=== PATIENT | male | born 1930 | race Caucasian/White ===

== ENCOUNTER → 2016-06-25 | Day surgery (SDC) | payer OTHER ==
[~2016-06-25] VITALS: Ht 177.8 cm; Wt 77.1 kg
[~2016-06-25] MED LIST: ALBUTEROL0.09 MG/A1 INH; AUGMENTIN 500-1 EACH PO; AUGMENTIN 875 M1 TAB PO; BACTRIM DS TAB1 EACH PO; CALCIUM 600-D 61 TAB PO; CALCIUM600 M2 PO; CIPROFLOXACIN500 M2 PO; COLACE100 M1 PO; COLACE100 MG PO; DOFETILIDE PO; DOK100 M1 PO; FUROSEMIDE40 MG PO; IRON325 M1 PO; IRON325 M3 PO; LASIX40 M1 PO; LEVOTHYROXIN0.088 M1 PO; LEVOTHYROXINE88 MCG PO; LOPRESSOR 25MG25 MG PO; NATURAL IRON65 MG PO; PERCOCET 5-3251 EACH PO; PRAVASTATIN SOD40 MG PO; PROAIR HFA8.5 GM INH; SYMBICORT 160/41 PUF INH; SYMBICORT 16010.2 GM INH; TIKOSYN125 MCG PO; TOPROL XL25 M1 PO; TOPROL XL25 MG PO; VANCO 750750 MG/250 IV
[2016-06-25 07:28] LABS: ABSOLUTE BASOPHIL COUNT 0 /CUMM (0.0-0.2); ABSOLUTE EOSINOPHIL COUNT 0.3 /CUMM (0.0-0.7); ABSOLUTE GRANULOCYTE CT 5.8 /CUMM (1.4-6.5); ABSOLUTE LYMPH COUNT 0.7 /CUMM (1.2-3.4); ABSOLUTE MONOCYTE COUNT 0.7 /CUMM (0.10-0.60); BASOPHIL % 0.3 % (0.0-2.0); EOSINOPHIL % 3.5 % (0-5); GRANULOCYTE % 77.3 % (42.2-75.2); HEMATOCRIT 32.9 % (42-52); MEAN CORPUSCULAR HGB 29.4 PG (27.0-31.0); MEAN CORPUSCULAR HGB CONC 32.8 G/DL (33.0-37.0); MEAN CORPUSCULAR VOLUME 89.7 FL (80.0-94.0); MEAN PLATELET VOLUME 8.7 FL (7.4-10.4); PLATELET COUNT 213 /CUMM (130-400); RBC DISTRIBUTION WIDTH 14.3 % (11.5-14.5); RED BLOOD CELL CT 3.67 /CUMM (4.70-6.10); WHITE BLOOD CELL COUNT 7.5 /CUMM (4.8-10.8)
--- NOTE | 2016-06-25 14:05 | RADIOLOGY REPORT ---
EXAMINATION: Intraoperative fluoroscopy CLINICAL INDICATION: Left ureteroscopy with stent exchange COMPARISON: CT abdomen pelvis 01/30/2016 TECHNIQUE: Intraoperative fluoroscopy was provided for Dr. Fields during a left ureteroscopy and sent exchange. 10 images were saved to PACS. Total fluoroscopic time: 2.5 minutes. FINDINGS/IMPRESSION: Intraoperative fluoroscopy was provided for Dr. Fields during a left ureteroscopy with stent exchange. Please see operative note for detailed findings.
--- NOTE | 2016-06-25 17:19 | Operative Report ---
Operative/Inv Procedure Report Surgery Date: 06/25/16 Name of Procedure: Cystoscopy. Left flexible ureteroscopy with retrograde pyelogram, selective cytology on the left, left stent exchange. Suprapubic tube exchange. Laser fulguration of left mid calyx transitional cell tumor. 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 Post-Operative Diagnosis: Same Estimated Blood Loss: scant Surgeon/Child Care Group Leader: AVERY ROME MD Anesthesia: local monitored anesthesi Drains: New 20 Moroccan Ritchie used as a suprapubic tube, and new 18 Moroccan urethral Ritchie. Specimens: Left renal pelvis selective cytology Operative/Procedure Note Note: The patient was taken to the operating room and placed on the OR table in supine position. Timeout was performed, with the patient awake, in order to confirm correct patient, procedure, laterality, and other pertinent nica-operative information. After adequate anesthesia and antibiotics, the patient was then placed in lithotomy stirrups, draped and prepped in the usual surgical fashion. The Holmium Yag Laser was confirmed in the room on standby. A 22 Moroccan cystoscope sheath with 30 angle lens was inserted into the bladder without difficulty. Upon entering the bladder, the bladder was noted to be free of tumor free of stone. The left orifice was noted to have an old stent in place. The stent was grasped with alligator forcep, and the cystoscope along with entire left stent was removed. The cystoscope was then reinserted, and the left ureter orifice was intubated with an 8fr cone-tip catheter. A Retrograde pyelogram with fluoroscopy was performed revealing no significant filling defects. The cone-tipped catheter was removed, followed by insertion of a 0.035 Glidewire, which was advanced into the left renal pelvis without difficulty. Placement was confirmed with fluoroscopy. Leaving the Glidewire in place. flexible ureteroscope was inserted over the gluidewire, and railroaded over the wire into the bladder, up the ureter, and into the left renal pelvis, with fluoroscopy visualization. Pyeloscopy/calyxoscopy of the upper, middle, and lower poles reveal no evidence of stones, however, multiple areas of small papillary lesions were noted in the left renal calyx, and left lower pole calyx. A ureteroscopic biopsy forceps was inserted into the ureteroscope to attempt biopsy. Unfortunately of lesions were noted to be extremely fragile and the specimen were washed out prior to obtaining specimen. However selective cytology was performed and sent to pathology. The 200 m YAG laser fiber was then inserted through the flexible ureteroscope, where laser fulguration of the transitional cell lesions were performed in order to achieve good hemostasis, and fulgurate the transitional cell carcinoma appearing lesions. At this point the laser was disengaged. The entire length of the ureter was also visualized carefully on the way out, and no stones, or tumor was seen. The 22 Moroccan cystoscope was then reinserted into the bladder .the left orifice was intubated with a 0.035 Glidewire, which was advanced into the left renal pelvis without difficulty. Over this Glidewire, a 7 x 24 Bard onlay stent was railroaded over the Glidewire. The stent was advanced without significant difficulty into the left renal pelvis were placement was confirmed on fluoroscopy. The Glidewire was removed, and the stent remained in good position. This is to be used for reflux mitomycin treatment in the near future. The bladder was then drained, after the cystoscope was removed. The old Ritchie catheter used as a suprapubic tube was removed, followed by insertion of a new 20 Moroccan Ritchie catheter with 10 mL of sterile water was placed into the balloon. In order to minimize incontinence, a new 18 Moroccan Ritchie catheter was inserted into the urethra, and upon entering the bladder, 10 mL of sterile water was placed into the balloon. All sponge needle and instrument count were correct at the end of the case. The patient tolerated the procedure well was then taken to the recovery room in satisfactory condition. The patient is to follow-up next week for POC, and first mitomycin treatment. Findings: Papillary lesions in the left mid calyx, and left lower pole calyx. Discharge Disposition: Same Day Admissions CC: WILD WALLACE,AVERY
== END ==
LOC: STS 01:11
PROVIDERS: Urology
DX: D41.12 Neoplasm of uncertain behavior of left renal pelvis (principal); N28.9 Disorder of kidney and ureter, unspecified; R31.0 Gross hematuria; Z85.46 Personal history of malignant neoplasm of prostate; I50.9 Heart failure, unspecified; Z22.322 Carrier or suspected carrier of Methicillin resistant Staphylococcus aureus; I25.2 Old myocardial infarction; I48.91 Unspecified atrial fibrillation
CPT/HCPCS: 36415; 74000; 88305; 93005; 93010; C2617; J0131; J0690; J1940

== ENCOUNTER 2016-10-01 10:44 | Inpatient (IN) | payer OTHER ==
[~2016-10-01] VITALS: Ht 177.8 cm; Wt 77.1 kg
[~2016-10-01 10:44] MED LIST changes: -CIPROFLOXACIN500 M2 PO; -VANCO 750750 MG/250 IV
--- NOTE | 2016-10-01 11:16 | NUR ---
Pt BIBA from home for lower abdominal pain x 4 days. Pt states he has a hx of renal cancer and has a suprapubic tube in place. Pt states he had a normal bm yesterday. +nausea. Per EMS meditronic nurse called to check on patient because patient has a pacer/defib in place and was noted to have a run of polymorphic VT with VF and was defib. Pt states he had no idea his pacer went off and her has no chest pain. Dr. Fields at bedside to check suprapubic tube. Pt to noted to have low grade temp of 100 and MD aware. Pt has a hx of ischemic cardiomyopathy. [employer] wants patient to have device interigated.
--- NOTE | 2016-10-01 11:33 | NUR ---
LEG BAG CHANGED. SUPRAPUBIC ASSESSED AND OLD SATURATED DRESSINGS DISCARDED. SIGNIFICANT LEAKING NOTED FROM PENIS. PT ENDORSES SIGNIFICANT LOWER ABD PAIN, NAUSEA WITH MOVEMENT, LETHARGY, WEAKNESS AND RECENT USE OF WALKER TO MOBILITY AT HOME. APPEARS PALE. PT TO CT
--- NOTE | 2016-10-01 11:54 | NUR ---
LABS DRAWN AND SENT BY THIS [facility], BLUE,SST,LAV,HOLCOMB, 1ST SET OF CULTURES.
--- NOTE | 2016-10-01 11:57 | NUR ---
BLOODWORK DRAWN AND SENT (BLUE, SST, LAV, MEJÍA, PINK, BLOOD CULTURES X2 SETS) AND IV ESTABLISHED. PT MEDICATED WITH ZOFRAN PER ORDER AND PLACED ON SUPPLIMENTAL O2 FOR SAT 90-91% ON ROOM AIR. IMPROVED TO 95% ON 2L
[2016-10-01 12:12] LABS: ABSOLUTE BASOPHIL COUNT 0 /CUMM (0.0-0.2); ABSOLUTE EOSINOPHIL COUNT 0 /CUMM (0.0-0.7); ABSOLUTE LYMPH COUNT 0.2 /CUMM (1.2-3.4); ABSOLUTE MONOCYTE COUNT 0.9 /CUMM (0.10-0.60); BASOPHIL % 0 % (0.0-2.0); EOSINOPHIL % 0.1 % (0-5); GRANULOCYTE % 93.5 % (42.2-75.2); HEMATOCRIT 28.4 % (42-52); MEAN CORPUSCULAR HGB 29.1 PG (27.0-31.0); MEAN CORPUSCULAR HGB CONC 33.2 G/DL (33.0-37.0); MEAN CORPUSCULAR VOLUME 87.9 FL (80.0-94.0); MEAN PLATELET VOLUME 8.7 FL (7.4-10.4); PLATELET COUNT 214 /CUMM (130-400); RBC DISTRIBUTION WIDTH 14.6 % (11.5-14.5); RED BLOOD CELL CT 3.23 /CUMM (4.70-6.10)
--- NOTE | 2016-10-01 12:19 | NUR ---
PER CARDIOLOGY OFFICE, PT TO STOP TIKOSYN ANTIARRYTHMIC MEDICINE IMMEDIATELY. KIA BENSON, PT AND FAMILY AWARE
--- NOTE | 2016-10-01 12:24 | CT SCAN REPORT ---
EXAM: NONCONTRAST CT OF THE CHEST; NONCONTRAST CT OF THE ABDOMEN AND PELVIS INDICATION: Increased weakness, confusion, shortness of breath, abdominal pain, history of renal cancer COMPARISON: 04/03/2016, 01/30/2016 TECHNIQUE: No IV contrast was utilized. Multidetector helical imaging was performed through the chest, abdomen, and pelvis. Coronal and sagittal reformatted images were created at the technologist workstation. DLP: 453.40 mGy-cm FINDINGS: Chest: There is a redemonstrated rounded region of opacification in the right lower lobe with associated volume loss, favoring rounded atelectasis. Additional subsegmental atelectasis/scarring is present in the mid to lower right lung. Additional curvilinear atelectasis/scarring in the left upper lobe appears stable. There are a few tiny nodules in the left lower lobe (series 604, images 91 and 102/339) which are without significant change from prior. A few calcified granulomas are redemonstrated in the right lung. There is a redemonstrated small right pleural effusion with associated pleural thickening, not significantly changed. Bilateral calcified pleural plaques are again noted, favoring sequelae of prior specimens exposure. The visualized thyroid gland is unremarkable. Patient is status post CABG. There is redemonstration of a calcified subcarinal lymph node, consistent with sequelae of prior granulomatous disease. No mediastinal lymphadenopathy is seen. There is cardiomegaly without pericardial effusion. No axillary lymphadenopathy is present. Patient is status post median sternotomy. Abdomen/Pelvis: The liver is homogeneous in attenuation without intrahepatic biliary ductal dilatation. The gallbladder is unremarkable. The unenhanced spleen, pancreas, and adrenal glands are within normal limits. There are multiple fluid density lesions in the bilateral kidneys, favoring cysts. Assessment of the renal parenchyma is limited in the absence of intravenous contrast. No hydronephrosis bilaterally. There is a left ureteral stent with the proximal end in the region of the upper pole calyces and the distal end likely in the urinary bladder, suboptimally seen due to artifact from hip prostheses. Nonspecific stranding is noted in the left renal hilum. No renal or ureteral calculi are present. The urinary bladder is decompressed, with a suprapubic catheter in place. Prostatic brachytherapy seeds are noted; the prostate is not well seen due to artifact in this region. There is a moderate amount of stool in the colon. No abnormal bowel wall thickening is seen. Colonic diverticulosis is noted. No evidence of bowel obstruction. The appendix is not discretely visualized. No free fluid or free air is present. There are small bilateral fat-containing inguinal hernias. There has been removal of prior penile implant since 01/30/2016. There is atherosclerotic calcification along the aorta and iliac arteries. Bilateral iliac stents are noted. No lymphadenopathy is seen, though assessment is somewhat limited in the absence of intravenous contrast. Degenerative changes are noted in the spine. Partial compression deformity of T12 appears unchanged from 04/03/2016. IMPRESSION: 1. No new acute findings identified in the chest, abdomen, or pelvis. 2. Redemonstrated region of probable rounded atelectasis in the right lower lobe. Stable small right pleural effusion with associated pleural thickening. 3. Stable few tiny left lower lobe lung nodules, nonspecific. No new nodules identified. 4. Left ureteral stent in place. No appreciable hydronephrosis. Nonspecific stranding in the left renal hilum. Multiple low-density bilateral renal lesions, favoring cysts.
--- NOTE | 2016-10-01 12:39 | NUR ---
PT NOTED TO BE HYPOTENSIVE 80'S/50'S AND PACED RATE 70'S. REMAINS AWAKE AND ALERT, ABLE TO CONVERSATE AND MENTATING APPROPRIATELY. MEDICATED PER eMAR
--- NOTE | 2016-10-01 12:45 | NUR ---
DR METZGER TO BEDSIDE FOR EVALUATION. PLAN FOR EVAL AND CONSULT WITH CHECK AND TRANSFER BEADER DR GOMEZ.
--- NOTE | 2016-10-01 13:08 | NUR ---
ELEVATOR SERVICE MECHANIC AT BEDSIDE FOR EVAL
--- NOTE | 2016-10-01 13:28 | NUR ---
plan for eval and interrigation by [employer] for lcw port. BP improved 103/56 and paced rate 70's. Appears more alert, coloring improved. suprapubic dressing changed
[2016-10-01] MEDS ORDERED: CIPROFLOXACIN500 M2 PO (14:26)
--- NOTE | 2016-10-01 14:59 | NUR ---
HOUSE STAFF AT BEDSIDE FOR EVAL. PT'S MENTATION AND BP REMAIN STABLE
--- NOTE | 2016-10-01 15:04 | History & Physical ---
VIJAYA WALLACE,[facility] 10/01/16 1503: General Information and HPI MD Statement: I have seen and personally examined BAKARI DE LA ROSA and documented this H&P. The patient is a 85 year old M who presented with a patient stated chief complaint of generalized weakness Source of Information: patient, family Exam Limitations: no limitations History of Present Illness: This is a 85-year-old very pleasant gentleman with a past medical history of CAD status post CABG in 1989, [place] in and angioplasty 2009, paroxysmal A. fib on Tikosyn but not on anticoagulation due to history of bleeding, CHF with reduced ejection fraction and on biventricular defibrillator, transitional cell carcinoma, bladder cancer,recurrent hematuria and status post chronic Ritchie placement, presents to [place] [facility] for evaluation of progressively worsening generalized weakness. Patient is accompanied by his who gives a detail history. Patient is reported for the past couple weeks to have had increased generalized weakness with some suprapubic pain and was reported to have a foul urine/stooL. He also reports shortness of breath with exertion but states that this is chronic, and chills (did not check temp). He denies any nausea, vomiting, sick contacts, recent travel dizziness,or any focal neurological deficit. Pt spouse reports that patient's urologist started him on ciprofloxacin 500 mg twice a day for the past 4 weeks with resolution of the foul smell. Today, patient was reported to have had 10 out of 10 suprapubic pain and was unable to get off the couch and therefore spouse decided to activate EMS. Of note, patient also received a phone call from the [employer] instructor adjunct surgical technician notifying him that his defibrillator had fired due to a reading of possible polymorphic ventricular tachycardia. However patient denies any chest pain, right palpitations or any feeling of a defibrillator going off. He he reports that he has been defibrillated before and states that today's experience was not similar. Allergies/Medications Allergies: Coded Allergies: sitagliptin (From [employer]) (Mild, RASH 08/12/15) mirabegron (UNKNOWN 08/12/15) Home Med list Albuterol Sulfate (Proair Hfa) 8.5 GM HFA.AER.AD 2 PUF INH PRN ASTHMA ( Reported) Ciprofloxacin HCl 500 MG TABLET 1 TAB PO BID UTI (Reported) Docusate Sodium (Colace) 100 MG CAPSULE 1 CAP PO DAILY STOOL SOFTENER ( Reported) Dofetilide (Tikosyn) 125 MCG CAPSULE 1 CAP PO BID HEART (Reported) Furosemide (Lasix) 40 MG TABLET 1 TAB PO DAILY WATER PILL (Reported) Levothyroxine Sodium 88 MCG TABLET 1 TAB PO DAILY THYROID (Reported) Metoprolol Succ XL (Toprol XL) 25 MG TAB 0.5 TAB PO BID HEART (Reported) Oxycodone HCl/Acetaminophen (Percocet 5-325 MG Tablet) 1 EACH TABLET 1 TAB PO Q4P PRN PAIN SCALE 1-3 (MILD) Oxycodone HCl/Acetaminophen (Percocet 5-325 MG Tablet) 1 EACH TABLET 2 TAB PO Q4P PRN PAIN SCALE 4-6 (MODERATE) Pravastatin Sodium 40 MG TABLET 40 MG PO DAILY CHOLOSTEROL (Reported) Past History Travel History Traveled to [place] past 21 day No Medical History Neurological: FORGETFUL AT TIMES EENT: hearing loss Cardiovascular: AFIB, hypertension, hyperlipidemia, ACUTE MYOCARDIAL INFARCTION PACEMAKER/DEFIB Respiratory: COPD Gastrointestinal: NONE Hepatic: NONE Renal: chronic kidney disease, KIDNEY CANCER Musculoskeletal: falls Psychiatric: NONE Endocrine: hypothyroidism Blood Disorders: NONE Cancer(s): KIDNEY CANCER transitional cell with recurrent hematuria 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 Psychosocial History Services at Home: None Living Will? no Functional Ability ADLs Independent: dressing, eating, toileting, bathing. Ambulation: independent, cane, walker, non-ambulatory IADLs Independent: shopping, housework, finances, food prep, telephone, transportation , medication admin. Review of Systems Review of Systems Constitutional: Reports: malaise, weakness. EENTM: Denies: blurred vision, double vision, ear discharge. Cardiovascular: Denies: chest pain, edema, orthopena, palpitations, peripheral edema, syncope. Respiratory: Reports: short of breath. GI: Reports: abdominal pain. Denies: bowel incontinence, melena, bloody stool. Genitourinary: Reports: frequency. Musculoskeletal: Reports: no symptoms. Skin: Reports: no symptoms. Neurological/Psychological: Reports: no symptoms. Hematologic/Endocrine: Reports: no symptoms. Immunologic/Allergic: Reports: no symptoms. Exam & Diagnostic Data Last 24 Hrs of Vital Signs/I&O Vital Signs Date Time Temp Pulse Resp B/P B/P Pulse O2 O2 Flow FiO2 Mean Ox Delivery Rate 10/01 1714 18 98 Nasal 1.0L Cannula 10/01 1713 98.1 75 18 112/58 98 Nasal 2.0L Cannula 10/01 1654 98 Nasal 1.0L Cannula 10/01 1459 97.9 77 16 105/57 99 Nasal 2.0L Cannula 10/01 1438 76 16 105/57 99 Nasal 2.0L Cannula 10/01 1418 74 18 108/58 98 Nasal 2.0L Cannula 10/01 1331 98.0 75 16 103/58 98 Nasal 2.0L Cannula 10/01 1302 98.9 75 16 99/54 99 Nasal 2.0L Cannula 10/01 1249 98.9 74 16 90/50 99 Nasal 2.0L Cannula 10/01 1234 79 86/44 10/01 1136 84 16 102/59 96 Room Air 10/01 1113 96 Room Air 10/01 1051 100.3 77 18 121/59 93 Room Air Intake & Output 10/01 1600 10/01 0800 10/01 0000 Intake Total 1100 Output Total 350 Balance 750 Intake, IV 1100 Output, Urine 350 Physical Exam General Appearance Alert, Oriented X3, Cooperative Skin No Significant Lesion Skin Temp/Moisture Exam: Warm/Dry Sepsis Skin Exam (color): Normal for Ethnicity HEENT Atraumatic, PERRLA, Mucous Membr. moist/pink Neck Supple, No JVD Cardiovascular Regular Rate, Normal S1, Normal S2 Lungs Clear to Auscultation, Normal Air Movement Abdomen Normal Bowel Sounds, Soft, mild suprapubic tenderness. Ritchie intact with some erythema around the area, with no discharge or swelling. Neurological Normal Speech, Normal Tone, Sensation Intact Extremities No Edema, Normal Pulses, No Tenderness/Swelling Vascular Pulses Symmetrical Sepsis Peripheral Pulse Location: Radial Sepsis Peripheral Pulse Exam: Normal Sepsis Cap Refill Exam: <2 Sec Last 24 Hrs of Labs/Apolinar: Laboratory Tests 10/01/16 1757: Troponin I 0.02 10/01/16 1700: Lactic Acid 1.8 10/01/16 1426: Lactic Acid Cancelled 10/01/16 1149: Anion Gap 11, Estimated GFR 38 L, BUN/Creatinine Ratio 18.8, Glucose 179 H, Lactic Acid 1.1, Calcium 8.2 L, Magnesium 2.1, Total Bilirubin 1.0, AST 25, ALT 36, Alkaline Phosphatase 126, Troponin I 0.01, Total Protein 6.9, Albumin 3.2 L , Globulin 3.7, Albumin/Globulin Ratio 0.9 L, CBC w Diff MAN DIFF ORDERED, RBC 3.23 L, MCV 87.9, MCH 29.1, RDW 14.6 H, MPV 8.7, Gran % 93.5 H, Lymphocytes % 1.0 L, Monocytes % 5.4, Eosinophils % 0.1, Basophils % 0 L, Absolute Granulocytes 15.0 H, Segmented Neutrophils 84 H, Band Neutrophils 11 H, Absolute Lymphocytes 0.2 L, Lymphocytes 2 L, Monocytes 3, Absolute Monocytes 0.9 H, Absolute Eosinophils 0, Absolute Basophils 0, Platelet Estimate ADEQUATE , Normocytic RBCs VERIFIED, Normochromic RBCs VERIFIED, PUBS MCHC 33.2 10/01/16 1131: Urinalysis LIGHT H, Urine Color YEL, Urine Clarity HAZY H, Urine pH 6.0, Ur Specific [place] 1.015, Urine Protein 30 H, Urine Ketones NEG, Urine Nitrite POS H, Urine Bilirubin NEG, Urine Urobilinogen 0.2, Ur Leukocyte Esterase LARGE H, Ur Microscopic SEDIMENT EXAMINED, Urine RBC 50-75 H, Urine WBC > 75 H, Urine Bacteria MOD H, Urine Mucus FEW, Urine Hemoglobin MOD H, Urine Glucose NEG Microbiology 10/01 1153 BLOOD: Blood Culture - RECD 10/01 1149 BLOOD: Blood Culture - RECD 10/01 1131 URINE ROUT: Urine Culture - RECD Diagnostic Data EKG Results paced atrial/ventricle. No acute ischemic changes Assessment/Plan Assessment: This is a 85-year-old gentleman with an extensive cardiac history of CAD status post CABG, stent placement, paroxysmal A. fib, CHF with EF of 30-35%, and on pacemaker defibrillator, multiple urological malignancy and on chronic suprapubic catheter presents for evaluation of generalized malaise. Patient presents with symptomatic urinary complaints and is found to have a UA suggestive of a UTI and leukocytosis. He was currently on ciprofloxacin 500 mg twice a day 4 week course which she reports resolution of the foul smell but still persistent suprapubic pain and some incontinence. Coincidently, patient also had an episode of silent defibrillator ration with a suggestion of a possible V. tach. Patient was alert and symptomatic and was not aware of his possible cardiac episode. Impression * Urinary tract infection. Presenting with symptoms of suprapubic pain with increased incontinence with a UA suggestive of UTI and leukocytosis. Status post 4 weeks of ciprofloxacin 500 mg twice a day treatment. * Silent defibrillatory shock from possible V. tach. Reported by [employer] instructor adjunct surgical technician. However patient was a symptomatic and did not feel any defibrillation current. It is possible the patient's Tikosyn and in combination of ciprofloxacin could have had a QT prolonging effect and exposed patient to possible V-tach. Myocardial ischemia is also a possibility however patient is not presenting with any symptoms. Plan Admit to telemetry for close cardiac monitoring Will trend serial troponins and EKG to rule out ACS Will continue ceftriaxone IV for UTI and follow-up on urine cultures Will await defibrillator interrogation by [employer] instructor adjunct surgical technician Will discontinue Tikosyn and ciprofloxacin Will await further neurology recommendations We'll await further cardiology recommendation Heparin subcutaneous for DVT As Ranked By This Provider Problem List: 1. UTI (urinary tract infection) Core Measures/Miscellaneous Acute Coronary Syndrome ACS Diagnosis: No Cerebrovascular Accident CVA/TIA Diagnosis: No Congestive Heart Failure CHF Diagnosis: No Venous Thromboembolism VTE Risk Factors: Age > 40, Cancer/chemo/oth therapy No Mech VTE prophylaxis d/t: No contraindications No VTE Pharm Prophylaxis d/t: No contraindications VTE Diagnosis: No VTE Type: NONE VTE Confirmed by (Test): NONE Severe Sepsis Severe Sepsis Present: No Septic Shock Septic Shock Present: No Miscellaneous Documentation Attending Case Discussed With: CONNER WALLACEERIBERTO Primary Care Physician: [facility] Patient sees these Specialists CARDIOLOGY UROLOGIST Level of Patient Care: Telemetry BRENDA LIRA 10/01/16 1605: Resident Review Statement Resident Statement: discussed with commercial intern Other Findings: He is 85-year-old man with past medical history of coronary artery disease status post CABG in 1989, paroxysmal A. 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 He also has history of chronic complex right-sided loculated pleural effusion status post lytic therapy, history of COPD, chronic anemia, chronic kidney disease, hypothyroidism and osteoarthritis. Pt BIBA from home for lower abdominal pain x 4 days that got worse this morning. Patient was also feeling generalized weakness and lethargy for last 3 weeks. He was started on ciprofloxacin 500 mg twice a day by Dr. Fields 4 weeks ago for UTI. Per EMS meditronic nurse called to check on patient because patient has a pacer/defib in place and was noted to have a run of polymorphic VT with VF and was Fired. Patient denies feeling AICD firing. Currently he denies any chest pain, discomfort, breathing difficulty, dizziness or lightheadedness. told us that he was complaining of dizziness last night. His appetite was not good recently. Normally he walks with walker and his mobility is limited. He sees Dr. Fields, Dr. Mcdowell and Dr. Harmon as an outpatient. His suprapubic catheter was changed by Dr. Fields on 09/23/2016. He is also complaining of leakage of urine around the suprapubic catheter. Denies any nausea, vomiting, diarrhea or constipation. No history of hematuria, bloody or black stools. Vitals on admission: Temperature 100.3, heart rate 77, respiratory 18, blood pressure 121/59 and oxygen saturation 93% on room air. Later on his blood pressure dropped down to 86/48 and he was given IV fluids. He was also saturating 90-91% on room air and was put on 2 L of oxygen via nasal cannula. Pertinent physical exam findings: Systolic murmur on heart auscultation, abdomen is soft, nondistended and nontender. Skin surrounding suprapubic catheter is erythematous. No leakage of urine or discharge around suprapubic catheter at the moment of physical exam. Pertinent labs: WBC count 16.0 with 11 bands, H&H 9.4/28.4 (baseline), sodium 136, BUN 32, creatinine 1.7 (baseline), troponin 0.01, UA is positive for leukocyte esterase and nitrite. Urine WBC count is > 75. CT chest and abdomen pelvis without contrast did not show any acute finding. EKG: No acute ST-T wave changes. QTC 510 Assessment and plan He is 85-year-old man with extensive complicated past medical history is going to be admitted on telemetry floor for: 1. Episode of polymorphic V. tach/VF status post AICD firing. Patient is on dofetilide and at the same time he was also taking ciprofloxacin for last 4 weeks. Combination of both medication increases risk for QTc prolongation and then torsades. Other causes could be urosepsis. Electrolyte imbalance can be a possibility but on admission his electrolytes were not deranged. According to patient his defibrillator was interrog[address] Dillard office and everything was okay. Acute coronary syndrome could be a possibility but patient is asymptomatic. Echocardiogram 08/06/2015 showed hypokinetic inferolateral wall with ejection fraction 30-35%. 2. Urosepsis. Patient was febrile and high WBC count with left shift. Patient is status post treatment with ciprofloxacin for 4 weeks PLAN * Monitor vitals closely * Continue telemetry monitoring and watch for arrhythmias * Keep oxygen saturation more than 92% * Check electrolytes daily and replete accordingly * Serial EKGs and troponins to rule out ACS * Follow-up cardio recommendations * Follow-up urology recommendations * Continue IV ceftriaxone for UTI * Follow-up blood and urine cultures * We'll hold dofetilide, ciprofloxacin, Lasix * AICD interrogation by [employer] * Pain management pathway * Regular diet * Subcutaneous heparin for DVT prophylaxis * Patient is DNR/DNI CONNER WALLACE,[facility] 10/05/16 1127: Attending MD Review Statement Attending Statement Attending MD Statement: examined this patient, discuss w/resident/PA/PAPERBOARD BOX MAKER, agreed w/resident/PA/PAPERBOARD BOX MAKER, discussed with family, reviewed EMR data (avail), discussed with nursing, reviewed images, amended to note Attending Assessment/Plan: Also see my separate addendum.
--- NOTE | 2016-10-01 15:05 | PN- Att Addend ---
Attending Addendum Attending Brief Note 85-year-old male with past medical history significant for coronary artery disease, status post CABG in 1989, history of PA, angioplasties, history of chronic systolic CHF, history of paroxysmal A. 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 Suprapubic tube exchange. Laser fulguration of left mid calyx transitional cell tumor in June 2016, then another suprapubic cath exchabge on and has been started on Cipro from last 3 weeks or so for UTI who is presenting with generalized weakness. Patient has been completing of lower abdominal pain from last 3 days. He claims that any kind of movement increases the pain and he graded the pain is 10 out of 10 in intensity. It was mostly sharp, no radiation. He denies any fevers at home. He was very weak and was not able to get up. He also felt nauseous but the denies any vomiting. There is no history of any diarrhea or constipation. His pacemaker/defibrillator also had captured the run of V. tach that was captured at his merchandising internship's office. In the emergency room patient was found to have a low-grade temp of 100.3 and he was found to be hypotensive but he has responded to IV fluids. Vital Signs Date Time Temp Pulse Resp B/P B/P Pulse O2 O2 Flow FiO2 Mean Ox Delivery Rate 10/01 1438 76 16 105/57 99 Nasal 2.0L Cannula 10/01 1418 74 18 108/58 98 Nasal 2.0L Cannula 10/01 1331 98.0 75 16 103/58 98 Nasal 2.0L Cannula 10/01 1302 98.9 75 16 99/54 99 Nasal 2.0L Cannula 10/01 1249 98.9 74 16 90/50 99 Nasal 2.0L Cannula 10/01 1234 79 86/44 10/01 1136 84 16 102/59 96 Room Air 10/01 1113 96 Room Air 10/01 1051 100.3 77 18 121/59 93 Room Air on exam; aox3, nad. cv; s1,s2, rrr, + systolic murmur. resp; clear b/l abd; soft, mildly tender in lower abd. bs+. No discharge noted around suprapubic cath site. Some erythema. ext; no edema. peripheral pulses plapable. Laboratory Tests 10/01 10/01 1426 1149 Chemistry Sodium (137 - 145 mmol/L) 136 L Potassium (3.5 - 5.1 mmol/L) 3.7 Chloride (98 - 107 mmol/L) 100 Carbon Dioxide (22 - 30 mmol/L) 25 Anion Gap (5 - 16) 11 BUN (9 - 20 mg/dL) 32 H Creatinine (0.7 - 1.2 mg/dL) 1.7 H Estimated GFR (>60 ml/min) 38 L BUN/Creatinine Ratio (7 - 25 %) 18.8 Glucose (65 - 99 mg/dL) 179 H Lactic Acid (0.7 - 2.1 mmol/L) Cancelled 1.1 Calcium (8.4 - 10.2 mg/dL) 8.2 L Magnesium (1.6 - 2.3 mg/dL) 2.1 Total Bilirubin (0.2 - 1.3 mg/dL) 1.0 AST (17 - 59 U/L) 25 ALT (21 - 72 U/L) 36 Alkaline Phosphatase (< 127 U/L) 126 Troponin I (<0.11 ng/ml) 0.01 Total Protein (6.3 - 8.2 g/dL) 6.9 Albumin (3.5 - 5.0 g/dL) 3.2 L Globulin (1.9 - 4.2 gm/dL) 3.7 Albumin/Globulin Ratio (1.1 - 2.2 %) 0.9 L Hematology CBC w Diff MAN DIFF ORDERED WBC (4.8 - 10.8 /CUMM) 16.0 H RBC (4.70 - 6.10 /CUMM) 3.23 L Hgb (14.0 - 18.0 G/DL) 9.4 L Hct (42 - 52 %) 28.4 L MCV (80.0 - 94.0 FL) 87.9 MCH (27.0 - 31.0 PG) 29.1 RDW (11.5 - 14.5 %) 14.6 H Plt Count (130 - 400 /CUMM) 214 MPV (7.4 - 10.4 FL) 8.7 Gran % (42.2 - 75.2 %) 93.5 H Lymphocytes % (20.5 - 51.1 %) 1.0 L Monocytes % (1.7 - 9.3 %) 5.4 Eosinophils % (0 - 5 %) 0.1 Basophils % (0.0 - 2.0 %) 0 L Absolute Granulocytes (1.4 - 6.5 /CUMM) 15.0 H Segmented Neutrophils (42.2 - 75.2 %) 84 H Band Neutrophils (0.0 - 5.0 %) 11 H Absolute Lymphocytes (1.2 - 3.4 /CUMM) 0.2 L Lymphocytes (20.5 - 51.1 %) 2 L Monocytes (1.7 - 9.3 %) 3 Absolute Monocytes (0.10 - 0.60 /CUMM) 0.9 H Absolute Eosinophils (0.0 - 0.7 /CUMM) 0 Absolute Basophils (0.0 - 0.2 /CUMM) 0 Platelet Estimate (ADEQUATE) ADEQUATE Normocytic RBCs VERIFIED Normochromic RBCs VERIFIED PUBS MCHC (33.0 - 37.0 G/DL) 33.2 10/01 1131 Urines Urinalysis LIGHT H Urine Color (YEL,AMB,STR) YEL Urine Clarity (CLEAR) HAZY H Urine pH (5.0 - 8.0) 6.0 Ur Specific [place] (1.001 - 1.035) 1.015 Urine Protein (NEG,<30 MG/DL) 30 H Urine Ketones (NEG) NEG Urine Nitrite (NEG) POS H Urine Bilirubin (NEG) NEG Urine Urobilinogen (0.1 - 1.0 EU/dl) 0.2 Ur Leukocyte Esterase (NEG) LARGE H Ur Microscopic SEDIMENT EXAMINED Urine RBC (0 - 5 /HPF) 50-75 H Urine WBC (0 - 2 /HPF) > 75 H Urine Bacteria (NEG/NONE) MOD H Urine Mucus (FEW,NONE) FEW Urine Hemoglobin (NEG) MOD H Urine Glucose (N MG/DL) NEG EKG>> paced rhythm. QTC prolonged. All imaging reviewed. A/P; 85-year-old male with past medical history significant for coronary artery disease, status post CABG in 1989, history of PA, angioplasties, history of chronic systolic CHF, history of paroxysmal A. 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 Suprapubic tube exchange. 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 Also found to have episodes of V. tach captured on his defibrillator/pacemaker. This could be the results of Quinolone and Tikosyn prolonging QTC as well as infection. Patient will be admitted to telemetry. Troponins will be checked. Cardiology consult be obtained. Please check with cardiology if echo is indicated. Please make sure that all his electrolytes including Mag are within normal range. Patient's blood pressure responded to IV fluids, we have to be careful with his history of CHF. Can likely stop giving further fluids now at the blood pressures improved. We'll continue ceftriaxone that he received in the emergency room and follow-up on urine cultures. Blood cultures should also be obtained. Lactate shouls be checked and repeated. His Tikosyn should be held for now. Pacmaker to be interrogated. Urology eval. Please stop his Cipro as he will be on ceftriaxone. DVT prophylaxis: Heparin subcutaneous . DNR/I. Discussed with patient's at bedside.
--- NOTE | 2016-10-01 15:16 | ED AMS/SEIZURE/WEAK/DIZZY ---
History of Present Illness General Chief Complaint: Abdominal Pain/Flank Pain Stated Complaint: TACHYCARDIA,UTI/PYELONEPHRITIS Source: patient, family, old records Exam Limitations: no limitations Vital Signs & Intake/Output Vital Signs & Intake/Output Vital Signs Date Time Temp Pulse Resp B/P B/P Pulse O2 O2 Flow FiO2 Mean Ox Delivery Rate 10/07 0009 99.9 79 20 110/48 96 Room Air 10/06 1654 99.7 10/06 1641 100.9 74 20 100/56 96 Room Air 10/06 1219 77 100/50 10/06 0814 98.9 78 18 94/54 95 Room Air 10/06 0241 99.5 ED Intake and Output 10/07 0000 10/06 1200 Intake Total 360 390 Output Total 100 300 Balance 260 90 Intake, IV 150 Intake, Oral 360 240 Number 0 Bowel Movements Output, Urine 100 300 Patient 170 lb Weight Allergies Coded Allergies: sitagliptin (From [facility]) (Mild, RASH 08/12/15) mirabegron (UNKNOWN 08/12/15) Reconcile Medications Albuterol Sulfate (Proair Hfa) 8.5 GM HFA.AER.AD 2 PUF INH PRN ASTHMA ( Reported) Ciprofloxacin HCl 500 MG TABLET 1 TAB PO BID UTI (Reported) Docusate Sodium (Colace) 100 MG CAPSULE 1 CAP PO DAILY STOOL SOFTENER ( Reported) Dofetilide (Tikosyn) 125 MCG CAPSULE 1 CAP PO BID HEART (Reported) Furosemide (Lasix) 40 MG TABLET 1 TAB PO DAILY WATER PILL (Reported) Levothyroxine Sodium 88 MCG TABLET 1 TAB PO DAILY THYROID (Reported) Metoprolol Succ XL (Toprol XL) 25 MG TAB 0.5 TAB PO BID HEART (Reported) Oxycodone HCl/Acetaminophen (Percocet 5-325 MG Tablet) 1 EACH TABLET 1 TAB PO Q4P PRN PAIN SCALE 1-3 (MILD) Oxycodone HCl/Acetaminophen (Percocet 5-325 MG Tablet) 1 EACH TABLET 2 TAB PO Q4P PRN PAIN SCALE 4-6 (MODERATE) Pravastatin Sodium 40 MG TABLET 40 MG PO DAILY CHOLOSTEROL (Reported) Triage Note: Pt BIBA from home for lower abdominal pain x 4 days. Pt states he has a hx of renal cancer and has a suprapubic tube in place. Pt states he had a normal bm yesterday. +nausea. Per EMS meditronic nurse called to check on patient because patient has a pacer/defib in place and was noted to have a run of polymorphic VT with VF and was defib. Pt states he had no idea his pacer went off and her has no chest pain. Dr. Fields at bedside to check suprapubic tube. Pt to noted to have low grade temp of 100 and MD aware. Pt has a hx of ischemic cardiomyopathy. [employer] wants patient to have device interigated. Triage Nurses Notes Reviewed? yes Onset: Abrupt Duration: week(s): (few), constant, continues in ED Timing: recent history Injury Environment: home No Modifying Factors: none HPI: 85-year-old male comes into emergency room with increased weakness over the past 3 weeks. Patient has not been eating. Patient has been complaining of some abdominal pain. Patient was brought in by ambulance because reportedly the patient's pacemaker/defibrillator fired this morning [employer] had a run of V. tach. Patient sees Dr. Harmon from cardiology as well as Dr. Joey fuentes from [place]. Patient denies any chest pain but reports that he's had increasing short of breath recently. He has a suprapubic catheter in place due to renal carcinoma. He sees Dr. Fields. Nothing seems to make the symptoms better. Patient is coming from home. Family is unable to take care of the patient at home any longer. (YEISON ZEE) Past History Travel History Traveled to [place] past 21 day No Medical History Any Pertinent Medical History? 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 Hx Contributory? No (YEISON ZEE) Review of Systems Review of Systems Constitutional: Reports: see HPI. EENTM: Reports: no symptoms. Respiratory: Reports: see HPI. Cardiovascular: Reports: see HPI. GI: Reports: see HPI. Genitourinary: Reports: no symptoms. Musculoskeletal: Reports: no symptoms. Skin: Reports: no symptoms. Neurological/Psychological: Reports: no symptoms. Hematologic/Endocrine: Reports: no symptoms. Immunologic/Allergic: Reports: no symptoms. All Other Systems: Reviewed and Negative (YEISON ZEE) Physical Exam Physical Exam General Appearance: alert, awake Head: atraumatic, normal appearance Eyes: Bilateral: normal appearance. Ears, Nose, Throat: normal ENT inspection, hearing grossly normal Neck: normal inspection Respiratory: normal breath sounds, no respiratory distress Cardiovascular: regular rate/rhythm Gastrointestinal: soft, tenderness Back: normal inspection Extremities: normal range of motion Neurologic/Psych: awake, alert Skin: intact, normal color Core Measures ACS in differential dx? Yes CVA/TIA Diagnosis: No Severe Sepsis Present: Yes BC x2: Yes Lactic Acid x2: Yes IV ABX Broad Spectrum: Yes NS/LR Started: Yes Septic Shock Present: No (YEISON ZEE) Progress Differential Diagnosis: arrythmia, alcohol intoxication, anemia, benign positional vertigo, dehydration, drug intoxication, encephalitis, electrolyte imbalance, GI bleed, hypoglycemia, hypoxia, intracranial Hem., intracranial mass /tumor, labrynthitis, Meniere's disease, presyncope, post-traumatic vertigo, sepsis, seizure disorder, subarachnoid Hem., UTI/pyelo, vertebrobasilar insuff Plan of Care: Orders Procedure Date/time Status CBC WITHOUT DIFFERENTIAL 10/07 0600 Active BASIC ELECTROLYTES PLUS BUN&CR 10/07 0600 Active BASIC ELECTROLYTES PLUS BUN&CR 10/06 0932 Complete CBC WITHOUT DIFFERENTIAL 10/06 0728 Complete Anticipated Discharge 10/06 UNK Active Current Medications Sig/Karin Start time Last Medication Dose Stop Time Status Admin Vancomycin HCl 750 MG Q24 10/07 1000 CAN Vancomycin HCl 750 MG DAILY 10/07 1000 AC Sodium Chloride 250 ML (Normal Saline 0.9%) Dofetilide 125 MCG BID 10/05 1136 AC 10/06 (Tikosyn 125 MCG) 2157 Senna/Docusate Sodium 1 TAB BID 10/04 1000 AC 10/06 (Senokot S) 2156 Docusate Sodium 100 MG DAILY PRN 10/04 0700 AC 10/04 (Colace) 0645 Pravastatin Sodium 40 MG DAILY 10/02 1000 AC 10/06 (Pravachol) 1219 Levothyroxine Sodium 0.088 MG DAILY AC 10/02 0811 AC 10/06 (Synthroid) 0642 Heparin Sodium 5,000 UNIT Q8 10/01 220 AC 10/06 (Porcine) 2156 Metoprolol Tartrate 12.5 MG BID 10/01 220 AC 10/06 (Lopressor) 2156 Acetaminophen 650 MG Q6P PRN 10/01 1515 AC 10/06 (Tylenol) 1501 Laboratory Tests 10/06/16 1130: Anion Gap 8, Estimated GFR 44 L, BUN/Creatinine Ratio 10.7, CBC w Diff NO MAN DIFF REQ, RBC 2.87 L, MCV 87.2, MCH 28.9, RDW 15.1 H, MPV 8.7, Gran % 91.5 H, Lymphocytes % 2.4 L, Monocytes % 4.8, Eosinophils % 1.3, Basophils % 0 L, Absolute Granulocytes 13.3 H, Absolute Lymphocytes 0.3 L, Absolute Monocytes 0.7 H, Absolute Eosinophils 0.2, Absolute Basophils 0, PUBS MCHC 33.1 10/06/16 0725: Magnesium Cancelled 10/06/16 0618: Vancomycin Trough 20.3 H Diagnostic Imaging: Viewed by Me: CT Scan. Discussed w/RAD: CT Scan. Radiology Impression: EXAM TYPE: CAT - CT ABD & PELVIS W/O IV CONTRAS; CT CHEST WO IV CONTRAST EXAM: NONCONTRAST CT OF THE CHEST; NONCONTRAST CT OF THE ABDOMEN AND PELVIS INDICATION: Increased weakness, confusion, shortness of breath, abdominal pain, history of renal cancer COMPARISON: 04/03/2016, 01/30/2016 TECHNIQUE: No IV contrast was utilized. Multidetector helical imaging was performed through the chest, abdomen, and pelvis. Coronal and sagittal reformatted images were created at the technologist workstation. DLP: 453.40 mGy -cm FINDINGS: Chest: There is a redemonstrated rounded region of opacification in the right lower lobe with associated volume loss, favoring rounded atelectasis. Additional subsegmental atelectasis/scarring is present in the mid to lower right lung. Additional curvilinear atelectasis/scarring in the left upper lobe appears stable. There are a few tiny nodules in the left lower lobe ( series 604, images 91 and 102/339) which are without significant change from prior. A few calcified granulomas are redemonstrated in the right lung. There is a redemonstrated small right pleural effusion with associated pleural thickening , not significantly changed. Bilateral calcified pleural plaques are again noted , favoring sequelae of prior specimens exposure. The visualized thyroid gland is unremarkable. Patient is status post CABG. There is redemonstration of a calcified subcarinal lymph node, consistent with sequelae of prior granulomatous disease. No mediastinal lymphadenopathy is seen. There is cardiomegaly without pericardial effusion. No axillary lymphadenopathy is present. Patient is status post median sternotomy. Abdomen/Pelvis: The liver is homogeneous in attenuation without intrahepatic biliary ductal dilatation. The gallbladder is unremarkable. The unenhanced spleen, pancreas, and adrenal glands are within normal limits. There are multiple fluid density lesions in the bilateral kidneys, favoring cysts. Assessment of the renal parenchyma is limited in the absence of intravenous contrast. No hydronephrosis bilaterally. There is a left ureteral stent with the proximal end in the region of the upper pole calyces and the distal end likely in the urinary bladder, suboptimally seen due to artifact from hip prostheses. Nonspecific stranding is noted in the left renal hilum. No renal or ureteral calculi are present. The urinary bladder is decompressed, with a suprapubic catheter in place. Prostatic brachytherapy seeds are noted; the prostate is not well seen due to artifact in this region. There is a moderate amount of stool in the colon. No abnormal bowel wall thickening is seen. Colonic diverticulosis is noted. No evidence of bowel obstruction. The appendix is not discretely visualized. No free fluid or free air is present. There are small bilateral fat-containing inguinal hernias. There has been removal of prior penile implant since 01/30/2016. There is atherosclerotic calcification along the aorta and iliac arteries. Bilateral iliac stents are noted. No lymphadenopathy is seen, though assessment is somewhat limited in the absence of intravenous contrast. Degenerative changes are noted in the spine. Partial compression deformity of T12 appears unchanged from 04/03/2016. IMPRESSION: 1. No new acute findings identified in the chest, abdomen, or pelvis. 2. Redemonstrated region of probable rounded atelectasis in the right lower lobe. Stable small right pleural effusion with associated pleural thickening. 3. Stable few tiny left lower lobe lung nodules, nonspecific. No new nodules identified. 4. Left ureteral stent in place. No appreciable hydronephrosis. Nonspecific stranding in the left renal hilum. Multiple low-density bilateral renal lesions, favoring cysts. DICTATED BY: GUTIERREZ TREVINO MD DATE/TIME DICTATED:10/01/161201 DEMOGRAPHER:CHACE Initial ED EKG: rate (75), pacemaker rhythm, nonspecific ST T wave chg (YEISON ZEE) Departure Departure Disposition: STILL A PATIENT Condition: Stable Clinical Impression Primary Impression: Pyelonephritis Secondary Impressions: Ventricular tachycardia Referrals: MADHU PRESLEY MD (PCP/Family) Departure Forms: Customer Survey General Discharge Information Admission Note Spoke With: ERIBERTO PRIETO MD Documentation of Exam: Documentation of any treatments & extenuating circumstances including Concerns Regarding Discharge (functional status, medication knowledge or non-compliance, living conditions, etc.) that warrant an admission rather than observation: Patient will require IV antibiotics. IV fluids. Cardiac consultation. Cardiac telemetry. Repeat labs. High risk. Interrogation of pacemaker. Urology consultation. (YEISON ZEE) PA/RN FAMILY Co-Sign Statement Statement: ED Attending supervision documentation- [X] I saw and evaluated the patient. I have also reviewed all the pertinent lab results and diagnostic results. I agree with the findings and the plan of care as documented in the PA's/RN FAMILY's documentation. Pt case d/w hospitalist by me. [] I have reviewed the ED Record and agree with the PA's/RN FAMILY's documentation. [] Additions or exceptions (if any) to the PAs/RN FAMILY's note and plan are summarized below: [] (YASSINE WALLACE,SHARON Busch) There are multiple fluid density lesions in the bilateral kidneys, favoring cysts. Assessment of the renal parenchyma is limited in the absence of intravenous contrast. No hydronephrosis bilaterally. There is a left ureteral stent with the proximal end in the region of the upper pole calyces and the distal end likely in the urinary bladder, suboptimally seen due to artifact from hip prostheses. Nonspecific stranding is noted in the left renal hilum. No renal or ureteral calculi are present. The urinary bladder is decompressed, with a suprapubic catheter in place. Prostatic brachytherapy seeds are noted; the prostate is not well seen due to artifact in this region. There is a moderate amount of stool in the colon. No abnormal bowel wall thickening is seen. Colonic diverticulosis is noted. No evidence of bowel obstruction. The appendix is not discretely visualized. No free fluid or free air is present. There are small bilateral fat-containing inguinal hernias. There has been removal of prior penile implant since 01/30/2016. There is atherosclerotic calcification along the aorta and iliac arteries. Bilateral iliac stents are noted. No lymphadenopathy is seen, though assessment is somewhat limited in the absence of intravenous contrast. Degenerative changes are noted in the spine. Partial compression deformity of T12 appears unchanged from 04/03/2016. IMPRESSION: 1. No new acute findings identified in the chest, abdomen, or pelvis. 2. Redemonstrated region of probable rounded atelectasis in the right lower lobe. Stable small right pleural effusion with associated pleural thickening. 3. Stable few tiny left lower lobe lung nodules, nonspecific. No new nodules identified. 4. Left ureteral stent in place. No appreciable hydronephrosis. Nonspecific stranding in the left renal hilum. Multiple low-density bilateral renal lesions, favoring cysts. DICTATED BY: GUTIERREZ TREVINO MD DATE/TIME DICTATED:10/01/161201 DEMOGRAPHER:CHACE Initial ED EKG: rate (75), pacemaker rhythm, nonspecific ST T wave chg Departure Departure Disposition: STILL A PATIENT Condition: Stable Clinical Impression Primary Impression: Pyelonephritis Secondary Impressions: Ventricular tachycardia Referrals: MADHU PRESLEY MD (PCP/Family) Departure Forms: Customer Survey General Discharge Information Admission Note Spoke With: ERIBERTO PRIETO MD Documentation of Exam: Documentation of any treatments & extenuating circumstances including Concerns Regarding Discharge (functional status, medication knowledge or non-compliance, living conditions, etc.) that warrant an admission rather than observation: Patient will require IV antibiotics. IV fluids. Cardiac consultation. Cardiac telemetry. Repeat labs. High risk. Interrogation of pacemaker. Urology consultation.
--- NOTE | 2016-10-01 15:26 | NUR ---
[employer] REP AT BEDSIDE FOR EVAL OF DEFIBRILLATOR
--- NOTE | 2016-10-01 15:40 | Cons- Cardiology ---
General Information and HPI Consulting Request Date of Consult: 10/01/16 Requested By: CONNER WALLACE,ERIBERTO Reason for Consult: Cardiology evaluation in a patient with known heart disease and a recent defibrillator discharge. Source of Information: patient, old records Exam Limitations: confusion History of Present Illness: Félix Garsia is an 85-year-old male who I have been following for many years. He has coronary artery disease with previous myocardial infarction in 1986, bypass surgery in 1989, and angioplasty most recently in 2009. He also has paroxysmal atrial fibrillation, and a biventricular defibrillator which was replaced in 2013. He is followed closely by Dr. Toni Mcdowell for this. The patient also had defibrillator shocks due to VTach requiring hospitalization in 06/2013. His medications were adjusted and he has not had any further problems with inappropriate defibrillator discharges or defibrillator discharges for arrhythmias until now. He has also had multiple procedures with Dr. Fields. 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 He has had several fulgurations and treatment with chemotherapy. At one point he was going to have a nephrectomy, but for various reasons this never occurred. He most recently in 10/2014 had a cystoscopy and laser fulguration of his renal pelvis tumor by Dr. Fields, which apparently was successful. He is off anticoagulants and has not had any recent problems with hematuria. Mr. Garsia was in [facility] in August 2015 with congestive heart failure, likely due to failure to take Lasix. He was diuresed and he had a right pleural effusion which was drained. He was placed back on his Lasix and he was doing better. When I saw him in the office a couple of weeks after his hospitalization I thought he had a recurrent pleural effusion and sent him to Dr. Lamas, but the effusion was very mild and did not require additional drainage. His echocardiogram done as an outpatient in July 2015 showed an ejection fraction of 30% to 35% with significant tricuspid regurgitation and mild pulmonary artery pressure elevation. I last saw Gerardo in the office in May 2016 at which time he was doing pretty well. His cardiac medications at that time included pravastatin, Tikosyn, Toprol 25 mg, nitroglycerin patch, Lasix 40 mg. He follows up with Dr. Mcdowell regarding his defibrillator, and with Dr. Fielsd regarding his urinary problems. He now has a suprapubic catheter in. The patient presents today with generalized weakness, fever, elevated white count. He is also complaining of lower abdominal pain, which he has had for a few days. He was also notified by Dr. Mcdowell that he has had a defibrillator discharge which was transmitted to their office. Dr. Mcdowell recommended that he come to the emergency department to get a full evaluation. Gerardo does not have any recollection of a defibrillator discharge. Allergies/Medications Allergies: Coded Allergies: sitagliptin (From [employer]) (Mild, RASH 08/12/15) mirabegron (UNKNOWN 08/12/15) Home Med List: Albuterol Sulfate (Proair Hfa) 8.5 GM HFA.AER.AD 2 PUF INH PRN ASTHMA ( Reported) Ciprofloxacin HCl 500 MG TABLET 1 TAB PO BID UTI (Reported) Docusate Sodium (Colace) 100 MG CAPSULE 1 CAP PO DAILY STOOL SOFTENER ( Reported) Dofetilide (Tikosyn) 125 MCG CAPSULE 1 CAP PO BID HEART (Reported) Furosemide (Lasix) 40 MG TABLET 1 TAB PO DAILY WATER PILL (Reported) Levothyroxine Sodium 88 MCG TABLET 1 TAB PO DAILY THYROID (Reported) Metoprolol Succ XL (Toprol XL) 25 MG TAB 0.5 TAB PO BID HEART (Reported) Oxycodone HCl/Acetaminophen (Percocet 5-325 MG Tablet) 1 EACH TABLET 1 TAB PO Q4P PRN PAIN SCALE 1-3 (MILD) Oxycodone HCl/Acetaminophen (Percocet 5-325 MG Tablet) 1 EACH TABLET 2 TAB PO Q4P PRN PAIN SCALE 4-6 (MODERATE) Pravastatin Sodium 40 MG TABLET 40 MG PO DAILY CHOLOSTEROL (Reported) Current Medications: Current Medications Sig/Karin Start time Last Medication Dose Route Stop Time Status Admin Acetaminophen 650 MG Q6P PRN 10/01 1515 AC PO Ceftriaxone Sodium 1,000 MG DAILY 10/02 1000 AC IV Ceftriaxone Sodium 1,000 MG ONCE ONE 10/01 1245 DC 10/01 IV 10/01 1246 1240 Ceftriaxone Sodium 0 .STK-MED ONE 10/01 1241 DC .ROUTE Heparin Sodium 5,000 UNIT Q8 10/01 220 AC (Porcine) SC Levothyroxine Sodium 0.088 MG DAILY 10/02 1000 AC PO Metoprolol Succinate 12.5 MG BID 10/01 2200 UNVr PO Ondansetron HCl 0 .STK-MED ONE 10/01 1147 DC .ROUTE Ondansetron HCl 4 MG ONCE ONE 10/01 1145 DC 10/01 IV 10/01 1146 1150 Pravastatin Sodium 40 MG DAILY 10/02 1000 AC PO Sodium Chloride 1,000 ML BOLUS ONE 10/01 1300 DC 10/01 IV 10/01 1359 1340 Sodium Chloride 1,000 ML BOLUS ONE 10/01 1245 DC 10/01 IV 10/01 1344 1240 Review of Systems Review of Systems: He has multiple complaints in the review of systems involving mostly abdominal pain, urinary symptoms. Past History Travel History Traveled to [place] past 21 day No Medical History Neurological: FORGETFUL AT TIMES EENT: hearing loss Cardiovascular: AFIB, hypertension, hyperlipidemia, ACUTE MYOCARDIAL INFARCTION PACEMAKER/DEFIB Respiratory: COPD Gastrointestinal: NONE Hepatic: NONE Renal: chronic kidney disease, KIDNEY CANCER Musculoskeletal: falls Psychiatric: NONE Endocrine: hypothyroidism Blood Disorders: NONE Cancer(s): KIDNEY CANCER transitional cell with recurrent hematuria CLIMBING GUIDE/Reproductive: NONE Surgical History Surgical History: cabg x2 pacemaker Family History Relations & Conditions If Any: No Known Family History. Psychosocial History Services at Home: None Living Will? no Functional Ability ADLs Independent: dressing, eating, toileting, bathing. Ambulation: independent, cane, walker, non-ambulatory IADLs Independent: shopping, housework, finances, food prep, telephone, transportation , medication admin. Exam & Diagnostic Data Vital Signs and I&O Vital Signs Date Time Temp Pulse Resp B/P B/P Pulse O2 O2 Flow FiO2 Mean Ox Delivery Rate 10/01 1459 97.9 77 16 105/57 99 Nasal 2.0L Cannula 10/01 1438 76 16 105/57 99 Nasal 2.0L Cannula 10/01 1418 74 18 108/58 98 Nasal 2.0L Cannula 10/01 1331 98.0 75 16 103/58 98 Nasal 2.0L Cannula 10/01 1302 98.9 75 16 99/54 99 Nasal 2.0L Cannula 10/01 1249 98.9 74 16 90/50 99 Nasal 2.0L Cannula 10/01 1234 79 86/44 10/01 1136 84 16 102/59 96 Room Air 10/01 1113 96 Room Air 10/01 1051 100.3 77 18 121/59 93 Room Air Intake & Output 10/01 1600 10/01 0810/01 0000 09/30 1600 09/30 0800 09/30 0000 Intake Total 1100 Output Total 350 Balance 750 Intake, IV 1100 Output, Urine 350 Physical Exam: He is in no distress. He is pale. HEENT exam is normal Chest is clear Heart reveals a regular rhythm with a grade 2 to 3/6 systolic ejection murmur at the base Abdomen is nontender. Suprapubic catheter is present in the lower abdomen. Extremities reveal no edema Labs/Apolinar Results: Laboratory Tests 10/01 10/01 1426 1149 Chemistry Sodium (137 - 145 mmol/L) 136 L Potassium (3.5 - 5.1 mmol/L) 3.7 Chloride (98 - 107 mmol/L) 100 Carbon Dioxide (22 - 30 mmol/L) 25 Anion Gap (5 - 16) 11 BUN (9 - 20 mg/dL) 32 H Creatinine (0.7 - 1.2 mg/dL) 1.7 H Estimated GFR (>60 ml/min) 38 L BUN/Creatinine Ratio (7 - 25 %) 18.8 Glucose (65 - 99 mg/dL) 179 H Lactic Acid (0.7 - 2.1 mmol/L) Cancelled 1.1 Calcium (8.4 - 10.2 mg/dL) 8.2 L Magnesium (1.6 - 2.3 mg/dL) 2.1 Total Bilirubin (0.2 - 1.3 mg/dL) 1.0 AST (17 - 59 U/L) 25 ALT (21 - 72 U/L) 36 Alkaline Phosphatase (< 127 U/L) 126 Troponin I (<0.11 ng/ml) 0.01 Total Protein (6.3 - 8.2 g/dL) 6.9 Albumin (3.5 - 5.0 g/dL) 3.2 L Globulin (1.9 - 4.2 gm/dL) 3.7 Albumin/Globulin Ratio (1.1 - 2.2 %) 0.9 L Hematology CBC w Diff MAN DIFF ORDERED WBC (4.8 - 10.8 /CUMM) 16.0 H RBC (4.70 - 6.10 /CUMM) 3.23 L Hgb (14.0 - 18.0 G/DL) 9.4 L Hct (42 - 52 %) 28.4 L MCV (80.0 - 94.0 FL) 87.9 MCH (27.0 - 31.0 PG) 29.1 RDW (11.5 - 14.5 %) 14.6 H Plt Count (130 - 400 /CUMM) 214 MPV (7.4 - 10.4 FL) 8.7 Gran % (42.2 - 75.2 %) 93.5 H Lymphocytes % (20.5 - 51.1 %) 1.0 L Monocytes % (1.7 - 9.3 %) 5.4 Eosinophils % (0 - 5 %) 0.1 Basophils % (0.0 - 2.0 %) 0 L Absolute Granulocytes (1.4 - 6.5 /CUMM) 15.0 H Segmented Neutrophils (42.2 - 75.2 %) 84 H Band Neutrophils (0.0 - 5.0 %) 11 H Absolute Lymphocytes (1.2 - 3.4 /CUMM) 0.2 L Lymphocytes (20.5 - 51.1 %) 2 L Monocytes (1.7 - 9.3 %) 3 Absolute Monocytes (0.10 - 0.60 /CUMM) 0.9 H Absolute Eosinophils (0.0 - 0.7 /CUMM) 0 Absolute Basophils (0.0 - 0.2 /CUMM) 0 Platelet Estimate (ADEQUATE) ADEQUATE Normocytic RBCs VERIFIED Normochromic RBCs VERIFIED PUBS MCHC (33.0 - 37.0 G/DL) 33.2 10/01 1131 Urines Urinalysis LIGHT H Urine Color (YEL,AMB,STR) YEL Urine Clarity (CLEAR) HAZY H Urine pH (5.0 - 8.0) 6.0 Ur Specific [place] (1.001 - 1.035) 1.015 Urine Protein (NEG,<30 MG/DL) 30 H Urine Ketones (NEG) NEG Urine Nitrite (NEG) POS H Urine Bilirubin (NEG) NEG Urine Urobilinogen (0.1 - 1.0 EU/dl) 0.2 Ur Leukocyte Esterase (NEG) LARGE H Ur Microscopic SEDIMENT EXAMINED Urine RBC (0 - 5 /HPF) 50-75 H Urine WBC (0 - 2 /HPF) > 75 H Urine Bacteria (NEG/NONE) MOD H Urine Mucus (FEW,NONE) FEW Urine Hemoglobin (NEG) MOD H Urine Glucose (N MG/DL) NEG Diagnostic Data EKG Results The EKG shows atrial and biventricular pacing at a rate of 75 CXR Results A plain chest x-ray was not done but a CT of the chest was and did not show any major abnormalities Assessment/Plan Assessment/Plan Gerardo presents with a febrile illness, probably urinary tract in etiology. He also had a "silent" defibrillator shock for ventricular tachycardia/fibrillation at about 8:30 this morning. It is possible that the patient was already unconscious from the ventricular tachycardia/fibrillation and that is why he did not realize that he had a shock. Dr. Mcdowell has already been consulted by phone and has recommended stopping his Tikosyn, which may have a proarrhythmic effect exacerbated by the fact that he has been on antibiotics and also has a febrile illness, probably urosepsis. He does not appear to be in congestive heart failure. He is pacing both the atrium and the ventricle at this time, although he has had atrial fibrillation in the past. He is not currently anticoagulated because of problems with bleeding in the past. I recommend telemetry monitoring. We will arrange for defibrillator interrogation. I recommend an echocardiogram which he hasn't had for a year or so. Serial troponins should be obtained although there is no strong evidence for myocardial ischemia at this point. I would recommend continuing him on his usual medications except for Tikosyn which will be held per the environmental engineering technician. Copies To: SAKINA WALLACE,MADHU; NYA WALLACE,TONI Casey; AVERY FIELDS MD Consult Acknowledgment - Thank you for your consult request.
--- NOTE | 2016-10-01 15:41 | NUR ---
PT TO ROOM 175 BED 1
--- NOTE | 2016-10-01 15:56 | NUR ---
REPORT GIVEN TO RECEIVING RN
[2016-10-01 17:13] VITALS: BP 112/58
[2016-10-02 00:59] VITALS: BP 108/54
--- NOTE | 2016-10-02 01:38 | Event Note ---
Event Note Event Note: Brief : both bottles positive for gram pos cocci for blood cutlrues situation : Initally we were called from the lab, saying that one bottle of blood cultrues were positive ofr GRam positive Cocci, latter even the second bottle was found to be positive. Plan : * We will give start the patient on IV Vancomycin to cover MRSA, will give first dose now. * Please continue to follow cultures and sensitivites and adjust Ax as needed. * Consider Id consult in AM.
[2016-10-02 08:11] LABS: ABSOLUTE BASOPHIL COUNT 0 /CUMM (0.0-0.2); ABSOLUTE EOSINOPHIL COUNT 0.1 /CUMM (0.0-0.7); ABSOLUTE GRANULOCYTE CT 7.5 /CUMM (1.4-6.5); ABSOLUTE LYMPH COUNT 0.5 /CUMM (1.2-3.4); ABSOLUTE MONOCYTE COUNT 0.7 /CUMM (0.10-0.60); BASOPHIL % 0.2 % (0.0-2.0); EOSINOPHIL % 0.9 % (0-5); HEMATOCRIT 24.7 % (42-52); MEAN CORPUSCULAR HGB 29.2 PG (27.0-31.0); MEAN CORPUSCULAR HGB CONC 33.4 G/DL (33.0-37.0); MEAN CORPUSCULAR VOLUME 87.5 FL (80.0-94.0); MEAN PLATELET VOLUME 9.1 FL (7.4-10.4); RBC DISTRIBUTION WIDTH 14.8 % (11.5-14.5); RED BLOOD CELL CT 2.82 /CUMM (4.70-6.10); WHITE BLOOD CELL COUNT 8.8 /CUMM (4.8-10.8)
[2016-10-02 08:12] VITALS: BP 110/64
[2016-10-02 08:54] LABS: PLATELET COUNT 170 /CUMM (130-400)
[2016-10-02 08:55] LABS: GRANULOCYTE % 84.9 % (42.2-75.2)
--- NOTE | 2016-10-02 09:58 | PN- Housestaff ---
Subjective Follow-up For: UTI AICD firing Bacteremia Tele-Events Since Last Visit: some PVCS. Paced rythm. Subjective: Seen and examined at bedside. Still endorses some suprapubic pain. Denies any chills/fever, nausea/vomiting,sob,cp/palpitation, or any focal neurological deficit. Acute o/n event of positive blood culture noted. Review of Systems Constitutional: Reports: see HPI. Objective Last 24 Hrs of Vital Signs/I&O Vital Signs Date Time Temp Pulse Resp B/P B/P Pulse O2 O2 Flow FiO2 Mean Ox Delivery Rate 10/03 2115 99.4 90 18 120/62 10/02 1636 100.1 77 18 110/66 95 Room Air 10/02 0812 98.3 78 18 110/64 96 Room Air 10/02 0059 98.8 74 18 108/54 97 Nasal Cannula 10/01 2151 77 100/70 Intake & Output 10/02 1600 10/02 0800 10/02 0000 Intake Total 400 250 310 Output Total 400 250 150 Balance 0 0 160 Intake, IV 250 10 Intake, Oral 400 300 Number 1 Bowel Movements Output, Urine 400 250 150 Patient 77.111 kg Weight Weight Estimated Measurement Method Physical Exam General Appearance: Alert, Oriented X3, Cooperative Other Physical Findings: Skin No Significant Lesion Sepsis Skin Exam (color): Normal for Ethnicity HEENT Atraumatic, PERRLA, Mucous Membr. moist/pink Neck Supple, No JVD Cardiovascular Regular Rate, Normal S1, Normal S2 Lungs Clear to Auscultation, Normal Air Movement Abdomen Normal Bowel Sounds, Soft, mild suprapubic tenderness. Ritchie intact with some erythema around the area, with no discharge or swelling. Neurological Normal Speech, Normal Tone, Sensation Intact Extremities No Edema, Normal Pulses, No Tenderness/Swelling Vascular Pulses Symmetrical Current Medications: Current Medications Sig/Karin Start time Last Medication Dose Route Stop Time Status Admin Acetaminophen 650 MG Q6P PRN 10/01 1515 AC PO Ceftriaxone Sodium 1,000 MG DAILY 10/02 1000 DC 10/02 IV 0948 Heparin Sodium 5,000 UNIT Q8 10/01 2199 AC 10/02 (Porcine) SC 2115 Levothyroxine Sodium 0.088 MG DAILY AC 10/02 0811 AC 10/02 PO 0948 Metoprolol Tartrate 12.5 MG BID 10/01 2199 AC 10/02 PO 2115 Pravastatin Sodium 40 MG DAILY 10/02 1000 AC 10/02 PO 0948 Vancomycin HCl 1,000 MG Q24H 10/03 0230 AC Sodium Chloride 250 ML IV Vancomycin HCl 1,000 MG ONCE ONE 10/02 0130 DC 10/02 Sodium Chloride 250 ML IV 10/02 0229 0226 Assessment/Plan Assessment: This is a 85-year-old gentleman with an extensive cardiac history of CAD status post CABG, stent placement, paroxysmal A. fib, CHF with EF of 30-35%, and on pacemaker defibrillator, multiple urological malignancy and on chronic suprapubic catheter presents for evaluation of generalized malaise. Patient presents with symptomatic urinary complaints and is found to have a UA suggestive of a UTI and leukocytosis. He was currently on ciprofloxacin 500 mg twice a day 4 week course which she reports resolution of the foul smell but still persistent suprapubic pain and some incontinence. Coincidently, patient also had an episode of silent defibrillator ration with a suggestion of a possible V. tach. Patient was alert and symptomatic and was not aware of his possible cardiac episode. Impression * Bacteremia: gram positive staph isolated on both vials. Most likely source is the suprapubic catheter as his urine is also positive for staph aureus. High suspicious for MRSA. Will continue Vancomycin 1 gram and obtain new set of blood cultures. There is concern of seeding at cardiac valves since favian has a implantable AICD and hip prosthesis. Will obtain ID consult for further reccomendation. * Urinary tract infection. Presenting with symptoms of suprapubic pain with increased incontinence with a UA suggestive of UTI and leukocytosis. Status post 4 weeks of ciprofloxacin 500 mg twice a day treatment. Urine culture isolated staph aureus and with recent supra pubic catherer, MRSA is highly suspicious. Will continue Vancomycin for now (day2),ceftriaxone stopped. 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 Very likely this episode was induced by patient acute illness. His electrolytes are WNL, and eventhough Tikosyn is arythmogenic, he has been on it for awhile and will be highly unlikely to have suddenly cause the V-TACH. Problem List: 1. UTI (urinary tract infection) 2. Bacteremia Pain Ratin Pain Location: suprapubic Pain Goal: Remain pain free Pain Plan: per pain pathway Tomorrow's Labs & Rationales: BEP-ON VANCOMYCIN CBC-UTI
--- NOTE | 2016-10-02 11:15 | PN- Cardiology ---
Subjective Subjective: He is feeling better. He has no complaints this morning. He is afebrile. His blood cultures are positive for gram-positive cocci and his urine is growing staph aureus. He is having just isolated PVCs on the monitor and is otherwise dual chamber biventricular paced. His echocardiogram has been done. Objective Vital Signs and I&Os Vital Signs Date Time Temp Pulse Resp B/P B/P Pulse O2 O2 Flow FiO2 Mean Ox Delivery Rate 10/02 0812 98.3 78 18 110/64 96 Room Air 10/02 0059 98.8 74 18 108/54 97 Nasal Cannula 10/01 2151 77 100/70 10/01 1714 18 98 Nasal 1.0L Cannula 10/01 1713 98.1 75 18 112/58 98 Nasal 2.0L Cannula 10/01 1654 98 Nasal 1.0L Cannula 10/01 1459 97.9 77 16 105/57 99 Nasal 2.0L Cannula 10/01 1438 76 16 105/57 99 Nasal 2.0L Cannula 10/01 1418 74 18 108/58 98 Nasal 2.0L Cannula 10/01 1331 98.0 75 16 103/58 98 Nasal 2.0L Cannula 10/01 1302 98.9 75 16 99/54 99 Nasal 2.0L Cannula 10/01 1249 98.9 74 16 90/50 99 Nasal 2.0L Cannula 10/01 1234 79 86/44 10/01 1136 84 16 102/59 96 Room Air Intake & Output 10/02 1600 10/02 0800 /12 0000 10/01 1600 10/01 0800 10/01 0000 Intake Total 392 241 8227 Output Total 250 150 350 Balance 0 160 750 Intake, IV 170 26 2940 Intake, Oral 300 Number 1 Bowel Movements Output, Urine 250 150 350 Patient 170 lb Weight Weight Estimated Measurement Method Physical Exam: HEENT exam is normal Chest is clear Heart reveals regular rhythm with a grade 2/6 systolic ejection murmur at the base Abdomen is nontender Extremities reveal no edema Results Recent Imaging Studies: CONCLUSIONS Moderate left ventricular dilatation. Mild concentric left ventricular hypertrophy. The interventricular septum contracts fairly well. The inferior, lateral and posterior sharpe are hypokinetic to akinetic. Overall left ventricular systolic function is moderately decreased. Estimated ejection fraction is 35-40%. Catheter/pacemaker wire in the right ventricular cavity. Mild right atrial dilatation. Moderate left atrial dilatation. Mild thickening/calcification of the mitral valve leaflets. Diffuse thickening of the aortic valve cusps with reduced excursion. Mild aortic stenosis. Right ventricular systolic pressure estimated to be elevated at 40- 45 mmHg. The aortic root is upper limits of normal in size. The IVC is mildly dilated. Sridhar Harmon M.D. (Electronically Signed) Final Date: 02 Oct 2016 13:25 Assessment/Plan Assessment/Plan The patient is doing better. He is afebrile. He probably has sepsis of urologic origin. He has not had any further malignant arrhythmias. The echocardiogram shows moderate left ventricular dysfunction consistent with his known ischemic cardiomyopathy. He also has mild aortic stenosis and mild pulmonary hypertension. I recommend continuing on his current regimen. We will continue to hold Tikosyn. We may be able to restart this after his acute illness has resolved. Infectious disease consultation is pending. It is possible he may need a transesophageal echocardiogram at some point to rule out endocarditis because of the positive blood cultures. This can be deferred until next week. Continue telemetry? Yes
--- NOTE | 2016-10-02 11:20 | PN- Att Addend ---
Attending Addendum Attending Brief Note Patient seen and examined, says he feels the same. Still c/o lower abd pain. He is also having some incontinence of urine from his penis. Vital Signs Date Time Temp Pulse Resp B/P B/P Pulse O2 O2 Flow FiO2 Mean Ox Delivery Rate 10/02 0812 98.3 78 18 110/64 96 Room Air 10/02 0059 98.8 74 18 108/54 97 Nasal Cannula 10/01 2151 77 100/70 10/01 1714 18 98 Nasal 1.0L Cannula 10/01 1713 98.1 75 18 112/58 98 Nasal 2.0L Cannula 10/01 1654 98 Nasal 1.0L Cannula 10/01 1459 97.9 77 16 105/57 99 Nasal 2.0L Cannula 10/01 1438 76 16 105/57 99 Nasal 2.0L Cannula 10/01 1418 74 18 108/58 98 Nasal 2.0L Cannula 10/01 1331 98.0 75 16 103/58 98 Nasal 2.0L Cannula 10/01 1302 98.9 75 16 99/54 99 Nasal 2.0L Cannula 10/01 1249 98.9 74 16 90/50 99 Nasal 2.0L Cannula 10/01 1234 79 86/44 10/01 1136 84 16 102/59 96 Room Air 10/01 1113 96 Room Air on exam; aox3, nad. cv; s1,s2, rrr, + systolic murmur, + pacemaker/defibrillator. resp; clear. abd; soft, mildly tender lower abd, bs+ ext; no edema. Laboratory Tests 10/02 10/02 10/01 10/01 0625 0000 2138 1757 Chemistry Sodium (137 - 145 mmol/L) 138 Potassium (3.5 - 5.1 mmol/L) 4.3 Chloride (98 - 107 mmol/L) 105 Carbon Dioxide (22 - 30 mmol/L) 23 Anion Gap (5 - 16) 10 BUN (9 - 20 mg/dL) 28 H Creatinine (0.7 - 1.2 mg/dL) 1.6 H Estimated GFR (>60 ml/min) 41 L BUN/Creatinine Ratio (7 - 25 %) 17.5 Lactic Acid (0.7 - 2.1 mmol/L) 1.1 Magnesium (1.6 - 2.3 mg/dL) 2.1 Troponin I (<0.11 ng/ml) 0.04 0.03 0.02 Hematology CBC w Diff NO MAN DIFF REQ WBC (4.8 - 10.8 /CUMM) 8.8 RBC (4.70 - 6.10 /CUMM) 2.82 L Hgb (14.0 - 18.0 G/DL) 8.2 L Hct (42 - 52 %) 24.7 L MCV (80.0 - 94.0 FL) 87.5 MCH (27.0 - 31.0 PG) 29.2 RDW (11.5 - 14.5 %) 14.8 H Plt Count (130 - 400 /CUMM) 170 MPV (7.4 - 10.4 FL) 9.1 Gran % (42.2 - 75.2 %) 84.9 H Lymphocytes % (20.5 - 51.1 %) 6.2 L Monocytes % (1.7 - 9.3 %) 7.8 Eosinophils % (0 - 5 %) 0.9 Basophils % (0.0 - 2.0 %) 0.2 Absolute Granulocytes (1.4 - 6.5 /CUMM) 7.5 H Absolute Lymphocytes (1.2 - 3.4 /CUMM) 0.5 L Absolute Monocytes (0.10 - 0.60 /CUMM) 0.7 H Absolute Eosinophils (0.0 - 0.7 /CUMM) 0.1 Absolute Basophils (0.0 - 0.2 /CUMM) 0 PUBS MCHC (33.0 - 37.0 G/DL) 33.4 10/01 10/01 10/01 1700 1426 1149 Chemistry Sodium (137 - 145 mmol/L) 136 L Potassium (3.5 - 5.1 mmol/L) 3.7 Chloride (98 - 107 mmol/L) 100 Carbon Dioxide (22 - 30 mmol/L) 25 Anion Gap (5 - 16) 11 BUN (9 - 20 mg/dL) 32 H Creatinine (0.7 - 1.2 mg/dL) 1.7 H Estimated GFR (>60 ml/min) 38 L BUN/Creatinine Ratio (7 - 25 %) 18.8 Glucose (65 - 99 mg/dL) 179 H Lactic Acid (0.7 - 2.1 mmol/L) 1.8 Cancelled 1.1 Calcium (8.4 - 10.2 mg/dL) 8.2 L Magnesium (1.6 - 2.3 mg/dL) 2.1 Total Bilirubin (0.2 - 1.3 mg/dL) 1.0 AST (17 - 59 U/L) 25 ALT (21 - 72 U/L) 36 Alkaline Phosphatase (< 127 U/L) 126 Troponin I (<0.11 ng/ml) 0.01 Total Protein (6.3 - 8.2 g/dL) 6.9 Albumin (3.5 - 5.0 g/dL) 3.2 L Globulin (1.9 - 4.2 gm/dL) 3.7 Albumin/Globulin Ratio (1.1 - 2.2 %) 0.9 L Hematology CBC w Diff MAN DIFF ORDERED WBC (4.8 - 10.8 /CUMM) 16.0 H RBC (4.70 - 6.10 /CUMM) 3.23 L Hgb (14.0 - 18.0 G/DL) 9.4 L Hct (42 - 52 %) 28.4 L MCV (80.0 - 94.0 FL) 87.9 MCH (27.0 - 31.0 PG) 29.1 RDW (11.5 - 14.5 %) 14.6 H Plt Count (130 - 400 /CUMM) 214 MPV (7.4 - 10.4 FL) 8.7 Gran % (42.2 - 75.2 %) 93.5 H Lymphocytes % (20.5 - 51.1 %) 1.0 L Monocytes % (1.7 - 9.3 %) 5.4 Eosinophils % (0 - 5 %) 0.1 Basophils % (0.0 - 2.0 %) 0 L Absolute Granulocytes (1.4 - 6.5 /CUMM) 15.0 H Segmented Neutrophils (42.2 - 75.2 %) 84 H Band Neutrophils (0.0 - 5.0 %) 11 H Absolute Lymphocytes (1.2 - 3.4 /CUMM) 0.2 L Lymphocytes (20.5 - 51.1 %) 2 L Monocytes (1.7 - 9.3 %) 3 Absolute Monocytes (0.10 - 0.60 /CUMM) 0.9 H Absolute Eosinophils (0.0 - 0.7 /CUMM) 0 Absolute Basophils (0.0 - 0.2 /CUMM) 0 Platelet Estimate (ADEQUATE) ADEQUATE Normocytic RBCs VERIFIED Normochromic RBCs VERIFIED PUBS MCHC (33.0 - 37.0 G/DL) 33.2 10/01 1131 Urines Urinalysis LIGHT H Urine Color (YEL,AMB,STR) YEL Urine Clarity (CLEAR) HAZY H Urine pH (5.0 - 8.0) 6.0 Ur Specific [place] (1.001 - 1.035) 1.015 Urine Protein (NEG,<30 MG/DL) 30 H Urine Ketones (NEG) NEG Urine Nitrite (NEG) POS H Urine Bilirubin (NEG) NEG Urine Urobilinogen (0.1 - 1.0 EU/dl) 0.2 Ur Leukocyte Esterase (NEG) LARGE H Ur Microscopic SEDIMENT EXAMINED Urine RBC (0 - 5 /HPF) 50-75 H Urine WBC (0 - 2 /HPF) > 75 H Urine Bacteria (NEG/NONE) MOD H Urine Mucus (FEW,NONE) FEW Urine Hemoglobin (NEG) MOD H Urine Glucose (N MG/DL) NEG A/P; 85-year-old male with past medical history significant for coronary artery disease, status post CABG in 1989, history of MS, angioplasties, history of chronic systolic CHF, history of paroxysmal A. 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 Suprapubic tube exchange. 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 Also found to have episodes of V. tach captured on his defibrillator/pacemaker. This could be the results of Quinolone and Tikosyn prolonging QTC as well as infection. Patient now bacteremic with gram-positive cocci in clusters. Will follow-up on the final identification and sensitivity. Urine cx is growing staph aureus. Patient received vancomycin overnight. He has been kept on ceftriaxone. Would recommend getting infectious disease. Please follow-up on the echo results. Per cardiology, continue to hold Tikosyn for now and then will reevaluate later. Patient will require urology evaluation for this incontinence through his penis. Electrolytes are all wnl. DVT px; Hep sq. Please get PT eval. D/W patient's .
--- NOTE | 2016-10-02 13:26 | ECHOCARDIOGRAM REPORT ---
BAKARI DE LA ROSA Age: 85 : 1930 Gender: M Exam Date: 10/02/2016 10:00 Exam Location: [address] Ht (in): 70 Wt (lb): 170 BSA: 1.96 BP: 108 / 54 Ordering Physician: JUSTO HARMON MD Referring Physician: JUSTO HARMON MD Technologist: Shawn Soria [facility] Room Number: [id number] Indications: Arrhythmia Rhythm: Paced Technical Quality: Good FINDINGS Left Ventricle Moderate left ventricular dilatation. Mild concentric left ventricular hypertrophy. The interventricular septum contracts fairly well. The inferior, lateral and posterior sharpe are hypokinetic to akinetic. Overall left ventricular systolic function is moderately decreased. Estimated ejection fraction is 35-40%. Right Ventricle Normal right ventricular size and function. Catheter/pacemaker wire in the right ventricular cavity. Right Atrium Mild right atrial dilatation. Left Atrium Moderate left atrial dilatation. Mitral Valve Mild thickening/calcification of the mitral valve leaflets. Trace mitral regurgitation. Aortic Valve Diffuse thickening of the aortic valve cusps with reduced excursion. Mild aortic stenosis. No aortic regurgitation. Tricuspid Valve Tricuspid valve is normal in structure and function. Mild tricuspid regurgitation. Right ventricular systolic pressure estimated to be elevated at 40-45 mmHg. Pulmonic Valve Pulmonic valve not well visualized, grossly normal. No pulmonic regurgitation. Pericardium No pericardial or pleural effusion. Great Vessels The aortic root is upper limits of normal in size. The IVC is mildly dilated. CONCLUSIONS Moderate left ventricular dilatation. Mild concentric left ventricular hypertrophy. The interventricular septum contracts fairly well. The inferior, lateral and posterior sharpe are hypokinetic to akinetic. Overall left ventricular systolic function is moderately decreased. Estimated ejection fraction is 35-40%. Catheter/pacemaker wire in the right ventricular cavity. Mild right atrial dilatation. Moderate left atrial dilatation. Mild thickening/calcification of the mitral valve leaflets. Diffuse thickening of the aortic valve cusps with reduced excursion. Mild aortic stenosis. Right ventricular systolic pressure estimated to be elevated at 40- 45 mmHg. The aortic root is upper limits of normal in size. The IVC is mildly dilated. Justo Harmon M.D. (Electronically Signed) Final Date: 02 Oct 2016 13:25 MEASUREMENTS (Male / Female) Normal Values 2D ECHO LV Diastolic Diameter PLAX 6.8 cm 4.2 - 5.9 / 3.9 - 5.3 cm LV Systolic Diameter PLAX 5.3 cm 2.1 - 4.0 cm LV Fractional Shortening PLAX 22.1 % 25 - 46 % LV Ejection Fraction 2D Teich 43.4 % IVS Diastolic Thickness 1.2 cm LVPW Diastolic Thickness 1.3 cm LV Relative Wall Thickness 0.4 RV Internal Dim ED PLAX 4.1 cm 1.9 - 3.8 cm LVOT Diameter 2.0 cm Aortic Root Diameter 3.6 cm LA Systolic Diameter LX 4.0 cm 3.0 - 4.0 / 2.7 - 3.8 cm LA Volume 97.0 cm 18 - 58 / 22 - 52 cm Ascending Aorta Diameter 3.3 cm DOPPLER AV Peak Velocity 228.0 cm/s AV Peak Gradient 20.8 mmHg AV Mean Velocity 154.0 cm/s AV Mean Gradient 11.0 mmHg AV Velocity Time Integral 48.3 cm LVOT Peak Velocity 79.0 cm/s LVOT Peak Gradient 2.5 mmHg LVOT Mean Velocity 50.7 cm/s LVOT Mean Gradient 1.0 mmHg LVOT Velocity Time Integral 15.6 cm LVOT Stroke Volume 49.0 cm AV Area Cont Eq vti 1.0 cm AV Area Cont Eq pk 1.1 cm MV Peak Velocity 99.2 cm/s MV Peak Gradient 3.9 mmHg MV Mean Velocity 56.2 cm/s MV Mean Gradient 2.0 mmHg Mitral E Point Velocity 75.5 cm/s Mitral A Point Velocity 33.1 cm/s Mitral E to A Ratio 2.3 MV PHT Velocity 103.0 cm/s MV Deceleration [place] 367.0 cm/s MV Pressure Half Time 84.2 ms MV Area PHT 2.6 cm MV Deceleration Time 215.0 ms MR Peak Velocity 416.7 cm/s MR Peak Gradient 69.4 mmHg TR Peak Velocity 301.0 cm/s TR Peak Gradient 36.2 mmHg Right Atrial Pressure 10.0 mmHg Pulmonary Artery Systolic Pressu 46.2 mmHg Right Ventricular Systolic Press 46.2 mmHg PV Peak Velocity 110.0 cm/s PV Peak Gradient 4.8 mmHg PV Mean Velocity 66.3 cm/s PV Mean Gradient 2.0 mmHg PV Velocity Time Integral 20.4 cm
--- NOTE | 2016-10-02 15:34 | Cons- Infect Disease ---
General Information and HPI Consulting Request Date of Consult: 10/02/16 Requested By: ERIBERTO PRIETO MD Reason for Consult: Positive blood cultures for gram-positive cocci in clusters Source of Information: patient, family, old records Exam Limitations: dementia History of Present Illness: This is an 85-year-old man with a history of coronary artery disease, status post CABG, CHF, paroxysmal atrial fibrillation, not on anticoagulation, status post AICD 8 years prior to admission, mild dementia, chronic kidney disease, GI bleed, osteoarthritis, status post bilateral hip replacements 17 years prior to admission, previous history of MRSA sepsis over 3 years prior to admission, prostate cancer, status post radiation and TURP, 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, 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, treated with chemotherapy, status post multiple cystoscopies, fulguration of the tumor, and ureteral stent exchanges, most recently 3 months prior to admission, at which time he underwent laser fulguration, with positive cytology, and ureteral stent exchange, status post placement of an artificial urinary sphincter 8 years prior to admission, removed because of infection 7 months prior to admission, with a suprapubic catheter in place, most recently exchanged 2 weeks prior to admission , with chronic suprapubic discomfort, apparently treated with Ciprofloxacin for the past month by his urologist for "prophylaxis", admitted on October 01 after he presented to the emergency room following a defibrillator discharge with increased weakness and nausea for one day. On admission he was febrile to 100.3. Laboratory data revealed a white blood cell count of 16,000, with 84 segs and 11 bands, BUN/creatinine 32 and 1.7, with normal liver enzymes. Urinalysis 50-75 RBC/greater than [address] of the chest, abdomen and pelvis revealed probable rounded atelectasis in the right lower lobe, seen on previous studies, with the left ureteral stent in place with no hydronephrosis. He was begun on Ceftriaxone. He was transiently hypotensive in the emergency room, but this resolved, and he has been stable and afebrile overnight. This morning blood cultures 2 were reported positive for gram-positive cocci in clusters, and his urine culture is positive for greater than 100,000 colonies of Staph aureus. He was begun on Vancomycin and the Ceftriaxone was discontinued. At present he complains of suprapubic discomfort, which has been a chronic complaint. He has also had urinary incontinence, which has also been a chronic complaint since the removal of the artificial urinary sphincter. Allergies/Medications Allergies: Coded Allergies: sitagliptin (From ADITHYA) (Mild, RASH 08/12/15) mirabegron (UNKNOWN 08/12/15) Home Med List: Albuterol Sulfate (Proair Hfa) 8.5 GM HFA.AER.AD 2 PUF INH PRN ASTHMA ( Reported) Ciprofloxacin HCl 500 MG TABLET 1 TAB PO BID UTI (Reported) Docusate Sodium (Colace) 100 MG CAPSULE 1 CAP PO DAILY STOOL SOFTENER ( Reported) Dofetilide (Tikosyn) 125 MCG CAPSULE 1 CAP PO BID HEART (Reported) Furosemide (Lasix) 40 MG TABLET 1 TAB PO DAILY WATER PILL (Reported) Levothyroxine Sodium 88 MCG TABLET 1 TAB PO DAILY THYROID (Reported) Metoprolol Succ XL (Toprol XL) 25 MG TAB 0.5 TAB PO BID HEART (Reported) Oxycodone HCl/Acetaminophen (Percocet 5-325 MG Tablet) 1 EACH TABLET 1 TAB PO Q4P PRN PAIN SCALE 1-3 (MILD) Oxycodone HCl/Acetaminophen (Percocet 5-325 MG Tablet) 1 EACH TABLET 2 TAB PO Q4P PRN PAIN SCALE 4-6 (MODERATE) Pravastatin Sodium 40 MG TABLET 40 MG PO DAILY CHOLOSTEROL (Reported) Past History Travel History Traveled to [place] past 21 day No Medical History Blood Transfusion Hx: Yes Neurological: dementia EENT: hearing loss Cardiovascular: AFIB, CAD, hypertension, hyperlipidemia, ACUTE MYOCARDIAL INFARCTION PACEMAKER/DEFIB Respiratory: COPD Gastrointestinal: lower GI bleed Hepatic: NONE Renal: chronic kidney disease, KIDNEY CANCER Musculoskeletal: falls, osteoarthritis Psychiatric: NONE Endocrine: hypothyroidism Blood Disorders: anemia Cancer(s): bladder cancer, prostate cancer, KIDNEY CANCER transitional cell with recurrent hematuria 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 Psychosocial History Services at Home: None Smoking Status: Never Smoked Living Will? no Functional Ability ADLs Independent: dressing, eating, toileting, bathing. Ambulation: independent, cane, walker, non-ambulatory IADLs Independent: shopping, housework, finances, food prep, telephone, transportation , medication admin. Review of Systems Review of Systems All Other Systems: Reviewed and Negative Exam & Diagnostic Data Last 24 Hrs of Vital Signs/I&O Vital Signs Date Time Temp Pulse Resp B/P B/P Pulse O2 O2 Flow FiO2 Mean Ox Delivery Rate 10/02 08 98.3 78 18 110/64 96 Room Air 10/02 0059 98.8 74 18 108/54 97 Nasal Cannula 10/01 2151 77 100/70 10/01 1714 18 98 Nasal 1.0L Cannula 10/01 1713 98.1 75 18 112/58 98 Nasal 2.0L Cannula 10/01 1654 98 Nasal 1.0L Cannula Intake & Output 10/02 1600 10/02 0800 10/02 0000 Intake Total 400 250 310 Output Total 400 250 150 Balance 0 0 160 Intake, IV 250 10 Intake, Oral 400 300 Number 1 Bowel Movements Output, Urine 400 250 150 Patient 170 lb Weight Weight Estimated Measurement Method Physical Exam Other Physical Findings: He is awake and alert in no acute distress. MAXIMUM TEMPERATURE 100.3. Skin reveals no rash. HEENT exam is negative. Neck is supple with no adenopathy. Chest pacemaker left upper chest with no inflammation at the site. Lungs are clear. Heart regular rhythm with a 2/6 systolic ejection murmur. Abdomen is soft, mild tenderness of the suprapubic area, with a suprapubic catheter in place, with minimal surrounding erythema, and with positive bowel sounds. Back no CVA tenderness. Extremities no cyanosis, clubbing or edema. Neuro is without focality. Last 24 Hours of Lab Results: Laboratory Tests 10/02 10/02 10/01 10/01 0625 0000 2138 1757 Chemistry Sodium (137 - 145 mmol/L) 138 Potassium (3.5 - 5.1 mmol/L) 4.3 Chloride (98 - 107 mmol/L) 105 Carbon Dioxide (22 - 30 mmol/L) 23 Anion Gap (5 - 16) 10 BUN (9 - 20 mg/dL) 28 H Creatinine (0.7 - 1.2 mg/dL) 1.6 H Estimated GFR (>60 ml/min) 41 L BUN/Creatinine Ratio (7 - 25 %) 17.5 Lactic Acid (0.7 - 2.1 mmol/L) 1.1 Magnesium (1.6 - 2.3 mg/dL) 2.1 Troponin I (<0.11 ng/ml) 0.04 0.03 0.02 Hematology CBC w Diff NO MAN DIFF REQ WBC (4.8 - 10.8 /CUMM) 8.8 RBC (4.70 - 6.10 /CUMM) 2.82 L Hgb (14.0 - 18.0 G/DL) 8.2 L Hct (42 - 52 %) 24.7 L MCV (80.0 - 94.0 FL) 87.5 MCH (27.0 - 31.0 PG) 29.2 RDW (11.5 - 14.5 %) 14.8 H Plt Count (130 - 400 /CUMM) 170 MPV (7.4 - 10.4 FL) 9.1 Gran % (42.2 - 75.2 %) 84.9 H Lymphocytes % (20.5 - 51.1 %) 6.2 L Monocytes % (1.7 - 9.3 %) 7.8 Eosinophils % (0 - 5 %) 0.9 Basophils % (0.0 - 2.0 %) 0.2 Absolute Granulocytes (1.4 - 6.5 /CUMM) 7.5 H Absolute Lymphocytes (1.2 - 3.4 /CUMM) 0.5 L Absolute Monocytes (0.10 - 0.60 /CUMM) 0.7 H Absolute Eosinophils (0.0 - 0.7 /CUMM) 0.1 Absolute Basophils (0.0 - 0.2 /CUMM) 0 PUBS MCHC (33.0 - 37.0 G/DL) 33.4 10/01 1700 Chemistry Lactic Acid (0.7 - 2.1 mmol/L) 1.8 Last 24 Hours of Apolinar Results: Blood cultures October 01 positive for gram-positive cocci in clusters Urine culture October 01 greater than 100,000 colonies of Staph aureus Blood cultures October 02 pending Diagnostic Data Recent Imaging Findings: CT of the chest, abdomen and pelvis October 01 reveals probable rounded atelectasis in the right lower lobe, seen on previous studies, stable small right pleural effusion with associated pleural thickening with the left ureteral stent in place, with no hydronephrosis Assessment/Plan Assessment/Plan Impression: This is an 85-year-old man with multiple medical problems including coronary artery disease, CHF, paroxysmal atrial fibrillation, status post AICD, mild dementia, chronic kidney disease, GI bleed, status post bilateral hip replacements, prostate cancer and 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 His clinical picture is consistent with sepsis of urologic origin, and I suspect that his blood and urine cultures will prove to be MRSA, particularly as he has been on Cipro for the past month. This could be related to his recent suprapubic catheter change, though this was 2 weeks ago, with no other obvious source noted at this time. He does have an AICD and bilateral hip prostheses, which could be seeded from the bacteremia, though there is no evidence for this at this time. A DIANA would be helpful in identifying any vegetations and perhaps evaluating the AICD, but it may not affect the duration of treatment, as he will likely require at least a four-week course of treatment given the presence of the AICD and bilateral hip prostheses. Suggestion: 1. Follow-up final blood and urine cultures 2. Would pursue placement of a PICC when his repeat blood cultures are negative 3. Continue Vancomycin 1 g IV every 24 hours Consult Acknowledgment - Thank you for your consult request.
--- NOTE | 2016-10-02 16:24 | NUR ---
PT HAS TEMP OF 100.0 RADHAMES AWARE. BLOOD CULTURES WERE ALREADY DRAWN THIS AM AND PT IS ON ABX
[2016-10-02 16:36] VITALS: BP 110/66
[2016-10-02 22:00] VITALS: BP 110/60
[2016-10-03 08:01] VITALS: BP 106/60
--- NOTE | 2016-10-03 08:38 | PN- Housestaff ---
REG WALLACE,LILI 10/03/16 0837: Subjective Follow-up For: UTI AICD firing Bacteremia Tele-Events Since Last Visit: D-pacing 73-81, PVCs Subjective: Seen and examined at bedside. Resting comfortably in chair with no complaints. He feels well close to his baseline. Bcx growing MRSA. Denies any chills/fever, nausea/vomiting,sob, cp/palpitation, or any focal neurological deficit. Review of Systems Constitutional: Reports: see HPI. Objective Last 24 Hrs of Vital Signs/I&O Vital Signs Date Time Temp Pulse Resp B/P B/P Pulse O2 O2 Flow FiO2 Mean Ox Delivery Rate 10/03 0801 99.4 74 18 106/60 95 Room Air 10/02 2200 99.4 68 18 110/60 96 Room Air 10/02 2116 99.4 90 18 120/62 10/02 1636 100.1 77 18 110/66 95 Room Air Intake & Output 10/03 1600 10/03 0800 10/03 0000 Intake Total 200 Output Total 400 650 Balance -400 -450 Intake, Oral 200 Output, Urine 400 650 Physical Exam General Appearance: Alert, Cooperative, No Acute Distress Other Physical Findings: Skin No Significant Lesion Sepsis Skin Exam (color): Normal for Ethnicity HEENT Atraumatic, PERRLA, Mucous Membr. moist/pink Neck Supple, No JVD Cardiovascular Regular Rate, Normal S1, Normal S2 Lungs Clear to Auscultation, Normal Air Movement Abdomen Normal Bowel Sounds, Soft, mild suprapubic tenderness. Ritchie intact with some erythema around the area, with no discharge or swelling. Neurological Normal Speech, Normal Tone, Sensation Intact Extremities No Edema, Normal Pulses, No Tenderness/Swelling Vascular Pulses Symmetrical Current Medications: Current Medications Sig/Karin Start time Last Medication Dose Route Stop Time Status Admin Acetaminophen 650 MG Q6P PRN 10/01 1515 AC PO Ceftriaxone Sodium 1,000 MG DAILY 10/02 1000 DC 10/02 IV 0948 Heparin Sodium 5,000 UNIT Q8 10/01 2199 AC 10/03 (Porcine) SC 0555 Levothyroxine Sodium 0.088 MG DAILY AC 10/02 0811 AC 10/03 PO 0603 Metoprolol Tartrate 12.5 MG BID 10/01 2199 AC 10/02 PO 2116 Pravastatin Sodium 40 MG DAILY 10/02 1000 AC 10/02 PO 0948 Vancomycin HCl 1,000 MG Q24H 10/03 0230 AC 10/03 Sodium Chloride 250 ML IV 0230 Last 24 Hrs of Lab/Apolinar Results Last 24 Hrs of Labs/Mics: Laboratory Tests 10/03/16 0640: Anion Gap 8, Estimated GFR 48 L, BUN/Creatinine Ratio 17.9, Magnesium 2.1, CBC w Diff Pending, WBC Pending, RBC Pending, Hgb Pending, Hct Pending, MCV Pending, MCH Pending, RDW Pending, Plt Count Pending, MPV Pending, Gran % Pending, Lymphocytes % Pending, Monocytes % Pending, Eosinophils % Pending, Basophils % Pending, Absolute Granulocytes Pending, Absolute Lymphocytes Pending, Absolute Monocytes Pending, Absolute Eosinophils Pending, Absolute Basophils Pending, PUBS MCHC Pending Microbiology 10/02 1115 BLOOD: Blood Culture - RECD 10/02 1105 BLOOD: Blood Culture - RECD Assessment/Plan Assessment: This is a 85-year-old gentleman with an extensive cardiac history of CAD status post CABG, stent placement, paroxysmal A. fib, CHF with EF of 30-35%, and on pacemaker defibrillator, multiple urological malignancy and on chronic suprapubic catheter presents for evaluation of generalized malaise. Patient presents with symptomatic urinary complaints and is found to have a UA suggestive of a UTI and leukocytosis. He was currently on ciprofloxacin 500 mg twice a day 4 week course which she reports resolution of the foul smell but still persistent suprapubic pain and some incontinence. Coincidently, patient also had an episode of silent defibrillator ration with a suggestion of a possible V. tach. Patient was alert and symptomatic and was not aware of his possible cardiac episode. Impression * MRSA Bacteremia: Bcx from 10/01 growing MRSA. Most likely source is the suprapubic catheter as his urine which was also positive for staph aureus. Will continue Vancomycin 1 gram and obtain new set of blood cultures. There is concern of seeding at cardiac valves since favian has a implantable AICD and hip prosthesis. Will obtain ID consult for further reccomendation. * Urinary tract infection. Presenting with symptoms of suprapubic pain with increased incontinence with a UA suggestive of UTI and leukocytosis. Status post 4 weeks of ciprofloxacin 500 mg twice a day treatment. Urine culture isolated staph aureus and with recent supra pubic catherer, Bcx grwoing MRSA. Continue Vancomycin (day 2). Repeat blood cultures from if Bcx from 10/02 turns positive. PICC pacement if repeat blood cultures are negative. 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 Per Dr. Fields's recommendation, we'll start oxybutinin 5mg TID for now. If this fails, patient will require botox bladder injections within a week. 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 Very likely this episode was induced by patient acute illness. His electrolytes are WNL, and eventhough Tikosyn is arythmogenic, he has been on it for awhile and will be highly unlikely to have suddenly cause the V-TACH. Problem List: 1. Bacteremia 2. UTI (urinary tract infection) 3. Pyelonephritis Pain Ratin Pain Location: 0 Pain Goal: Remain pain free Pain Plan: Mild pathway Tomorrow's Labs & Rationales: BEP-ON VANCOMYCIN CBC-UTI CONNER WALLACE,[facility] 10/03/16 1241: Attending MD Review Statement Attending Statement Attending MD Statement: examined this patient, discuss w/resident/PA/REPAIR COIL WINDER, agreed w/resident/PA/REPAIR COIL WINDER, reviewed EMR data (avail), discussed with nursing, reviewed images, amended to note Attending Assessment/Plan: Patient seen and examined, claims that he's feeling almost the same. Still has some lower abdominal pain. Patient's blood culture also returned positive for MRSA. Currently he is on vancomycin. His vital signs are stable and he has very minimal tenderness on abdominal exam. His bowel sounds are positive. His labs were reviewed. His creatinine is at baseline. A/P; 85-year-old male with past medical history significant for coronary artery disease, status post CABG in 1989, history of [place], angioplasties, history of chronic systolic CHF, history of paroxysmal A. 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 Suprapubic tube exchange. 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 Also found to have episodes of V. tach captured on his defibrillator/pacemaker. This could be the results of Quinolone and Tikosyn prolonging QTC as well as infection. Currently patient has MRSA UTI as well as MRSA bacteremia. Continue vancomycin as per infectious disease. Urology evaluation pending for patient's complain off incontinence through his penis. Follow-up infectious disease and cardiology recommendations. Continue other current medications. Patient will require a PICC line once blood cultures remain negative. DVT px: Heparin subcutaneous.
[2016-10-03 08:57] LABS: ABSOLUTE BASOPHIL COUNT 0 /CUMM (0.0-0.2); ABSOLUTE EOSINOPHIL COUNT 0.1 /CUMM (0.0-0.7); ABSOLUTE GRANULOCYTE CT 7.3 /CUMM (1.4-6.5); ABSOLUTE LYMPH COUNT 0.6 /CUMM (1.2-3.4); ABSOLUTE MONOCYTE COUNT 0.8 /CUMM (0.10-0.60); BASOPHIL % 0.2 % (0.0-2.0); EOSINOPHIL % 1.1 % (0-5); HEMATOCRIT 24.7 % (42-52); MEAN CORPUSCULAR HGB 29.1 PG (27.0-31.0); MEAN CORPUSCULAR HGB CONC 33.5 G/DL (33.0-37.0); MEAN CORPUSCULAR VOLUME 86.8 FL (80.0-94.0); MEAN PLATELET VOLUME 9.3 FL (7.4-10.4); PLATELET COUNT 170 /CUMM (130-400); RBC DISTRIBUTION WIDTH 14.9 % (11.5-14.5); RED BLOOD CELL CT 2.85 /CUMM (4.70-6.10); WHITE BLOOD CELL COUNT 8.8 /CUMM (4.8-10.8)
--- NOTE | 2016-10-03 09:47 | PN- Infect Dx ---
Subjective Subjective: MAXIMUM TEMPERATURE 100.1. He complains of pain all over. Objective Last 24 Hrs of Vital Signs/I&O Vital Signs Date Time Temp Pulse Resp B/P B/P Pulse O2 O2 Flow FiO2 Mean Ox Delivery Rate 10/03 0801 99.4 74 18 106/60 95 Room Air 10/02 2200 99.4 68 18 110/60 96 Room Air 10/02 2116 99.4 90 18 120/62 10/02 1636 100.1 77 18 110/66 95 Room Air Intake & Output 10/03 1600 10/03 0800 10/03 0000 Intake Total 200 Output Total 400 650 Balance -400 -450 Intake, Oral 200 Output, Urine 400 650 Physical Exam Other Physical Findings: He appears comfortable in no acute distress Lungs are clear Heart regular rhythm with a 2/6 systolic ejection murmur Abdomen is soft, tender on palpation diffusely, with no guarding or rebound, positive bowel sounds; suprapubic tube in place with no surrounding inflammation Extremities no cyanosis, clubbing or edema Results Last 24 Hours of Lab Results: Laboratory Tests 10/03 0640 Chemistry Sodium (137 - 145 mmol/L) 135 L Potassium (3.5 - 5.1 mmol/L) 4.0 Chloride (98 - 107 mmol/L) 103 Carbon Dioxide (22 - 30 mmol/L) 24 Anion Gap (5 - 16) 8 BUN (9 - 20 mg/dL) 25 H Creatinine (0.7 - 1.2 mg/dL) 1.4 H Estimated GFR (>60 ml/min) 48 L BUN/Creatinine Ratio (7 - 25 %) 17.9 Magnesium (1.6 - 2.3 mg/dL) 2.1 Hematology CBC w Diff Pending WBC Pending RBC Pending Hgb Pending Hct Pending MCV Pending MCH Pending RDW Pending Plt Count Pending MPV Pending Gran % Pending Lymphocytes % Pending Monocytes % Pending Eosinophils % Pending Basophils % Pending Absolute Granulocytes Pending Absolute Lymphocytes Pending Absolute Monocytes Pending Absolute Eosinophils Pending Absolute Basophils Pending PUBS MCHC Pending Last 24 Hours of Apolinar Results: Blood cultures October 01 positive for MRSA Urine culture October 01 greater than 100,000 colonies of Staph aureus Blood cultures October 02 negative so far Assessment/Plan Impression: MRSA bacteremia/sepsis of urologic origin, possibly related to the recent exchange of the suprapubic catheter, with decreased temperatures and white blood cell count on Vancomycin now Day 2. Suggestion: 1. Follow-up blood culture sent October 02 and repeat blood cultures 2 if these turn positive 2. Would pursue placement of a PICC if/when repeat blood cultures are negative 3. Continue Vancomycin
[2016-10-03 10:10] LABS: GRANULOCYTE % 83.4 % (42.2-75.2)
--- NOTE | 2016-10-03 12:30 | PN- Cardiology ---
Subjective Subjective: The patient is stable. He is afebrile. He has no complaints His white count is down to 8800. His second set of blood cultures are negative so far. His first set grew MRSA. His echocardiogram was similar to his previous ones and showed an ejection fraction of 35-40%. His rhythm remains dual-chamber paced with occasional PVCs and no other arrhythmias. Troponins have remained negative. Objective Vital Signs and I&Os Vital Signs Date Time Temp Pulse Resp B/P B/P Pulse O2 O2 Flow FiO2 Mean Ox Delivery Rate 10/03 1025 110/62 10/03 0801 99.4 74 18 106/60 95 Room Air 10/02 2200 99.4 68 18 110/60 96 Room Air 10/02 2116 99.4 90 18 120/62 05 1636 100.1 77 18 110/66 95 Room Air Intake & Output 10/03 1600 10/03 0800 10/03 0000 10/02 1600 10/02 0800 10/02 0000 Intake Total 200 400 250 310 Output Total 400 650 400 250 150 Balance -400 -450 0 0 160 Intake, IV 250 10 Intake, Oral 200 400 300 Number 1 Bowel Movements Output, Urine 400 650 400 250 150 Patient 170 lb Weight Weight Estimated Measurement Method Physical Exam: He is in no distress HEENT exam is normal Chest is clear Heart reveals regular rhythm with systolic ejection murmur at the base as before Extremities reveal no edema Current Medications: Current Medications Sig/Karin Start time Last Medication Dose Route Stop Time Status Admin Acetaminophen 650 MG Q6P PRN 10/01 1515 AC PO Ceftriaxone Sodium 1,000 MG DAILY 10/02 1000 DC 10/02 IV 0948 Heparin Sodium 5,000 UNIT Q8 10/01 2200 AC 10/03 (Porcine) SC 0555 Levothyroxine Sodium 0.088 MG DAILY AC 10/02 0811 AC 10/03 PO 0603 Metoprolol Tartrate 12.5 MG BID 10/01 2200 AC 10/03 PO 1025 Pravastatin Sodium 40 MG DAILY 10/02 1000 AC 10/03 PO 1025 Vancomycin HCl 1,000 MG Q24H 10/03 0230 AC 10/03 Sodium Chloride 250 ML IV 0230 Results Last 48 Hrs of Labs/Mics: Laboratory Tests 10/03/16 0640: Anion Gap 8, Estimated GFR 48 L, BUN/Creatinine Ratio 17.9, Magnesium 2.1, CBC w Diff NO MAN DIFF REQ, RBC 2.85 L, MCV 86.8, MCH 29.1, RDW 14.9 H, MPV 9.3, Gran % 83.4 H, Lymphocytes % 6.6 L, Monocytes % 8.7, Eosinophils % 1.1, Basophils % 0.2, Absolute Granulocytes 7.3 H, Absolute Lymphocytes 0.6 L, Absolute Monocytes 0.8 H, Absolute Eosinophils 0.1, Absolute Basophils 0, PUBS MCHC 33.5 10/02/16 0625: Anion Gap 10, Estimated GFR 41 L, BUN/Creatinine Ratio 17.5, Magnesium 2.1, Troponin I 0.04, CBC w Diff NO MAN DIFF REQ, RBC 2.82 L, MCV 87.5, MCH 29.2, RDW 14.8 H, MPV 9.1, Gran % 84.9 H, Lymphocytes % 6.2 L, Monocytes % 7.8, Eosinophils % 0.9, Basophils % 0.2, Absolute Granulocytes 7.5 H, Absolute Lymphocytes 0.5 L, Absolute Monocytes 0.7 H, Absolute Eosinophils 0.1, Absolute Basophils 0, PUBS MCHC 33.4 10/02/16 0000: Troponin I 0.03 10/01/16 2138: Lactic Acid 1.1 10/01/16 1757: Troponin I 0.02 10/01/16 1700: Lactic Acid 1.8 10/01/16 1426: Lactic Acid Cancelled Assessment/Plan Assessment/Plan Mr. Garsia has remained stable from a cardiac standpoint. However because of his documented V. tach/V. fib arrest with defibrillator resuscitation he should be maintained on the monitor. His echocardiogram did not show any evidence of valvular vegetations, which I think he is at low risk for unless he has persistent bacteremia. We will continue to monitor that. We will continue to hold Tikosyn for now. I will discuss with Dr. Mcdowell when he is ready for discharge whether it would be safe to resume that medication or choose an alternative medication. Continue telemetry? Yes
[2016-10-03 15:46] VITALS: BP 118/70
[2016-10-03 23:00] VITALS: BP 112/64
[2016-10-04 08:00] LABS: ABSOLUTE BASOPHIL COUNT 0 /CUMM (0.0-0.2); ABSOLUTE EOSINOPHIL COUNT 0.1 /CUMM (0.0-0.7); ABSOLUTE GRANULOCYTE CT 9.2 /CUMM (1.4-6.5); ABSOLUTE LYMPH COUNT 0.5 /CUMM (1.2-3.4); ABSOLUTE MONOCYTE COUNT 0.5 /CUMM (0.10-0.60); BASOPHIL % 0.3 % (0.0-2.0); EOSINOPHIL % 1.1 % (0-5); MEAN CORPUSCULAR HGB CONC 33.2 G/DL (33.0-37.0); MEAN CORPUSCULAR VOLUME 87.6 FL (80.0-94.0); MEAN PLATELET VOLUME 9.1 FL (7.4-10.4); PLATELET COUNT 171 /CUMM (130-400); RBC DISTRIBUTION WIDTH 14.9 % (11.5-14.5); RED BLOOD CELL CT 2.97 /CUMM (4.70-6.10); WHITE BLOOD CELL COUNT 10.4 /CUMM (4.8-10.8)
[2016-10-04 08:04] VITALS: BP 110/62
[2016-10-04 08:57] LABS: GRANULOCYTE % 88.6 % (42.2-75.2)
--- NOTE | 2016-10-04 09:14 | PN- Housestaff ---
VIJAYA WALLACE,[facility] 10/04/16 0914: Subjective Follow-up For: UTI BACTEREMIA PACEMAKER DISCHARGE Subjective: Seen and examined at bedside. Nurse reports a development of rash around chest area. Pt does not complain of pruritus and only becomes aware after being notified by nursing staff. He does not offer any other complaints including fever/chils. Review of Systems Constitutional: Reports: see HPI. Objective Last 24 Hrs of Vital Signs/I&O Vital Signs Date Time Temp Pulse Resp B/P B/P Pulse O2 O2 Flow FiO2 Mean Ox Delivery Rate 10/05 0050 99.4 10/04 2354 99.4 74 18 102/48 96 Room Air 10/04 2126 74 90/42 10/04 1754 98.6 75 18 104/62 95 Room Air 10/04 1130 98.2 80 20 114/60 10/04 0804 99.1 75 18 110/62 96 Room Air 10/04 0800 Room Air Intake & Output 10/05 0800 10/05 0000 10/04 1600 Intake Total 880 480 Output Total 1325 350 Balance -445 130 Intake, Oral 880 480 Output, Urine 1325 350 Physical Exam General Appearance: Alert, Oriented X3, Cooperative Skin: mild erythematous non pruritic diffuse rash at anterior chest area. Cardiovascular: Normal S1, Normal S2, irregular rate Lungs: Clear to Auscultation, Normal Air Movement Abdomen: Normal Bowel Sounds, Soft, suprapubic catheter intact, no swelling. Neurological: Normal Speech, Sensation Intact Extremities: No Edema, Normal Pulses, No Tenderness/Swelling Assessment/Plan Assessment: This is a 85-year-old gentleman with an extensive cardiac history of CAD status post CABG, stent placement, paroxysmal A. fib, CHF with EF of 30-35%, and on pacemaker defibrillator, multiple urological malignancy and on chronic suprapubic catheter presents for evaluation of generalized malaise. Patient presents with symptomatic urinary complaints and is found to have a UA suggestive of a UTI and leukocytosis. He was currently on ciprofloxacin 500 mg twice a day 4 week course which she reports resolution of the foul smell but still persistent suprapubic pain and some incontinence. Coincidently, patient also had an episode of silent defibrillator ration with a suggestion of a possible V. tach. Patient was alert and symptomatic and was not aware of his possible cardiac episode. Impression * Rash The non pruritic rash could be suggestive of Red Man Syndrome from Vancomycin infusion rate, however since nurse reports rash before today's infusion, less likley to have been cause by vanco. Could possibly from drug reaction from other meds such as oxybutnin that was recently started. Discussed with ID who felt Vanco should be continued at the same rate and will reassess rash tomorrow. It should be noted that patient does not complain of pruritus and is asymptomatic and comfortable and therefore no change or intervention warranted as of now. * MRSA Bacteremia: Bcx from 10/01 growing MRSA. Most likely source is the suprapubic catheter as his urine which was also positive for staph aureus. Will continue Vancomycin 1 gram and obtain new set of blood cultures. There is concern of seeding at cardiac valves since favian has a implantable AICD and hip prosthesis. 10/02 blood cultures negative. Pt most likely requires 4 weeks of ABX starting from date of last negative culture. * Urinary tract infection. Presenting with symptoms of suprapubic pain with increased incontinence with a UA suggestive of UTI and leukocytosis. Status post 4 weeks of ciprofloxacin 500 mg twice a day treatment. Urine culture isolated staph aureus and with recent supra pubic catherer, Bcx grwoing MRSA. Continue Vancomycin (day 3), will obtain vanc trough levels before the 5th dose. 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 Per Dr. Fields's recommendation, we'll start oxybutinin 5mg TID for now. If this fails, patient will require botox bladder injections within a week. 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 Very likely this episode was induced by patient acute illness. His electrolytes are WNL, and eventhough Tikosyn is arythmogenic, he has been on it for awhile and will be highly unlikely to have suddenly cause the V-TACH. Problem List: 1. Bacteremia 2. UTI (urinary tract infection) Pain Ratin Pain Location: none Pain Goal: Remain pain free Pain Plan: per pain pathway Tomorrow's Labs & Rationales: BEP-on wojciech PRIETO MD,ERIBERTO 10/04/16 1216: Attending MD Review Statement Attending Statement Attending MD Statement: examined this patient, discuss w/resident/PA/BLOCK LAYER, agreed w/resident/PA/BLOCK LAYER, discussed with family, reviewed EMR data (avail), discussed with nursing, reviewed images, amended to note Attending Assessment/Plan: Patient seen and examined, still c/o lower abd pain and now constipated. Slight erythema round suprapubic cath site. Patient has developed a rash on his skin. vss. on exam; aox3,nad. cv; s1, s2, rrr resp; clear abd; soft, mild lower abd tenderness bs+ ext; no edema. skin: macular rash on upper chest and upper back. Laboratory Tests 10/04 0640 Chemistry Sodium (137 - 145 mmol/L) 136 L Potassium (3.5 - 5.1 mmol/L) 4.0 Chloride (98 - 107 mmol/L) 105 Carbon Dioxide (22 - 30 mmol/L) 22 Anion Gap (5 - 16) 10 BUN (9 - 20 mg/dL) 21 H Creatinine (0.7 - 1.2 mg/dL) 1.4 H Estimated GFR (>60 ml/min) 48 L BUN/Creatinine Ratio (7 - 25 %) 15.0 Magnesium (1.6 - 2.3 mg/dL) 2.1 Hematology CBC w Diff NO MAN DIFF REQ WBC (4.8 - 10.8 /CUMM) 10.4 RBC (4.70 - 6.10 /CUMM) 2.97 L Hgb (14.0 - 18.0 G/DL) 8.6 L Hct (42 - 52 %) 26.0 L MCV (80.0 - 94.0 FL) 87.6 MCH (27.0 - 31.0 PG) 29.0 RDW (11.5 - 14.5 %) 14.9 H Plt Count (130 - 400 /CUMM) 171 MPV (7.4 - 10.4 FL) 9.1 Gran % (42.2 - 75.2 %) 88.6 H Lymphocytes % (20.5 - 51.1 %) 5.2 L Monocytes % (1.7 - 9.3 %) 4.8 Eosinophils % (0 - 5 %) 1.1 Basophils % (0.0 - 2.0 %) 0.3 Absolute Granulocytes (1.4 - 6.5 /CUMM) 9.2 H Absolute Lymphocytes (1.2 - 3.4 /CUMM) 0.5 L Absolute Monocytes (0.10 - 0.60 /CUMM) 0.5 Absolute Eosinophils (0.0 - 0.7 /CUMM) 0.1 Absolute Basophils (0.0 - 0.2 /CUMM) 0 PUBS MCHC (33.0 - 37.0 G/DL) 33.2 A/P; 85-year-old male with past medical history significant for coronary artery disease, status post CABG in 1989, history of [place], angioplasties, history of chronic systolic CHF, history of paroxysmal A. 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 Suprapubic tube exchange. 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 Also found to have episodes of V. tach captured on his defibrillator/pacemaker. This could be the results of Quinolone and Tikosyn prolonging QTC as well as infection. Currently patient has MRSA UTI as well as MRSA bacteremia. Patient on vancomycin. Please discuss with infectious disease about this rash. We can try to infuse Vanco slowly or can use low-dose Benadryl as well but discuss with ID first please. Repeat blood cultures remained negative. No plans for DIANA as of yet. Oxybutynin was added per urology recommendations for urinary incontinence. DVT px: Hep sq. D/w at bedside.
--- NOTE | 2016-10-04 11:19 | PN- Cardiology ---
Subjective Subjective: The patient is a little more lethargic. He specifically has no complaints. He remains in paced rhythm with some PVCs but no malignant arrhythmias on the monitor. The second set of cultures are still negative. Urine and first set of blood cultures grew the same organism, MRSA. Objective Vital Signs and I&Os Vital Signs Date Time Temp Pulse Resp B/P B/P Pulse O2 O2 Flow FiO2 Mean Ox Delivery Rate 10/04 0804 99.1 75 18 110/62 96 Room Air 10/04 0000 Room Air 10/03 2300 98.9 80 16 112/64 96 Room Air 10/03 2143 84 112/64 10/03 1546 98.9 76 18 118/70 97 Intake & Output 10/04 1600 10/04 0800 10/04 0000 10/03 1600 10/03 0810/03 0000 Intake Total 450 200 600 200 Output Total 200 150 200 400 650 Balance 250 50 400 -400 -450 Intake, IV 250 0 Intake, Oral 200 200 600 200 Number 0 0 Bowel Movements Output, Urine 200 150 200 400 650 Physical Exam: He is pale and looks chronically ill HEENT exam is unremarkable Chest is clear Heart reveals soft heart sounds and no murmurs Extremities no edema Current Medications: Current Medications Sig/Karin Start time Last Medication Dose Route Stop Time Status Admin Acetaminophen 650 MG Q6P PRN 10/01 1515 AC PO Docusate Sodium 100 MG DAILY PRN 10/04 0700 AC 10/04 PO 0645 Heparin Sodium 5,000 UNIT Q8 10/01 2200 AC 10/04 (Porcine) SC 0628 Levothyroxine Sodium 0.088 MG DAILY AC 10/02 0811 AC 10/04 PO 0628 Metoprolol Tartrate 12.5 MG BID 10/01 2200 AC 10/03 PO 2143 Oxybutynin Chloride 5 MG TID 10/03 1600 AC 10/03 PO 2137 Pravastatin Sodium 40 MG DAILY 10/02 1000 AC 10/03 PO 1025 Senna/Docusate Sodium 1 TAB BID 10/04 1000 AC PO Vancomycin HCl 1,000 MG Q24H 10/03 0230 AC 10/04 Sodium Chloride 250 ML IV 0031 Results Last 48 Hrs of Labs/Mics: Laboratory Tests 10/04/16 0640: Anion Gap 10, Estimated GFR 48 L, BUN/Creatinine Ratio 15.0, Magnesium 2.1, CBC w Diff NO MAN DIFF REQ, RBC 2.97 L, MCV 87.6, MCH 29.0, RDW 14.9 H, MPV 9.1, Gran % 88.6 H, Lymphocytes % 5.2 L, Monocytes % 4.8, Eosinophils % 1.1, Basophils % 0.3, Absolute Granulocytes 9.2 H, Absolute Lymphocytes 0.5 L, Absolute Monocytes 0.5, Absolute Eosinophils 0.1, Absolute Basophils 0, PUBS MCHC 33.2 10/03/16 0640: Anion Gap 8, Estimated GFR 48 L, BUN/Creatinine Ratio 17.9, Magnesium 2.1, CBC w Diff NO MAN DIFF REQ, RBC 2.85 L, MCV 86.8, MCH 29.1, RDW 14.9 H, MPV 9.3, Gran % 83.4 H, Lymphocytes % 6.6 L, Monocytes % 8.7, Eosinophils % 1.1, Basophils % 0.2, Absolute Granulocytes 7.3 H, Absolute Lymphocytes 0.6 L, Absolute Monocytes 0.8 H, Absolute Eosinophils 0.1, Absolute Basophils 0, PUBS MCHC 33.5 Assessment/Plan Assessment/Plan Mr. Garsia has remained stable from a cardiac standpoint. However because of his documented V. tach/V. fib arrest with defibrillator resuscitation he should be maintained on the monitor. His echocardiogram did not show any evidence of valvular vegetations, which I think he is at low risk for unless he has persistent bacteremia. We will continue to monitor that. We will continue to hold Tikosyn for now. I will discuss with Dr. Mcdowell when he is ready for discharge whether it would be safe to resume that medication or choose an alternative medication. In the meantime he will be continued to be treated with antibiotics for sepsis of urologic origin. There is no big concern for endocarditis or device infection at this time. His is concerned about post hospital care and I suggested that he probably will need rehabilitation although the patient apparently would prefer to go home. Continue telemetry? Yes
[2016-10-04 11:30] VITALS: BP 114/60
[2016-10-04 17:54] VITALS: BP 104/62
[2016-10-04 23:54] VITALS: BP 102/48
[2016-10-05 07:47] VITALS: BP 120/64
--- NOTE | 2016-10-05 08:11 | PN- Housestaff ---
VIJAYA WALLACE,RADHAMES 10/05/16 0810: Subjective Follow-up For: bacteremia UTI Subjective: Seen and examined at bedside. Progressive rash noted by nursing staff to be now on the front and back of chest. Pt does not complan of pruritus. No chest pain/ palpation, sob/fever/chills,nausea/vomiting. Review of Systems Constitutional: Reports: no symptoms. Objective Last 24 Hrs of Vital Signs/I&O Vital Signs Date Time Temp Pulse Resp B/P B/P Pulse O2 O2 Flow FiO2 Mean Ox Delivery Rate 10/05 1655 98.3 79 20 90/40 94 Room Air 10/05 1605 Room Air 1.0L 10/05 0953 126/64 10/05 0747 98.2 75 18 120/64 97 Room Air 10/05 0240 97.8 10/05 0050 99.4 10/04 2354 99.4 74 18 102/48 96 Room Air 10/04 2126 74 90/42 Intake & Output 10/05 1600 10/05 0800 10/05 0000 Intake Total 400 350 880 Output Total 491 440 9780 Balance 200 -150 -445 Intake, IV 250 Intake, Oral 400 100 880 Output, Urine 343 558 5950 Physical Exam General Appearance: Alert, Oriented X3, Cooperative Skin: diffuse eythema on front and back chest. non pruritic/non vesicular. Cardiovascular: Regular Rate, Normal S1, Normal S2 Lungs: Clear to Auscultation, Normal Air Movement Abdomen: Normal Bowel Sounds, Soft, very mild suprapubic tenderness Neurological: Normal Gait, Normal Speech, Strength at 5/5 X4 Ext Assessment/Plan Assessment: This is a 85-year-old gentleman with an extensive cardiac history of CAD status post CABG, stent placement, paroxysmal A. fib, CHF with EF of 30-35%, and on pacemaker defibrillator, multiple urological malignancy and on chronic suprapubic catheter presents for evaluation of generalized malaise. Patient presents with symptomatic urinary complaints and is found to have a UA suggestive of a UTI and leukocytosis. He was currently on ciprofloxacin 500 mg twice a day 4 week course which she reports resolution of the foul smell but still persistent suprapubic pain and some incontinence. Coincidently, patient also had an episode of silent defibrillator ration with a suggestion of a possible V. tach. Patient was alert and symptomatic and was not aware of his possible cardiac episode. Impression * Rash The non pruritic rash could be suggestive of Red Man Syndrome from Vancomycin infusion rate, however since nurse reports rash before today's infusion, less likley to have been cause by vanco. Could possibly from drug reaction from other meds such as oxybutnin that was recently started. Discussed with ID who felt Vanco should be continued at the same rate and will reassess rash tomorrow. It should be noted that patient does not complain of pruritus and is asymptomatic and comfortable and therefore no change or intervention warranted as of now. * MRSA Bacteremia: Bcx from 10/01 growing MRSA. Most likely source is the suprapubic catheter as his urine which was also positive for staph aureus. Will continue Vancomycin 1 gram and obtain new set of blood cultures. There is concern of seeding at cardiac valves since favian has a implantable AICD and hip prosthesis. 10/02 blood cultures negative. Pt most likely requires 4 weeks of ABX starting from date of last negative culture. * Urinary tract infection. Presenting with symptoms of suprapubic pain with increased incontinence with a UA suggestive of UTI and leukocytosis. Status post 4 weeks of ciprofloxacin 500 mg twice a day treatment. Urine culture isolated staph aureus and with recent supra pubic catherer, Bcx grwoing MRSA. Continue Vancomycin (day 4), will obtain vanc trough levels before the 5th dose. 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 Per Dr. Fields's recommendation, pt will be scheduled for bladder botox injections. 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 Very likely this episode was induced by patient acute illness. His electrolytes are WNL, and eventhough Tikosyn is arythmogenic, he has been on it for awhile and will be highly unlikely to have suddenly cause the V-TACH. Per cardiology, Tikosyn restarted. Problem List: 1. Bacteremia Pain Ratin Pain Location: suprapubic Pain Goal: Remain pain free Pain Plan: per pain pathway Tomorrow's Labs & Rationales: none-discharge CONNER WALLACE,ERIBERTO 10/05/16 1151: Attending MD Review Statement Attending Statement Attending MD Statement: examined this patient, discuss w/resident/PA/TENNIS PLAYER, agreed w/resident/PA/TENNIS PLAYER, discussed with family, reviewed EMR data (avail), discussed with nursing, discussed with case mgmt, reviewed images, amended to note Attending Assessment/Plan: Patient seen and examined, just feeling tired. He currently denies any lower abdominal pain. He did have a bowel movement. No telemetry events overnight and his rhythm was paced. His repeat blood cultures from October 02 remain negative. Vital Signs Date Time Temp Pulse Resp B/P B/P Pulse O2 O2 Flow FiO2 Mean Ox Delivery Rate 10/05 0953 126/64 10/05 0747 98.2 75 18 120/64 97 Room Air 10/05 0240 97.8 10/05 0050 99.4 10/04 2354 99.4 74 18 102/48 96 Room Air 10/04 2126 74 90/42 10/04 1754 98.6 75 18 104/62 95 Room Air on exam; aox3, nad. cv; s1,s2, rrr, + defibrillater/pacemaker. resp; clear b/l abd; soft, tender in lower abd, bs+ ext; no edema. Laboratory Tests 10/05 626 Chemistry Sodium (137 - 145 mmol/L) 137 Potassium (3.5 - 5.1 mmol/L) 3.9 Chloride (98 - 107 mmol/L) 103 Carbon Dioxide (22 - 30 mmol/L) 24 Anion Gap (5 - 16) 10 BUN (9 - 20 mg/dL) 19 Creatinine (0.7 - 1.2 mg/dL) 1.4 H Estimated GFR (>60 ml/min) 48 L BUN/Creatinine Ratio (7 - 25 %) 13.6 Magnesium (1.6 - 2.3 mg/dL) 2.2 Hematology CBC w Diff NO MAN DIFF REQ WBC (4.8 - 10.8 /CUMM) 12.5 H RBC (4.70 - 6.10 /CUMM) 3.14 L Hgb (14.0 - 18.0 G/DL) 9.2 L Hct (42 - 52 %) 27.3 L MCV (80.0 - 94.0 FL) 87.0 MCH (27.0 - 31.0 PG) 29.2 RDW (11.5 - 14.5 %) 14.7 H Plt Count (130 - 400 /CUMM) 200 MPV (7.4 - 10.4 FL) 9.4 Gran % (42.2 - 75.2 %) 86.9 H Lymphocytes % (20.5 - 51.1 %) 4.0 L Monocytes % (1.7 - 9.3 %) 6.1 Eosinophils % (0 - 5 %) 2.8 Basophils % (0.0 - 2.0 %) 0.2 Absolute Granulocytes (1.4 - 6.5 /CUMM) 10.9 H Absolute Lymphocytes (1.2 - 3.4 /CUMM) 0.5 L Absolute Monocytes (0.10 - 0.60 /CUMM) 0.8 H Absolute Eosinophils (0.0 - 0.7 /CUMM) 0.4 Absolute Basophils (0.0 - 0.2 /CUMM) 0 PUBS MCHC (33.0 - 37.0 G/DL) 33.5 A/P; 85-year-old male with past medical history significant for coronary artery disease, status post CABG in 1989, history of [place], angioplasties, history of chronic systolic CHF, history of paroxysmal A. 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 Suprapubic tube exchange. 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 Also found to have episodes of V. tach captured on his defibrillator/pacemaker. This could be the results of Quinolone and Tikosyn prolonging QTC as well as infection. Currently patient has MRSA UTI as well as MRSA bacteremia. At this point no plan for DIANA as patient is not exhibiting any signs of endocarditis. His bacteremia is cleared. He's afebrile. ID recommends keeping the patient on vancomycin for 4-6 weeks. He has a rash but it's not itchy. Unclear whether it's related to antibiotic versus oxybutynin. Will discontinue it and we will await further urology evaluation. Tikosyn was restarted as per cardiology recommendations. PICC line today. DVT px; Hep sq. Dispo planning. Discussed with patient's . She wants him to go to rehabilitation but patient refuses. Discussed with case management who will discuss with the patient and family.
[2016-10-05 08:48] LABS: ABSOLUTE BASOPHIL COUNT 0 /CUMM (0.0-0.2); ABSOLUTE EOSINOPHIL COUNT 0.4 /CUMM (0.0-0.7); ABSOLUTE GRANULOCYTE CT 10.9 /CUMM (1.4-6.5); ABSOLUTE LYMPH COUNT 0.5 /CUMM (1.2-3.4); ABSOLUTE MONOCYTE COUNT 0.8 /CUMM (0.10-0.60); BASOPHIL % 0.2 % (0.0-2.0); EOSINOPHIL % 2.8 % (0-5); HEMATOCRIT 27.3 % (42-52); MEAN CORPUSCULAR HGB 29.2 PG (27.0-31.0); MEAN CORPUSCULAR HGB CONC 33.5 G/DL (33.0-37.0); MEAN PLATELET VOLUME 9.4 FL (7.4-10.4); PLATELET COUNT 200 /CUMM (130-400); RBC DISTRIBUTION WIDTH 14.7 % (11.5-14.5); RED BLOOD CELL CT 3.14 /CUMM (4.70-6.10); WHITE BLOOD CELL COUNT 12.5 /CUMM (4.8-10.8)
--- NOTE | 2016-10-05 10:24 | PN- Infect Dx ---
Subjective Subjective: Afebrile. He still notes suprapubic discomfort and urinary incontinence but is without any new complaints. Objective Last 24 Hrs of Vital Signs/I&O Vital Signs Date Time Temp Pulse Resp B/P B/P Pulse O2 O2 Flow FiO2 Mean Ox Delivery Rate 10/05 0953 126/64 10/05 0747 98.2 75 18 120/64 97 Room Air 10/05 0240 97.8 10/05 0050 99.4 10/04 2354 99.4 74 18 102/48 96 Room Air 10/04 2126 74 90/42 10/04 1754 98.6 75 18 104/62 95 Room Air 10/04 1130 98.2 80 20 114/60 Intake & Output 10/05 1600 10/05 0800 10/05 0000 Intake Total 350 880 Output Total 500 1325 Balance -150 -445 Intake, IV 250 Intake, Oral 100 880 Output, Urine 500 1325 Physical Exam Other Physical Findings: He appears comfortable in no acute distress Skin diffuse macular rash, which is nonpruritic Lungs decreased breath sounds at the right base Heart regular rhythm with a 1 to 2/6 systolic ejection murmur Abdomen mild suprapubic tenderness, with suprapubic tube in place with no surrounding inflammation Results Last 24 Hours of Lab Results: Laboratory Tests 10/05 626 Chemistry Sodium (137 - 145 mmol/L) 137 Potassium (3.5 - 5.1 mmol/L) 3.9 Chloride (98 - 107 mmol/L) 103 Carbon Dioxide (22 - 30 mmol/L) 24 Anion Gap (5 - 16) 10 BUN (9 - 20 mg/dL) 19 Creatinine (0.7 - 1.2 mg/dL) 1.4 H Estimated GFR (>60 ml/min) 48 L BUN/Creatinine Ratio (7 - 25 %) 13.6 Magnesium (1.6 - 2.3 mg/dL) 2.2 Hematology CBC w Diff Pending WBC Pending RBC Pending Hgb Pending Hct Pending MCV Pending MCH Pending RDW Pending Plt Count Pending MPV Pending Gran % Pending Lymphocytes % Pending Monocytes % Pending Eosinophils % Pending Basophils % Pending Absolute Granulocytes Pending Absolute Lymphocytes Pending Absolute Monocytes Pending Absolute Eosinophils Pending Absolute Basophils Pending PUBS MCHC Pending Last 24 Hours of Apolinar Results: Blood cultures October 02 remain negative Blood cultures 2 October 01 positive for MRSA with APOLINAR 1.5 Urine culture October 01 greater than 100,000 colonies of MRSA Assessment/Plan Impression: MRSA bacteremia/sepsis, presumably of urologic origin, possibly related to the recent exchange of the suprapubic catheter, with temperatures and white blood cell count remaining normal on Vancomycin now Day 4. The rash appears to be drug related and could be the Vancomycin or the Oxybutynin, which was started 2 days ago. As it is not pruritic feel that the Vancomycin can be continued, but, if the Oxybutynin is not essential, this should be discontinued. He will require a minimum of 4-6 weeks of antibiotics for a "complicated" bacteremia, given the presence of implants (pacemaker and bilateral hips). As discussed a DIANA could be considered but, as he has no manifestations of endocarditis, with rapid clearing of his bacteremia, it may not change his management. Suggestion: 1. Would pursue placement of a PICC 2. Would discontinue the Oxybutynin 3. Vancomycin trough level with his next dose 4. Continue Vancomycin
[2016-10-05 11:18] LABS: GRANULOCYTE % 86.9 % (42.2-75.2)
--- NOTE | 2016-10-05 11:18 | PN- Cardiology ---
See Addendum Subjective Subjective: The patient is more alert today. He walked a few steps with physical therapy using a walker. He has no complaints of chest pain, shortness of breath, palpitations, dizziness. His labs are stable. Blood cultures are still negative from the . Rhythm is still paced with a few PVCs, occasional couplets. Objective Vital Signs and I&Os Vital Signs Date Time Temp Pulse Resp B/P B/P Pulse O2 O2 Flow FiO2 Mean Ox Delivery Rate 10/05 0953 126/64 10/05 0747 98.2 75 18 120/64 97 Room Air 10/05 0240 97.8 10/05 0050 99.4 10/04 2354 99.4 74 18 102/48 96 Room Air 10/04 2126 74 90/42 10/04 1754 98.6 75 18 104/62 95 Room Air 10/04 1130 98.2 80 20 114/60 Intake & Output 10/05 1600 10/05 0800 10/05 0000 10/04 1600 10/04 0800 10/04 0000 Intake Total 350 880 480 450 200 Output Total 500 1325 350 200 150 Balance -150 -445 130 250 50 Intake, IV 250 250 0 Intake, Oral 100 880 480 200 200 Number 0 0 Bowel Movements Output, Urine 500 1325 350 200 150 Physical Exam: He is in no distress Chest is clear Heart is regular with no murmurs Extremities no edema Current Medications: Current Medications Sig/Karin Start time Last Medication Dose Route Stop Time Status Admin Acetaminophen 650 MG .STK-MED ONE 10/04 1746 DC PO 10/04 1747 Acetaminophen 650 MG .STK-MED ONE 10/04 1135 DC PO 10/04 1136 Acetaminophen 650 MG Q6P PRN 10/01 1515 AC 10/05 PO 0050 Bisacodyl 10 MG ONCE ONE 10/04 1145 DC 10/04 WA 10/04 1146 1156 Docusate Sodium 100 MG DAILY PRN 10/04 0700 AC 10/04 PO 0645 Heparin Sodium 5,000 UNIT Q8 10/01 2199 AC 10/05 (Porcine) SC 0555 Levothyroxine Sodium 0.088 MG DAILY AC 10/02 0811 AC 10/05 PO 0555 Metoprolol Tartrate 12.5 MG BID 10/01 2199 AC 10/05 PO 0953 Oxybutynin Chloride 5 MG TID 10/03 1600 AC 10/05 PO 0953 Pravastatin Sodium 40 MG DAILY 10/02 1000 AC 10/05 PO 0953 Senna/Docusate Sodium 1 TAB BID 10/04 1000 AC 10/05 PO 0953 Vancomycin HCl 1,000 MG Q24H 10/03 0230 AC 10/05 Sodium Chloride 250 ML IV 0236 Results Last 48 Hrs of Labs/Mics: Laboratory Tests 10/05/16 0627: Anion Gap 10, Estimated GFR 48 L, BUN/Creatinine Ratio 13.6, Magnesium 2.2, CBC w Diff Pending, WBC Pending, RBC Pending, Hgb Pending, Hct Pending, MCV Pending, MCH Pending, RDW Pending, Plt Count Pending, MPV Pending, Gran % Pending, Lymphocytes % Pending, Monocytes % Pending, Eosinophils % Pending, Basophils % Pending, Absolute Granulocytes Pending, Absolute Lymphocytes Pending, Absolute Monocytes Pending, Absolute Eosinophils Pending, Absolute Basophils Pending, PUBS MCHC Pending 10/04/16 0640: Anion Gap 10, Estimated GFR 48 L, BUN/Creatinine Ratio 15.0, Magnesium 2.1, CBC w Diff NO MAN DIFF REQ, RBC 2.97 L, MCV 87.6, MCH 29.0, RDW 14.9 H, MPV 9.1, Gran % 88.6 H, Lymphocytes % 5.2 L, Monocytes % 4.8, Eosinophils % 1.1, Basophils % 0.3, Absolute Granulocytes 9.2 H, Absolute Lymphocytes 0.5 L, Absolute Monocytes 0.5, Absolute Eosinophils 0.1, Absolute Basophils 0, PUBS MCHC 33.2 Assessment/Plan Assessment/Plan Mr. Garsia has remained stable from a cardiac standpoint. However because of his documented V. tach/V. fib arrest with defibrillator resuscitation he should be maintained on the monitor. His echocardiogram did not show any evidence of valvular vegetations, which I think he is at low risk for unless he has persistent bacteremia. We will continue to monitor that. We will continue to hold Tikosyn for now. I will discuss with Dr. Mcdowell when he is ready for discharge whether it would be safe to resume that medication or choose an alternative medication. In the meantime he will be continued to be treated with antibiotics for sepsis of urologic origin. There is no big concern for endocarditis or device infection at this time. The patient was able to walk with a walker today and is still is insisting on going home. This will depend on physical therapy recommendations. He will be getting a PICC line for long-term antibiotic administration either at home or in rehabilitation. Continue telemetry? Yes
--- NOTE | 2016-10-05 16:44 | NUR ---
RADHAMES IS AWARE BP IS 90/40. HE WILL CALL DR Darryl GOMEZ FOR ADVICE
[2016-10-05 16:55] VITALS: BP 90/40
[2016-10-05 23:30] VITALS: BP 98/52
--- NOTE | 2016-10-06 07:52 | PN- Housestaff ---
VJIAYA WALLACE,RADHAMES 10/06/16 0752: Subjective Follow-up For: uti bacteremia Tele-Events Since Last Visit: paced rythm with PVC Subjective: Seen and examined at bedside. Nursing staff still reports rash with some progression and possible pruritis, however patient denies it ocassionally. No acute complaints of chest pain,shortness of breath,fever/chill,nausea/ vomiting. Review of Systems Constitutional: Reports: no symptoms. Objective Last 24 Hrs of Vital Signs/I&O Vital Signs Date Time Temp Pulse Resp B/P B/P Pulse O2 O2 Flow FiO2 Mean Ox Delivery Rate 10/06 1654 99.7 10/06 1641 100.9 74 20 100/56 96 Room Air 10/06 1219 77 100/50 10/06 0814 98.9 78 18 94/54 95 Room Air 10/06 0241 99.5 10/06 0000 Room Air 10/05 2355 99.9 10/05 2330 99.9 80 24 98/52 95 10/05 2105 97 104/48 Intake & Output 10/06 1600 10/06 0800 10/06 0000 Intake Total 360 390 300 Output Total 100 300 Balance 260 90 300 Intake, IV 150 Intake, Oral 360 240 300 Number 0 Bowel Movements Output, Urine 100 300 Patient 77.111 kg Weight Physical Exam General Appearance: Alert, Oriented X3, Cooperative Assessment/Plan Assessment: This is a 85-year-old gentleman with an extensive cardiac history of CAD status post CABG, stent placement, paroxysmal A. fib, CHF with EF of 30-35%, and on pacemaker defibrillator, multiple urological malignancy and on chronic suprapubic catheter presents for evaluation of generalized malaise. Patient presents with symptomatic urinary complaints and is found to have a UA suggestive of a UTI and leukocytosis. He was currently on ciprofloxacin 500 mg twice a day 4 week course which she reports resolution of the foul smell but still persistent suprapubic pain and some incontinence. Coincidently, patient also had an episode of silent defibrillator ration with a suggestion of a possible V. tach. Patient was alert and symptomatic and was not aware of his possible cardiac episode. Impression * Rash Rash seems to progressively worsened compared to yesterday, with some element of pruritus today. There is some eosinophilia in patients CBC today, will need to carefully monitor patient for possibility of acute interstitial nephritis in the setting of vancomycin use (trough level is not significantly high, questionable on the timing of DRAW). We'll therefore continue to trend BEP and CBC. Patient will need 1 more day of monitoring of his rash and possible AIN. * MRSA Bacteremia: Bcx from 10/01 growing MRSA. Most likely source is the suprapubic catheter as his urine which was also positive for staph aureus. Will continue Vancomycin 1 gram and obtain new set of blood cultures. There is concern of seeding at cardiac valves since favian has a implantable AICD and hip prosthesis. 10/02 blood cultures negative. Pt most likely requires 4 weeks of ABX starting from date of last negative culture. * Urinary tract infection. Presenting with symptoms of suprapubic pain with increased incontinence with a UA suggestive of UTI and leukocytosis. Status post 4 weeks of ciprofloxacin 500 mg twice a day treatment. Urine culture isolated staph aureus and with recent supra pubic catherer, Bcx grwoing MRSA. Continue Vancomycin (day 5), will decrease dose today to 750 mg. 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 Per Dr. Fields's recommendation, pt will be scheduled for bladder botox injections. 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 Very likely this episode was induced by patient acute illness. His electrolytes are WNL, and eventhough Tikosyn is arythmogenic, he has been on it for awhile and will be highly unlikely to have suddenly cause the V-TACH. Per cardiology, Tikosyn restarted. Problem List: 1. Bacteremia 2. UTI (urinary tract infection) Pain Ratin Pain Location: suprapubic Pain Goal: Remain pain free Pain Plan: per pain pathway Tomorrow's Labs & Rationales: BEP CBC ERIBERTO PRIETO MD 10/06/16 1227: Attending MD Review Statement Attending Statement Attending MD Statement: examined this patient, discuss w/resident/PA/LARRIMAN HELPER, agreed w/resident/PA/LARRIMAN HELPER, discussed with family, reviewed EMR data (avail), discussed with nursing, discussed with case mgmt, amended to note Attending Assessment/Plan: Patient seen and examined, feels okay. This morning he was complaining of some itching in his rash. The rash involves upper chest, back as well as right upper extremity and is looking worse today. Vital Signs Date Time Temp Pulse Resp B/P B/P Pulse O2 O2 Flow FiO2 Mean Ox Delivery Rate 10/06 1219 77 100/50 10/06 0814 98.9 78 18 94/54 95 Room Air 10/06 0241 99.5 10/06 0000 Room Air 10/05 2355 99.9 10/05 2330 99.9 80 24 98/52 95 10/05 2105 97 104/48 10/05 1655 98.3 79 20 90/40 94 Room Air 10/05 1605 Room Air 1.0L on exam; aox3, nad. cv; s1, s2, rrr, + systolic murmur. resp; clear abd; soft, nt, bs+ ext; no edema skin; macular rash on chest wall, upper back and rue. Laboratory Tests 10/06 10/06 10/06 1130 0725 0618 Chemistry Sodium Pending Potassium Pending Chloride Pending Carbon Dioxide Pending Anion Gap Pending BUN Pending Creatinine Pending BUN/Creatinine Ratio Pending Magnesium Cancelled Hematology CBC w Diff Pending WBC Pending RBC Pending Hgb Pending Hct Pending MCV Pending MCH Pending RDW Pending Plt Count Pending MPV Pending PUBS MCHC Pending Toxicology Vancomycin Trough (10.0 - 20.0 ug/mL) 20.3 H A/P; 85-year-old male with past medical history significant for coronary artery disease, status post CABG in 1989, history of [place], angioplasties, history of chronic systolic CHF, history of paroxysmal A. 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 Suprapubic tube exchange. 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 Also found to have episodes of V. tach captured on his defibrillator/pacemaker. This could be the results of Quinolone and Tikosyn prolonging QTC as well as infection. Currently patient has MRSA UTI as well as MRSA bacteremia. Patient has been kept on vancomycin. He still has this rash which is somewhat itchy now. Can use topical Benadryl for the eights. Patient is not uncomfortable though. He was started back on his Tikosyn as of yesterday as recommended by Dr. Harmon after his conversation with Dr. Mcdowell. So far no significant telemetry events. Patient has been seen by Dr. Fields and he does plan to do a procedure with Botox injection into the bladder for his incontinence. We have to watch him as his rash was looking worse today. Continue other current medications, his oxybutynin was discontinued as of yesterday. DVt px: hep sq. Will need rehab.
[2016-10-06 08:14] VITALS: BP 94/54
--- NOTE | 2016-10-06 09:41 | PN- Cardiology ---
Subjective Subjective: The patient states he doesn't want to go home today. He is back on Tikosyn, still having some PVCs, otherwise dual paced. He is awaiting PICC line. Objective Vital Signs and I&Os Vital Signs Date Time Temp Pulse Resp B/P B/P Pulse O2 O2 Flow FiO2 Mean Ox Delivery Rate 10/06 813 98.9 78 18 94/54 95 Room Air 10/06 0241 99.5 10/06 0000 Room Air 10/05 2355 99.9 10/05 2330 99.9 80 24 98/52 95 10/05 2105 97 104/48 10/05 1655 98.3 79 20 90/40 94 Room Air 10/05 1605 Room Air 1.0L 10/05 0953 126/64 Intake & Output 10/06 1600 10/06 0800 10/06 0000 10/05 1600 10/05 0800 10/05 0000 Intake Total 390 300 400 350 880 Output Total 300 345 718 0775 Balance 90 300 200 -150 -445 Intake, IV 150 250 Intake, Oral 240 300 400 100 880 Output, Urine 300 613 204 3197 Physical Exam: He is in no distress Chest is clear Heart is regular with systolic murmur at base Extremities no edema Current Medications: Current Medications Sig/Karin Start time Last Medication Dose Route Stop Time Status Admin Acetaminophen 650 MG .STK-MED ONE 10/05 2344 DC PO 10/05 2345 Acetaminophen 650 MG Q6P PRN 10/01 1515 AC 10/05 PO 2355 Docusate Sodium 100 MG DAILY PRN 10/04 0700 AC 10/04 PO 0645 Dofetilide 125 MCG BID 10/05 1136 AC 10/05 PO 2106 Heparin Sodium 5,000 UNIT Q8 10/01 2200 AC 10/06 (Porcine) SC 0643 Levothyroxine Sodium 0.088 MG DAILY AC 10/02 0811 AC 10/06 PO 0642 Metoprolol Tartrate 12.5 MG BID 10/01 2200 AC 10/05 PO 0953 Oxybutynin Chloride 5 MG TID 10/03 1600 DC 10/05 PO 0953 Pravastatin Sodium 40 MG DAILY 10/02 1000 AC 10/05 PO 0953 Senna/Docusate Sodium 1 TAB BID 10/04 1000 AC 10/05 PO 0953 Vancomycin HCl 1,000 MG Q24H 10/03 0230 AC 10/06 Sodium Chloride 250 ML IV 0242 Results Last 48 Hrs of Labs/Mics: Laboratory Tests 10/06/16 0725: Magnesium Cancelled 10/06/16 0618: Vancomycin Trough 20.3 H 10/05/16 0627: Anion Gap 10, Estimated GFR 48 L, BUN/Creatinine Ratio 13.6, Magnesium 2.2, CBC w Diff NO MAN DIFF REQ, RBC 3.14 L, MCV 87.0, MCH 29.2, RDW 14.7 H, MPV 9.4, Gran % 86.9 H, Lymphocytes % 4.0 L, Monocytes % 6.1, Eosinophils % 2.8, Basophils % 0.2, Absolute Granulocytes 10.9 H, Absolute Lymphocytes 0.5 L, Absolute Monocytes 0.8 H, Absolute Eosinophils 0.4, Absolute Basophils 0, PUBS MCHC 33.5 Assessment/Plan Assessment/Plan Mr. Garsia has remained stable from a cardiac standpoint. However because of his documented V. tach/V. fib arrest with defibrillator resuscitation he should be maintained on the monitor. He is back on Tikosyn at Dr. Mcdowell's recommendation and tolerating it well. The patient was able to walk with a walker yesterday and is still is insisting on going home. This will depend on physical therapy recommendations. He will be getting a PICC line for long-term antibiotic administration either at home or in rehabilitation. Continue telemetry? Yes
--- NOTE | 2016-10-06 11:39 | RADIOLOGY REPORT ---
EXAMINATION: XR PORTABLE CHEST CLINICAL INFORMATION: PICC placement confirmation. COMPARISON: CT chest 10/01/2016 and chest radiographs 02/11/2016 TECHNIQUE: Portable frontal view of the chest was obtained. FINDINGS: Interval placement of a right-sided PICC with the tip appearing to terminate in the distal SVC. Left-sided AICD/pacemaker is unchanged. Stable cardiomegaly. Patient status post median sternotomy and CABG. There is a small right pleural effusion and right basilar airspace disease likely representing atelectasis. Bilateral calcified pleural plaques are again seen. No pneumothorax. IMPRESSION: Interval placement of a right-sided PICC with tip appearing to terminate in the distal SVC.
[2016-10-06 12:31] LABS: ABSOLUTE BASOPHIL COUNT 0 /CUMM (0.0-0.2); ABSOLUTE EOSINOPHIL COUNT 0.2 /CUMM (0.0-0.7); ABSOLUTE GRANULOCYTE CT 13.3 /CUMM (1.4-6.5); ABSOLUTE LYMPH COUNT 0.3 /CUMM (1.2-3.4); ABSOLUTE MONOCYTE COUNT 0.7 /CUMM (0.10-0.60); BASOPHIL % 0 % (0.0-2.0); EOSINOPHIL % 1.3 % (0-5); MEAN CORPUSCULAR HGB 28.9 PG (27.0-31.0); MEAN CORPUSCULAR HGB CONC 33.1 G/DL (33.0-37.0); MEAN CORPUSCULAR VOLUME 87.2 FL (80.0-94.0); MEAN PLATELET VOLUME 8.7 FL (7.4-10.4); PLATELET COUNT 218 /CUMM (130-400); RBC DISTRIBUTION WIDTH 15.1 % (11.5-14.5); RED BLOOD CELL CT 2.87 /CUMM (4.70-6.10); WHITE BLOOD CELL COUNT 14.6 /CUMM (4.8-10.8)
[2016-10-06 12:51] LABS: GRANULOCYTE % 91.5 % (42.2-75.2)
--- NOTE | 2016-10-06 14:13 | PN- Infect Dx ---
Subjective Subjective: Afebrile. He states he feels terrible. He does report a pruritic rash on his back. Objective Last 24 Hrs of Vital Signs/I&O Vital Signs Date Time Temp Pulse Resp B/P B/P Pulse O2 O2 Flow FiO2 Mean Ox Delivery Rate 10/06 1219 77 100/50 10/06 0814 98.9 78 18 94/54 95 Room Air 10/06 0241 99.5 10/06 0000 Room Air 10/05 2355 99.9 10/05 2330 99.9 80 24 98/52 95 10/05 2105 97 104/48 10/05 1655 98.3 79 20 90/40 94 Room Air 10/05 1605 Room Air 1.0L Intake & Output 10/06 1600 10/06 0800 10/06 0000 Intake Total 390 300 Output Total 300 Balance 90 300 Intake, IV 150 Intake, Oral 240 300 Output, Urine 300 Physical Exam Other Physical Findings: He appears comfortable in no acute distress Skin diffuse macular rash Lungs are clear Heart regular rhythm with a 2/6 systolic ejection murmur Abdomen is soft, tender over the superpubic area, with positive bowel sounds; suprapubic tube remains in place Extremities no cyanosis, clubbing or edema Results Last 24 Hours of Lab Results: Laboratory Tests 10/06 10/06 10/06 1130 0725 0618 Chemistry Sodium (137 - 145 mmol/L) 135 L Potassium (3.5 - 5.1 mmol/L) 4.1 Chloride (98 - 107 mmol/L) 103 Carbon Dioxide (22 - 30 mmol/L) 24 Anion Gap (5 - 16) 8 BUN (9 - 20 mg/dL) 16 Creatinine (0.7 - 1.2 mg/dL) 1.5 H Estimated GFR (>60 ml/min) 44 L BUN/Creatinine Ratio (7 - 25 %) 10.7 Magnesium Cancelled Hematology CBC w Diff NO MAN DIFF REQ WBC (4.8 - 10.8 /CUMM) 14.6 H RBC (4.70 - 6.10 /CUMM) 2.87 L Hgb (14.0 - 18.0 G/DL) 8.3 L Hct (42 - 52 %) 25.0 L MCV (80.0 - 94.0 FL) 87.2 MCH (27.0 - 31.0 PG) 28.9 RDW (11.5 - 14.5 %) 15.1 H Plt Count (130 - 400 /CUMM) 218 MPV (7.4 - 10.4 FL) 8.7 Gran % (42.2 - 75.2 %) 91.5 H Lymphocytes % (20.5 - 51.1 %) 2.4 L Monocytes % (1.7 - 9.3 %) 4.8 Eosinophils % (0 - 5 %) 1.3 Basophils % (0.0 - 2.0 %) 0 L Absolute Granulocytes (1.4 - 6.5 /CUMM) 13.3 H Absolute Lymphocytes (1.2 - 3.4 /CUMM) 0.3 L Absolute Monocytes (0.10 - 0.60 /CUMM) 0.7 H Absolute Eosinophils (0.0 - 0.7 /CUMM) 0.2 Absolute Basophils (0.0 - 0.2 /CUMM) 0 PUBS MCHC (33.0 - 37.0 G/DL) 33.1 Toxicology Vancomycin Trough (10.0 - 20.0 ug/mL) 20.3 H Last 24 Hours of Apolinar Results: Blood cultures 2 October 02 remain negative Recent Imaging Studies: Chest x-ray October 06 revealed a small right pleural effusion and right basilar airspace disease, likely representing atelectasis Assessment/Plan Impression: MRSA bacteremia/sepsis, presumably of urologic origin, possibly related to the exchange of the suprapubic catheter 2 weeks prior to admission, with his temperatures remaining normal on Vancomycin now Day 5. His white blood cell count has been increasing, raising concern for possible seeding of the bacteremia, for example of the left ureteral stent, the right pleural effusion, heart valves, pacemaker or hip prostheses and, if his white blood cell count continues to increase, further evaluation will be necessary. His rash appears to be drug related and persists, possibly secondary to the Vancomycin, with the Oxybutynin discontinued yesterday. Given his mild dementia it is difficult to determine if this rash is in fact pruritic but, as he appears comfortable, would not discontinue Vancomycin at this time. His Vancomycin level is slightly elevated and he will require adjustment of the dose. He will require a minimum of 4-6 weeks of antibiotics for a "complicated" bacteremia, given the presence of implants (pacemaker and bilateral hips). Suggestion: 1. Await placement of the PICC 2. Will need to consider further evaluation for possible foci of infection if his white blood cell count continues to increase 3. Decrease Vancomycin to 750 mg IV every 24 hours
--- NOTE | 2016-10-06 15:09 | NUR ---
PHYSICAL THERAPY: Attempted to see patient this P.M., patient refusing P.T. stating he is fatigued from recent PICC line placement. Patient offered comfort and education regarding benefits of OOB and exercise; patient refusing any therex in bed, transfer training, or EOB therex. Will f/u as appropraite tomorrow, RN made aware.
[2016-10-06 16:41] VITALS: BP 100/56
--- NOTE | 2016-10-06 19:42 | NUR ---
AT CHANGE OF SHIFT PT TEMP 100.9, TYLENOL GIVEN. TEMP RECHECK 99.7. [employer] TE[employer] SPECIALIST KIIN MADE AWARE.
[2016-10-07 00:09] VITALS: BP 110/48
[2016-10-07 08:00] VITALS: BP 126/58
[2016-10-07 08:11] LABS: ABSOLUTE BASOPHIL COUNT 0 /CUMM (0.0-0.2); ABSOLUTE EOSINOPHIL COUNT 0.2 /CUMM (0.0-0.7); ABSOLUTE GRANULOCYTE CT 11.8 /CUMM (1.4-6.5); ABSOLUTE LYMPH COUNT 0.3 /CUMM (1.2-3.4); ABSOLUTE MONOCYTE COUNT 0.7 /CUMM (0.10-0.60); BASOPHIL % 0 % (0.0-2.0); EOSINOPHIL % 1.2 % (0-5); HEMATOCRIT 24.5 % (42-52); MEAN CORPUSCULAR HGB 28.2 PG (27.0-31.0); MEAN CORPUSCULAR HGB CONC 32.7 G/DL (33.0-37.0); MEAN CORPUSCULAR VOLUME 86.3 FL (80.0-94.0); MEAN PLATELET VOLUME 8.7 FL (7.4-10.4); PLATELET COUNT 229 /CUMM (130-400); RBC DISTRIBUTION WIDTH 14.9 % (11.5-14.5); RED BLOOD CELL CT 2.84 /CUMM (4.70-6.10)
--- NOTE | 2016-10-07 08:28 | PN- Housestaff ---
VIJAYA WALLACE,[facility] 10/07/16 0827: Subjective Follow-up For: UTI Bacteremia Subjective: Seen and examined at bedside. Acute overnight event of fever requiring acetaminophen is noted. He denies any chills, nausea, vomiting, off, increased abdominal pain, chest pain, palpitation history. Review of Systems Constitutional: Reports: see HPI. Objective Last 24 Hrs of Vital Signs/I&O Vital Signs Date Time Temp Pulse Resp B/P B/P Pulse O2 O2 Flow FiO2 Mean Ox Delivery Rate 10/07 0948 101.1 10/07 0948 77 126/58 10/07 0800 101.1 77 20 126/58 95 Room Air 10/07 0009 99.9 79 20 110/48 96 Room Air 10/07 0000 Room Air 10/06 1654 99.7 10/06 1641 100.9 74 20 100/56 96 Room Air 10/06 1219 77 100/50 Intake & Output 10/07 1600 10/07 0800 10/07 0000 Intake Total 400 300 Output Total Balance 400 300 Intake, Oral 400 300 Number 2 Bowel Movements Physical Exam General Appearance: Alert, Oriented X3, Cooperative Skin: diffuse eythematous with some pruritis rash area more dominant on anterior and posterior upper trunk. HEENT: Atraumatic, Mucous Membr. moist/pink Neck: Supple, No JVD Lymphatic: Cervical nl Cardiovascular: Normal S1, Normal S2, paced rythm Lungs: Clear to Auscultation, Normal Air Movement Abdomen: Normal Bowel Sounds, Soft, mild pain to palaption of suprapubic area ( unchanged and not worsened ) Assessment/Plan Assessment: This is a 85-year-old gentleman with an extensive cardiac history of CAD status post CABG, stent placement, paroxysmal A. fib, CHF with EF of 30-35%, and on pacemaker defibrillator, multiple urological malignancy and on chronic suprapubic catheter presents for evaluation of generalized malaise. Patient presents with symptomatic urinary complaints and is found to have a UA suggestive of a UTI and leukocytosis. He was currently on ciprofloxacin 500 mg twice a day 4 week course which she reports resolution of the foul smell but still persistent suprapubic pain and some incontinence. Coincidently, patient also had an episode of silent defibrillator ration with a suggestion of a possible V. tach. Patient was alert and symptomatic and was not aware of his possible cardiac episode. Impression * Fever Patient had elevated temperatures last night and today morning with a MAXIMUM TEMPERATURE of 101.1. He is also warm to touch. However his white blood cell count is downtrending. There is always concern for seeding in a patient with pacemaker,uretral stent, and hip prosthesis. Will obtain UA urine culture, chest x-ray and repeat blood culture to determine the possible infectious foci for patient recent fevers. * Rash Unchanged from yesterday with no obvious worsening progression. Possible etiology includes drug rash versus acute interstitial nephritis (however the lack of uptrending or elevated eisinophils, and stable kidney function makes it less likely). If clinical suspicion of this rash being caused by vancomycin increases, will consider daptomycin. * MRSA Bacteremia: Bcx from 10/01 growing MRSA. Most likely source is the suprapubic catheter as his urine which was also positive for staph aureus. Will continue Vancomycin 1 gram and obtain new set of blood cultures. There is concern of seeding at cardiac valves since favian has a implantable AICD and hip prosthesis. 10/02 blood cultures negative. Pt most likely requires 4 weeks of ABX starting from date of last negative culture. * Urinary tract infection. Presenting with symptoms of suprapubic pain with increased incontinence with a UA suggestive of UTI and leukocytosis. Status post 4 weeks of ciprofloxacin 500 mg twice a day treatment. Urine culture isolated staph aureus and with recent supra pubic catherer, Bcx grwoing MRSA. Continue Vancomycin (day 6), will continue dose of 750 mg. 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 Per Dr. Fields's recommendation, pt will be scheduled for bladder botox injections. 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 Very likely this episode was induced by patient acute illness. His electrolytes are WNL, and eventhough Tikosyn is arythmogenic, he has been on it for awhile and will be highly unlikely to have suddenly cause the V-TACH. Per cardiology, Tikosyn restarted. Problem List: 1. Bacteremia 2. UTI (urinary tract infection) Pain Ratin Pain Location: supra pubic Pain Goal: Remain pain free Pain Plan: per pain pathway Tomorrow's Labs & Rationales: curtis PRIETO MD,ERIBERTO 10/07/16 1132: Attending MD Review Statement Attending Statement Attending MD Statement: examined this patient, discuss w/resident/PA/GEOPHYSICAL PROSPECTOR, agreed w/resident/PA/GEOPHYSICAL PROSPECTOR, discussed with family, reviewed EMR data (avail), discussed with nursing, discussed with case mgmt, reviewed images, amended to note Attending Assessment/Plan: Patient seen and examined, feels slightly better today. More cooperative and talking. The rash looks slightly better today. Patient spiked a fever of 101F this morning. Vital Signs Date Time Temp Pulse Resp B/P B/P Pulse O2 O2 Flow FiO2 Mean Ox Delivery Rate 10/07 0948 101.1 10/07 0948 77 126/58 10/07 0800 101.1 77 20 126/58 95 Room Air 10/07 0009 99.9 79 20 110/48 96 Room Air 10/07 0000 Room Air 10/06 1654 99.7 10/06 1641 100.9 74 20 100/56 96 Room Air 10/06 1219 77 100/50 on exam; aox3, nad. cv; s1, s2, rrr, + systiolic murmur. resp; decreased bs at right base. abd; soft, nt, bs+ ext; no edema skin; macular rash on the upper chest and back is better. Laboratory Tests 10/07 0610 Chemistry Sodium (137 - 145 mmol/L) 135 L Potassium (3.5 - 5.1 mmol/L) 4.0 Chloride (98 - 107 mmol/L) 102 Carbon Dioxide (22 - 30 mmol/L) 23 Anion Gap (5 - 16) 10 BUN (9 - 20 mg/dL) 18 Creatinine (0.7 - 1.2 mg/dL) 1.5 H Estimated GFR (>60 ml/min) 44 L BUN/Creatinine Ratio (7 - 25 %) 12.0 Hematology CBC w Diff NO MAN DIFF REQ WBC (4.8 - 10.8 /CUMM) 13.0 H RBC (4.70 - 6.10 /CUMM) 2.84 L Hgb (14.0 - 18.0 G/DL) 8.0 L Hct (42 - 52 %) 24.5 L MCV (80.0 - 94.0 FL) 86.3 MCH (27.0 - 31.0 PG) 28.2 RDW (11.5 - 14.5 %) 14.9 H Plt Count (130 - 400 /CUMM) 229 MPV (7.4 - 10.4 FL) 8.7 Gran % (42.2 - 75.2 %) 90.7 H Lymphocytes % (20.5 - 51.1 %) 2.4 L Monocytes % (1.7 - 9.3 %) 5.7 Eosinophils % (0 - 5 %) 1.2 Basophils % (0.0 - 2.0 %) 0 L Absolute Granulocytes (1.4 - 6.5 /CUMM) 11.8 H Absolute Lymphocytes (1.2 - 3.4 /CUMM) 0.3 L Absolute Monocytes (0.10 - 0.60 /CUMM) 0.7 H Absolute Eosinophils (0.0 - 0.7 /CUMM) 0.2 Absolute Basophils (0.0 - 0.2 /CUMM) 0 PUBS MCHC (33.0 - 37.0 G/DL) 32.7 L A/P; 85-year-old male with past medical history significant for coronary artery disease, status post CABG in 1989, history of [place], angioplasties, history of chronic systolic CHF, history of paroxysmal A. 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 Suprapubic tube exchange. 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 Also found to have episodes of V. tach captured on his defibrillator/pacemaker. This could be the results of Quinolone and Tikosyn prolonging QTC as well as infection. Currently patient has MRSA UTI as well as MRSA bacteremia. Patient spiking fever now. Creatinine stable, leukocytosis stable. Rash looks slightly better today. As discussed with Dr. Gooden, will watch the fever spike. We will repeat his urinalysis, urine culture, blood culture. Chest x-ray looks okay except for right base atelectasis. Continue vancomycin. Patient scheduled for urologic procedure tomorrow with Dr. Fields. DVT Px; Hep sq. Please check with cardiology if he can discontinue the telemetry.
[2016-10-07 08:56] LABS: GRANULOCYTE % 90.7 % (42.2-75.2)
--- NOTE | 2016-10-07 09:21 | Discharge Summary ---
See Addendum Visit Information Visit Dates Admission Date: 10/01/16 Discharge Date: 10/16/16 Hospital Course Course Attending Physician: ERIBERTO PRIETO MD Primary Care Physician: MADHU PRESLEY MD Consulting Request: Consulting Specialty: Infectious Disease Hospital Course: He is 85-year-old man with past medical history of coronary artery disease status post CABG in 1989, paroxysmal A. 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 He also has history of chronic complex right-sided loculated pleural effusion status post lytic therapy, history of COPD, chronic anemia, chronic kidney disease, hypothyroidism and osteoarthritis. Pt BIBA from home for lower abdominal pain, generalized weakness and lethargy for last 3 weeks. He was started on ciprofloxacin 500 mg twice a day by Dr. Fields 4 weeks prior to admission for UTI. Per EMS meditronic nurse called to check on patient because patient has a pacer/defib in place and was noted to have a run of polymorphic VT with VF and was Fired. His suprapubic catheter was changed by Dr. Fields on 09/23/2016. Vitals on admission: Temperature 100.3, heart rate 77, respiratory 18, blood pressure 121/59 and oxygen saturation 93% on room air. Later on his blood pressure dropped down to 86/48 and he was given IV fluids. He was also saturating 90-91% on room air and was put on 2 L of oxygen via nasal cannula. Pertinent labs: WBC count 16.0 with 11 bands, H&H 9.4/28.4 (baseline), sodium 136, BUN 32, creatinine 1.7 (baseline), troponin 0.01, UA is positive for leukocyte esterase and nitrite. Urine was hazy with positive urine nitrite and leukocyte Estrace with WBC count > 75. CT chest and abdomen pelvis without contrast did not show any acute finding. EKG: No acute ST-T wave changes. QTC 510. 1. Polymorphic ventricular tachycardia with AICD firing:He was admitted on telemetry floor and evaluated by high pressure cleaner. Since patient was on dofetilide plus he was taking ciprofloxacin for last 4 weeks so the combination prolonged QTc interval that led to polymorphic V. tach and AICD firing. His Tikosyn was held on admission. His AICD was also interrogated and there was evidence of documented V. tach/V. fib arrest with defibrillator resuscitation. Later on he was started back on Tikosyn Per spray dyer Dr. Fay's recommendation and tolerated it well. A rapid response was called on 10/10/2016, patient was found to be unresponsive. On the fire alarm technician he had runs of polymorphic ventricular tachycardia suggestive of Torsades. The patient received 2 mg IV push magnesium x 2, was then started on a magnesium drip and lastly given a one time dose of 150 mg IV push amiodarone. While in the ICU, patient again had an episode of "V. tach storm" with his AICD firing recurrently. Defoelitide was discontinued on 10/12. His defibrillator was turned off 10/10/2016after a prolonged discussion with family. He was DNR/DNI and family wanted to pursue a conservative approach. Patient was stabilized in the ICU and did not have any more arrhythmias. He was not in congestive heart failure. He was transferred to short-term rehabilitation from ICU. Recommended follow-up with cardiology as an outpatient. 2. MRSA bacteremia: Source likely ?suprapubic cath vs prosthesis infection( AICD and history of hip prosthesis). Initial blood/urine culture indicative of MRSA. Patient was treated with IV vancomycin. ID was on board. During hospitalization patient developed erythematous rash on his back and chest. It was nonpruritic and patient was not bothered much by rash. Initially it was thought it could be due to vancomycin or oxybutynin. Leny Gooden MD thought that it is less likely because of vancomycin so it was continued. His oxybutynin was discontinued. PICC was placed on 10/06/2016. Patient did spike fevers during hospital stay however improved with IV antibiotics. He did have positive blood cultures for MRSA on 10/11 which was questionably contaminant. He will require a total of 4-6 weeks of treatment given bacteremia and presence of implants ( pacemaker and bilateral hips). Patient will need IV Vancomycin till November 24( from the time of last negative blood cultures). Will need a weekly CBC, BUN/ creatinine and Vancomycin trough level. 3.UTI:Presented with symptoms of of suprapubic pain with increased incontinence with a UA suggestive of UTI and leukocytosis. Status post 4 weeks of ciprofloxacin 500 mg twice a day treatment at admission. Urine cultures were positive for MRSA and patient was treated with Vancomycin. He will require a total of 4-6 weeks of treatment given bacteremia and presence of implants ( pacemaker and bilateral hips). His Vancomycin trough level was therapeutic. 4.Urinary incontinence: During the course of hospitalization he was also seen by urologist because he was persistently leaking urine around the suprapubic catheter and through the penis. Because of his persistently urine leakage through the penis he was started on oxybutynin but it did not help much. He underwent a procedure with Botox injection into the bladder for his incontinence on ,stent removal as well as suprapubic catheter change. 5. BRBPR: Patient has had 3 more soft bowels with no melena or overt bleeding noted, guaiac was also negative. About 80-90% of lower bleed is transient. Since patient had only one episode,H/H was closely monitored. He received 1 unit of PRBC to maintain Hb> 8. Bleeding resolved by itself. 6. Acute on chronic anemia / BRBPR: H&H monitored closely. Given patient's extensive cardiovascular history, was transfuse 1 unit of blood to keep Hb> 8. Family requested conservative measures, no GI consult thus placed. 7. CAD s/p CABG, CHF: Continued on Metroprolol 12.5 mg PO BID and Pravastatin daily 8. Hypothyroidism: Continue synthroid supplementation. Slightly elevated TSH, normal free T4, likely sick euthyroid. Endocrinology evaluated pt and recommended repeat levels in 1 week. DNR/DNI DVTP: Heparin SC Regular diet Mild pain pathway Complications: A rapid response was called on 10/10/2016, patient was found to be unresponsive. On the fire alarm technician he had runs of polymorphic ventricular tachycardia suggestive of Torsades. The patient received 2 mg IV push magnesium x 2, was then started on a magnesium drip and lastly given a one time dose of 150 mg IV push amiodarone. While in the ICU, patient again had an episode of "V. tach storm" with his AICD firing recurrently. Defoelitide was discontinued on 10/12. His defibrillator was turned off after a prolonged discussion with family. He was DNR/DNI and family wanted to pursue a conservative approach. Patient was stabilized in the ICU and did not have any more arrhythmias. Allergies: Coded Allergies: sitagliptin (From LORRIUVKRYSTA) (Mild, RASH 08/12/15) mirabegron (UNKNOWN 08/12/15) Significant Procedures: Botox injection into the bladder for his incontinence on , Defribillator turned off 10/10/2016 Disposition Summary Disposition Principal Diagnosis: Polymorphic ventricular tachycardia with AICD firing Additional Diagnosis: MRSA bacteremia Discharge Disposition: STR Discharge Instructions General Discharge Information Code Status: Do Not Resucitate/Intubat Patient's Diet: Regular diet Patient's Activity: With assistance Follow-Up Instructions/Appts: 1. Please follow-up with her primary care provider after discharge 2. Please follow-up with your high pressure cleaner after discharge 3. Please follow-up with your urologist after discharge 4. Please check thyroid functions in 1 week of discharge 5. Patient will need IV Vancomycin till November 24( from the time of last negative blood cultures). Will need a weekly CBC, BUN/creatinine and Vancomycin trough level. Medications at Discharge Discharge Medications: Stop taking the following medications: Oxycodone HCl/Acetaminophen (Percocet 5-325 MG Tablet) 1 EACH TABLET ORAL EVERY 4 HOURS NEEDED as needed for PAIN SCALE 1-3 (MILD) Qty = 30 Oxycodone HCl/Acetaminophen (Percocet 5-325 MG Tablet) 1 EACH TABLET ORAL EVERY 4 HOURS NEEDED as needed for PAIN SCALE 4-6 (MODERATE) Qty = 30 Ciprofloxacin HCl (Ciprofloxacin HCl) 500 MG TABLET ORAL TWICE DAILY Qty = 30 Continue taking these medications: Pravastatin Sodium (Pravastatin Sodium) 40 MG TABLET 40 Milligram ORAL DAILY Qty = 90 Comments: Last Taken: 08/19/15 Time: 5:25 PM Albuterol Sulfate (Proair Hfa) 8.5 GM HFA.AER.AD 2 Puff Inhale through mouth as needed for ASTHMA Comments: not taken here Docusate Sodium (Colace) 100 MG CAPSULE 1 Capsule ORAL DAILY Comments: not given Dofetilide (Tikosyn) 125 MCG CAPSULE 1 Capsule ORAL TWICE DAILY Comments: Last Taken:10/12/16 Time:1000 Furosemide (Lasix) 40 MG TABLET 1 Tablet ORAL DAILY Comments: not given Levothyroxine Sodium (Levothyroxine Sodium) 88 MCG TABLET 1 Tablet ORAL DAILY Qty = 90 Comments: not taken here Metoprolol Succ XL (Toprol XL) 25 MG TAB 0.5 Tablet ORAL TWICE DAILY Qty = 90 Comments: not given Vancomycin/0.9 % Sod Chloride (Vanco 750 MG/250 Ml-0.9% NaCl) 750 MG/250 ML PLAST..BAG 750 Gram INTRAVEN DAILY Qty = 23 Instructions: PLEASE ADMINISTER DAILY TILL NOVEMBER 13 Comments: Last Taken:10/15/16 Please comtinue till November 24 This prescription has been renewed Start taking the following new medications: Acetaminophen (Tylenol) 325 MG TABLET 650 Milligram ORAL EVERY SIX HOURS NEEDED as needed for PAIN SCALE 1-3 ( MILD) Qty = 30 No Refills Comments: Last Taken:10/13/16 Time:1000 Vancomycin/0.9 % Sod Chloride (Vanco 750 MG/250 Ml-0.9% NaCl) 750 MG/250 ML PLAST..BAG 750 Gram INTRAVEN DAILY Days = 34 No Refills Instructions: PLEASE ADMINISTER DAILY TILL NOVEMBER 13 Comments: Last Taken:10/14/16 Time:1000 Copies To: SAKINA WALLACE,KODY FAY MD,TONI Casey; OLE WALLACE,LENY Rosa; ILDA FIELDS MD, MD,JUSTO Smith; MELANY WALLACE,LILIBETH Attending MD Review Statement Documenting Attending: LILIBETH MOSLEY MD
--- NOTE | 2016-10-07 10:28 | RADIOLOGY REPORT ---
EXAMINATION: XR PORTABLE CHEST CLINICAL INFORMATION: Cough and fever. COMPARISON: CXR from 02/19/2016 and 10/06/2016. Chest CT from 10/01/2016. TECHNIQUE: Portable AP view of the chest was obtained. FINDINGS: Patient is slightly rotated to the right. There is chronic pleural thickening and pleural-based calcification of the right hemithorax. Also, the calcified pleural plaques of the left hemithorax are unchanged. Linear, hazy opacities are suggestive of atelectasis in the right lower lung zone. The rounded atelectasis in the right lower lobe is partially obscured by the cardiac silhouette. Again noted are surgical changes from prior coronary artery bypass grafting with intact sternotomy wires in place. There is a cardiac pacemaker/AICD with right atrial and biventricular leads in place. No acute skeletal findings. IMPRESSION: 1. 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 2. Rounded atelectasis within the right lower lobe is suboptimally visualized. There is no overt evidence of acute pulmonary disease compared to the recent exams. 3. Cardiomegaly without pulmonary edema.
--- NOTE | 2016-10-07 11:43 | PN- Infect Dx ---
Subjective Subjective: MAXIMUM TEMPERATURE 101.1. He complains of pain all over, particularly the suprapubic area. He does not report any pruritus from his rash. He denies any shortness of breath or chest discomfort. Objective Last 24 Hrs of Vital Signs/I&O Vital Signs Date Time Temp Pulse Resp B/P B/P Pulse O2 O2 Flow FiO2 Mean Ox Delivery Rate 10/07 0948 101.1 10/07 0948 77 126/58 10/07 0800 101.1 77 20 126/58 95 Room Air 10/07 0009 99.9 79 20 110/48 96 Room Air 10/07 0000 Room Air 10/06 1654 99.7 10/06 1641 100.9 74 20 100/56 96 Room Air 10/06 1219 77 100/50 Intake & Output 10/07 1600 10/07 0800 10/07 0000 Intake Total 400 300 Output Total Balance 400 300 Intake, Oral 400 300 Number 2 Bowel Movements Physical Exam Other Physical Findings: He appears comfortable in no acute distress Skin diffuse macular rash, perhaps improved from yesterday Lungs slight decreased breath sounds at the right base Heart regular rhythm with a 1 to 2/6 systolic ejection murmur Abdomen is soft, tender over the suprapubic area, with positive bowel sounds; suprapubic tube site with no inflammation Extremities no cyanosis, clubbing or edema; PICC in place in the right upper extremity Results Last 24 Hours of Lab Results: Laboratory Tests 10/07 0610 Chemistry Sodium (137 - 145 mmol/L) 135 L Potassium (3.5 - 5.1 mmol/L) 4.0 Chloride (98 - 107 mmol/L) 102 Carbon Dioxide (22 - 30 mmol/L) 23 Anion Gap (5 - 16) 10 BUN (9 - 20 mg/dL) 18 Creatinine (0.7 - 1.2 mg/dL) 1.5 H Estimated GFR (>60 ml/min) 44 L BUN/Creatinine Ratio (7 - 25 %) 12.0 Hematology CBC w Diff NO MAN DIFF REQ WBC (4.8 - 10.8 /CUMM) 13.0 H RBC (4.70 - 6.10 /CUMM) 2.84 L Hgb (14.0 - 18.0 G/DL) 8.0 L Hct (42 - 52 %) 24.5 L MCV (80.0 - 94.0 FL) 86.3 MCH (27.0 - 31.0 PG) 28.2 RDW (11.5 - 14.5 %) 14.9 H Plt Count (130 - 400 /CUMM) 229 MPV (7.4 - 10.4 FL) 8.7 Gran % (42.2 - 75.2 %) 90.7 H Lymphocytes % (20.5 - 51.1 %) 2.4 L Monocytes % (1.7 - 9.3 %) 5.7 Eosinophils % (0 - 5 %) 1.2 Basophils % (0.0 - 2.0 %) 0 L Absolute Granulocytes (1.4 - 6.5 /CUMM) 11.8 H Absolute Lymphocytes (1.2 - 3.4 /CUMM) 0.3 L Absolute Monocytes (0.10 - 0.60 /CUMM) 0.7 H Absolute Eosinophils (0.0 - 0.7 /CUMM) 0.2 Absolute Basophils (0.0 - 0.2 /CUMM) 0 PUBS MCHC (33.0 - 37.0 G/DL) 32.7 L Last 24 Hours of Apolinar Results: Blood cultures 2 October 02 remain negative Recent Imaging Studies: Chest x-ray October 07 reveals increased right perihilar markings, with the report stating chronic pleural thickening and pleural-based ossification of the right hemithorax, with the suggestion of atelectasis in the right lower lobe Assessment/Plan Impression: Recent fevers are of concern with persistent leukocytosis, though this has improved from yesterday, possibly secondary to drug fever, with his diffuse macular rash, most likely secondary to the Vancomycin, now Day 6 of treatment for MRSA bacteremia, presumably of urologic origin, or to a complication of his MRSA bacteremia with possible seeding of his heart valves or pacemaker or left ureteral stent or right pleural effusion or bilateral hip prostheses. He will require a minimum of 4-6 weeks of antibiotics for a "complicated" bacteremia, given the presence of implants (pacemaker and bilateral hips). He is apparently scheduled for a cystoscopy in the a.m. for a Botox injection. Suggestion: 1. Repeat blood cultures 2 2. Repeat urine culture 3. Urology follow-up regarding possible exchange of the left ureteral stent when he goes to the OR in the a.m. 4. Will need to consider further evaluation for possible foci of infection if his fevers or leukocytosis persist 5. Continue Vancomycin pending above
--- NOTE | 2016-10-07 12:07 | PN- Cardiology ---
Subjective Subjective: The patient is sitting in a bedside chair. He denies any specific complaints. Recent onset of rash noted, possibly drug related. Infectious disease input noted. Low-grade fever last night. Stable from cardiac standpoint. Tolerating Tikosyn Objective Vital Signs and I&Os Vital Signs Date Time Temp Pulse Resp B/P B/P Pulse O2 O2 Flow FiO2 Mean Ox Delivery Rate 10/07 0948 101.1 10/07 0948 77 126/58 10/07 0800 101.1 77 20 126/58 95 Room Air 10/07 0009 99.9 79 20 110/48 96 Room Air 10/07 0000 Room Air 10/06 1654 99.7 10/06 1641 100.9 74 20 100/56 96 Room Air 10/06 1219 77 100/50 Intake & Output 10/07 1600 10/07 0800 10/07 0000 10/06 1600 10/06 0800 10/06 0000 Intake Total 400 300 360 390 300 Output Total 100 300 Balance 400 300 260 90 300 Intake, IV 150 Intake, Oral 400 300 360 240 300 Number 2 0 Bowel Movements Output, Urine 100 300 Patient 170 lb Weight Current Medications: Current Medications Sig/Karin Start time Last Medication Dose Route Stop Time Status Admin Acetaminophen 650 MG .STK-MED ONE 10/06 1456 DC PO 10/06 1457 Acetaminophen 650 MG Q6P PRN 10/01 1515 AC 10/07 PO 0948 Diphenhydramine HCl 1 NORMA TID PRN 10/07 0945 AC TOP Docusate Sodium 100 MG DAILY PRN 10/04 0700 AC 10/04 PO 0645 Dofetilide 125 MCG BID 10/05 1136 AC 10/07 PO 0948 Heparin Sodium 5,000 UNIT Q8 10/01 2200 AC 10/07 (Porcine) SC 0630 Levothyroxine Sodium 0.088 MG DAILY AC 10/02 0811 AC 10/07 PO 0631 Metoprolol Tartrate 12.5 MG BID 10/01 2200 AC 10/07 PO 0948 Patient Medication 1 ED .STK-MED ONE 10/06 1343 DC Teaching ED 10/06 1344 Pravastatin Sodium 40 MG DAILY 10/02 1000 AC 10/07 PO 0948 Senna/Docusate Sodium 1 TAB BID 10/04 1000 AC 10/06 PO 2156 Vancomycin HCl 750 MG Q24 10/07 1000 CAN IV Vancomycin HCl 750 MG DAILY 10/07 1000 AC 10/07 Sodium Chloride 250 ML IV 0956 Vancomycin HCl 1,000 MG Q24H 10/03 0230 DC 10/06 Sodium Chloride 250 ML IV 0242 Results Last 48 Hrs of Labs/Mics: Laboratory Tests 10/07/16 0610: Anion Gap 10, Estimated GFR 44 L, BUN/Creatinine Ratio 12.0, CBC w Diff NO MAN DIFF REQ, RBC 2.84 L, MCV 86.3, MCH 28.2, RDW 14.9 H, MPV 8.7, Gran % 90.7 H, Lymphocytes % 2.4 L, Monocytes % 5.7, Eosinophils % 1.2, Basophils % 0 L, Absolute Granulocytes 11.8 H, Absolute Lymphocytes 0.3 L, Absolute Monocytes 0.7 H, Absolute Eosinophils 0.2, Absolute Basophils 0, PUBS MCHC 32.7 L 10/06/16 1130: Anion Gap 8, Estimated GFR 44 L, BUN/Creatinine Ratio 10.7, CBC w Diff NO MAN DIFF REQ, RBC 2.87 L, MCV 87.2, MCH 28.9, RDW 15.1 H, MPV 8.7, Gran % 91.5 H, Lymphocytes % 2.4 L, Monocytes % 4.8, Eosinophils % 1.3, Basophils % 0 L, Absolute Granulocytes 13.3 H, Absolute Lymphocytes 0.3 L, Absolute Monocytes 0.7 H, Absolute Eosinophils 0.2, Absolute Basophils 0, PUBS MCHC 33.1 10/06/16 0725: Magnesium Cancelled 10/06/16 0618: Vancomycin Trough 20.3 H Assessment/Plan Assessment/Plan Assessment: 1. MRSA bacteremia 2. VT/VF with defibrillator discharges 3. Indwelling pacemaker/defibrillator 4. Urinary tract infection 5. Skin rash; possibly drug-related Her conditions: -For now, continue current cardiac medication regimen -Please keep the patient on the monitoring analyst for now -Continue as per the medical and infectious disease team. -Out of bed as tolerated
[2016-10-07 16:30] VITALS: BP 110/62
[2016-10-07 23:33] VITALS: BP 102/54
[2016-10-08 08:14] LABS: ABSOLUTE BASOPHIL COUNT 0 /CUMM (0.0-0.2); ABSOLUTE EOSINOPHIL COUNT 0.2 /CUMM (0.0-0.7); ABSOLUTE GRANULOCYTE CT 12.3 /CUMM (1.4-6.5); ABSOLUTE LYMPH COUNT 0.4 /CUMM (1.2-3.4); ABSOLUTE MONOCYTE COUNT 0.6 /CUMM (0.10-0.60); BASOPHIL % 0 % (0.0-2.0); EOSINOPHIL % 1.4 % (0-5); GRANULOCYTE % 91.8 % (42.2-75.2); HEMATOCRIT 22.3 % (42-52); MEAN CORPUSCULAR HGB 28.5 PG (27.0-31.0); MEAN CORPUSCULAR HGB CONC 33.2 G/DL (33.0-37.0); MEAN CORPUSCULAR VOLUME 85.8 FL (80.0-94.0); MEAN PLATELET VOLUME 8.5 FL (7.4-10.4); PLATELET COUNT 226 /CUMM (130-400); RBC DISTRIBUTION WIDTH 14.9 % (11.5-14.5); WHITE BLOOD CELL COUNT 13.4 /CUMM (4.8-10.8)
--- NOTE | 2016-10-08 08:31 | PN- Housestaff ---
VIJAYA WALLACE,RADHAMES 10/08/16 0830: Subjective Follow-up For: MRSA UTI BACTEREMIA Subjective: Seen and examined at bedside. Rash appears to have not worsened and patient denies pruritus. Still has low grade fevers. Nurse noted that pt had one episode of BRBPR. He is asymptomatic with no chest pain,palpitation,sob,nausea/vomiting. Scheduled for cytoscopy/botox bladder injection. Review of Systems Constitutional: Reports: see HPI. Objective Last 24 Hrs of Vital Signs/I&O Vital Signs Date Time Temp Pulse Resp B/P B/P Pulse O2 O2 Flow FiO2 Mean Ox Delivery Rate 10/08 2114 75 110/64 10/08 1834 99.4 75 18 121/59 98 Room Air 10/08 1428 98.4 74 20 130/60 97 Room Air Room Air 10/08 0937 99.1 10/08 0855 100.7 74 30 130/60 10/08 0837 100.7 10/08 0836 100.4 79 18 117/55 10/08 0833 100.4 79 18 117/55 97 Room Air 10/07 2333 98.9 74 18 102/54 98 Room Air 10/07 2308 98.9 10/07 2301 102/54 Intake & Output 10/08 1600 10/08 0800 10/08 0000 Intake Total 790 400 720 Output Total 200 250 Balance 790 200 470 Intake, IV 550 400 Intake, Oral 240 720 Number 2 Bowel Movements Output, Urine 200 250 Physical Exam General Appearance: Alert, Oriented X3, Cooperative Assessment/Plan Assessment: This is a 85-year-old gentleman with an extensive cardiac history of CAD status post CABG, stent placement, paroxysmal A. fib, CHF with EF of 30-35%, and on pacemaker defibrillator, multiple urological malignancy and on chronic suprapubic catheter presents for evaluation of generalized malaise. Patient presents with symptomatic urinary complaints and is found to have a UA suggestive of a UTI and leukocytosis. He was currently on ciprofloxacin 500 mg twice a day 4 week course which she reports resolution of the foul smell but still persistent suprapubic pain and some incontinence. Coincidently, patient also had an episode of silent defibrillator ration with a suggestion of a possible V. tach. Patient was alert and symptomatic and was not aware of his possible cardiac episode. Impression * Fever Patient had elevated temperatures last night with low grade temps. CXR show no infectious pathology, UA has same finding as previous one, urine culture is indicative of MRSA. WBC stabilzing. BRBPR Reported on episode of lower GI bleed. Hgb is low 7.4. Possible etiology include hemorrhoidal bleeding as patient has had constipation. Other etiologies include diverticular bleeding,AVM, and ischemic colitis (although pt does not have pain, and ischemic colitis normaly does not present with low H/H/). About 80-90% of lower bleed is transient. Since patient had only one episode, we will closely monitor and guaic all stools. Will also maintain Hgb above 8. If episodes recur, will consider GI, even though colonoscopy and aggresive intervention in an 85 yo with multiple comorbidities may not beneficial. Acute on chronic Anemia 2/2 to acute blood loss as evident by BRBPR. Will transfuse 1 unit and trend CBC. * Rash Unchanged from yesterday with no obvious worsening progression. Possible etiology includes drug rash versus acute interstitial nephritis (however the lack of uptrending or elevated eisinophils, and stable kidney function makes it less likely). If clinical suspicion of this rash being caused by vancomycin increases, will consider daptomycin. * MRSA Bacteremia: Bcx from 10/01 growing MRSA. Most likely source is the suprapubic catheter as his urine which was also positive for staph aureus. Will continue Vancomycin 1 gram and obtain new set of blood cultures. There is concern of seeding at cardiac valves since favian has a implantable AICD and hip prosthesis. 10/02 blood cultures negative. Pt most likely requires 4 weeks of ABX starting from date of last negative culture. * Urinary tract infection. Presenting with symptoms of suprapubic pain with increased incontinence with a UA suggestive of UTI and leukocytosis. Status post 4 weeks of ciprofloxacin 500 mg twice a day treatment. Urine culture isolated staph aureus and with recent supra pubic catherer, Bcx grwoing MRSA. Continue Vancomycin (day 7), will continue dose of 750 mg. 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 Per Dr. Fields's recommendation, pt will be scheduled today for bladder botox injections. 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 Very likely this episode was induced by patient acute illness. His electrolytes are WNL, and eventhough Tikosyn is arythmogenic, he has been on it for awhile and will be highly unlikely to have suddenly cause the V-TACH. Per cardiology, Tikosyn restarted. Problem List: 1. UTI (urinary tract infection) 2. Bacteremia Pain Ratin Pain Location: suprapubic Pain Goal: Remain pain free Pain Plan: pain pathway Tomorrow's Labs & Rationales: CBC-Acute anemia Consulting Request: Consulting Specialty: Infectious Disease ERIBERTO PRIETO MD 10/08/16 1704: Attending MD Review Statement Attending Statement Attending MD Statement: examined this patient, discuss w/resident/PA/QUALITY IMPROVEMENT COORDINATOR (RN), agreed w/resident/PA/QUALITY IMPROVEMENT COORDINATOR (RN), discussed with family, reviewed EMR data (avail), discussed with nursing, discussed with case mgmt, reviewed images, amended to note Attending Assessment/Plan: Patient seen and examined, came back from his urologic procedure. H&H dropped today and Patient had slight blood in his stool. Rash looks slightly better but patient kept spiking fever. Patient seen by ID and they recommended continuing the vancomycin. Repeat UA also looks dirty. We'll continue vancomycin. Will transfuse her 1 unit rbc. We'll keep an eye on his H&H. If this drops if he continues to have stool guaiac positive, will consider getting a GI evaluation. Continue the current medications. DVT px: Hep sq. If drops H&H further, will DC Hep sq. If becomes afebrile in next 24 hours and hemodynamically stable, will DC to STR in am.
--- NOTE | 2016-10-08 08:31 | NUR ---
Physical Therapy. Pt adamently refusing PT treatment despite encouragement 2/2 pain in LLQ and anxiety over upcoming urological procedure. PT will f/u as appropriate.
[2016-10-08 08:33] VITALS: BP 117/55
[2016-10-08 08:55] VITALS: BP 130/60
--- NOTE | 2016-10-08 13:31 | PN- Cardiology ---
Subjective Subjective: NO significant clinical change. ? some improvement in rash. Objective Vital Signs and I&Os Vital Signs Date Time Temp Pulse Resp B/P B/P Pulse O2 O2 Flow FiO2 Mean Ox Delivery Rate 10/08 0937 99.1 10/08 0855 100.7 74 30 130/60 10/08 0837 100.7 10/08 0836 100.4 79 18 117/55 10/08 0833 100.4 79 18 117/55 97 Room Air 10/07 2333 98.9 74 18 102/54 98 Room Air 10/07 2308 98.9 10/07 2301 102/54 10/07 2003 100.5 10/07 1839 100.4 10/07 1833 100.4 10/07 1630 99.0 77 18 110/62 99 Room Air 10/07 1616 Room Air 1.0L Intake & Output 10/08 1600 10/08 0800 10/08 0000 10/07 1600 10/07 0800 10/07 0000 Intake Total 400 720 800 400 300 Output Total 200 250 200 Balance 200 470 600 400 300 Intake, IV 400 300 Intake, Oral 720 500 400 300 Number 2 2 Bowel Movements Output, Urine 200 250 200 Current Medications: Current Medications Sig/Karin Start time Last Medication Dose Route Stop Time Status Admin Acetaminophen 650 MG .STK-MED ONE 10/07 1838 DC PO 10/07 1839 Acetaminophen 650 MG Q6P PRN 10/01 1515 AC 10/08 PO 0837 Botulinum Toxin Type 300 UNITS .STK-MED ONE 10/08 0729 DC A TOP-INJ 10/08 0730 Dextrose/Sodium 1,000 ML Q13H 10/08 0000 AC 10/08 Chloride IV 0036 Diphenhydramine HCl 1 NORMA TID PRN 10/07 0945 AC 10/07 TOP 1445 Docusate Sodium 100 MG DAILY PRN 10/04 0700 AC 10/04 PO 0645 Dofetilide 125 MCG BID 10/05 1136 AC 10/08 PO 0836 Heparin Sodium 5,000 UNIT Q8 10/01 2199 AC 10/07 (Porcine) SC 2302 Levothyroxine Sodium 0.088 MG DAILY AC 10/02 0811 AC 10/08 PO 0836 Metoprolol Tartrate 12.5 MG BID 10/01 2200 AC 10/08 PO 0836 Pravastatin Sodium 40 MG DAILY 10/02 1000 AC 10/08 PO 0835 Senna/Docusate Sodium 1 TAB BID 10/04 1000 AC 10/08 PO 0834 Vancomycin HCl 750 MG DAILY 10/07 1000 AC 10/08 Sodium Chloride 250 ML IV 0925 Results Last 48 Hrs of Labs/Mics: Laboratory Tests 10/08/16 0620: Anion Gap 8, Estimated GFR 44 L, BUN/Creatinine Ratio 10.7, CBC w Diff NO MAN DIFF REQ, RBC 2.60 L, MCV 85.8, MCH 28.5, RDW 14.9 H, MPV 8.5, Gran % 91.8 H, Lymphocytes % 2.6 L, Monocytes % 4.2, Eosinophils % 1.4, Basophils % 0 L, Absolute Granulocytes 12.3 H, Absolute Lymphocytes 0.4 L, Absolute Monocytes 0.6, Absolute Eosinophils 0.2, Absolute Basophils 0, PUBS MCHC 33.2 10/07/16 1420: Urinalysis MOD H, Urine Color YEL, Urine Clarity CLDY H, Urine pH 6.0, Ur Specific Fisher 1.010, Urine Protein 100 H, Urine Ketones NEG, Urine Nitrite NEG, Urine Bilirubin NEG, Urine Urobilinogen 0.2, Ur Leukocyte Esterase LARGE H , Ur Microscopic SEDIMENT EXAMINED, Urine RBC 3-5, Urine WBC > 75 H, Urine Bacteria MOD H, Urine Hemoglobin LARGE H, Urine Glucose NEG 10/07/16 0610: Anion Gap 10, Estimated GFR 44 L, BUN/Creatinine Ratio 12.0, CBC w Diff NO MAN DIFF REQ, RBC 2.84 L, MCV 86.3, MCH 28.2, RDW 14.9 H, MPV 8.7, Gran % 90.7 H, Lymphocytes % 2.4 L, Monocytes % 5.7, Eosinophils % 1.2, Basophils % 0 L, Absolute Granulocytes 11.8 H, Absolute Lymphocytes 0.3 L, Absolute Monocytes 0.7 H, Absolute Eosinophils 0.2, Absolute Basophils 0, PUBS MCHC 32.7 L Assessment/Plan Assessment/Plan Assessment: 1. MRSA bacteremia 2. VT/VF with defibrillator discharges 3. Indwelling pacemaker/defibrillator 4. Urinary tract infection 5. Skin rash; possibly drug-related Her conditions: -For now, continue current cardiac medication regimen -Continue as per medical and ID teams. -Please call us if any new issues should arise. Continue telemetry? Yes
[2016-10-08 14:28] VITALS: BP 130/60
--- NOTE | 2016-10-08 15:30 | NUR ---
PATIENT RETURNED TO UNIT FROM PACU. HE IS S/P CYSTOSCOPY WITH STENTS REPLACEMENT AND REINSERTION OF SUPERPUBIC CATHETER. PATIENT IS ALERT AND ORIENTATED ON ARRIVAL. COMPLAINS OF LOWER BLADDER PAIN /. PATIENT IN OBVIOUS DISCOMFORT. RESIDENT RADHAMES ORDERED TYLENOL 1GM IV. BP 130/60, HR 74. PATIENT AFRIBRILE. ONE UNIT PRBC STARTED PATIENT TOLERATED WITHOUT REACTIONS. VITAL SIGN AT 15 MINUTES AFTER BLOOD INITIATED 90/60. MOTION PICTURE ACTOR AWARE. PATIENT ASYMPTOMATIC. REMAINS ALERT AND ORIENTATED X3. TRANSFUSION CONTINUES. PER MOTION PICTURE ACTOR MONITOR PATIENT AND RECHECK BP.
--- NOTE | 2016-10-08 16:42 | PN- Infect Dx ---
Subjective Subjective: MAXIMUM TEMPERATURE 100.7. He complains of suprapubic discomfort. He denies any pruritus. One loose stool reported yesterday. Objective Last 24 Hrs of Vital Signs/I&O Vital Signs Date Time Temp Pulse Resp B/P B/P Pulse O2 O2 Flow FiO2 Mean Ox Delivery Rate 10/08 1428 98.4 74 20 130/60 97 Room Air Room Air 10/08 0937 99.1 10/08 0855 100.7 74 30 130/60 10/08 0837 100.7 10/08 0836 100.4 79 18 117/55 10/08 0833 100.4 79 18 117/55 97 Room Air 10/07 2333 98.9 74 18 102/54 98 Room Air 10/07 2308 98.9 10/07 2301 102/54 10/07 2003 100.5 10/07 1839 100.4 10/07 1833 100.4 10/07 1630 99.0 77 18 110/62 99 Room Air Intake & Output 10/08 1600 10/08 0800 10/08 0000 Intake Total 400 720 Output Total 200 250 Balance 200 470 Intake, IV 400 Intake, Oral 720 Output, Urine 200 250 Physical Exam Other Physical Findings: He appears comfortable in no acute distress Skin macular rash improving Lungs decreased breath sounds at the right base Heart regular rhythm with a 1 to 2/6 systolic ejection murmur Abdomen is soft, tender over the suprapubic area; dressing intact over the suprapubic catheter Extremities PICC in the right upper extremity with no inflammation at the site Results Last 24 Hours of Lab Results: Laboratory Tests 10/08 0620 Chemistry Sodium (137 - 145 mmol/L) 132 L Potassium (3.5 - 5.1 mmol/L) 3.8 Chloride (98 - 107 mmol/L) 102 Carbon Dioxide (22 - 30 mmol/L) 22 Anion Gap (5 - 16) 8 BUN (9 - 20 mg/dL) 16 Creatinine (0.7 - 1.2 mg/dL) 1.5 H Estimated GFR (>60 ml/min) 44 L BUN/Creatinine Ratio (7 - 25 %) 10.7 Hematology CBC w Diff NO MAN DIFF REQ WBC (4.8 - 10.8 /CUMM) 13.4 H RBC (4.70 - 6.10 /CUMM) 2.60 L Hgb (14.0 - 18.0 G/DL) 7.4 *L Hct (42 - 52 %) 22.3 L MCV (80.0 - 94.0 FL) 85.8 MCH (27.0 - 31.0 PG) 28.5 RDW (11.5 - 14.5 %) 14.9 H Plt Count (130 - 400 /CUMM) 226 MPV (7.4 - 10.4 FL) 8.5 Gran % (42.2 - 75.2 %) 91.8 H Lymphocytes % (20.5 - 51.1 %) 2.6 L Monocytes % (1.7 - 9.3 %) 4.2 Eosinophils % (0 - 5 %) 1.4 Basophils % (0.0 - 2.0 %) 0 L Absolute Granulocytes (1.4 - 6.5 /CUMM) 12.3 H Absolute Lymphocytes (1.2 - 3.4 /CUMM) 0.4 L Absolute Monocytes (0.10 - 0.60 /CUMM) 0.6 Absolute Eosinophils (0.0 - 0.7 /CUMM) 0.2 Absolute Basophils (0.0 - 0.2 /CUMM) 0 PUBS MCHC (33.0 - 37.0 G/DL) 33.2 Last 24 Hours of Apolinar Results: Blood cultures October 07 negative Urine culture October 07 approximately 10,000 colonies of gram-positive cocci Assessment/Plan Impression: Low-grade fevers and leukocytosis persist, possibly secondary to drug fever, with his diffuse macular rash, which appears to be improving, or to a complication of his MRSA bacteremia with possible seeding of his heart valves or pacemaker or left ureteral stent, status post exchange earlier today, or right pleural effusion or bilateral hip prostheses, or to a new nosocomial process, for example C. difficile, with one loose stool reported yesterday. He is quite anemic, raising concern for a GI bleed. He remains on Vancomycin now Day 7 of treatment for MRSA bacteremia, presumably of urologic origin, and he will require a minimum of 4-6 weeks of antibiotics for a "complicated" bacteremia, given the presence of implants (pacemaker and bilateral hips). Suggestion: 1. Stool for C. difficile if diarrhea recurs 2. Stool guaiacs, with further GI evaluation if positive 3. Will need to consider further evaluation as noted above if his fevers or leukocytosis persist 4. Continue Vancomycin pending above
--- NOTE | 2016-10-08 17:13 | RADIOLOGY REPORT ---
EXAMINATION: XR ABDOMEN CLINICAL INDICATION: Left retrograde and stent exchange in OR COMPARISON: 06/25/2016 TECHNIQUE: 7 fluoroscopic images of the abdomen. Total fluoroscopic time 1.3 minutes. FINDINGS: Initial image demonstrates a cystoscope in place with stent of the left ureter. Subsequent image demonstrates no stent in place. There is opacification of the left collecting system which does not appear dilated. This is followed by replacement of a left ureteral stent, which terminates at the lower pole of the left kidney and extends into the bladder. IMPRESSION: Fluoroscopic guidance of left pyelogram and stent exchange. Please refer to operative notes for further information.
[2016-10-08 18:34] VITALS: BP 121/59
[2016-10-08 22:58] LABS: ABSOLUTE BASOPHIL COUNT 0 /CUMM (0.0-0.2); ABSOLUTE EOSINOPHIL COUNT 0.3 /CUMM (0.0-0.7); ABSOLUTE LYMPH COUNT 0.4 /CUMM (1.2-3.4); ABSOLUTE MONOCYTE COUNT 0.3 /CUMM (0.10-0.60); BASOPHIL % 0 % (0.0-2.0); HEMATOCRIT 25.4 % (42-52); MEAN CORPUSCULAR HGB 28.5 PG (27.0-31.0); MEAN CORPUSCULAR HGB CONC 33.2 G/DL (33.0-37.0); MEAN CORPUSCULAR VOLUME 85.9 FL (80.0-94.0); MEAN PLATELET VOLUME 8.3 FL (7.4-10.4); PLATELET COUNT 226 /CUMM (130-400); RBC DISTRIBUTION WIDTH 14.6 % (11.5-14.5); RED BLOOD CELL CT 2.96 /CUMM (4.70-6.10); WHITE BLOOD CELL COUNT 12.9 /CUMM (4.8-10.8)
[2016-10-08 23:53] VITALS: BP 112/64
[2016-10-09 07:56] LABS: ABSOLUTE BASOPHIL COUNT 0 /CUMM (0.0-0.2); ABSOLUTE EOSINOPHIL COUNT 0.3 /CUMM (0.0-0.7); ABSOLUTE GRANULOCYTE CT 13.6 /CUMM (1.4-6.5); ABSOLUTE LYMPH COUNT 0.5 /CUMM (1.2-3.4); ABSOLUTE MONOCYTE COUNT 0.8 /CUMM (0.10-0.60); BASOPHIL % 0 % (0.0-2.0); GRANULOCYTE % 89.6 % (42.2-75.2); HEMATOCRIT 27.3 % (42-52); MEAN CORPUSCULAR HGB 28.7 PG (27.0-31.0); MEAN CORPUSCULAR HGB CONC 32.8 G/DL (33.0-37.0); MEAN CORPUSCULAR VOLUME 87.6 FL (80.0-94.0); MEAN PLATELET VOLUME 8.6 FL (7.4-10.4); PLATELET COUNT 248 /CUMM (130-400); RBC DISTRIBUTION WIDTH 14.9 % (11.5-14.5); RED BLOOD CELL CT 3.12 /CUMM (4.70-6.10)
--- NOTE | 2016-10-09 08:36 | PN- Housestaff ---
VIJAYA WALLACE,RADHAMES 10/09/16 0835: Subjective Follow-up For: mrsa uti bacteremia Subjective: Seen and examined at bedside he does complain of some suprapubic pain but has refused oral Tylenol. He continues to have low-grade fevers with a MAXIMUM TEMPERATURE of 100.3. He denies any new episodes of blood in stool, chest pain, palpitation, increased shortness of breath, nausea, vomiting, or dysuria. Review of Systems Constitutional: Reports: see HPI. Objective Last 24 Hrs of Vital Signs/I&O Vital Signs Date Time Temp Pulse Resp B/P B/P Pulse O2 O2 Flow FiO2 Mean Ox Delivery Rate 10/09 0915 100.3 73 19 118/57 10/09 0837 100.3 73 19 118/57 95 Room Air 10/08 2353 98.7 74 18 112/64 97 Room Air 10/08 2114 75 110/64 10/08 1834 99.4 75 18 121/59 98 Room Air 10/08 1428 98.4 74 20 130/60 97 Room Air Room Air Intake & Output 10/09 1600 10/09 0800 10/09 0000 Intake Total 220 770 Output Total 500 Balance -280 770 Intake, Blood 350 Product Intake, IV 200 Intake, Oral 220 220 Output, Urine 500 Physical Exam General Appearance: Alert, Oriented X3, Cooperative Skin: improvement of rash (upper trunk) noted, no pruritis HEENT: Atraumatic, PERRLA, Mucous Membr. moist/pink Neck: Supple, No JVD Lymphatic: Cervical nl Cardiovascular: Regular Rate, Normal S1, Normal S2 Lungs: Clear to Auscultation, Normal Air Movement Abdomen: Normal Bowel Sounds, Soft, mild suprapubic tenderness, suprapubic catheter intact with no obvious sign of acute bleeding or discharge Neurological: Normal Speech, Strength at 5/5 X4 Ext, Normal Tone, Sensation Intact Extremities: No Cyanosis, No Edema, Normal Pulses, No Tenderness/Swelling Current Medications: Current Medications Sig/Karin Start time Last Medication Dose Route Stop Time Status Admin Acetaminophen 1,000 MG ONCE ONE 10/09 0900 DC 10/09 N/A 1 UNIT IV 10/09 0914 0916 Acetaminophen 1,000 MG ONCE ONE 10/08 1445 DC 10/08 IV 10/08 1446 1451 Acetaminophen 650 MG Q6P PRN 10/01 1515 AC 10/08 PO 0837 Dextrose/Sodium 1,000 ML Q13H 10/08 0000 DC 10/08 Chloride IV 2113 Diphenhydramine HCl 1 NORMA TID PRN 10/07 0945 10/07 TOP 1445 Docusate Sodium 100 MG DAILY PRN 10/04 0700 AC 10/04 PO 0645 Dofetilide 125 MCG BID 10/05 1136 AC 10/09 PO 0915 Heparin Sodium 5,000 UNIT Q8 10/01 2200 AC 10/09 (Porcine) SC 0537 Levothyroxine Sodium 0.088 MG DAILY AC 10/02 0811 AC 10/09 PO 0537 Metoprolol Tartrate 12.5 MG BID 10/01 2200 AC 10/09 PO 0915 Patient Medication 1 ED .ST-MED ONE 10/08 1428 [place] Teaching ED 10/08 1429 Pravastatin Sodium 40 MG DAILY 10/02 1000 AC 10/09 PO 0915 Senna/Docusate Sodium 1 TAB BID 10/04 1000 AC 10/09 PO 0915 Vancomycin HCl 750 MG DAILY 10/07 1000 AC 10/09 Sodium Chloride 250 ML IV 1023 Last 24 Hrs of Lab/Apolinar Results Last 24 Hrs of Labs/Mics: Laboratory Tests 10/09/16 0545: Anion Gap 11, Estimated GFR 44 L, BUN/Creatinine Ratio 10.7, CBC w Diff NO MAN DIFF REQ, RBC 3.12 L, MCV 87.6, MCH 28.7, RDW 14.9 H, MPV 8.6, Gran % 89.6 H, Lymphocytes % 3.3 L, Monocytes % 5.1, Eosinophils % 2.0, Basophils % 0 L, Absolute Granulocytes 13.6 H, Absolute Lymphocytes 0.5 L, Absolute Monocytes 0.8 H, Absolute Eosinophils 0.3, Absolute Basophils 0, PUBS MCHC 32.8 L 10/08/162157: CBC w Diff NO MAN DIFF REQ, RBC 2.96 L, MCV 85.9, MCH 28.5, RDW 14.6 H, MPV 8.3, Gran % 93.0 H, Lymphocytes % 2.8 L, Monocytes % 2.2, Eosinophils % 2.0, Basophils % 0 L, Absolute Granulocytes 12.0 H, Absolute Lymphocytes 0.4 L, Absolute Monocytes 0.3, Absolute Eosinophils 0.3, Absolute Basophils 0, PUBS MCHC 33.2 Assessment/Plan Assessment: This is a 85-year-old gentleman with an extensive cardiac history of CAD status post CABG, stent placement, paroxysmal A. fib, CHF with EF of 30-35%, and on pacemaker defibrillator, multiple urological malignancy and on chronic suprapubic catheter presents for evaluation of generalized malaise. Patient presents with symptomatic urinary complaints and is found to have a UA suggestive of a UTI and leukocytosis. He was currently on ciprofloxacin 500 mg twice a day 4 week course which she reports resolution of the foul smell but still persistent suprapubic pain and some incontinence. Coincidently, patient also had an episode of silent defibrillator ration with a suggestion of a possible V. tach. Patient was alert and symptomatic and was not aware of his possible cardiac episode. Impression * Fever Patient had elevated temperatures last night with low grade temps. CXR show no infectious pathology, UA has same finding as previous one, urine culture is indicative of MRSA. WBC uptrending today. BC cultures from 10/02 were negative, 10/07 ones still no growth. Will await further ID reccomendation. BRBPR Resolved. Patient has had 3 more soft bowels with no melena or overt bleeding noted, guaiac was also negative. About 80-90% of lower bleed is transient. Since patient had only one episode, we will closely monitor and guaic all stools. Will also maintain Hgb above 8. If episodes recur, will consider GI, even though colonoscopy and aggresive intervention in an 85 yo with multiple comorbidities may not beneficial. Acute on chronic Anemia 2/2 to acute blood loss as evident by BRBPR. Status post one PRBC yesterday with today's CBC being stable and above 8. * Rash Improving with no obvious worsening progression or complaints of pruritus. Possible etiology includes drug rash versus acute interstitial nephritis ( however the lack of uptrending or elevated eisinophils, and stable kidney function makes it less likely). We'll continue to closely monitor. * MRSA Bacteremia: Bcx from 10/01 growing MRSA. Most likely source is the suprapubic catheter as his urine which was also positive for staph aureus. Will continue Vancomycin 1 gram and obtain new set of blood cultures. There is concern of seeding at cardiac valves since favian has a implantable AICD and hip prosthesis. 10/02 blood cultures negative. Pt will require 4-6 weeks of ABX starting from date of last negative culture.Continue Vancomycin (day 8), dose of 750 mg. * Urinary tract infection. Presenting with symptoms of suprapubic pain with increased incontinence with a UA suggestive of UTI and leukocytosis. Status post 4 weeks of ciprofloxacin 500 mg twice a day treatment. Urine culture isolated staph aureus and with recent supra pubic catherer, Bcx grwoing MRSA. Continue Vancomycin (day 8), will continue dose of 750 mg. 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 There is post Botox injection in bladder and change of suprapubic catheter () * s/p AICD 30 Joules defibrillation in the setting of polymorphic VT (>10 beats) . Very likely this episode was induced by patient acute illness. His electrolytes are WNL, and eventhough Tikosyn is arythmogenic, he has been on it for awhile and will be highly unlikely to have suddenly cause the V-TACH. Per cardiology, Tikosyn restarted. Problem List: 1. Bacteremia 2. UTI (urinary tract infection) Pain Ratin Pain Location: suprapubic Pain Goal: Remain pain free Pain Plan: IV APAP Tomorrow's Labs & Rationales: cbc bep Consulting Request: Consulting Specialty: Infectious Disease CONNER WALLACE,ERIBERTO 10/09/16 1228: Attending MD Review Statement Attending Statement Attending MD Statement: examined this patient, discuss w/resident/PA/TRACK LAYER HEAD, agreed w/resident/PA/[employer], discussed with family, reviewed EMR data (avail), discussed with nursing, discussed with case mgmt, reviewed images, amended to note Attending Assessment/Plan: Patient seen and examined, was feeling tired. The rash looks better and patient continues to spike low-grade fevers. Repeat urine culture growing gram-positive cocci. Patient underwent urology procedure that included Botox injection, stent removal, suprapubic catheter change. Official operative report is still pending. Vital Signs Date Time Temp Pulse Resp B/P B/P Pulse O2 O2 Flow FiO2 Mean Ox Delivery Rate 10/09 0915 100.3 73 19 118/57 10/09 0837 100.3 73 19 118/57 95 Room Air 10/08 2353 98.7 74 18 112/64 97 Room Air 10/08 2114 75 110/64 10/08 1834 99.4 75 18 121/59 98 Room Air 10/08 1428 98.4 74 20 130/60 97 Room Air Room Air on exam; aox3, nad. cv; s1,s2, rrr, + systolic murmur. resp; clear with decreased bs at b/l bases. abd; soft, nt, bs+ ext; no edema rash: the macular rash on chest and upper back looks better. Laboratory Tests 10/09 10/08 0545 2158 Chemistry Sodium (137 - 145 mmol/L) 135 L Potassium (3.5 - 5.1 mmol/L) 3.8 Chloride (98 - 107 mmol/L) 103 Carbon Dioxide (22 - 30 mmol/L) 21 L Anion Gap (5 - 16) 11 BUN (9 - 20 mg/dL) 16 Creatinine (0.7 - 1.2 mg/dL) 1.5 H Estimated GFR (>60 ml/min) 44 L BUN/Creatinine Ratio (7 - 25 %) 10.7 Hematology CBC w Diff NO MAN DIFF REQ NO MAN DIFF REQ WBC (4.8 - 10.8 /CUMM) 15.2 H 12.9 H RBC (4.70 - 6.10 /CUMM) 3.12 L 2.96 L Hgb (14.0 - 18.0 G/DL) 9.0 L 8.4 L Hct (42 - 52 %) 27.3 L 25.4 L MCV (80.0 - 94.0 FL) 87.6 85.9 MCH (27.0 - 31.0 PG) 28.7 28.5 RDW (11.5 - 14.5 %) 14.9 H 14.6 H Plt Count (130 - 400 /CUMM) 248 226 MPV (7.4 - 10.4 FL) 8.6 8.3 Gran % (42.2 - 75.2 %) 89.6 H 93.0 H Lymphocytes % (20.5 - 51.1 %) 3.3 L 2.8 L Monocytes % (1.7 - 9.3 %) 5.1 2.2 Eosinophils % (0 - 5 %) 2.0 2.0 Basophils % (0.0 - 2.0 %) 0 L 0 L Absolute Granulocytes (1.4 - 6.5 /CUMM) 13.6 H 12.0 H Absolute Lymphocytes (1.2 - 3.4 /CUMM) 0.5 L 0.4 L Absolute Monocytes (0.10 - 0.60 /CUMM) 0.8 H 0.3 Absolute Eosinophils (0.0 - 0.7 /CUMM) 0.3 0.3 Absolute Basophils (0.0 - 0.2 /CUMM) 0 0 PUBS MCHC (33.0 - 37.0 G/DL) 32.8 L 33.2 A/P; 85-year-old male with past medical history significant for coronary artery disease, status post CABG in 1989, history of NM, angioplasties, history of chronic systolic CHF, history of paroxysmal A. 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 Suprapubic tube exchange. 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 Also found to have episodes of V. tach captured on his defibrillator/pacemaker. This could be the results of Quinolone and Tikosyn prolonging QTC as well as infection. Currently patient has MRSA UTI as well as MRSA bacteremia. Underwent a urologic procedure yesterday which included Botox injection in the bladder, stent removal as well as suprapubic catheter change. Continues to spike low-grade fevers and repeat urine culture is still positive for gram-positive cocci. Discussed with ID, continue vancomycin. Leukocytosis is worse today. Rash improved. H&H stabilized after transfusion. No further diarrhea. Creatinine stable. Next line DVT plexus: Heparin subcutaneous. Patient needs to go to rehabilitation once he stable but not ready as of yet secondary to worsening leukocytosis, continuous fever spikes.
[2016-10-09 08:37] VITALS: BP 118/57
[2016-10-09 09:03] LABS: WHITE BLOOD CELL COUNT 15.2 /CUMM (4.8-10.8)
--- NOTE | 2016-10-09 12:00 | PN- Cardiology ---
Subjective Subjective: The patient reports that he is feeling well from a cardiac standpoint. No chest pain. No palpitations. No shortness of breath. No lightheadedness or dizziness. No nausea or vomiting. Objective Vital Signs and I&Os Vital Signs Date Time Temp Pulse Resp B/P B/P Pulse O2 O2 Flow FiO2 Mean Ox Delivery Rate 10/09 0815 100.3 73 19 118/57 10/09 0837 100.3 73 19 118/57 95 Room Air 10/08 2353 98.7 74 18 112/64 97 Room Air 10/08 2114 75 110/64 10/08 1834 99.4 75 18 121/59 98 Room Air 10/08 1428 98.4 74 20 130/60 97 Room Air Room Air Intake & Output 10/09 1600 10/09 0800 10/09 0000 10/08 1600 10/08 0800 10/08 0000 Intake Total 220 770 790 400 720 Output Total 500 200 250 Balance -280 770 790 200 470 Intake, Blood 350 Product Intake, IV 200 550 400 Intake, Oral 220 220 240 720 Number 2 Bowel Movements Output, Urine 500 200 250 Physical Exam: Gen: NAD HEENT: normal Lungs: clear to auscultation, normal resp. effort Heart: RRR, S1, S2, no murmurs Abdomen: Soft, nontender, no masses Extremities: No clubbing, cyanosis, or edema. Neuro: Alert and oriented x 3, cranial nerves intact Current Medications: Current Medications Sig/Karin Start time Last Medication Dose Route Stop Time Status Admin Acetaminophen 1,000 MG ONCE ONE 10/09 0900 DC 10/09 N/A 1 UNIT IV 10/09 0914 0916 Acetaminophen 1,000 MG ONCE ONE 10/08 1445 DC 10/08 IV 10/08 1446 1451 Acetaminophen 650 MG Q6P PRN 10/01 1515 AC 10/08 PO 0837 Dextrose/Sodium 1,000 ML Q13H 10/08 0000 DC 10/08 Chloride IV 2113 Diphenhydramine HCl 1 NORMA TID PRN 10/07 0945 AC 10/07 TOP 1445 Docusate Sodium 100 MG DAILY PRN 10/04 0700 AC 10/04 PO 0645 Dofetilide 125 MCG BID 10/05 1136 AC 10/09 PO 0915 Heparin Sodium 5,000 UNIT Q8 10/01 2200 AC 10/09 (Porcine) SC 0537 Levothyroxine Sodium 0.088 MG DAILY AC 10/02 0811 10/09 PO 0537 Metoprolol Tartrate 12.5 MG BID 10/01 2199 AC 10/09 PO 0915 Patient Medication 1 ED .STK-MED ONE 10/08 1428 PA Teaching ED 10/08 1429 Pravastatin Sodium 40 MG DAILY 10/02 1000 AC 10/09 PO 0915 Senna/Docusate Sodium 1 TAB BID 10/04 1000 AC 10/09 PO 09 Vancomycin HCl 750 MG DAILY 10/07 1000 AC 10/09 Sodium Chloride 250 ML IV 1023 Results Last 48 Hrs of Labs/Mics: Laboratory Tests 10/09/16 0545: Anion Gap 11, Estimated GFR 44 L, BUN/Creatinine Ratio 10.7, CBC w Diff NO MAN DIFF REQ, RBC 3.12 L, MCV 87.6, MCH 28.7, RDW 14.9 H, MPV 8.6, Gran % 89.6 H, Lymphocytes % 3.3 L, Monocytes % 5.1, Eosinophils % 2.0, Basophils % 0 L, Absolute Granulocytes 13.6 H, Absolute Lymphocytes 0.5 L, Absolute Monocytes 0.8 H, Absolute Eosinophils 0.3, Absolute Basophils 0, PUBS MCHC 32.8 L 10/08/162157: CBC w Diff NO MAN DIFF REQ, RBC 2.96 L, MCV 85.9, MCH 28.5, RDW 14.6 H, MPV 8.3, Gran % 93.0 H, Lymphocytes % 2.8 L, Monocytes % 2.2, Eosinophils % 2.0, Basophils % 0 L, Absolute Granulocytes 12.0 H, Absolute Lymphocytes 0.4 L, Absolute Monocytes 0.3, Absolute Eosinophils 0.3, Absolute Basophils 0, PUBS MCHC 33.2 10/08/16 0620: Anion Gap 8, Estimated GFR 44 L, BUN/Creatinine Ratio 10.7, CBC w Diff NO MAN DIFF REQ, RBC 2.60 L, MCV 85.8, MCH 28.5, RDW 14.9 H, MPV 8.5, Gran % 91.8 H, Lymphocytes % 2.6 L, Monocytes % 4.2, Eosinophils % 1.4, Basophils % 0 L, Absolute Granulocytes 12.3 H, Absolute Lymphocytes 0.4 L, Absolute Monocytes 0.6, Absolute Eosinophils 0.2, Absolute Basophils 0, PUBS MCHC 33.2 10/07/16 1420: Urinalysis MOD H, Urine Color YEL, Urine Clarity CLDY H, Urine pH 6.0, Ur Specific [place] 1.010, Urine Protein 100 H, Urine Ketones NEG, Urine Nitrite NEG, Urine Bilirubin NEG, Urine Urobilinogen 0.2, Ur Leukocyte Esterase LARGE H , Ur Microscopic SEDIMENT EXAMINED, Urine RBC 3-5, Urine WBC > 75 H, Urine Bacteria MOD H, Urine Hemoglobin LARGE H, Urine Glucose NEG Assessment/Plan Assessment/Plan Assessment: 1. MRSA bacteremia 2. VT/VF with defibrillator discharges 3. Indwelling pacemaker/defibrillator 4. Urinary tract infection 5. Skin rash; possibly drug-related Her conditions: - IV antibiotics as per infectious disease service. -For now, continue current cardiac medication regimen -Please call us if any new issues should arise. Continue telemetry? Yes
[2016-10-09] MEDS ORDERED: VANCO 750750 MG/250 IV (15:42)
[2016-10-09 16:44] VITALS: BP 131/57
[2016-10-09 23:00] VITALS: BP 137/65
--- NOTE | 2016-10-10 08:26 | PN- Housestaff ---
VIJAYA WALLACE,RADHAMES 10/10/16 0825: Subjective Follow-up For: MRSA UTI Subjective: Seen and examined today. He appears more tired compared to previous days. He is now complainig of abdominal pain which is new (normally has suprapubic pain). He is still having low grade fevers. He however denies chest pain,palpitaiton, shortness of breath, nausea/vomiting. Later in the [facility], a rapid response was called as patient was found to be lethargic and telmetry/monitor showed polymorphic V-tach requiring magnesium therapy. Review of Systems Constitutional: Reports: see HPI. Objective Last 24 Hrs of Vital Signs/I&O Vital Signs Date Time Temp Pulse Resp B/P B/P Pulse O2 O2 Flow FiO2 Mean Ox Delivery Rate 10/11 0400 94 Nasal 2.0L Cannula 10/11 0000 99 Nasal 2.0L Cannula 10/10 2300 97.1 89 22 102/64 99 Nasal 2.0L Cannula 10/10 2157 89 20 98/59 10/10 2000 98 Nasal 2.0L Cannula 10/10 1600 96 Nasal 2.0L Cannula 10/10 1600 98.9 91 24 104/60 96 Nasal 2.0L Cannula 10/10 1306 74 98/46 10/10 1200 95 Nasal 2.0L Cannula 10/10 1029 128/70 10/10 0829 99.6 75 20 132/60 96 Room Air Intake & Output 10/11 0800 10/11 0000 10/10 1600 Intake Total 379 900 Output Total 185 250 Balance 194 650 Intake, IV 379 900 Number 0 Bowel Movements Output, Urine 185 250 Physical Exam General Appearance: Alert, Oriented X3, Cooperative, appears tired Assessment/Plan Assessment: This is a 85-year-old gentleman with an extensive cardiac history of CAD status post CABG, stent placement, paroxysmal A. fib, CHF with EF of 30-35%, and on pacemaker defibrillator, multiple urological malignancy and on chronic suprapubic catheter presents for evaluation of generalized malaise. Patient presents with symptomatic urinary complaints and is found to have a UA suggestive of a UTI and leukocytosis. He was currently on ciprofloxacin 500 mg twice a day 4 week course which she reports resolution of the foul smell but still persistent suprapubic pain and some incontinence. Coincidently, patient also had an episode of silent defibrillator ration with a suggestion of a possible V. tach. Patient was alert and symptomatic and was not aware of his possible cardiac episode. Impression * Ventricular tachycardia Pt had transient episodes of decreased responsiveness prompting a rapid response. Monitors were remarkable for polymorphic V-tachs indicating Torsades. Rcvd Mag boluses, and was transferred to ICU with magnesium drip started. Cardiology was on board and contacted Dr Christiansen (pt's EP doc) who reccomended starting amio and increasing the mag drip. * Fever Patient had elevated temperatures last night with low grade temps. CXR show no infectious pathology, UA has same finding as previous one, urine culture is indicative of MRSA. WBC uptrending today. BC cultures from 10/02 were negative, 10/07 ones still no growth.Will send stool toxin for c.diff as pt is reported to have had a couple of lose stools. Will await further ID reccomendation. BRBPR Resolved. Patient has had 3 more soft bowels with no melena or overt bleeding noted, guaiac was also negative. About 80-90% of lower bleed is transient. Since patient had only one episode, we will closely monitor and guaic all stools. Will also maintain Hgb above 8. If episodes recur, will consider GI, even though colonoscopy and aggresive intervention in an 85 yo with multiple comorbidities may not beneficial. Acute on chronic Anemia 2/2 to acute blood loss as evident by BRBPR. Status post one PRBC yesterday with today's CBC being stable and above 8. * Rash Improving with no obvious worsening progression or complaints of pruritus. Possible etiology includes drug rash versus acute interstitial nephritis ( however the lack of uptrending or elevated eisinophils, and stable kidney function makes it less likely). We'll continue to closely monitor. * MRSA Bacteremia: Bcx from 10/01 growing MRSA. Most likely source is the suprapubic catheter as his urine which was also positive for staph aureus. Will continue Vancomycin 1 gram and obtain new set of blood cultures. There is concern of seeding at cardiac valves since favian has a implantable AICD and hip prosthesis. 10/02 blood cultures negative. Pt will require 4-6 weeks of ABX starting from date of last negative culture.Continue Vancomycin (day 8), dose of 750 mg. * Urinary tract infection. Presenting with symptoms of suprapubic pain with increased incontinence with a UA suggestive of UTI and leukocytosis. Status post 4 weeks of ciprofloxacin 500 mg twice a day treatment. Urine culture isolated staph aureus and with recent supra pubic catherer, Bcx grwoing MRSA. Continue Vancomycin (day 9), will continue dose of 750 mg. 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 There is post Botox injection in bladder and change of suprapubic catheter () * s/p AICD 30 Joules defibrillation in the setting of polymorphic VT (>10 beats) . Very likely this episode was induced by patient acute illness. His electrolytes are WNL, and eventhough Tikosyn is arythmogenic, he has been on it for awhile and will be highly unlikely to have suddenly cause the V-TACH. Per cardiology, Tikosyn restarted. Problem List: 1. UTI (urinary tract infection) 2. Ventricular tachycardia Pain Ratin Pain Location: abdomen Pain Goal: Remain pain free Pain Plan: per pain pathway Tomorrow's Labs & Rationales: ICU BUNDLE-TRANSFER TO ICU Consulting Request: Consulting Specialty: Infectious Disease CHRISTAL WALLACE,[facility] 10/10/16 1232: Attending MD Review Statement Attending Statement Attending MD Statement: examined this patient, discuss w/resident/PA/POWER [employer] LINEMAN, agreed w/resident/PA/POWER [employer] LINEMAN, discussed with family, reviewed EMR data (avail), discussed with nursing, discussed with case mgmt, reviewed images, amended to note Attending Assessment/Plan: 85-year-old male with past medical history significant for CAD, I achieved a status post CABG and PCIs, hyperlipidemia, asbestosis, paroxysmal A. fib, status post biventricular pacemaker/defibrillator replaced in 2013 with defibrillator shocks, patient currently not on any anticoagulation, transitional cell carcinoma status post cystoscopy, left flexible ureteroscopy with retrograde pyelogram, left stent exchange with suprapubic tube, has been admitted on the floor with sepsis secondary to suprapubic catheter associated with UTI. The patient also had episodes of V. tach given patient is on quinolone and Tikosyn as both these medications prolong the QTC. Patient currently being treated with vancomycin for MRSA UTI/MRSA bacteremia. Cardiology and ID specialist on board. Of note patient had a rapid response this morning at 11:30 AM for discharges from his defibrillator with EKG findings suggestive of runs of poorly more symptomatic ventricular tachycardia which was treated with IV magnesium stat followed by continuous IV magnesium drip. Patient has been transferred out of the ICU for close monitoring
[2016-10-10 08:29] VITALS: BP 132/60
[2016-10-10 08:59] LABS: ABSOLUTE BASOPHIL COUNT 0 /CUMM (0.0-0.2); ABSOLUTE EOSINOPHIL COUNT 0.1 /CUMM (0.0-0.7); ABSOLUTE GRANULOCYTE CT 15.6 /CUMM (1.4-6.5); ABSOLUTE LYMPH COUNT 0.5 /CUMM (1.2-3.4); ABSOLUTE MONOCYTE COUNT 0.7 /CUMM (0.10-0.60); BASOPHIL % 0.1 % (0.0-2.0); EOSINOPHIL % 0.5 % (0-5); GRANULOCYTE % 92.4 % (42.2-75.2); HEMATOCRIT 25.6 % (42-52); MEAN CORPUSCULAR HGB 28.5 PG (27.0-31.0); MEAN CORPUSCULAR HGB CONC 33.3 G/DL (33.0-37.0); MEAN CORPUSCULAR VOLUME 85.6 FL (80.0-94.0); MEAN PLATELET VOLUME 8.1 FL (7.4-10.4); PLATELET COUNT 270 /CUMM (130-400); RBC DISTRIBUTION WIDTH 15.1 % (11.5-14.5); RED BLOOD CELL CT 2.99 /CUMM (4.70-6.10); WHITE BLOOD CELL COUNT 16.9 /CUMM (4.8-10.8)
[2016-10-10 12:11] LABS: ABSOLUTE BASOPHIL COUNT 0 /CUMM (0.0-0.2); ABSOLUTE EOSINOPHIL COUNT 0.1 /CUMM (0.0-0.7); ABSOLUTE GRANULOCYTE CT 15.1 /CUMM (1.4-6.5); ABSOLUTE LYMPH COUNT 0.5 /CUMM (1.2-3.4); ABSOLUTE MONOCYTE COUNT 0 /CUMM (0.10-0.60); BASOPHIL % 0 % (0.0-2.0); EOSINOPHIL % 0.5 % (0-5); GRANULOCYTE % 95.9 % (42.2-75.2); MEAN CORPUSCULAR HGB 28.5 PG (27.0-31.0); MEAN CORPUSCULAR HGB CONC 32.7 G/DL (33.0-37.0); MEAN CORPUSCULAR VOLUME 87.2 FL (80.0-94.0); MEAN PLATELET VOLUME 7.9 FL (7.4-10.4); PLATELET COUNT 328 /CUMM (130-400); RBC DISTRIBUTION WIDTH 15.2 % (11.5-14.5); RED BLOOD CELL CT 3.32 /CUMM (4.70-6.10); WHITE BLOOD CELL COUNT 15.8 /CUMM (4.8-10.8)
--- NOTE | 2016-10-10 12:12 | PN- Cardiology ---
Subjective Subjective: Called stat to evaluate Mr. Ding who was having recurrent discharges from his defibrillator with the monitor revealing runs of polymorphic ventricular tachycardia. 2 g IV magnesium was administered promptly and he was transferred to the ICU while a magnesium drip was being started. Objective Vital Signs and I&Os Vital Signs Date Time Temp Pulse Resp B/P B/P Pulse O2 O2 Flow FiO2 Mean Ox Delivery Rate 10/10 1029 128/70 10/10 0829 99.6 75 20 132/60 96 Room Air 10/09 2300 100.9 86 20 137/65 96 Room Air 10/09 2056 75 110/56 10/09 1653 Room Air 1.0L 10/09 1644 98.4 74 16 131/57 97 Room Air 10/09 1600 Room Air 10/09 1436 97.8 Intake & Output 10/10 1600 10/10 0800 10/10 0000 10/09 1600 10/09 0800 10/09 0000 Intake Total 490 750 220 770 Output Total 250 150 250 500 Balance -250 340 500 -280 770 Intake, Blood 350 Product Intake, IV 10 270 200 Intake, Oral 480 480 220 220 Output, Urine 250 150 250 500 Physical Exam: Well-developed, pale-appearing only male who is lethargic with nasal oxygen in place. Vital signs: See above. Lungs: Decreased breath sounds bilaterally. Heart: S1, S2 with a soft systolic murmur. Abdomen: Soft, nontender, positive bowel sounds. Extremities: No edema. Current Medications: Current Medications Sig/Karin Start time Last Medication Dose Route Stop Time Status Admin Acetaminophen 650 MG Q6P PRN 10/01 1515 AC 10/08 PO 0837 Amiodarone HCl/ 150 MG ONCE ONE 10/10 1230 DC 10/10 Dextrose IV 10/10 1239 1306 N/A 1 UNIT Diphenhydramine HCl 1 NORMA TID PRN 10/07 0945 AC 10/07 TOP 1445 Docusate Sodium 100 MG DAILY PRN 10/04 0700 AC 10/04 PO 0645 Dofetilide 125 MCG BID 10/05 1136 AC 10/10 PO 1029 Heparin Sodium 5,000 UNIT Q8 10/01 2200 AC 10/10 (Porcine) SC 0650 Levothyroxine Sodium 0.088 MG DAILY AC 10/02 0811 AC 10/10 PO 0750 Lorazepam 1 MG ONCE ONE 10/10 1215 DC 10/10 IV 10/10 1216 1219 Magnesium Sulfate 1 GM SEE RATE 10/10 1300 AC Dextrose/Water 100 ML IV 10/13 1500 Magnesium Sulfate 2 GM PUSH ONE 10/10 1230 DC 10/10 IV 10/10 1231 1145 Magnesium Sulfate 2 GM PUSH ONE 10/10 1230 DC 10/10 IV 10/10 1231 1215 Magnesium Sulfate 1 GM CONTINOUS INFUSION 10/10 1230 DC IV Magnesium Sulfate 2 GM ONCE ONE 10/10 1215 CAN Dextrose/Water 100 ML IV 10/10 1414 Magnesium Sulfate 1 GM Q1H 10/10 1215 DC Dextrose/Water 100 ML IV Magnesium Sulfate 1 GM Q2H 10/10 1145 DC 10/10 Dextrose/Water 100 ML IV 10/10 1444 1210 Metoprolol Tartrate 12.5 MG BID 10/01 2200 AC 10/10 PO 1029 Morphine Sulfate 2 MG ONCE ONE 10/10 1215 DC 10/10 IV 10/10 1216 1232 Non-Formulary See Dose SEE ADMIN CRITERIA 10/10 1215 DC Medication Insts (1) ANY Pravastatin Sodium 40 MG DAILY 10/02 1000 AC 10/10 PO 1029 Senna/Docusate Sodium 1 TAB BID 10/04 1000 AC 10/10 PO 1029 Vancomycin HCl 750 MG DAILY 10/07 1000 AC 10/10 Sodium Chloride 250 ML IV 1029 Dose Instructions: (1)Non-Formulary Medication: magnesium drip s/p Torsades Results Last 48 Hrs of Labs/Mics: Laboratory Tests 10/10/16 1155: CBC w Diff Cancelled, WBC Cancelled, RBC Cancelled, Hgb Cancelled, Hct Cancelled , MCV Cancelled, MCH Cancelled, RDW Cancelled, Plt Count Cancelled, MPV Cancelled, PUBS MCHC Cancelled 10/10/16 1147: Sodium Cancelled, Potassium Cancelled, Chloride Cancelled, Carbon Dioxide Cancelled, Anion Gap Cancelled, BUN Cancelled, Creatinine Cancelled, BUN/ Creatinine Ratio Cancelled, Magnesium Cancelled 10/10/16 1145: Lactic Acid 5.2 H 10/10/16 1145: Anion Gap 12, Estimated GFR 41 L, BUN/Creatinine Ratio 10.6, Magnesium 3.8 H, Troponin I 0.01, CBC w Diff MAN DIFF ORDERED, RBC 3.32 L, MCV 87.2, MCH 28.5, RDW 15.2 H, MPV 7.9, Gran % 95.9 H, Lymphocytes % 3.4 L, Monocytes % 0.2 L, Eosinophils % 0.5, Basophils % 0 L, Absolute Granulocytes 15.1 H, Absolute Lymphocytes 0.5 L, Absolute Monocytes 0 L, Absolute Eosinophils 0.1, Absolute Basophils 0, Platelet Estimate VERIFIED BY SMEAR, Polychromasia 1+, Poikilocytosis 1+, Anisocytosis 1+, PUBS MCHC 32.7 L 10/10/16 0810: Anion Gap 8, Estimated GFR 41 L, BUN/Creatinine Ratio 10.6, Magnesium 2.2, CBC w Diff MAN DIFF ORDERED, RBC 2.99 L, MCV 85.6, MCH 28.5, RDW 15.1 H, MPV 8.1, Gran % 92.4 H, Lymphocytes % 3.0 L, Monocytes % 4.0, Eosinophils % 0.5, Basophils % 0.1, Absolute Granulocytes 15.6 H, Absolute Lymphocytes 0.5 L, Absolute Monocytes 0.7 H, Absolute Eosinophils 0.1, Absolute Basophils 0, Platelet Estimate VERIFIED BY SMEAR, Polychromasia 1+, Basophilic Stippling SLIGHT, Anisocytosis 1+, PUBS MCHC 33.3 10/09/16 0545: Anion Gap 11, Estimated GFR 44 L, BUN/Creatinine Ratio 10.7, CBC w Diff NO MAN DIFF REQ, RBC 3.12 L, MCV 87.6, MCH 28.7, RDW 14.9 H, MPV 8.6, Gran % 89.6 H, Lymphocytes % 3.3 L, Monocytes % 5.1, Eosinophils % 2.0, Basophils % 0 L, Absolute Granulocytes 13.6 H, Absolute Lymphocytes 0.5 L, Absolute Monocytes 0.8 H, Absolute Eosinophils 0.3, Absolute Basophils 0, PUBS MCHC 32.8 L 10/08/16 2158: CBC w Diff NO MAN DIFF REQ, RBC 2.96 L, MCV 85.9, MCH 28.5, RDW 14.6 H, MPV 8.3, Gran % 93.0 H, Lymphocytes % 2.8 L, Monocytes % 2.2, Eosinophils % 2.0, Basophils % 0 L, Absolute Granulocytes 12.0 H, Absolute Lymphocytes 0.4 L, Absolute Monocytes 0.3, Absolute Eosinophils 0.3, Absolute Basophils 0, PUBS MCHC 33.2 Recent Imaging Studies: Echocardiogram (10/02/2016): Moderate left ventricular dilatation. Mild concentric left ventricular hypertrophy. The interventricular septum contracts fairly well. The inferior, lateral and posterior sharpe are hypokinetic to akinetic. Overall left ventricular systolic function is moderately decreased. Estimated ejection fraction is 35-40%. Catheter/pacemaker wire in the right ventricular cavity. Mild right atrial dilatation. Moderate left atrial dilatation. Mild thickening/calcification of the mitral valve leaflets. Diffuse thickening of the aortic valve cusps with reduced excursion. Mild aortic stenosis. Right ventricular systolic pressure estimated to be elevated at 40- 45 mmHg. The aortic root is upper limits of normal in size. The IVC is mildly dilated. Assessment/Plan Assessment/Plan Mr. Félix Garsia is an 85-year-old male with a history of dyslipidemia, former tobacco use, COPD, asbestosis, paroxysmal atrial fibrillation, coronary artery disease with ischemic cardiomyopathy (status post multiple MIs; CABG x3 1988; multiple PCI's with most recent 2009; s/p BiV pacemaker/defibrillator replaced 2013 with defibrillator shocks due to VT requiring hospitalization in 06/2013 that resolved with medication adjustments) who was admitted on 10/01/2016 with abdominal pain and polymorphic VT s/p discharges from his defibrillator who this morning again began having runs of polymorphic VT prompting discharges from his device. Recommendations: * Transfer to ICU. * Awaiting callback from electrophysiology. * Add magnesium level to this a.m.'s blood work. * Continue magnesium drip and check level this afternoon. * Replete potassium and follow-up level this afternoon. * Will discuss situation with patient's . Addendum: Discussed situation with the EP (Boris Mcdowell M.D.) who agreed with our initial plan and suggested the magnesium drip be increased and that he be given amiodarone 150 mg IV. A [employer] office machines sales representative is en route to increase the rate of the BiV pacemaker /defibrillator and plans are being made for transfer to [facility] if the patient's is agreeable to this plan. Discussed the situation with Mrs. Garsia and she does not want to have the patient transferred and will be discussing the situation further with her children. She is leaning toward having Mr. Ding made comfort measures only. Continue telemetry? Not applicable
--- NOTE | 2016-10-10 12:26 | PN- Infect Dx ---
Subjective Subjective: MAXIMUM TEMPERATURE 100.9. He is more lethargic today and continues to complain of pain all over, but particularly in the suprapubic area. His reports that he had a significant amount of watery stool yesterday, though this was not recorded and no sample was sent for C. difficile. After evaluating him he apparently was noted to have discharges from his defibrillator, with runs of polymorphic ventricular tachycardia, and he has been evaluated by Cardiology. Objective Last 24 Hrs of Vital Signs/I&O Vital Signs Date Time Temp Pulse Resp B/P B/P Pulse O2 O2 Flow FiO2 Mean Ox Delivery Rate 10/10 1029 128/70 10/10 0829 99.6 75 20 132/60 96 Room Air 10/09 2300 100.9 86 20 137/65 96 Room Air 10/09 2056 75 110/56 10/09 1653 Room Air 1.0L 10/09 1644 98.4 74 16 131/57 97 Room Air 10/09 1600 Room Air 10/09 1436 97.8 Intake & Output 10/10 1600 10/10 0800 10/10 0000 Intake Total 490 Output Total 250 150 Balance -250 340 Intake, IV 10 Intake, Oral 480 Output, Urine 250 150 Physical Exam Other Physical Findings: He is more lethargic but responsive in no acute distress Skin rash has improved Lungs decreased breath sounds at the right base Heart regular rhythm with no murmur Abdomen is distended, tender on palpation of the upper abdomen, with no guarding or rebound; suprapubic tenderness, with suprapubic site with no inflammation Back no CVA tenderness Extremities no cyanosis, clubbing or edema Results Last 24 Hours of Lab Results: Laboratory Tests 10/10 10/10 10/10 1147 1145 1145 Chemistry Sodium Cancelled Pending Potassium Cancelled Pending Chloride Cancelled Pending Carbon Dioxide Cancelled Pending Anion Gap Cancelled Pending BUN Cancelled Pending Creatinine Cancelled Pending BUN/Creatinine Ratio Cancelled Pending Lactic Acid Pending Magnesium Cancelled Pending Troponin I Pending Hematology CBC w Diff MAN DIFF ORDERED WBC (4.8 - 10.8 /CUMM) 15.8 H RBC (4.70 - 6.10 /CUMM) 3.32 L Hgb (14.0 - 18.0 G/DL) 9.5 L Hct (42 - 52 %) 29.0 L MCV (80.0 - 94.0 FL) 87.2 MCH (27.0 - 31.0 PG) 28.5 RDW (11.5 - 14.5 %) 15.2 H Plt Count (130 - 400 /CUMM) 328 MPV (7.4 - 10.4 FL) 7.9 Gran % (42.2 - 75.2 %) 95.9 H Lymphocytes % (20.5 - 51.1 %) 3.4 L Monocytes % (1.7 - 9.3 %) 0.2 L Eosinophils % (0 - 5 %) 0.5 Basophils % (0.0 - 2.0 %) 0 L Absolute Granulocytes (1.4 - 6.5 /CUMM) 15.1 H Segmented Neutrophils (42.2 - 75.2 %) Pending Absolute Lymphocytes (1.2 - 3.4 /CUMM) 0.5 L Absolute Monocytes (0.10 - 0.60 /CUMM) 0 L Absolute Eosinophils (0.0 - 0.7 /CUMM) 0.1 Absolute Basophils (0.0 - 0.2 /CUMM) 0 PUBS MCHC (33.0 - 37.0 G/DL) 32.7 L 05/20 0810 Chemistry Sodium (137 - 145 mmol/L) 134 L Potassium (3.5 - 5.1 mmol/L) 3.8 Chloride (98 - 107 mmol/L) 103 Carbon Dioxide (22 - 30 mmol/L) 22 Anion Gap (5 - 16) 8 BUN (9 - 20 mg/dL) 17 Creatinine (0.7 - 1.2 mg/dL) 1.6 H Estimated GFR (>60 ml/min) 41 L BUN/Creatinine Ratio (7 - 25 %) 10.6 Magnesium (1.6 - 2.3 mg/dL) 2.2 Hematology CBC w Diff MAN DIFF ORDERED WBC (4.8 - 10.8 /CUMM) 16.9 H RBC (4.70 - 6.10 /CUMM) 2.99 L Hgb (14.0 - 18.0 G/DL) 8.5 L Hct (42 - 52 %) 25.6 L MCV (80.0 - 94.0 FL) 85.6 MCH (27.0 - 31.0 PG) 28.5 RDW (11.5 - 14.5 %) 15.1 H Plt Count (130 - 400 /CUMM) 270 MPV (7.4 - 10.4 FL) 8.1 Gran % (42.2 - 75.2 %) 92.4 H Lymphocytes % (20.5 - 51.1 %) 3.0 L Monocytes % (1.7 - 9.3 %) 4.0 Eosinophils % (0 - 5 %) 0.5 Basophils % (0.0 - 2.0 %) 0.1 Absolute Granulocytes (1.4 - 6.5 /CUMM) 15.6 H Absolute Lymphocytes (1.2 - 3.4 /CUMM) 0.5 L Absolute Monocytes (0.10 - 0.60 /CUMM) 0.7 H Absolute Eosinophils (0.0 - 0.7 /CUMM) 0.1 Absolute Basophils (0.0 - 0.2 /CUMM) 0 Platelet Estimate (ADEQUATE) VERIFIED BY SMEAR Polychromasia 1+ Basophilic Stippling SLIGHT Anisocytosis 1+ PUBS MCHC (33.0 - 37.0 G/DL) 33.3 Last 24 Hours of Apolinar Results: Blood cultures 2 October 07 remain negative Urine culture October 07 approximately 15,000 colonies of MRSA Assessment/Plan Impression: Recurrent low-grade fevers with increasing white blood cell count, possibly secondary to a complication of his MRSA bacteremia, for example seeding of his heart valves or pacemaker or right pleural effusion or bilateral hip prostheses, or to a new nosocomial process, for example C. difficile, with watery diarrhea reported yesterday, or pneumonia, with some evidence of congestion, though his lung exam is unchanged and his respiratory status is stable, or a urinary tract infection, with a suprapubic catheter in place now 2 days status post exchange of the left ureteral stent and a Botox injection in the bladder. His H&H is increased status post a blood transfusion after one episode of bright red blood per rectum. He remains on Vancomycin now Day 8 of treatment for MRSA bacteremia , presumably of urologic origin, and he will require a 4-6 week course of antibiotics for a "complicated" bacteremia, given the presence of implants ( pacemaker and bilateral hips). Suggestion: 1. Further management of his arrhythmias per Cardiology 2. Stool for C. difficile 3. Repeat blood cultures 2 4. Urine culture 5. Would pursue CT of the chest, abdomen and pelvis (without contrast) when felt to be stable 6. Will need to consider DIANA 7. Continue Vancomycin pending above
--- NOTE | 2016-10-10 12:27 | PN- Urology ---
Surgical Brief Attending Note Brief Attending Note: Pt fatigued this morning and taken to ICU for AIDC-Torsad: currently awake and alert in rm 108 c/o generalized pain-hemodynamically stable at present. pts wishes for DNR/DNI reinforced with pt and wide at beside. Will tx as per ICU protocol.
--- NOTE | 2016-10-10 12:29 | Cons- CRCU ---
ERIC WALLACE,BETTY 10/10/16 1228: General Information and HPI Consulting Request Date of Consult: 10/10/16 Requested By: Dr. Ngo Reason for Consult: Torsades [place] Polymorphic Vtach AICD firing ICU monitoring Source of Information: family, old records Exam Limitations: no limitations History of Present Illness: Mr. Ding is an 85-year-old gentleman whose medical issues include coronary artery disease status post CABG in 1989, myocardial infarction, angioplasty, paroxysmal atrial fibrillation on Tikosyn, congestive heart failure, biventricular defibrillator pacemaker, bladder cancer and chronic Ritchie placement through a suprapubic catheter who was initially admitted to the cardiac telemetry for ventricular tachycardia and after his AICD fired. This morning a rapid response was called, patient was found to be altered and while on the clinical research monitor he had runs of polymorphic ventricular tachycardia suggestive of Torsades. Boris Adkins MD was present at bedside recommended that the patient get a stat 2 mg IV push of magnesium and the patient was subsequently transferred to the intensive care unit. While in the ICU, patient again had an episode of "V. tach storm" with his AICD firing recurrently. He was again given IV magnesium 2 mg push and subsequently a magnesium drip was started. The cardiology service was in contact with his utilization review nurse Dr. Boris Mcdowell who recommended in addition to the magnesium and the Tikosyn which he already is on, he should receive one-time dose of 150 mg IV push of amiodarone which was given to him. The patient was subsequently transferred to the intensive care unit, a meaningful review of systems could not be obtained. Allergies/Medications Allergies: Coded Allergies: sitagliptin (From [employer]) (Mild, RASH 08/12/15) mirabegron (UNKNOWN 08/12/15) Home Med List: Albuterol Sulfate (Proair Hfa) 8.5 GM HFA.AER.AD 2 PUF INH PRN ASTHMA ( Reported) Ciprofloxacin HCl 500 MG TABLET 1 TAB PO BID UTI (Reported) Docusate Sodium (Colace) 100 MG CAPSULE 1 CAP PO DAILY STOOL SOFTENER ( Reported) Dofetilide (Tikosyn) 125 MCG CAPSULE 1 CAP PO BID HEART (Reported) Furosemide (Lasix) 40 MG TABLET 1 TAB PO DAILY WATER PILL (Reported) Levothyroxine Sodium 88 MCG TABLET 1 TAB PO DAILY THYROID (Reported) Metoprolol Succ XL (Toprol XL) 25 MG TAB 0.5 TAB PO BID HEART (Reported) Oxycodone HCl/Acetaminophen (Percocet 5-325 MG Tablet) 1 EACH TABLET 1 TAB PO Q4P PRN PAIN SCALE 1-3 (MILD) Oxycodone HCl/Acetaminophen (Percocet 5-325 MG Tablet) 1 EACH TABLET 2 TAB PO Q4P PRN PAIN SCALE 4-6 (MODERATE) Pravastatin Sodium 40 MG TABLET 40 MG PO DAILY CHOLOSTEROL (Reported) Vancomycin/0.9 % Sod Chloride (Vanco 750 MG/250 Ml-0.9% NaCl) 750 MG/250 ML PLAST..BAG 750 GM IV DAILY MRSA BACTEREMIA PLEASE ADMINISTER DAILY TILL NOVEMBER 13 Review of Systems Review of Systems Constitutional: Reports: see HPI. 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 Psychosocial History Services at Home: None Smoking Status: Never Smoked Living Will? no Functional Ability ADLs Independent: dressing, eating, toileting, bathing. Ambulation: independent, cane, walker, non-ambulatory IADLs Independent: shopping, housework, finances, food prep, telephone, transportation , medication admin. Exam & Diagnostic Data Last 24 Hrs of Vital Signs/I&O Vital Signs Date Time Temp Pulse Resp B/P B/P Pulse O2 O2 Flow FiO2 Mean Ox Delivery Rate 10/10 1029 128/70 10/10 0829 99.6 75 20 132/60 96 Room Air 10/09 2300 100.9 86 20 137/65 96 Room Air 05/19 2056 75 110/56 10/09 1653 Room Air 1.0L 10/09 1644 98.4 74 16 131/57 97 Room Air 10/09 1600 Room Air 10/09 1436 97.8 Intake & Output 10/10 1600 10/10 0800 10/10 0000 Intake Total 490 Output Total 250 150 Balance -250 340 Intake, IV 10 Intake, Oral 480 Output, Urine 250 150 Physical Exam General Appearance: alert, awake, moderate distress Head: atraumatic, normal appearance Ears, Nose, Throat: normal pharynx, normal ENT inspection Respiratory: normal breath sounds, chest non-tender Cardiovascular: regular rate/rhythm Gastrointestinal: normal bowel sounds, soft, non-tender Last 48 Hrs of Labs/Apolinar: Laboratory Tests 10/10/16 1147: Sodium Cancelled, Potassium Cancelled, Chloride Cancelled, Carbon Dioxide Cancelled, Anion Gap Cancelled, BUN Cancelled, Creatinine Cancelled, BUN/ Creatinine Ratio Cancelled, Magnesium Cancelled 10/10/16 1145: Lactic Acid 5.2 H 10/10/16 1145: Anion Gap 12, Estimated GFR 41 L, BUN/Creatinine Ratio 10.6, Magnesium 3.8 H, Troponin I Pending, CBC w Diff MAN DIFF ORDERED, RBC 3.32 L, MCV 87.2, MCH 28.5 , RDW 15.2 H, MPV 7.9, Gran % 95.9 H, Lymphocytes % 3.4 L, Monocytes % 0.2 L , Eosinophils % 0.5, Basophils % 0 L, Absolute Granulocytes 15.1 H, Segmented Neutrophils Pending, Absolute Lymphocytes 0.5 L, Absolute Monocytes 0 L, Absolute Eosinophils 0.1, Absolute Basophils 0, PUBS MCHC 32.7 L 10/10/16 0810: Anion Gap 8, Estimated GFR 41 L, BUN/Creatinine Ratio 10.6, Magnesium 2.2, CBC w Diff MAN DIFF ORDERED, RBC 2.99 L, MCV 85.6, MCH 28.5, RDW 15.1 H, MPV 8.1, Gran % 92.4 H, Lymphocytes % 3.0 L, Monocytes % 4.0, Eosinophils % 0.5, Basophils % 0.1, Absolute Granulocytes 15.6 H, Absolute Lymphocytes 0.5 L, Absolute Monocytes 0.7 H, Absolute Eosinophils 0.1, Absolute Basophils 0, Platelet Estimate VERIFIED BY SMEAR, Polychromasia 1+, Basophilic Stippling SLIGHT, Anisocytosis 1+, PUBS MCHC 33.3 10/09/16 0545: Anion Gap 11, Estimated GFR 44 L, BUN/Creatinine Ratio 10.7, CBC w Diff NO MAN DIFF REQ, RBC 3.12 L, MCV 87.6, MCH 28.7, RDW 14.9 H, MPV 8.6, Gran % 89.6 H, Lymphocytes % 3.3 L, Monocytes % 5.1, Eosinophils % 2.0, Basophils % 0 L, Absolute Granulocytes 13.6 H, Absolute Lymphocytes 0.5 L, Absolute Monocytes 0.8 H, Absolute Eosinophils 0.3, Absolute Basophils 0, PUBS MCHC 32.8 L 10/08/168: CBC w Diff NO MAN DIFF REQ, RBC 2.96 L, MCV 85.9, MCH 28.5, RDW 14.6 H, MPV 8.3, Gran % 93.0 H, Lymphocytes % 2.8 L, Monocytes % 2.2, Eosinophils % 2.0, Basophils % 0 L, Absolute Granulocytes 12.0 H, Absolute Lymphocytes 0.4 L, Absolute Monocytes 0.3, Absolute Eosinophils 0.3, Absolute Basophils 0, PUBS MCHC 33.2 Assessment/Plan Impression/Plan: Assessment- 1. Polymorphic ventricular tachycardia, with AICD firing 2. MRSA bacteremia 3. Urine culture positive for MRSA 4. Chronic suprapubic catheter on chronic suppressive therapy 5. History of coronary artery disease status post myocardial infarction, CABG, stents, biventricular AICD/pacemaker placement 6. History of bladder cancer 7. Systolic heart failure Plan- - Continue monitoring in the ICU - Continue magnesium drip at 1 mg per hour as recommended by cardiology - Repeat lactic acid, trend - Gentle IV fluid hydration - Continue IV antibiotics - Appreciate cardiology, urology, infectious disease input - DVT prophylaxis at all times Regarding the patient's AICD firing recurrently, a meeting was held with patient 's , Maren, son Surjit who can be reached at [phone] and son Javed. They decided that at present Mr. Dudley AICD/defibrillator should be inactivated for any further defibrillator inability. They only want the pacemaker working at present in order to avoid any further discomfort he may experience from his defibrillator firing. Max, [employer] rental representative, made the necessary changes as requested by the family. Consult Acknowledgment - Thank you for your consult request. ANGEL MOSLEY MD 10/10/16 8973: Assessment/Plan Other Findings/Comments: Angel Forman M.D. have examined this patient, reviewed available EMR data, personally reviewed images, discussed with resident/PA/MANAGER NET, discussed management plan with housestaff and nursing staff, discussed managment plan all of healthcare providers, discussed management plan with patient and/or family, agreed with resident/PA/MANAGER NET. The past history and parts of the chart have been autopopulated. Impression -polymorphic VT (torsade de pointes) - firing of AICD -MRSA bacteremia including urine cx for MRSA -chronic suprapubic catheter -CAD,cabg -hx of bladder ca Plan -ICU hemodynamic monitoring -magnesium supplementaion -iv hydration -cont abx -cardiology,id,urology f/u DVT prophylaxis at all times DNR/DNI meeting was held with and all specialists AICD to be shut down and only pacemaker function to remain Conservative management without plan of escalating therapy or transfer Bedside patient care, rapid response, family meeting, chart review time 45 min Consult Acknowledgment - Thank you for your consult request.
--- NOTE | 2016-10-10 12:30 | NUR ---
Patient was transferred to [facility] room 108 at approx 1155 from tele s/p rapid response for vfib/torsades- Patient has a LCW pacer and AICD which was delivering shocks which occured all together 5 times (4 on tele and once upon transfer to ICU). Upon arrival, patient was drowsey but arousable to verbal stimuli- unable to answer questions appropriately or follow commands but does move all extremities. IV ativan and IV morphine given per order. A mag gtt has been started per Dr. Adkins's order and is currently infusing at 1 gram per hour. He additionally received a total of 4grams IVP of magnesium prior to arrival to ICU. He is dual paced on the tele monitor, HR= 70's. SBP: 100's. [email or web address] was notified and will be in- Dr. Adkins speaking with the family at this time ? transfer to comfort care or deactivating AICD as well as pacer. He is on 2L nc, lungs diminished. O2 sats 94-96%. A non productive cough is noted. Abodmen is soft and non tender with + bowel sounds. NPO at this time due to mental status and transfer to ICU. A suprapubic tube is in place draining clear yellow urine. He is inc of urine from his penis as well. Dr. Fields in at this time to speak with housestaff and patients family. He was transferred on his catergory 2 mattress which will remain in place. Skin is currently intact however a stage 1 is noted to the coccyx measuring approx 2 X 2- This area is red and non blanchable. Bilateral buttocks presents with areas that are a dark red color and are non blanchable- ? beginning areas of DTI- measured approx 1 X 1 cm- Surrounding areas remain red but blanchable. No open areas are noted. A generalized rash is also noted. A SURJIT PICC is in place and labs have been drawn. Site is [facility]. Patients family at the bedside and plan of care being dicussed with house staff and Dr. adkins- ? transfer to [facility] vs. comfort care- He remains a DNR/DNI at this time. IV vanco and Mag gtt infusing. Vitals currently stable. Will continue to closely monitor patient.
--- NOTE | 2016-10-10 12:35 | Event Note ---
Event Note Event Note: A rapid response was called around 11:30 pm when the patient was found to be unresponsive transiently in his chair but woke up on his own. The patient's was at bed side. The patient experienced similar symptoms while the rapid response team was in [facility] room, and was noticed that his defibrillator was firing. He was immediately placed on a cardiac catheterization technologist, and was felt to be in torsades. IV magnesium 2 g bolus was given immediately. At that time his blood pressure was 103/56, heart rate was in 70s, oxygen saturation was 96% on RA however he did start having laboured breathing during rapid response and was tsarted on nasal cannula, and blood sugar 126. The patient was also complaining of mild chest pain at that time. not fully oriented to time, place and person. Due to his history of paroxysmal A fib, he is already on Tikosyn, hence at the time of AICD firing Amiodarone was held off. Then, he was transferred to the ICU with he plan to start him on Magnesium infusion. Call was placed to Dr. Mcdowell to discuss need or Amiodarone. Stat labs were ordered including CBC, BEP, magnesium, trops and Lactic Acid. Dr. Adkins, and Dr. Ngo were at bed side during this event. Sign out was provided to the ICU team.
[2016-10-10 16:00] VITALS: BP 104/60
--- NOTE | 2016-10-10 18:03 | NUR ---
Patient is drowsey but easily arousable to verbal stimuli. Moving all extremties spontaneously and will occasionally follow commands. [employer] has been in to interogate the pacer and the AICD has been deactivated (per familys decision after discussion with Dr. Adkins) The rate of the pacer was also increased to 90. He remains dual paced with pvc's with a heart rate in the 90's. No further episodes of vfib have been noted- SBP: 90-100's. On 2 L nc, lungs clear and diminished. O2 sats stable at 94-96% Abdomen is soft and non tender with + bowel sounds. remains npo due to mental status. Supra pubic tube remains in place. He has been turned and repositioned frequently- barrier cream applied to buttocks and coccyx. SURJIT PICC remains WNL. NS infusing at 50mls/hr. Mag gtt has been d/c by cariology. His deep tendon reflexes were checked every hour and remains +. He also received 150mg of IV amiodarone per cardiology's recommendations. Family remains at the bedside and frequently updated on POC. Patient has one daughter flying from [place] and will arrive tonight. Further discions regarding POC to be discussed tomorrow since patients would like [employer]. MG level at 1400 was 4.3- redraw scheduled for 2100/ No s/s of pain are currently noted and vitals have remained stable. Will continue to closely monitor patient.
--- NOTE | 2016-10-10 21:11 | NUR ---
PT DROWSY, AROUSABLE TO VERBAL STIMULI, FOLLOWS COMMANDS AT TIMES. DENIES ANY PAIN AT PRESENT. BREATH SOUNDS CLEAR WITH DIMINISHED BREATH SOUNDS AT BASES BILATERALLY. NONPRODUCTIVE COUGH NOTED. NO SOB OR RESP DISTRESS NOTED AT PRESENT. SEE FLOW SHEET FOR VS, O2 SATS, I/O'S. MONITOR SHOWS PACED RHYTHM. BP 90-100'S AT PRESENT. NO ECTOPY NOTED AT PRESENT. ABD SOFT, NONTENDER, NONDISTENDED, POSITIVE BOWEL SOUNDS. SUPRAPUBIC TUBE IN PLACE-DRAINING CLEAR REBECCA URINE, ALSO INC OF URINE. BUTTOCKS RED WITH SOME BLANCHABLE AREAS-ON SIZEWISE BED, TURNING AND REPOSITIONING Q2. PETCHIAL RED RASH ON BACK.
[2016-10-10 23:00] VITALS: BP 102/64
[2016-10-11 05:55] LABS: ABSOLUTE BASOPHIL COUNT 0 /CUMM (0.0-0.2); ABSOLUTE EOSINOPHIL COUNT 0.1 /CUMM (0.0-0.7); ABSOLUTE GRANULOCYTE CT 16.4 /CUMM (1.4-6.5); ABSOLUTE LYMPH COUNT 0.6 /CUMM (1.2-3.4); ABSOLUTE MONOCYTE COUNT 0.7 /CUMM (0.10-0.60); BASOPHIL % 0.2 % (0.0-2.0); EOSINOPHIL % 0.5 % (0-5); GRANULOCYTE % 91.9 % (42.2-75.2); MEAN CORPUSCULAR HGB 28.7 PG (27.0-31.0); MEAN CORPUSCULAR VOLUME 87.1 FL (80.0-94.0); MEAN PLATELET VOLUME 7.9 FL (7.4-10.4); PLATELET COUNT 275 /CUMM (130-400); RED BLOOD CELL CT 2.99 /CUMM (4.70-6.10); WHITE BLOOD CELL COUNT 17.9 /CUMM (4.8-10.8)
--- NOTE | 2016-10-11 07:06 | NUR ---
PT MORE ALERT AND AWAKE AT PRESENT-ABLE TO GIVE PO MEDS THIS AM. FOLLOWING COMMANDS. DENIES ANY PAIN AT PRESENT AT PRESENT. PT WITH CONGESTED SOUNDING COUGH-NO SPUTUM EXPECTORATED OF YET. PT PACED RHYTHM THOUGHOUT SHIFT, NO RUNS OF VFIB OR ECTOPY NOTED. BP STABLE THOUGHOUT SHIFT. LOW OUTPUT VIA SUPRAPUBIC TUBE, INC OF LG AMT OF URINE. BUTTOCKS REDDENED-TURNED FROM SIDE TO SIDE Q2. NO OTHER CHANGE IN PT ASSESSMENTS THOUGHOUT SHIFT
[2016-10-11 08:00] VITALS: BP 112/68
--- NOTE | 2016-10-11 09:08 | PN- CRCU ---
Subjective HPI/Critical Care Issues: pt seen and examined suprapubic purulent and possibly fecal material hemodynamically stable afebrile Objective Current Medications: Current Medications Sig/Karin Start time Last Medication Dose Route Stop Time Status Admin Acetaminophen 650 MG Q6P PRN 10/01 1515 AC 10/08 PO 0837 Amiodarone HCl 150 MG .STK-MED ONE 10/10 1233 DC IV 10/10 1234 Amiodarone HCl/ 150 MG ONCE ONE 10/10 1230 DC 10/10 Dextrose IV 10/10 1239 1306 N/A 1 UNIT Diphenhydramine HCl 1 NORMA TID PRN 10/07 0945 AC 10/07 TOP 1445 Docusate Sodium 100 MG DAILY PRN 10/04 0700 AC 10/04 PO 0645 Dofetilide 125 MCG BID 10/05 1136 AC 10/10 PO 1029 Heparin Sodium 5,000 UNIT Q8 10/01 2200 AC 10/11 (Porcine) SC 0643 Levothyroxine Sodium 0.088 MG DAILY AC 10/02 0811 AC 10/11 PO 0641 Lorazepam 1 MG ONCE ONE 10/10 1215 DC 10/10 IV 10/10 1216 1219 Magnesium Sulfate 1 GM SEE RATE 10/10 1300 DC 10/10 Dextrose/Water 100 ML IV 10/13 1500 1506 Magnesium Sulfate 2 GM PUSH ONE 10/10 1230 DC 10/10 IV 10/10 1231 1145 Magnesium Sulfate 2 GM PUSH ONE 10/10 1230 DC 10/10 IV 10/10 1231 1215 Magnesium Sulfate 1 GM CONTINOUS INFUSION 10/10 1230 DC IV Magnesium Sulfate 2 GM ONCE ONE 10/10 1215 CAN Dextrose/Water 100 ML IV 10/10 1414 Magnesium Sulfate 1 GM Q1H 10/10 1215 DC Dextrose/Water 100 ML IV Magnesium Sulfate 1 GM Q2H 10/10 1145 DC 10/10 Dextrose/Water 100 ML IV 10/10 1444 1210 Metoprolol Tartrate 12.5 MG BID 10/01 2200 AC 10/10 PO 1029 Morphine Sulfate 2 MG ONCE ONE 10/10 1215 DC 10/10 IV 10/10 1216 1232 Non-Formulary See Dose SEE ADMIN CRITERIA 10/10 1215 DC Medication Insts (1) ANY Pravastatin Sodium 40 MG DAILY 10/02 1000 AC 10/10 PO 1029 Senna/Docusate Sodium 1 TAB BID 10/04 1000 AC 10/10 PO 1029 Sodium Chloride 1,000 ML Q20H 10/10 1345 AC 10/10 IV 1400 Vancomycin HCl 750 MG DAILY 10/07 1000 AC 10/10 Sodium Chloride 250 ML IV 1029 Dose Instructions: (1)Non-Formulary Medication: magnesium drip s/p Torsades Vital Signs & I&O Last 24 Hrs of Vitals and I&O: Vital Signs Date Time Temp Pulse Resp B/P B/P Pulse O2 O2 Flow FiO2 Mean Ox Delivery Rate 10/11 0400 94 Nasal 2.0L Cannula 10/11 0000 99 Nasal 2.0L Cannula 10/10 2300 97.1 89 22 102/64 99 Nasal 2.0L Cannula 10/10 2157 89 20 98/59 10/10 2000 98 Nasal 2.0L Cannula 10/10 1600 96 Nasal 2.0L Cannula 10/10 1600 98.9 91 24 104/60 96 Nasal 2.0L Cannula 10/10 1306 74 98/46 10/10 1200 95 Nasal 2.0L Cannula 10/10 1029 128/70 Intake & Output 10/11 1600 10/11 0800 10/11 0000 Intake Total 485 379 Output Total 135 185 Balance 350 194 Intake, IV 425 379 Intake, Oral 60 Number 0 0 Bowel Movements Output, Urine 135 185 Exam Other Physical Findings: gen awake heent ncat cvs s1, s2 lungs rare rhonchi abd soft bs+ ext without edema Results Last 24 Hrs of Lab Results: Laboratory Tests 10/11/16 0441: Anion Gap 11, Estimated GFR 38 L, Glucose 95, Calcium 7.2 L, Phosphorus 4.8 H , Magnesium 3.8 H, Total Bilirubin 0.6, AST 34, ALT 36, Albumin 2.0 L, CBC w Diff MAN DIFF ORDERED, RBC 2.99 L, MCV 87.1, MCH 28.7, RDW 15.0 H, MPV 7.9, Gran % 91.9 H, Lymphocytes % 3.4 L, Monocytes % 4.0, Eosinophils % 0.5, Basophils % 0.2, Absolute Granulocytes 16.4 H, Segmented Neutrophils 84 H, Band Neutrophils 8 H, Absolute Lymphocytes 0.6 L, Lymphocytes 5 L, Monocytes 3, Absolute Monocytes 0.7 H, Absolute Eosinophils 0.1, Absolute Basophils 0, Platelet Estimate VERIFIED BY SMEAR, Anisocytosis 1+, PUBS MCHC 33.0 10/10/16 2100: Magnesium 4.1 H 10/10/16 1930: Lactic Acid Cancelled 10/10/16 1610: Lactic Acid 1.2 10/10/16 1526: Lactic Acid Cancelled 10/10/16 1405: Magnesium 4.3 H 10/10/16 1155: CBC w Diff Cancelled, WBC Cancelled, RBC Cancelled, Hgb Cancelled, Hct Cancelled , MCV Cancelled, MCH Cancelled, RDW Cancelled, Plt Count Cancelled, MPV Cancelled, PUBS MCHC Cancelled 10/10/16 1147: Sodium Cancelled, Potassium Cancelled, Chloride Cancelled, Carbon Dioxide Cancelled, Anion Gap Cancelled, BUN Cancelled, Creatinine Cancelled, BUN/ Creatinine Ratio Cancelled, Magnesium Cancelled 10/10/16 1145: Lactic Acid 5.2 H 10/10/16 1145: Anion Gap 12, Estimated GFR 41 L, BUN/Creatinine Ratio 10.6, Magnesium 3.8 H, Troponin I 0.01, CBC w Diff MAN DIFF ORDERED, RBC 3.32 L, MCV 87.2, MCH 28.5, RDW 15.2 H, MPV 7.9, Gran % 95.9 H, Lymphocytes % 3.4 L, Monocytes % 0.2 L, Eosinophils % 0.5, Basophils % 0 L, Absolute Granulocytes 15.1 H, Absolute Lymphocytes 0.5 L, Absolute Monocytes 0 L, Absolute Eosinophils 0.1, Absolute Basophils 0, Platelet Estimate VERIFIED BY SMEAR, Polychromasia 1+, Poikilocytosis 1+, Anisocytosis 1+, PUBS MCHC 32.7 L Impression/Plan Impression/Plan Impression/Plan: Impression -polymorphic VT (torsade de pointes) - firing of AICD -MRSA bacteremia including urine cx for MRSA -chronic suprapubic catheter -CAD,cabg -hx of bladder ca Plan -ICU hemodynamic monitoring -magnesium supplementaion -iv hydration -cont abx -cardiology,id,urology f/u -urology follow up DVT prophylaxis at all times DNR/DNI meeting was held with and all specialists AICD to be shut down and only pacemaker function to remain Conservative management without plan of escalating therapy or transfer 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 Code Status: Do Not Resucitate/Intubat
--- NOTE | 2016-10-11 09:36 | RADIOLOGY REPORT ---
EXAMINATION: ABDOMEN 1 VIEW CLINICAL INFORMATION: Abdominal pain. COMPARISON: 10/08/2016. TECHNIQUE: A supine view of the abdomen is provided. FINDINGS: There are no dilated loops of small bowel. There are no air-fluid levels. A left double-J ureteral stent is in place. The visualized lung bases are clear. Bilateral hip prostheses are intact.. IMPRESSION: Unremarkable bowel gas pattern.
--- NOTE | 2016-10-11 10:02 | PN- Resident CRCU ---
Subjective HPI/CRCU Issues: Mr. Garsia was transferred to the ICU yesterday after his defibrillator was firing several times and patient was noted to be in torsades. He was started on a magnesium transfusion which has sine been discontinued due to noted hypermagnesemia today. His AICD has been shut down and only pacemaker function currently remains. Family is at bedside and are active participants in patient's care. They continue to want a conservative approach to treatment and are amenable to blood draws at this point in time. No aggressive/heroic measures to be done. 24 Hour Events: Vital signs last 24 hours: T 96.4-99.3, HR 78-90, RR 12-28, BP 87-113/45-69 and O2 saturation 94-99% on 2 L NC. Total intake: 1754 cc in last 24 hours Total output: 570 cc in last 24 hours Objective Vital Signs & I&O Last 8 Hrs of Vitals and I&O: Intake & Output 10/11 1600 Intake Total 760 Output Total 125 Balance 635 Intake, IV 520 Intake, Oral 240 Output, Urine 125 Exam General Appearance: no apparent distress, awake Head: atraumatic, normal appearance Ears, Nose, Throat: normal pharynx Neck: normal inspection, supple Respiratory: chest non-tender, no respiratory distress, Rare rhonchi Cardiovascular: regular rate/rhythm Gastrointestinal: normal bowel sounds, soft, Tenderness to palpation of periumbilical region, noted pus-like, foul smelling leakage around suprapubic site Extremities: normal inspection Cranial Nerves: NO facial asymmetry/droop Skin: warm/dry Nutrition Nutrition: P.O. diet Current Medications: Current Medications Sig/Karin Start time Last Medication Dose Route Stop Time Status Admin Acetaminophen 650 MG Q6P PRN 10/01 1515 AC 10/08 PO 0837 Diphenhydramine HCl 1 NORMA TID PRN 10/07 0945 AC 10/07 TOP 1445 Docusate Sodium 100 MG DAILY PRN 10/04 0700 AC 10/04 PO 0645 Dofetilide 125 MCG BID 10/05 1136 AC 10/11 PO 1022 Heparin Sodium 5,000 UNIT Q8 10/01 2200 AC 10/11 (Porcine) SC 1415 Levothyroxine Sodium 0.088 MG DAILY AC 10/02 0811 AC 10/11 PO 0641 Magnesium Sulfate 1 GM SEE RATE 10/10 1300 DC 10/10 Dextrose/Water 100 ML IV 10/13 1500 1506 Metoprolol Tartrate 12.5 MG BID 10/01 2200 AC 10/11 PO 1019 Pravastatin Sodium 40 MG DAILY 10/02 1000 AC 10/11 PO 1414 Senna/Docusate Sodium 1 TAB BID 10/04 1000 AC 10/11 PO 1415 Sodium Chloride 1,000 ML Q20H 10/10 1345 AC 10/10 IV 1400 Vancomycin HCl 750 MG DAILY 10/12 1000 AC Sodium Chloride 250 ML IV Vancomycin HCl 750 MG DAILY 10/07 1000 DC 10/11 Sodium Chloride 250 ML IV 0946 Impression/Plan Impression/Problem List Impression: Mr. Garsia is an 85 year old male with PMH CAD s/p CABG in 1989, [place], angioplasty, paroxysmal atrial fibrillation on Tikosyn, CHF, biventricular pacemaker defibrillator, hypothyroidism, bladder cancer and chronic suprapubic galicia catheter who was initially admitted to the telemetry floor for ventricular tachycardia and AICD firing. Patient had a rapid response on 10/10/16 and was transferred to the ICU after runs of polymorphic ventricular tachycardia suggestive of torsades. The patient received 2 mg IV push magnesium x 2, was then started on a magnesium drip and lastly given a one time dose of 150 mg IV push amiodarone. The patient is currently in the ICU and the following is the management: 1. Polymorphic ventricular tachycardia with AICD firing * AICD inactivated yesterday per family wishes, pacemaker capabilities continued * Continuous telemetry monitoring * Cardio consult appreciated, continue to follow recommendations * Magnesium drip off as patient hypermagnesemic; f/u daily mag levels and replete as needed * Continue conservative management as per family wishes * Continue dofetilide 125 mcg PO BID 2. MRSA bacteremia * Source likely ?suprapubic cath vs cardiac origin given AICD and history of hip prosthesis * Patient afebrile overnight, WBC elevated to 17.9 with 8 bands * Initial blood/urine culture indicative of MRSA * F/U repeat BC/UC from today * CDiff pending, f/u results * Family declines CT chest, abdomen, pelvis at this time * Continue vancomycin at this time * Continue to follow ID and urology recommendations, consults appreciated * Continue NS at 50 cc/h 3. Acute on chronic anemia 2/2 BRBPR * No further episodes of bleeding at this point in time * Guiac all stools * Trend H&H, remains stable at this point in time * Family requests conservative measures, no GI consult thus placed * Patient s/p 1 U PRBC October 08 * Monitor BP closely 4. CAD s/p CABG, CHF * Metroprolol 12.5 mg PO BID * Pravastatin daily 5. Hypothyroidism * Continue synthroid supplementation DNR/DNI DVTP: Heparin SC Regular diet Mild pain pathway Problem List: 1. Bacteremia 2. UTI (urinary tract infection) 3. Pyelonephritis 4. Ventricular tachycardia 5. Hypothyroid Pain Ratin Tomorrow's Labs & Rationales: CBC (leukocytosis, anemia) ICU bundle (chronic renal dysfunction) Plan DVT/Prophylaxis: pharmacological Code Status: Do Not Resucitate/Intubat
--- NOTE | 2016-10-11 13:31 | NUR ---
Patient is alert and oriented x's 2, forgetful at times- periods of drowsiness but is easily arousable to verbal stimuli. Moves all extremities, follows commands, and answers questions appropriately. Dual paced on tele monitor, HR= 90's- AICD has been deactivated. SBP: 90-100's and pt denies chest pain. Pedal pulses + with doppler. On 2L nc, lungs clear and diminished with scant rhonchi to the upper lobes. O2 sats stable at 98%. A productive cough is noted -scant amounts of thick white sputum. Abdomen is soft with + bowel sounds. Tender to touch around the supra pubic site. A moderate amount of brown/milky colored drainage is noted to be draining from around the suprapubic- Dr. Wilder was notified and Dr. Fields in to see patient earlier this morning. A dressing was applied to the site. Clear annemarie colored urine noted- He is also inc at times. Trace generalized edema noted. Stage 1 to the buttocks and coccyx remain unchanged. Generalized rash appears improved. [facility] PICC in place and is WNL- NS infusing at 50mls/hr. IV vanco daily. Family meeting with Dr. Padron occured and plan is for conservative care at this time- Patient to remain a DNR/DNI. UC and BC drawn. CT scan was recommended however patients family would like time to consider and declined at this time. Patient currently denies pain. Vitals remain stable. Will continue to closely monitor patient.
[2016-10-11 16:00] VITALS: BP 104/60
--- NOTE | 2016-10-11 18:02 | PN- Cardiology ---
Subjective Subjective: More awake and alert. Dual-chamber pacing on monitoring. Objective Vital Signs and I&Os Vital Signs Date Time Temp Pulse Resp B/P B/P Pulse O2 O2 Flow FiO2 Mean Ox Delivery Rate 10/11 1600 97.1 89 20 104/60 98 Nasal 2.0L Cannula 10/11 1600 96 Nasal 2.0L Cannula 10/11 1200 98 Nasal 2.0L Cannula 10/11 1019 90 122/60 10/11 0800 96.7 89 20 112/68 97 Nasal 2.0L Cannula 10/11 0800 97 Nasal 2.0L Cannula 10/11 0400 94 Nasal 2.0L Cannula 10/11 0000 99 Nasal 2.0L Cannula 10/10 2300 97.1 89 22 102/64 99 Nasal 2.0L Cannula 10/10 2157 89 20 98/59 10/10 2000 98 Nasal 2.0L Cannula Intake & Output 10/11 1600 10/11 0800 10/11 0000 10/10 1600 10/10 0800 10/10 0000 Intake Total 760 485 379 900 490 Output Total 125 135 185 250 250 150 Balance 635 350 194 650 -250 340 Intake, IV 520 425 379 900 10 Intake, Oral 240 60 480 Number 0 0 Bowel Movements Output, Urine 125 135 185 250 250 150 Physical Exam: Well-developed, pale-appearing of a male in no acute distress with nasal oxygen in place. Next line vital signs: See above. Lungs: Decreased breath sounds bilaterally. Heart: S1, S2 with soft systolic murmur. Abdomen: Soft, nontender, positive bowel sounds. Extremities: No edema. Current Medications: Current Medications Sig/Karin Start time Last Medication Dose Route Stop Time Status Admin Acetaminophen 650 MG Q6P PRN 10/01 1515 AC 10/08 PO 0837 Diphenhydramine HCl 1 NORMA TID PRN 10/07 0945 AC 10/07 TOP 1445 Docusate Sodium 100 MG DAILY PRN 10/04 0700 AC 10/04 PO 0645 Dofetilide 125 MCG BID 10/05 1136 AC 10/11 PO 1022 Heparin Sodium 5,000 UNIT Q8 10/01 2199 AC 10/11 (Porcine) SC 1415 Levothyroxine Sodium 0.088 MG DAILY AC 10/02 0811 AC 10/11 PO 0641 Metoprolol Tartrate 12.5 MG BID 10/01 2199 AC 10/11 PO 1019 Pravastatin Sodium 40 MG DAILY 10/02 1000 AC 10/11 PO 1414 Senna/Docusate Sodium 1 TAB BID 10/04 1000 AC 10/11 PO 1415 Sodium Chloride 1,000 ML Q20H 10/10 1345 AC 10/11 IV 1738 Vancomycin HCl 750 MG DAILY 10/12 1000 AC Sodium Chloride 250 ML IV Vancomycin HCl 750 MG DAILY 10/07 1000 DC 10/11 Sodium Chloride 250 ML IV 0946 Results Last 48 Hrs of Labs/Mics: Laboratory Tests 10/11/16 0441: Anion Gap 11, Estimated GFR 38 L, Glucose 95, Calcium 7.2 L, Phosphorus 4.8 H , Magnesium 3.8 H, Total Bilirubin 0.6, AST 34, ALT 36, Albumin 2.0 L, CBC w Diff MAN DIFF ORDERED, RBC 2.99 L, MCV 87.1, MCH 28.7, RDW 15.0 H, MPV 7.9, Gran % 91.9 H, Lymphocytes % 3.4 L, Monocytes % 4.0, Eosinophils % 0.5, Basophils % 0.2, Absolute Granulocytes 16.4 H, Segmented Neutrophils 84 H, Band Neutrophils 8 H, Absolute Lymphocytes 0.6 L, Lymphocytes 5 L, Monocytes 3, Absolute Monocytes 0.7 H, Absolute Eosinophils 0.1, Absolute Basophils 0, Platelet Estimate VERIFIED BY SMEAR, Anisocytosis 1+, PUBS MCHC 33.0 10/10/16 2100: Magnesium 4.1 H 10/10/16 1930: Lactic Acid Cancelled 10/10/16 1610: Lactic Acid 1.2 10/10/16 1526: Lactic Acid Cancelled 10/10/16 1405: Magnesium 4.3 H 10/10/16 1155: CBC w Diff Cancelled, WBC Cancelled, RBC Cancelled, Hgb Cancelled, Hct Cancelled , MCV Cancelled, MCH Cancelled, RDW Cancelled, Plt Count Cancelled, MPV Cancelled, PUBS MCHC Cancelled 10/10/16 1147: Sodium Cancelled, Potassium Cancelled, Chloride Cancelled, Carbon Dioxide Cancelled, Anion Gap Cancelled, BUN Cancelled, Creatinine Cancelled, BUN/ Creatinine Ratio Cancelled, Magnesium Cancelled 10/10/16 1145: Lactic Acid 5.2 H 10/10/16 1145: Anion Gap 12, Estimated GFR 41 L, BUN/Creatinine Ratio 10.6, Magnesium 3.8 H, Troponin I 0.01, CBC w Diff MAN DIFF ORDERED, RBC 3.32 L, MCV 87.2, MCH 28.5, RDW 15.2 H, MPV 7.9, Gran % 95.9 H, Lymphocytes % 3.4 L, Monocytes % 0.2 L, Eosinophils % 0.5, Basophils % 0 L, Absolute Granulocytes 15.1 H, Absolute Lymphocytes 0.5 L, Absolute Monocytes 0 L, Absolute Eosinophils 0.1, Absolute Basophils 0, Platelet Estimate VERIFIED BY SMEAR, Polychromasia 1+, Poikilocytosis 1+, Anisocytosis 1+, PUBS MCHC 32.7 L 10/10/16 0810: Anion Gap 8, Estimated GFR 41 L, BUN/Creatinine Ratio 10.6, Magnesium 2.2, CBC w Diff MAN DIFF ORDERED, RBC 2.99 L, MCV 85.6, MCH 28.5, RDW 15.1 H, MPV 8.1, Gran % 92.4 H, Lymphocytes % 3.0 L, Monocytes % 4.0, Eosinophils % 0.5, Basophils % 0.1, Absolute Granulocytes 15.6 H, Absolute Lymphocytes 0.5 L, Absolute Monocytes 0.7 H, Absolute Eosinophils 0.1, Absolute Basophils 0, Platelet Estimate VERIFIED BY SMEAR, Polychromasia 1+, Basophilic Stippling SLIGHT, Anisocytosis 1+, PUBS MCHC 33.3 Recent Imaging Studies: Abdominal x-ray single view presence 10/11/2016): Unremarkable bowel gas pattern. Assessment/Plan Assessment/Plan Mr. Félix Garsia is an 85-year-old male with a history of dyslipidemia, former tobacco use, COPD, asbestosis, paroxysmal atrial fibrillation, coronary artery disease with ischemic cardiomyopathy (status post multiple MIs; CABG x3 1988; multiple PCI's with most recent 2009; s/p BiV pacemaker/defibrillator replaced 2013 with defibrillator shocks due to VT requiring hospitalization in 06/2013 that resolved with medication adjustments) who was admitted on 10/01/2016 with abdominal pain and polymorphic VT s/p discharges from his defibrillator who again began having runs of polymorphic VT prompting discharges from his device. He was given 2 g of magnesium followed by a drip, IV amiodarone 150 mg 1, had the rate of pacing increased, and had the ATP/defibrillator function of his pacemaker turned off, as per family wishes. He received a total of 5 shocks yesterday, but has had no further shocks overnight and today. Recommendations: * Continue present cardiac regimen. * As he has stabilized, discussed with the attending cardiologists and electrophysiology the pros and cons of restarting ATP pacing/defibrillator function. * Continue DVT prophylaxis. Continue telemetry? Not applicable
[2016-10-12] VITALS: BP 94/63
[2016-10-12 06:20] LABS: ABSOLUTE BASOPHIL COUNT 0 /CUMM (0.0-0.2); ABSOLUTE EOSINOPHIL COUNT 0.2 /CUMM (0.0-0.7); ABSOLUTE GRANULOCYTE CT 10.2 /CUMM (1.4-6.5); ABSOLUTE LYMPH COUNT 0.5 /CUMM (1.2-3.4); ABSOLUTE MONOCYTE COUNT 0.7 /CUMM (0.10-0.60); BASOPHIL % 0 % (0.0-2.0); EOSINOPHIL % 1.9 % (0-5); GRANULOCYTE % 87.9 % (42.2-75.2); HEMATOCRIT 24.7 % (42-52); MEAN CORPUSCULAR HGB 28.5 PG (27.0-31.0); MEAN CORPUSCULAR VOLUME 86.6 FL (80.0-94.0); MEAN PLATELET VOLUME 7.8 FL (7.4-10.4); PLATELET COUNT 268 /CUMM (130-400); RBC DISTRIBUTION WIDTH 15.4 % (11.5-14.5); RED BLOOD CELL CT 2.86 /CUMM (4.70-6.10); WHITE BLOOD CELL COUNT 11.7 /CUMM (4.8-10.8)
--- NOTE | 2016-10-12 07:25 | PN- Resident CRCU ---
See Addendum Subjective HPI/CRCU Issues: Patient was seen and examined this morning, he is sitting comfortably in bed having breakfast, patient denied any chest pain, palpitation, lightheadedness, shortness of breath, abdominal pain, nausea or vomiting. Overnight events reported by the nurse or the patient. 24 Hour Events: Temperature 97.2, MAXIMUM TEMPERATURE 97.8 Pulse was 71, highest 98 Blood pressure lowest 82/52, highest 114/63 Room Air saturation 97% Intake 195, output 425 Objective Vital Signs & I&O Last 8 Hrs of Vitals and I&O: Intake & Output 10/12 1600 Intake Total 740 Output Total 150 Balance 590 Intake, IV 500 Intake, Oral 240 Output, Urine 150 Exam General Appearance: no apparent distress, alert, awake Head: atraumatic, normal appearance Ears, Nose, Throat: normal pharynx, normal ENT inspection Neck: normal inspection, supple, full range of motion Respiratory: normal breath sounds, chest non-tender, no respiratory distress Cardiovascular: irregularly irregular Gastrointestinal: normal bowel sounds, soft, non-tender Extremities: normal inspection, normal capillary refill, normal range of motion, no edema Cranial Nerves: normal hearing, normal speech, PERRL Current Medications: Current Medications Sig/Karin Start time Last Medication Dose Route Stop Time Status Admin Acetaminophen 650 MG Q6P PRN 10/01 1515 AC 10/08 PO 0837 Diphenhydramine HCl 1 NORMA TID PRN 10/07 0945 AC 10/07 TOP 1445 Docusate Sodium 100 MG DAILY PRN 10/04 0700 AC 10/04 PO 0645 Dofetilide 125 MCG BID 10/05 1136 DC 10/12 PO 1038 Heparin Sodium 5,000 UNIT Q8 10/01 2199 AC 10/12 (Porcine) SC 1459 Levothyroxine Sodium 0.088 MG DAILY AC 10/02 0811 AC 10/12 PO 0613 Metoprolol Tartrate 12.5 MG BID 10/01 2200 AC 10/12 PO 1039 Pravastatin Sodium 40 MG DAILY 10/02 1000 AC 10/12 PO 1504 Senna/Docusate Sodium 1 TAB BID 10/04 1000 AC 10/11 PO 2238 Sodium Chloride 1,000 ML Q20H 10/10 1345 AC 10/12 IV 0613 Vancomycin HCl 750 MG DAILY 10/12 1000 AC 10/12 Sodium Chloride 250 ML IV 1045 Impression/Plan Impression/Problem List Impression: Mr. Garsia is an 85 year old male with PMH CAD s/[place] CABG [place] 1989, [place], [place], paroxysmal atrial fibrillation on Tikosyn, CHF, biventricular pacemaker defibrillator, hypothyroidism, bladder cancer and chronic suprapubic galicia catheter who was initially admitted to the telemetry floor for ventricular tachycardia and AICD firing. Patient had a rapid response on 10/10/16 and was transferred to the ICU after runs of polymorphic ventricular tachycardia suggestive of torsades. The patient received 2 mg IV push magnesium x 2, was then started on a magnesium drip and lastly given a one time dose of 150 mg IV push amiodarone. The patient is currently in the ICU and the following is the management: 1. Polymorphic ventricular tachycardia with AICD firing * AICD inactivated on 10/10 per family wishes given continuous firing, pacemaker capabilities continued * Continuous telemetry monitoring * Cardio consult appreciated, continue to follow recommendations * Magnesium drip off as patient hypermagnesemic; f/u daily mag levels and replete as needed * Continue conservative management as per family wishes * Dicontinue dofetilide 125 mcg PO BID per Dr. Mcdowell request. Dr. Mcdowell will evaluate the patient today for formal electrophysiology consultation. 2. MRSA bacteremia * Source likely ?suprapubic cath vs cardiac origin given AICD and history of hip prosthesis * Initial blood/urine culture indicative of MRSA * F/U repeat BC/UC from today * CDiff pending, f/u results * Family declines CT chest, abdomen, pelvis at this time * Continue vancomycin at this time * Continue to follow ID and urology recommendations, consults appreciated * Will decrease IVF to 25 cc/h given low urine output and poor oral intake, blood pressur is stable. EF 35-40% 3. Acute on chronic anemia 2/2 BRBPR * No further episodes of bleeding at this point in time * Guiac all stools * Trend H&H, remains stable at this point in time * Family requests conservative measures, no GI consult thus placed * Patient s/p 1 U PRBC October 08 * Monitor BP closely 4. CAD s/p CABG, CHF * Metroprolol 12.5 mg PO BID * Pravastatin daily 5. Hypothyroidism * Continue synthroid supplementation DNR/DNI DVTP: Heparin SC Regular diet Mild pain pathway Problem List: 1. Bacteremia 2. UTI (urinary tract infection) 3. Ventricular tachycardia Pain Ratin Tomorrow's Labs & Rationales: CBC, ICU bundle Plan DVT/Prophylaxis: pharmacological Code Status: Do Not Resucitate/Intubat
[2016-10-12 08:00] VITALS: BP 108/64
--- NOTE | 2016-10-12 09:29 | PN- Cardiology ---
Subjective Subjective: Events of the weekend are reviewed. The patient had recurrent defibrillator shocks. He was moved to the ICU and his defibrillator was turned off. He is DNR/DNI but not comfort measures yet. He remains on Tikosyn. Currently he is stable. His blood pressure is stable. His heart rate is now 90 which was increased through his device. He remains on vancomycin for his sepsis. At the current time the patient is awake and alert and has no specific complaints. He denies any chest pain, shortness of breath, palpitations, dizziness. He is eating breakfast. Objective Vital Signs and I&Os Vital Signs Date Time Temp Pulse Resp B/P B/P Pulse O2 O2 Flow FiO2 Mean Ox Delivery Rate 10/12 08 97.1 89 20 108/64 96 Room Air 10/12 0800 96 Room Air 10/12 0400 98 Nasal 2.0L Cannula 10/12 0000 97.8 88 17 94/63 97 Nasal 2.0L Cannula 10/12 0000 97 Nasal 2.0L Cannula 10/11 2244 70 108/70 10/11 2000 99 Nasal 2.0L Cannula 10/11 1600 97.1 89 20 104/60 98 Nasal 2.0L Cannula 10/11 1600 96 Nasal 2.0L Cannula 10/11 1200 98 Nasal 2.0L Cannula 10/11 1019 90 122/60 Intake & Output 10/12 1600 10/12 0800 10/12 0000 10/11 1600 10/11 0800 10/11 0000 Intake Total 452 740 760 485 379 Output Total 100 200 125 135 185 Balance 352 540 635 350 194 Intake, IV 352 440 520 425 379 Intake, Oral 100 300 240 60 Number 1 0 0 0 Bowel Movements Output, Urine 100 200 125 135 185 Physical Exam: He is in no distress. He is alert and cognizant. HEENT exam is normal Chest is clear Heart is regular with no murmurs Extremities no edema Current Medications: Current Medications Sig/Karin Start time Last Medication Dose Route Stop Time Status Admin Acetaminophen 650 MG Q6P PRN 10/01 1515 AC 10/08 PO 0837 Diphenhydramine HCl 1 NORMA TID PRN 10/07 0945 AC 10/07 TOP 1445 Docusate Sodium 100 MG DAILY PRN 10/04 0700 AC 10/04 PO 0645 Dofetilide 125 MCG BID 10/05 1136 AC 10/11 PO 2300 Heparin Sodium 5,000 UNIT Q8 10/01 2199 AC 10/12 (Porcine) SC 0613 Levothyroxine Sodium 0.088 MG DAILY AC 10/02 0811 AC 10/12 PO 0613 Metoprolol Tartrate 12.5 MG BID 10/01 220 AC 10/11 PO 2244 Pravastatin Sodium 40 MG DAILY 10/02 1000 AC 10/11 PO 1414 Senna/Docusate Sodium 1 TAB BID 10/04 1000 AC 10/11 PO 2238 Sodium Chloride 1,000 ML Q20H 10/10 1345 AC 10/12 IV 0613 Vancomycin HCl 750 MG DAILY 10/12 1000 AC Sodium Chloride 250 ML IV Vancomycin HCl 750 MG DAILY 10/07 1000 DC 10/11 Sodium Chloride 250 ML IV 0946 Results Last 48 Hrs of Labs/Mics: Laboratory Tests 10/12/16 0605: Anion Gap 7, Estimated GFR 41 L, Glucose 92, Calcium 6.8 L, Phosphorus 4.0, Magnesium 3.2 H, Total Bilirubin 0.6, AST 32, ALT 32, Albumin 2.0 L, CBC w Diff NO MAN DIFF REQ, RBC 2.86 L, MCV 86.6, MCH 28.5, RDW 15.4 H, MPV 7.8, Gran % 87.9 H, Lymphocytes % 4.5 L, Monocytes % 5.7, Eosinophils % 1.9, Basophils % 0 L, Absolute Granulocytes 10.2 H, Absolute Lymphocytes 0.5 L, Absolute Monocytes 0.7 H, Absolute Eosinophils 0.2, Absolute Basophils 0, PUBS MCHC 33.0 10/11/16 0441: Anion Gap 11, Estimated GFR 38 L, Glucose 95, Calcium 7.2 L, Phosphorus 4.8 H , Magnesium 3.8 H, Total Bilirubin 0.6, AST 34, ALT 36, Albumin 2.0 L, CBC w Diff MAN DIFF ORDERED, RBC 2.99 L, MCV 87.1, MCH 28.7, RDW 15.0 H, MPV 7.9, Gran % 91.9 H, Lymphocytes % 3.4 L, Monocytes % 4.0, Eosinophils % 0.5, Basophils % 0.2, Absolute Granulocytes 16.4 H, Segmented Neutrophils 84 H, Band Neutrophils 8 H, Absolute Lymphocytes 0.6 L, Lymphocytes 5 L, Monocytes 3, Absolute Monocytes 0.7 H, Absolute Eosinophils 0.1, Absolute Basophils 0, Platelet Estimate VERIFIED BY SMEAR, Anisocytosis 1+, PUBS MCHC 33.0 10/10/16 2100: Magnesium 4.1 H 10/10/16 1930: Lactic Acid Cancelled 10/10/16 1610: Lactic Acid 1.2 10/10/16 1526: Lactic Acid Cancelled 10/10/16 1405: Magnesium 4.3 H 10/10/16 1155: CBC w Diff Cancelled, WBC Cancelled, RBC Cancelled, Hgb Cancelled, Hct Cancelled , MCV Cancelled, MCH Cancelled, RDW Cancelled, Plt Count Cancelled, MPV Cancelled, PUBS MCHC Cancelled 10/10/16 1147: Sodium Cancelled, Potassium Cancelled, Chloride Cancelled, Carbon Dioxide Cancelled, Anion Gap Cancelled, BUN Cancelled, Creatinine Cancelled, BUN/ Creatinine Ratio Cancelled, Magnesium Cancelled 10/10/16 1145: Lactic Acid 5.2 H 10/10/16 1145: Anion Gap 12, Estimated GFR 41 L, BUN/Creatinine Ratio 10.6, Magnesium 3.8 H, Troponin I 0.01, CBC w Diff MAN DIFF ORDERED, RBC 3.32 L, MCV 87.2, MCH 28.5, RDW 15.2 H, MPV 7.9, Gran % 95.9 H, Lymphocytes % 3.4 L, Monocytes % 0.2 L, Eosinophils % 0.5, Basophils % 0 L, Absolute Granulocytes 15.1 H, Absolute Lymphocytes 0.5 L, Absolute Monocytes 0 L, Absolute Eosinophils 0.1, Absolute Basophils 0, Platelet Estimate VERIFIED BY SMEAR, Polychromasia 1+, Poikilocytosis 1+, Anisocytosis 1+, PUBS MCHC 32.7 L Assessment/Plan Assessment/Plan Mr. Ding had a setback with recurrent defibrillator shocks. The family is now being more conservative with his care. However he has stabilized somewhat. I will ask Dr. Mcdowell to see him formally today in electrophysiology consultation. Likely he will recommend discontinuing Tikosyn. We will have further discussions with the family regarding level of care. Continue telemetry? Yes
--- NOTE | 2016-10-12 12:00 | NUR ---
Patient is awake, alert and oriented x's 3, able to follow commands and answer questions approprietly. LCW pacer in place and he is dual paced with a heart rate in the 90's. SBP: 90-100's and patient denies chest pain. Titrated down to room air, lungs clear. O2 sats stable at 96-98%. Supra-pubic tube in place and is draining yellow urine with some sediment. A dressing is in place to the insertion site with scant amounts of brown output noted. He is tolerating po well but has poor po intake. Stage 1 noted to the coccyx and buttocks and patient has been completely offloading the area. Generalized rash improved. SURJIT PICC line in place and is WNL. NS infusing at 50mls/hr. IV Vanco daily. Patient currently denies pain and vitals have remained stable. Dr. Harmon in to see patient and has consulted Dr. Mcdowell. Family frequently updated on POC. Will continue to closely monitor patient.
--- NOTE | 2016-10-12 13:05 | PN- Infect Dx ---
Subjective Subjective: Afebrile. He offers no complaints at this time. Objective Last 24 Hrs of Vital Signs/I&O Vital Signs Date Time Temp Pulse Resp B/P B/P Pulse O2 O2 Flow FiO2 Mean Ox Delivery Rate 10/12 1039 89 102/64 10/12 0800 97.1 89 20 108/64 96 Room Air 10/12 0800 96 Room Air 10/12 0400 98 Nasal 2.0L Cannula 10/12 0000 97.8 88 17 94/63 97 Nasal 2.0L Cannula 10/12 0000 97 Nasal 2.0L Cannula 10/11 2244 70 108/70 10/11 2000 99 Nasal 2.0L Cannula 10/11 1600 97.1 89 20 104/60 98 Nasal 2.0L Cannula 10/11 1600 96 Nasal 2.0L Cannula Intake & Output 10/12 1600 10/12 0800 10/12 0000 Intake Total 452 740 Output Total 100 200 Balance 352 540 Intake, IV 352 440 Intake, Oral 100 300 Number 1 0 Bowel Movements Output, Urine 100 200 Physical Exam Other Physical Findings: He appears well in no acute distress Skin no rash Lungs decreased breath sounds at the right base Heart 1 to 2/6 systolic ejection murmur Abdomen soft, nontender with positive bowel sounds; suprapubic site with no inflammation Extremities no cyanosis, clubbing or edema Results Last 24 Hours of Lab Results: Laboratory Tests 10/12 0605 Chemistry Sodium (137 - 145 mmol/L) 134 L Potassium (3.5 - 5.1 mmol/L) 3.9 Chloride (98 - 107 mmol/L) 105 Carbon Dioxide (22 - 30 mmol/L) 22 Anion Gap (5 - 16) 7 BUN (9 - 20 mg/dL) 23 H Creatinine (0.7 - 1.2 mg/dL) 1.6 H Estimated GFR (>60 ml/min) 41 L Glucose (65 - 99 mg/dL) 92 Calcium (8.4 - 10.2 mg/dL) 6.8 L Phosphorus (2.5 - 4.5 mg/dL) 4.0 Magnesium (1.6 - 2.3 mg/dL) 3.2 H Total Bilirubin (0.2 - 1.3 mg/dL) 0.6 AST (17 - 59 U/L) 32 ALT (21 - 72 U/L) 32 Albumin (3.5 - 5.0 g/dL) 2.0 L Hematology CBC w Diff NO MAN DIFF REQ WBC (4.8 - 10.8 /CUMM) 11.7 H RBC (4.70 - 6.10 /CUMM) 2.86 L Hgb (14.0 - 18.0 G/DL) 8.1 L Hct (42 - 52 %) 24.7 L MCV (80.0 - 94.0 FL) 86.6 MCH (27.0 - 31.0 PG) 28.5 RDW (11.5 - 14.5 %) 15.4 H Plt Count (130 - 400 /CUMM) 268 MPV (7.4 - 10.4 FL) 7.8 Gran % (42.2 - 75.2 %) 87.9 H Lymphocytes % (20.5 - 51.1 %) 4.5 L Monocytes % (1.7 - 9.3 %) 5.7 Eosinophils % (0 - 5 %) 1.9 Basophils % (0.0 - 2.0 %) 0 L Absolute Granulocytes (1.4 - 6.5 /CUMM) 10.2 H Absolute Lymphocytes (1.2 - 3.4 /CUMM) 0.5 L Absolute Monocytes (0.10 - 0.60 /CUMM) 0.7 H Absolute Eosinophils (0.0 - 0.7 /CUMM) 0.2 Absolute Basophils (0.0 - 0.2 /CUMM) 0 PUBS MCHC (33.0 - 37.0 G/DL) 33.0 Last 24 Hours of Apolinar Results: Blood cultures 2 October 11 negative Urine culture October 11 negative Recent Imaging Studies: Abdominal x-ray October 11 unremarkable bowel gas pattern Assessment/Plan Impression: Overall he has improved over the past few days despite the recent discharges from his defibrillator, which has been turned off. He appears to have defervesced and white blood cell count has decreased without any change in his antibiotic regimen and with recent cultures negative. He remains on Vancomycin now Day 10 of treatment for MRSA bacteremia, presumably of urologic origin, and he will require a 4 to six-week course of antibiotics for a "complicated" bacteremia, given the presence of implants (pacemaker and bilateral hips). His family is not anxious to pursue further aggressive measures and, if he remains stable, this should not be necessary. Suggestion: 1. Vancomycin trough level with next dose 2. Continue Vancomycin pending above
[2016-10-12 16:00] VITALS: BP 96/62
--- NOTE | 2016-10-12 21:10 | Cons- Cardiology ---
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 Source of Information: patient, old records Exam Limitations: no limitations History of Present Illness: I was asked to see Mr. Garsia regarding recurrent episodes of polymorphic VT resulting in multiple defibrillator shocks. To review his history Mr. Ding is well known to me for many many years. He has a significant ischemic cardiomyopathy having large myocardial infarctions in 1978 and 1988 he underwent subsequent bypass surgery and this had a chronically reduced EF in the 30s. He had angioplasty in 1995. Ultimately in 2004 he underwent an AICD implant by Dr. Thakkar he subsequently had a AICD generator change and upgrade to resynchronization device on 01/07/2010. He subsequently had a generator change on 10/03/2013. Next He has had difficulties with recurrent atrial arrhythmias. He has been unable to be anticoagulated as even a very low dose of Eliquis 2.5 mg resulted in very large amounts of hematuria. We have thus tried to control his atrial arrhythmia with dofetilide and tried to avoid amiodarone. His P-wave amplitude is been low and thus we are not completely sure whether or not we have suppressed his arrhythmia. He has had recurrent urologic difficulties. More recently because of recurrent infection he was placed on ciprofloxacin. He had multiple episodes of recurrent polymorphic VT and in fact way back in June 2013 his dofetilide did need to be reduced to 125 g twice a day because of the same issue. It should be noted that the last time we attempted to anticoagulate him was in April 2015 again on the low dose of Eliquis which produced massive hematuria. I would note that he did see Dr. Inman in [place] regarding a watchman device but was never able to go through with that procedure. We saw him in our office on 09/29/2016 and at that point he was doing reasonably well on dofetilide 125 g twice a day but was having increasing abdominal discomfort. Again subsequently was on ciprofloxacin which led to torsades and this was discontinued. He is now readmitted with multiple defibrillator shocks. This was on October 09. Dr. Adkins was in touch with me on October 10 and at that point we recommended the following. We recommended stopping dofetilide, giving him aggressive doses of IV magnesium, and I emergently sent the pacemaker sales representative door to door down from [employer] to increase his base rate to [address] Adkins discussed things further with the family it was elected to turn off all tachycardia detection and therapies but again leave a pacemaker in place. Since that time he is actually improved. His been on antibiotics and is improving. He has not had any more clinical ventricular arrhythmias since the above-noted interventions. Unfortunately his dofetilide was actually continued for a bit but was stopped today. Dr. Harmon asked that I see him. The family had also requested me to evaluate him in regards to his prognosis, appropriate programming of his defibrillator, etc. We did reinterrogate his device today and again he is pacing at 90 beats minute his battery longevity is excellent. The device does not tell us about tachycardia detections as all detections and therapies are off but clinically again he has not had any recurrent ventricular tachycardia. Allergies/Medications Allergies: Coded Allergies: sitagliptin (From AMS VariCode) (Mild, RASH 08/12/15) mirabegron (UNKNOWN 08/12/15) Home Med List: Albuterol Sulfate (Proair Hfa) 8.5 GM HFA.AER.AD 2 PUF INH PRN ASTHMA ( Reported) Ciprofloxacin HCl 500 MG TABLET 1 TAB PO BID UTI (Reported) Docusate Sodium (Colace) 100 MG CAPSULE 1 CAP PO DAILY STOOL SOFTENER ( Reported) Dofetilide (Tikosyn) 125 MCG CAPSULE 1 CAP PO BID HEART (Reported) Furosemide (Lasix) 40 MG TABLET 1 TAB PO DAILY WATER PILL (Reported) Levothyroxine Sodium 88 MCG TABLET 1 TAB PO DAILY THYROID (Reported) Metoprolol Succ XL (Toprol XL) 25 MG TAB 0.5 TAB PO BID HEART (Reported) Oxycodone HCl/Acetaminophen (Percocet 5-325 MG Tablet) 1 EACH TABLET 1 TAB PO Q4P PRN PAIN SCALE 1-3 (MILD) Oxycodone HCl/Acetaminophen (Percocet 5-325 MG Tablet) 1 EACH TABLET 2 TAB PO Q4P PRN PAIN SCALE 4-6 (MODERATE) Pravastatin Sodium 40 MG TABLET 40 MG PO DAILY CHOLOSTEROL (Reported) Vancomycin/0.9 % Sod Chloride (Vanco 750 MG/250 Ml-0.9% NaCl) 750 MG/250 ML PLAST..BAG 750 GM IV DAILY MRSA BACTEREMIA PLEASE ADMINISTER DAILY TILL NOVEMBER 13 Current Medications: Current Medications Sig/Karin Start time Last Medication Dose Route Stop Time Status Admin Acetaminophen 650 MG Q6P PRN 10/01 1515 AC 10/08 PO 0837 Diphenhydramine HCl 1 NORMA TID PRN 10/07 0945 AC 10/07 TOP 1445 Docusate Sodium 100 MG DAILY PRN 10/04 0700 AC 10/04 PO 0645 Dofetilide 125 MCG BID 10/05 1136 DC 10/12 PO 1038 Heparin Sodium 5,000 UNIT Q8 10/01 2200 AC 10/12 (Porcine) SC 1459 Levothyroxine Sodium 0.088 MG DAILY AC 10/02 0811 AC 10/12 PO 0613 Metoprolol Tartrate 12.5 MG BID 10/01 2200 AC 10/12 PO 1039 Pravastatin Sodium 40 MG DAILY 10/02 1000 AC 10/12 PO 1504 Senna/Docusate Sodium 1 TAB BID 10/04 1000 AC 10/11 PO 2238 Sodium Chloride 1,000 ML Q20H 10/10 1345 AC 10/12 IV 0613 Vancomycin HCl 750 MG DAILY 10/12 1000 AC 10/12 Sodium Chloride 250 ML IV 1045 Review of Systems Review of Systems Constitutional: Reports: chills, diaphoresis, fever, malaise, weakness. EENTM: Denies: no symptoms, see HPI. Cardiovascular: Denies: see HPI. Respiratory: Denies: no symptoms. GI: Reports: abdominal pain, bloating. Genitourinary: Reports: pain. 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 Psychosocial History Services at Home: None Smoking Status: Never Smoked Living Will? no Functional Ability ADLs Independent: dressing, eating, toileting, bathing. Ambulation: independent, cane, walker, non-ambulatory IADLs Independent: shopping, housework, finances, food prep, telephone, transportation , medication admin. Exam & Diagnostic Data Vital Signs and I&O Vital Signs Date Time Temp Pulse Resp B/P B/P Pulse O2 O2 Flow FiO2 Mean Ox Delivery Rate 10/12 1600 99.9 89 20 96/62 96 Room Air 10/12 1600 96 Room Air 10/12 1039 89 102/64 10/12 0800 97.1 89 20 108/64 96 Room Air 10/12 0800 96 Room Air 10/12 0400 98 Nasal 2.0L Cannula 10/12 0000 97.8 88 17 94/63 97 Nasal 2.0L Cannula 10/12 0000 97 Nasal 2.0L Cannula 10/11 2244 70 108/70 Intake & Output 10/12 1600 10/12 0800 10/12 0000 10/11 1600 10/11 0800 10/11 0000 Intake Total 740 452 740 760 485 379 Output Total 150 100 200 125 135 185 Balance 590 352 540 635 350 194 Intake, IV 500 352 440 520 425 379 Intake, Oral 240 100 300 240 60 Number 1 0 0 0 Bowel Movements Output, Urine 150 100 200 125 135 185 Physical Exam: General: Amazingly alert and conversive For vital signs, see above. Head: Normocephalic/atraumatic Eyes: No xanthelasma or scleral icterus Mouth: Moist mucous membranes without pallor or cyanosis Neck: No jugular venous distention, carotid bruits, thyromegaly Thorax/lungs: No chest deformity, lungs clear Cardiac: Normal S1, S2 without S3, S4 or murmurs. Abdomen: No tenderness or masses Extremities: No cyanosis, clubbing, or edema Neruo: Grossly nonfocal Skin: No major rashes Psychiatric: Normal mood and affect Diagnostic Data Other Results PATIENT: BAKARI GARSIA PRESENT AGE: 85 PATIENT ACCOUNT NO: [id number] : [birth year] LOCATION: 1NO ORDERING PHYSICIAN: SRIDHAR HARMON MD SERVICE DATE: 10/02/16- EXAM TYPE: CARD - ECHOCARDIOGRAM BAKARI GARSIA Age: 85 : 1930 Gender: M Exam Date: 10/02/2016 10:00 Exam Location: [place] Ht (in): 70 Wt (lb): 170 BSA: 1.96 BP: 108 / 54 Ordering Physician: SRIDHAR HARMON MD Referring Physician: SRIDHAR HARMON MD Technologist: Shawn Soria [facility] Room Number: 175-1 Indications: Arrhythmia Rhythm: Paced Technical Quality: Good FINDINGS Left Ventricle Moderate left ventricular dilatation. Mild concentric left ventricular hypertrophy. The interventricular septum contracts fairly well. The inferior, lateral and posterior sharpe are hypokinetic to akinetic. Overall left ventricular systolic function is moderately decreased. Estimated ejection fraction is 35-40%. Right Ventricle Normal right ventricular size and function. Catheter/pacemaker wire in the right ventricular cavity. Right Atrium Mild right atrial dilatation. Left Atrium Moderate left atrial dilatation. Mitral Valve Mild thickening/calcification of the mitral valve leaflets. Trace mitral regurgitation. Aortic Valve Diffuse thickening of the aortic valve cusps with reduced excursion. Mild aortic stenosis. No aortic regurgitation. Tricuspid Valve Tricuspid valve is normal in structure and function. Mild tricuspid regurgitation. Right ventricular systolic pressure estimated to be elevated at 40-45 mmHg. Pulmonic Valve Pulmonic valve not well visualized, grossly normal. No pulmonic regurgitation. Pericardium No pericardial or pleural effusion. Great Vessels The aortic root is upper limits of normal in size. The IVC is mildly dilated. CONCLUSIONS Moderate left ventricular dilatation. Mild concentric left ventricular hypertrophy. The interventricular septum contracts fairly well. The inferior, lateral and posterior sharpe are hypokinetic to akinetic. Overall left ventricular systolic function is moderately decreased. Estimated ejection fraction is 35-40%. Catheter/pacemaker wire in the right ventricular cavity. Mild right atrial dilatation. Moderate left atrial dilatation. Mild thickening/calcification of the mitral valve leaflets. Diffuse thickening of the aortic valve cusps with reduced excursion. Mild aortic stenosis. Right ventricular systolic pressure estimated to be elevated at 40- 45 mmHg. The aortic root is upper limits of normal in size. The IVC is mildly dilated. Sridhar Harmon M.D. (Electronically Signed) Final Date: 02 Oct 2016 13:25 Assessment/Plan Assessment/Plan My assessment is that Mr. Hernandez is had proarrhythmia due to dofetilide in combination with his renal dysfunction and LV dysfunction. At this point his defibrillator is off. I do think this is a reasonable approach in this very elderly man. Pacing him at 90 beats per minute appears to have suppressed his arrhythmia. All QT prolonging agents should be avoided including quinolones. However I do not feel that any other antibiotic should be restricted. I discussed the plans regarding his pacing and having his defibrillator off with the family extensively including his and 3 children. They're all in agreement with the current plan. I'm concerned regarding his very low hematocrit and given his underlying extensive coronary disease he might need a transfusion. He also has had a tendency towards volume overload in the past and his Optivol reveals fluid overload. He thus may need diuresis. I would also check another TSH given the fact that he is on replacement and has not had a recent TSH in the computer. From the arrhythmia defibrillator standpoint at this point there is nothing more to recommend. Dr. Harmon will be following him along closely and I will certainly be available for any questions that would arise. He actually has seemed to rally from the cardiovascular standpoint and is stable. If he needs interventional procedures regarding his urinary tract would be somewhat risky but certainly indicated if the risk-benefit analysis is in favor of intervening. Copies To: MARY WALLACE,TONI Schmid; NYA WALLACE,TONI Casey; PATRICIA WALLACE,SRIDHAR Smith Consult Acknowledgment - Thank you for your consult request.
[2016-10-12 23:00] VITALS: BP 124/74
--- NOTE | 2016-10-13 00:47 | NUR ---
PT A TELE HOLD. PT ALERT, ORIENTED TO SELF AND PLACE AT PRESENT. FOLLOWS COMMANDS, COOPERATIVE WITH CARE. DENIES ANY PAIN AT PRESENT. BREATH SOUNDS CLEAR WITH DIMINISHED BREATH SOUNDS AT BASES BILATERALLY. NO COUGH, SOB OR RESP DISTRESS NOTED AT PRESENT. PACED RHYTHM ON MONITOR. BP STABLE AT PRESENT. SUPRAPUBIC TUBE IN PLACE-DRAINING REBECCA URINE. ABD SOFT, NONTENDER, NONDISTENDED, POSITIVE BOWEL SOUNDS. COCCYX AND LT BUTTOCK REDDENED, BLANCHABLE-POSITIONED ON SIDE.
[2016-10-13 05:40] LABS: ABSOLUTE BASOPHIL COUNT 0 /CUMM (0.0-0.2); ABSOLUTE EOSINOPHIL COUNT 0.2 /CUMM (0.0-0.7); ABSOLUTE GRANULOCYTE CT 7.4 /CUMM (1.4-6.5); ABSOLUTE LYMPH COUNT 0.5 /CUMM (1.2-3.4); ABSOLUTE MONOCYTE COUNT 0.5 /CUMM (0.10-0.60); BASOPHIL % 0.3 % (0.0-2.0); EOSINOPHIL % 1.8 % (0-5); GRANULOCYTE % 85.4 % (42.2-75.2); HEMATOCRIT 24.3 % (42-52); MEAN CORPUSCULAR HGB 28.4 PG (27.0-31.0); MEAN CORPUSCULAR HGB CONC 32.6 G/DL (33.0-37.0); MEAN CORPUSCULAR VOLUME 87.2 FL (80.0-94.0); MEAN PLATELET VOLUME 7.9 FL (7.4-10.4); PLATELET COUNT 303 /CUMM (130-400); RBC DISTRIBUTION WIDTH 15.4 % (11.5-14.5); RED BLOOD CELL CT 2.79 /CUMM (4.70-6.10); WHITE BLOOD CELL COUNT 8.6 /CUMM (4.8-10.8)
--- NOTE | 2016-10-13 06:56 | NUR ---
PT SLEPT MOST OF NIGHT. ONLY C/O SUPRAPUBIC PAIN WITH MOVING. PACED RHYTHM THOUGHOUT SHIFT. VS STABLE. BREATH SOUNDS CLEAR THOUGHOUT BILATEARALLY, PRODUCTIVE COUGH OF THICK CLEAR-WHITE SECREATIONS NOTED. ADEQUATE URINE OUTPUT OF CLOUDY REBECCA URINE-DRAINING AROUND SUPRAPUBIC TUBE. NO OTHER CHANGE IN PT ASSESSEMENTS THOUGHOUT SHIFT. COCCYX REMAINS RED, BLANCHABLE
[2016-10-13 08:00] VITALS: BP 128/70
--- NOTE | 2016-10-13 09:14 | PN- Resident CRCU ---
EVITA WALLACE,[facility] 10/13/16 0913: Subjective HPI/CRCU Issues: Patient was seen and examined this morning, lying comfortably in bed, off at no complaint. Patient was evaluated by Dr. Mcdowell yesterday, will continue to have defibrillator off. 24 Hour Events: Temperature 98.4, MAXIMUM TEMPERATURE 99.9 Patient saturating well on room air 95%, No overnight events reported by the nurse of the patient. Objective Vital Signs & I&O Last 8 Hrs of Vitals and I&O: 11 Exam General Appearance: no apparent distress, alert, awake Head: atraumatic, normal appearance Ears, Nose, Throat: normal pharynx, normal ENT inspection Neck: normal inspection, supple, full range of motion Respiratory: normal breath sounds, chest non-tender, no respiratory distress Cardiovascular: regular rate/rhythm Gastrointestinal: normal bowel sounds, soft, non-tender Extremities: normal inspection, normal capillary refill, normal range of motion, no edema Cranial Nerves: normal hearing, normal speech, PERRL Current Medications: Current Medications Sig/Karin Start time Last Medication Dose Route Stop Time Status Admin Acetaminophen 1,000 MG Q6P PRN 10/13 1015 AC 10/13 N/A 1 UNIT IV 1021 Acetaminophen 650 MG Q6P PRN 10/01 1515 AC 10/08 PO 0837 Diphenhydramine HCl 1 NORMA TID PRN 10/07 0945 AC 10/07 TOP 1445 Docusate Sodium 100 MG DAILY PRN 10/04 0700 AC 10/04 PO 0645 Dofetilide 125 MCG BID 10/05 1136 DC 10/12 PO 1038 Heparin Sodium 5,000 UNIT Q8 10/01 2200 AC 10/13 (Porcine) SC 0623 Levothyroxine Sodium 0.088 MG DAILY AC 10/02 0811 AC 10/13 PO 0623 Metoprolol Tartrate 12.5 MG BID 10/01 2200 AC 10/13 PO 1022 Pravastatin Sodium 40 MG DAILY 10/02 1000 AC 10/13 PO 1022 Senna/Docusate Sodium 1 TAB BID 10/04 1000 AC 10/12 PO 2300 Sodium Chloride 1,000 ML Q20H 10/10 1345 DC 10/13 IV 1020 Vancomycin HCl 750 MG DAILY 10/12 1000 AC 10/13 Sodium Chloride 250 ML IV 1042 Impression/Plan Impression/Problem List Impression: Mr. Garsia is an 85 year old male with PMH CAD s/p CABG in 1989, [place], angioplasty, paroxysmal atrial fibrillation on Tikosyn, CHF, biventricular pacemaker defibrillator, hypothyroidism, bladder cancer and chronic suprapubic galicia catheter who was initially admitted to the telemetry floor for ventricular tachycardia and AICD firing. Patient had a rapid response on 10/10/16 and was transferred to the ICU after runs of polymorphic ventricular tachycardia suggestive of torsades. The patient received 2 mg IV push magnesium x 2, was then started on a magnesium drip and lastly given a one time dose of 150 mg IV push amiodarone. The patient is currently in the ICU and the following is the management: 1. Polymorphic ventricular tachycardia with AICD firing * AICD inactivated on 10/10 per family wishes given continuous firing, pacemaker capabilities continued * Continuous telemetry monitoring * Cardio consult appreciated, continue to follow recommendations * Magnesium drip off as patient hypermagnesemic; f/u daily mag levels and replete as needed * Continue conservative management as per family wishes * Dofetilide 125 mcg PO BID was discontinued on 10/12 * Patient was evaluated by Dr. Mcdowell, recommendation for blood transfusion and TSH, free T4 rechecked, no antirhythmic medication is recommended at this time 2. MRSA bacteremia * Source likely ?suprapubic cath vs cardiac origin given AICD and history of hip prosthesis * Initial blood/urine culture indicative of MRSA * Blood culture and urine culture from 10/11 pending negative * Family declines CT chest, abdomen, pelvis at this time * Continue vancomycin, trough level is therapeutic * Continue to follow ID and urology recommendations, consults appreciated * DC IVF 3. Acute on chronic anemia 2/2 BRBPR * H&H 7.9/24.3 * Given patient's extensive cardiovascular history, will transfuse 1 unit of blood and give 1 dose of Lasix afterward to avoid volume overload * Family requests conservative measures, no GI consult thus placed * Patient s/p 1 U PRBC October 08 * Monitor BP closely 4. CAD s/p CABG, CHF * Metroprolol 12.5 mg PO BID * Pravastatin daily 5. Hypothyroidism * Continue synthroid supplementation * Slightly elevated TSH, normal free T4 * We'll obtain endocrine consultation DNR/DNI DVTP: Heparin SC Regular diet Mild pain pathway Problem List: 1. UTI (urinary tract infection) 2. Bacteremia 3. Hypothyroid 4. CAD S/P CABG 5. Benign essential hypertension 6. Cardiac pacemaker procedure 7. Hyperlipidemia 8. Paroxysmal atrial fibrillation Pain Ratin Tomorrow's Labs & Rationales: ICU bundle, CBC Plan DVT/Prophylaxis: pharmacological Code Status: Do Not Resucitate/Intubat MELANY WALLACE,LILIBETH 10/13/16 1129: Attending MD Review Statement Attending Sign Off Attending Cosign Statement: I have: examined this patient, reviewed aval EMR data, personally reviewd images, discussd w/resident/PA[employer] LINESMAN, discussed mgmt plan w/martin, discussed mgmt plan w/CM, discussed mgmt plan w/pt, agreed w/resident/PA[employer]AN, amended to note. Other Findings: Impression -polymorphic VT (torsade de pointes) - firing of AICD -MRSA bacteremia including urine cx for MRSA -chronic suprapubic catheter -CAD,cabg -hx of bladder ca Plan -tele hold -cont abx - on vancomycin -cardiology,id,urology f/u -urology follow up -pain control DVT prophylaxis at all times DNR/DNI
--- NOTE | 2016-10-13 09:53 | PN- Infect Dx ---
Subjective Subjective: Afebrile without complaints Objective Last 24 Hrs of Vital Signs/I&O Vital Signs Date Time Temp Pulse Resp B/P B/P Pulse O2 O2 Flow FiO2 Mean Ox Delivery Rate 10/13 0800 97.5 90 20 128/70 96 Room Air 10/13 0800 96 Room Air 10/13 0000 95 Room Air Room Air 10/12 2300 98.3 88 22 124/74 10/12 2300 98.3 89 20 124/74 95 Room Air Room Air 10/12 1600 99.9 89 20 96/62 96 Room Air 10/12 1600 96 Room Air 10/12 1039 89 102/64 Intake & Output 10/13 1600 10/13 0800 10/13 0000 Intake Total 320 275 Output Total 350 250 Balance -30 25 Intake, IV 200 200 Intake, Oral 120 75 Number 1 Bowel Movements Output, Urine 350 250 Physical Exam Other Physical Findings: He appears comfortable in no acute distress Lungs are clear Heart regular rhythm with a 2/6 systolic ejection murmur Abdomen is mildly distended, nontender with positive bowel sounds; suprapubic dressing intact Extremities trace edema both lower extremities; PICC in the right upper extremity with no inflammation at the site Results Last 24 Hours of Lab Results: Laboratory Tests 10/13 0500 Chemistry Sodium (137 - 145 mmol/L) 134 L Potassium (3.5 - 5.1 mmol/L) 4.0 Chloride (98 - 107 mmol/L) 106 Carbon Dioxide (22 - 30 mmol/L) 23 Anion Gap (5 - 16) 6 BUN (9 - 20 mg/dL) 20 Creatinine (0.7 - 1.2 mg/dL) 1.6 H Estimated GFR (>60 ml/min) 41 L Glucose (65 - 99 mg/dL) 98 Calcium (8.4 - 10.2 mg/dL) 6.9 L Phosphorus (2.5 - 4.5 mg/dL) 3.5 Magnesium (1.6 - 2.3 mg/dL) 2.9 H Total Bilirubin (0.2 - 1.3 mg/dL) 0.9 AST (17 - 59 U/L) 71 H ALT (21 - 72 U/L) 45 Albumin (3.5 - 5.0 g/dL) 2.0 L TSH (0.270 - 4.200 uIU/mL) 5.000 H Free T4 (0.85 - 1.93 ng/dL) 1.49 Hematology CBC w Diff MAN DIFF ORDERED WBC (4.8 - 10.8 /CUMM) 8.6 RBC (4.70 - 6.10 /CUMM) 2.79 L Hgb (14.0 - 18.0 G/DL) 7.9 L Hct (42 - 52 %) 24.3 L MCV (80.0 - 94.0 FL) 87.2 MCH (27.0 - 31.0 PG) 28.4 RDW (11.5 - 14.5 %) 15.4 H Plt Count (130 - 400 /CUMM) 303 MPV (7.4 - 10.4 FL) 7.9 Gran % (42.2 - 75.2 %) 85.4 H Lymphocytes % (20.5 - 51.1 %) 6.4 L Monocytes % (1.7 - 9.3 %) 6.1 Eosinophils % (0 - 5 %) 1.8 Basophils % (0.0 - 2.0 %) 0.3 Absolute Granulocytes (1.4 - 6.5 /CUMM) 7.4 H Absolute Lymphocytes (1.2 - 3.4 /CUMM) 0.5 L Absolute Monocytes (0.10 - 0.60 /CUMM) 0.5 Absolute Eosinophils (0.0 - 0.7 /CUMM) 0.2 Absolute Basophils (0.0 - 0.2 /CUMM) 0 Platelet Estimate (ADEQUATE) ADEQUATE Hypochromic-Microcytic 1+ Ovalocytes 1+ PUBS MCHC (33.0 - 37.0 G/DL) 32.6 L Toxicology Vancomycin Trough (10.0 - 20.0 ug/mL) 15.1 Last 24 Hours of Apolinar Results: Blood cultures 2 from October 02, October 07 and October 11 remain negative Assessment/Plan Impression: Doing well with temperatures and white blood cell count remaining normal on Vancomycin now Day 11 of treatment for MRSA bacteremia, presumably of urologic origin, and he will require a 4 to six-week course of antibiotics for a "complicated" bacteremia, given the presence of implants (pacemaker and bilateral hips). His Vancomycin trough level is therapeutic and can continue at this dose. Suggestion: 1. Continue Vancomycin
--- NOTE | 2016-10-13 10:36 | PN- Cardiology ---
Subjective Subjective: The patient is stable at this time. He was seen by Dr. Mcdowell yesterday who spoke to the family and recommended continuing the patient at a rate of 90 on the pacemaker and continue to keep the anti-tachycardia and defibrillator functions off on the defibrillator. He also suggested a transfusion because his hematocrit has been dropping. Overnight he's not had any further arrhythmias. He remains on pravastatin and metoprolol from a cardiac standpoint. Tikosyn has been discontinued permanently. He also recommended checking thyroid function tests. His TSH is minimally elevated but his free T4 is within normal limits. Objective Vital Signs and I&Os Vital Signs Date Time Temp Pulse Resp B/P B/P Pulse O2 O2 Flow FiO2 Mean Ox Delivery Rate 10/13 1022 89 118/64 10/13 0800 97.5 90 20 128/70 96 Room Air 10/13 0800 96 Room Air 10/13 0000 95 Room Air Room Air 10/12 2300 98.3 88 22 124/74 10/12 2300 98.3 89 20 124/74 95 Room Air Room Air 10/12 1600 99.9 89 20 96/62 96 Room Air 10/12 1600 96 Room Air 10/12 1039 89 102/64 Intake & Output 10/13 1600 10/13 0800 10/13 0000 10/12 1600 10/12 0800 10/12 0000 Intake Total 320 275 740 452 740 Output Total 350 250 150 100 200 Balance -30 25 590 352 540 Intake, IV 200 200 500 352 440 Intake, Oral 120 75 240 100 300 Number 1 1 0 Bowel Movements Output, Urine 350 250 150 100 200 Physical Exam: He is awake alert and cooperative Chest reveals a few rhonchi Heart reveals regular rhythm and no murmurs Extremities no edema Current Medications: Current Medications Sig/Karin Start time Last Medication Dose Route Stop Time Status Admin Acetaminophen 1,000 MG Q6P PRN 10/13 1015 AC 10/13 N/A 1 UNIT IV 1021 Acetaminophen 650 MG Q6P PRN 10/01 1515 AC 10/08 PO 0837 Diphenhydramine HCl 1 NORMA TID PRN 10/07 0945 AC 10/07 TOP 1445 Docusate Sodium 100 MG DAILY PRN 10/04 0700 AC 10/04 PO 0645 Dofetilide 125 MCG BID 10/05 1136 DC 10/12 PO 1038 Heparin Sodium 5,000 UNIT Q8 10/01 2199 AC 10/13 (Porcine) SC 0623 Levothyroxine Sodium 0.088 MG DAILY AC 10/02 0811 AC 10/13 PO 0623 Metoprolol Tartrate 12.5 MG BID 10/01 220 AC 10/13 PO 1022 Pravastatin Sodium 40 MG DAILY 10/02 1000 AC 10/13 PO 1022 Senna/Docusate Sodium 1 TAB BID 10/04 1000 AC 10/12 PO 2300 Sodium Chloride 1,000 ML Q20H 10/10 1345 AC 10/13 IV 1020 Vancomycin HCl 750 MG DAILY 10/12 1000 AC 10/12 Sodium Chloride 250 ML IV 1045 Results Last 48 Hrs of Labs/Mics: Laboratory Tests 10/13/16 0500: Anion Gap 6, Estimated GFR 41 L, Glucose 98, Calcium 6.9 L, Phosphorus 3.5, Magnesium 2.9 H, Total Bilirubin 0.9, AST 71 H, ALT 45, Albumin 2.0 L, TSH 5.000 H, Free T4 1.49, CBC w Diff MAN DIFF ORDERED, RBC 2.79 L, MCV 87.2, MCH 28.4, RDW 15.4 H, MPV 7.9, Gran % 85.4 H, Lymphocytes % 6.4 L, Monocytes % 6.1, Eosinophils % 1.8, Basophils % 0.3, Absolute Granulocytes 7.4 H, Absolute Lymphocytes 0.5 L, Absolute Monocytes 0.5, Absolute Eosinophils 0.2, Absolute Basophils 0, Platelet Estimate ADEQUATE, Hypochromic-Microcytic 1+, Ovalocytes 1 +, PUBS MCHC 32.6 L, Vancomycin Trough 15.1 10/12/16 0605: Anion Gap 7, Estimated GFR 41 L, Glucose 92, Calcium 6.8 L, Phosphorus 4.0, Magnesium 3.2 H, Total Bilirubin 0.6, AST 32, ALT 32, Albumin 2.0 L, CBC w Diff NO MAN DIFF REQ, RBC 2.86 L, MCV 86.6, MCH 28.5, RDW 15.4 H, MPV 7.8, Gran % 87.9 H, Lymphocytes % 4.5 L, Monocytes % 5.7, Eosinophils % 1.9, Basophils % 0 L, Absolute Granulocytes 10.2 H, Absolute Lymphocytes 0.5 L, Absolute Monocytes 0.7 H, Absolute Eosinophils 0.2, Absolute Basophils 0, PUBS MCHC 33.0 Microbiology 10/11 1040 URINE ROUT: Urine Culture - COMP Assessment/Plan Assessment/Plan Mr. Ding had a setback with recurrent defibrillator shocks. The family is now being more conservative with his care. However he has stabilized somewhat. We will continue with his current care. His defibrillator and anti-tachycardia functions of his device are to remain off and he is being paced at a rate of 90. He will be transfused one unit of blood today. He can be transferred to telemetry and mobilized and perhaps get ready for rehabilitation or home care soon. Continue telemetry? Yes
--- NOTE | 2016-10-13 12:50 | NUR ---
RECIEVED FROM RN REPORT AND VS WITH PT HX VRE AND MRSA,I WAS GOWNED AND GLOVED AND DID ASSESSMENT. PT LYING ON LT SIDE AND TRYING TO REST CONT IV VANCO MED INFUSING AND TO RECIEVE A UNIT OF BLD ONCE IT IS OVER. AT BED SIDE GIVING FLD TO PT PO. ROOM AIR, MONITOR PACING DC. VS STABLE FOR NOW AND TELE HOLD. FL DIET TAKEN FAIR. SP TUBE WAS LEAKING AROUND BUT DSG CHANGED EARLIER URINE CLEAR FOR NOW AND DARK YELLOW. VS BY DR DOBBS.
[2016-10-13 16:00] VITALS: BP 110/60
--- NOTE | 2016-10-13 16:41 | NUR ---
1400 CHANGED SPT DSG AND PTS BED. 1 UNIT PC HUNG ORDERED APPROX 225PM. FAMILY AT BEDSIDE ASSISTING IN CARE. REPORT TO ONCOMING RN.
[2016-10-13 20:01] LABS: ABSOLUTE BASOPHIL COUNT 0 /CUMM (0.0-0.2); ABSOLUTE EOSINOPHIL COUNT 0.1 /CUMM (0.0-0.7); ABSOLUTE LYMPH COUNT 0.5 /CUMM (1.2-3.4); ABSOLUTE MONOCYTE COUNT 0.5 /CUMM (0.10-0.60); BASOPHIL % 0.3 % (0.0-2.0); HEMATOCRIT 27.5 % (42-52); MEAN CORPUSCULAR HGB 28.3 PG (27.0-31.0); MEAN CORPUSCULAR HGB CONC 33.1 G/DL (33.0-37.0); MEAN CORPUSCULAR VOLUME 85.4 FL (80.0-94.0); MEAN PLATELET VOLUME 7.7 FL (7.4-10.4); PLATELET COUNT 328 /CUMM (130-400); RBC DISTRIBUTION WIDTH 14.9 % (11.5-14.5); RED BLOOD CELL CT 3.22 /CUMM (4.70-6.10); WHITE BLOOD CELL COUNT 7.2 /CUMM (4.8-10.8)
[2016-10-13 20:09] LABS: GRANULOCYTE % 83.4 % (42.2-75.2)
--- NOTE | 2016-10-13 22:14 | Cons- Endocrinology ---
General Information and HPI Consulting Request Date of Consult: 10/13/16 Requested By: ICU team Reason for Consult: evaluation and management of hypothyroidism Source of Information: patient, family, old records Exam Limitations: unable to give history, poor historian History of Present Illness: 85 y/o male with hx of significant ischemic cardiomyopathy s/p bypass surgery with reduced EF in the 30s, underwent an AICD implant , was admitted for multiple defibrillator shocks. He has had hx of hypothyroidism and has been on Levothyroxine 88 mcg daily. Repeat TFT showed TSH of 5.00 and free T4 1.49. I was asked to see him for evaluation and management of hypothyroidism. Allergies/Medications Allergies: Coded Allergies: sitagliptin (From Space Ape) (Mild, RASH 08/12/15) mirabegron (UNKNOWN 08/12/15) Home Med List: Albuterol Sulfate (Proair Hfa) 8.5 GM HFA.AER.AD 2 PUF INH PRN ASTHMA ( Reported) Ciprofloxacin HCl 500 MG TABLET 1 TAB PO BID UTI (Reported) Docusate Sodium (Colace) 100 MG CAPSULE 1 CAP PO DAILY STOOL SOFTENER ( Reported) Dofetilide (Tikosyn) 125 MCG CAPSULE 1 CAP PO BID HEART (Reported) Furosemide (Lasix) 40 MG TABLET 1 TAB PO DAILY WATER PILL (Reported) Levothyroxine Sodium 88 MCG TABLET 1 TAB PO DAILY THYROID (Reported) Metoprolol Succ XL (Toprol XL) 25 MG TAB 0.5 TAB PO BID HEART (Reported) Oxycodone HCl/Acetaminophen (Percocet 5-325 MG Tablet) 1 EACH TABLET 1 TAB PO Q4P PRN PAIN SCALE 1-3 (MILD) Oxycodone HCl/Acetaminophen (Percocet 5-325 MG Tablet) 1 EACH TABLET 2 TAB PO Q4P PRN PAIN SCALE 4-6 (MODERATE) Pravastatin Sodium 40 MG TABLET 40 MG PO DAILY CHOLOSTEROL (Reported) Vancomycin/0.9 % Sod Chloride (Vanco 750 MG/250 Ml-0.9% NaCl) 750 MG/250 ML PLAST..BAG 750 GM IV DAILY MRSA BACTEREMIA PLEASE ADMINISTER DAILY TILL NOVEMBER 13 Review of Systems Review of Systems Constitutional: Reports: see HPI. Cardiovascular: Reports: see HPI. Respiratory: Denies: short of breath. GI: Denies: abdominal pain. Hematologic/Endocrine: Denies: polyuria, polydipsia. 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 Psychosocial History Services at Home: None Smoking Status: Never Smoked Living Will? no Functional Ability ADLs Independent: dressing, eating, toileting, bathing. Ambulation: independent, cane, walker, non-ambulatory IADLs Independent: shopping, housework, finances, food prep, telephone, transportation , medication admin. Exam & Diagnostic Data Last 24 Hrs of Vital Signs/I&O Vital Signs Date Time Temp Pulse Resp B/P B/P Pulse O2 O2 Flow FiO2 Mean Ox Delivery Rate 10/13 2145 92 20 118/70 10/13 1600 95 Room Air 10/13 1600 96.8 90 20 110/60 95 Room Air 10/13 1022 89 118/64 10/13 0800 97.5 90 20 128/70 96 Room Air 10/13 0800 96 Room Air 10/13 0000 95 Room Air Room Air 10/12 2300 98.3 88 22 124/74 10/12 2300 98.3 89 20 124/74 95 Room Air Room Air Intake & Output 10/13 1600 10/13 0800 10/13 0000 Intake Total 825 320 275 Output Total 300 350 250 Balance 525 -30 25 Intake, IV 525 200 200 Intake, Oral 300 120 75 Number 1 1 Bowel Movements Output, Urine 300 350 250 Physical Exam General Appearance: no apparent distress Neck: normal inspection Respiratory: normal breath sounds Cardiovascular: tachycardia Gastrointestinal: non-tender Extremities: no edema Labs/Apolinar Results: Laboratory Tests 10/13 10/13 1930 1700 Coagulation PT Cancelled INR Cancelled Hematology CBC w Diff NO MAN DIFF REQ WBC (4.8 - 10.8 /CUMM) 7.2 RBC (4.70 - 6.10 /CUMM) 3.22 L Hgb (14.0 - 18.0 G/DL) 9.1 L Hct (42 - 52 %) 27.5 L MCV (80.0 - 94.0 FL) 85.4 MCH (27.0 - 31.0 PG) 28.3 RDW (11.5 - 14.5 %) 14.9 H Plt Count (130 - 400 /CUMM) 328 MPV (7.4 - 10.4 FL) 7.7 Gran % (42.2 - 75.2 %) 83.4 H Lymphocytes % (20.5 - 51.1 %) 7.3 L Monocytes % (1.7 - 9.3 %) 7.0 Eosinophils % (0 - 5 %) 2.0 Basophils % (0.0 - 2.0 %) 0.3 Absolute Granulocytes (1.4 - 6.5 /CUMM) 6.0 Absolute Lymphocytes (1.2 - 3.4 /CUMM) 0.5 L Absolute Monocytes (0.10 - 0.60 /CUMM) 0.5 Absolute Eosinophils (0.0 - 0.7 /CUMM) 0.1 Absolute Basophils (0.0 - 0.2 /CUMM) 0 PUBS MCHC (33.0 - 37.0 G/DL) 33.1 10/13 10/12 0500 0605 Chemistry Sodium (137 - 145 mmol/L) 134 L 134 L Potassium (3.5 - 5.1 mmol/L) 4.0 3.9 Chloride (98 - 107 mmol/L) 106 105 Carbon Dioxide (22 - 30 mmol/L) 23 22 Anion Gap (5 - 16) 6 7 BUN (9 - 20 mg/dL) 20 23 H Creatinine (0.7 - 1.2 mg/dL) 1.6 H 1.6 H Estimated GFR (>60 ml/min) 41 L 41 L Glucose (65 - 99 mg/dL) 98 92 Calcium (8.4 - 10.2 mg/dL) 6.9 L 6.8 L Phosphorus (2.5 - 4.5 mg/dL) 3.5 4.0 Magnesium (1.6 - 2.3 mg/dL) 2.9 H 3.2 H Total Bilirubin (0.2 - 1.3 mg/dL) 0.9 0.6 AST (17 - 59 U/L) 71 H 32 ALT (21 - 72 U/L) 45 32 Albumin (3.5 - 5.0 g/dL) 2.0 L 2.0 L TSH (0.270 - 4.200 uIU/mL) 5.000 H Free T4 (0.85 - 1.93 ng/dL) 1.49 Hematology CBC w Diff MAN DIFF ORDERED NO MAN DIFF REQ WBC (4.8 - 10.8 /CUMM) 8.6 11.7 H RBC (4.70 - 6.10 /CUMM) 2.79 L 2.86 L Hgb (14.0 - 18.0 G/DL) 7.9 L 8.1 L Hct (42 - 52 %) 24.3 L 24.7 L MCV (80.0 - 94.0 FL) 87.2 86.6 MCH (27.0 - 31.0 PG) 28.4 28.5 RDW (11.5 - 14.5 %) 15.4 H 15.4 H Plt Count (130 - 400 /CUMM) 303 268 MPV (7.4 - 10.4 FL) 7.9 7.8 Gran % (42.2 - 75.2 %) 85.4 H 87.9 H Lymphocytes % (20.5 - 51.1 %) 6.4 L 4.5 L Monocytes % (1.7 - 9.3 %) 6.1 5.7 Eosinophils % (0 - 5 %) 1.8 1.9 Basophils % (0.0 - 2.0 %) 0.3 0 L Absolute Granulocytes (1.4 - 6.5 /CUMM) 7.4 H 10.2 H Absolute Lymphocytes (1.2 - 3.4 /CUMM) 0.5 L 0.5 L Absolute Monocytes (0.10 - 0.60 /CUMM) 0.5 0.7 H Absolute Eosinophils (0.0 - 0.7 /CUMM) 0.2 0.2 Absolute Basophils (0.0 - 0.2 /CUMM) 0 0 Platelet Estimate (ADEQUATE) ADEQUATE Hypochromic-Microcytic 1+ Ovalocytes 1+ PUBS MCHC (33.0 - 37.0 G/DL) 32.6 L 33.0 Toxicology Vancomycin Trough (10.0 - 20.0 ug/mL) 15.1 10/11 0441 Chemistry Sodium (137 - 145 mmol/L) 136 L Potassium (3.5 - 5.1 mmol/L) 4.0 Chloride (98 - 107 mmol/L) 104 Carbon Dioxide (22 - 30 mmol/L) 21 L Anion Gap (5 - 16) 11 BUN (9 - 20 mg/dL) 21 H Creatinine (0.7 - 1.2 mg/dL) 1.7 H Estimated GFR (>60 ml/min) 38 L Glucose (65 - 99 mg/dL) 95 Calcium (8.4 - 10.2 mg/dL) 7.2 L Phosphorus (2.5 - 4.5 mg/dL) 4.8 H Magnesium (1.6 - 2.3 mg/dL) 3.8 H Total Bilirubin (0.2 - 1.3 mg/dL) 0.6 AST (17 - 59 U/L) 34 ALT (21 - 72 U/L) 36 Albumin (3.5 - 5.0 g/dL) 2.0 L Hematology CBC w Diff MAN DIFF ORDERED WBC (4.8 - 10.8 /CUMM) 17.9 H RBC (4.70 - 6.10 /CUMM) 2.99 L Hgb (14.0 - 18.0 G/DL) 8.6 L Hct (42 - 52 %) 26.0 L MCV (80.0 - 94.0 FL) 87.1 MCH (27.0 - 31.0 PG) 28.7 RDW (11.5 - 14.5 %) 15.0 H Plt Count (130 - 400 /CUMM) 275 MPV (7.4 - 10.4 FL) 7.9 Gran % (42.2 - 75.2 %) 91.9 H Lymphocytes % (20.5 - 51.1 %) 3.4 L Monocytes % (1.7 - 9.3 %) 4.0 Eosinophils % (0 - 5 %) 0.5 Basophils % (0.0 - 2.0 %) 0.2 Absolute Granulocytes (1.4 - 6.5 /CUMM) 16.4 H Segmented Neutrophils (42.2 - 75.2 %) 84 H Band Neutrophils (0.0 - 5.0 %) 8 H Absolute Lymphocytes (1.2 - 3.4 /CUMM) 0.6 L Lymphocytes (20.5 - 51.1 %) 5 L Monocytes (1.7 - 9.3 %) 3 Absolute Monocytes (0.10 - 0.60 /CUMM) 0.7 H Absolute Eosinophils (0.0 - 0.7 /CUMM) 0.1 Absolute Basophils (0.0 - 0.2 /CUMM) 0 Platelet Estimate (ADEQUATE) VERIFIED BY SMEAR Anisocytosis 1+ PUBS MCHC (33.0 - 37.0 G/DL) 33.0 Assessment/Plan Assessment/Plan 85 y/o male with hx of significant ischemic cardiomyopathy s/p bypass surgery with reduced EF in the 30s, underwent an AICD implant , was admitted for multiple defibrillator shocks. He has had hx of hypothyroidism and has been on Levothyroxine 88 mcg daily. Repeat TFT showed TSH of 5.00 and free T4 1.49. His TSH was borderline elevated and free T4 was in the normal range which could be due to sick euthyroid changes. At this point, I will continue the current Levothyroxine 88 mcg daily for now and I will recommend monitoring his TFT next week to look for a trend. will follow. Consult Acknowledgment - Thank you for your consult request.
[2016-10-13 23:00] VITALS: BP 130/72
--- NOTE | 2016-10-14 04:15 | Event Note ---
Event Note Event Note: Recieved call from lab that pt had (1) BCX positive for GPC in cluster from .
[2016-10-14 05:12] LABS: ABSOLUTE BASOPHIL COUNT 0 /CUMM (0.0-0.2); ABSOLUTE EOSINOPHIL COUNT 0.1 /CUMM (0.0-0.7); ABSOLUTE GRANULOCYTE CT 6.5 /CUMM (1.4-6.5); ABSOLUTE LYMPH COUNT 0.6 /CUMM (1.2-3.4); ABSOLUTE MONOCYTE COUNT 0.5 /CUMM (0.10-0.60); BASOPHIL % 0.4 % (0.0-2.0); EOSINOPHIL % 1.6 % (0-5); GRANULOCYTE % 84.2 % (42.2-75.2); HEMATOCRIT 27.9 % (42-52); MEAN CORPUSCULAR HGB 28.2 PG (27.0-31.0); MEAN CORPUSCULAR HGB CONC 32.9 G/DL (33.0-37.0); MEAN CORPUSCULAR VOLUME 85.7 FL (80.0-94.0); MEAN PLATELET VOLUME 7.7 FL (7.4-10.4); PLATELET COUNT 355 /CUMM (130-400); RBC DISTRIBUTION WIDTH 15.1 % (11.5-14.5); RED BLOOD CELL CT 3.26 /CUMM (4.70-6.10); WHITE BLOOD CELL COUNT 7.7 /CUMM (4.8-10.8)
[2016-10-14 07:00] VITALS: BP 125/70
[2016-10-14 08:00] VITALS: BP 118/78
--- NOTE | 2016-10-14 08:03 | Operative Report ---
See Addendum Operative/Inv Procedure Report Surgery Date: 10/01/16 Name of Procedure: cystoscopy: botox 200 unit bladder injection: left stent exchange with retrograde pyelogram: spt change. 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 Timeout was performed, with the patient awake, in order to confirm anesthesia, and other pertinent perioperative information. After adequate anesthesia and antibiotics the patient was then placed lithotomy stirrups, draped and prepped in the usual surgical fashion. A 22 Palestinian cystoscope sheath with 30 angle lens was inserted into the urethra, subsequently into the bladder without difficulty. Calcified prostate tissue. Upon thorough and systematic surveillance, the bladder was noted to be free of tumor free of stone. Both ureteral orifices were in their orthotopic position with clear eflux from the both sides. The left orifice was intubated with an old left stent which was grasped with an alligator forcep, and removed along with the cystoscope intact. The cystoscope was then reinserted. A tiger tail catheter was inserted into the left ureter orifice, whereupon a retrograde pyelogram was gently performed in order to confirm no hydronephrosis, no filling defects. The tiger tail catheter was then removed. The left orifice was intubated with a 0.035 Glidewire, which was advanced into the left ureter and renal pelvis with out difficulty. Over this Glidewire a 6 x 22 Bard onlay stent was rail-roaded into the left ureter without difficulty. With the proximal coil in the left renal pelvis, and the distal coil in the bladder, the Glidewire was removed, and the stent remained in proper place. Pt with anti-cholinergic refractory OAB, and constant urinary urethral leakage despite SPT, pt had requrested botox bladder injection to potentially minimize the urge incontinence. Subsequently, the Botox Injection cystoscope with 30 angle lens was inserted without difficulty. Under direct visualization, the 18- gauge cystoscopic needle was extended. Using a spiral injection patern, avoiding the trigone and area around the ureteral orifices, a total of 200 units of Botox , in small 10unit aliquots was injected into the tumor free bladder muscle/ detrusor (including the dome, posterior, right and left sharpe of the bladder) forming a submucosal blister with each injection of botox. Prior to removing the scope, the 20fr galicia used as SPT was exchanged under direct cystoscope visualization without difficutly. The bladder was then drained via the new SPT, and the Botox cystoscope was removed without difficulty. The patient tolerated the procedures well, and was then taken to recovery room in satisfactory condition. Findings: NO TUMOR/FILLING DEFECT IN LEFT URETER/PELVIS: LARGE CALCIFICATION OF PROSTATE SCAR. Discharge Disposition: PACU CC: AVERY ROME MD
--- NOTE | 2016-10-14 08:49 | PN- Resident CRCU ---
EVITA WALLACE,[facility] 10/14/16 0849: Subjective HPI/CRCU Issues: Patient was seen and examined this morning, complains of low back pain that's on and off, respond well to IV acetaminophen. Patient denied any chest pain, shortness of breath, palpitation. Tolerating diet well, had one bowel movement this morning. No overnight events reported by the nurse or the patient. 24 Hour Events: Afebrile Vital signs are stable Objective Vital Signs & I&O Last 8 Hrs of Vitals and I&O: 11 Exam General Appearance: no apparent distress, alert, awake Head: atraumatic, normal appearance Ears, Nose, Throat: normal pharynx, normal ENT inspection Neck: normal inspection, supple, full range of motion Respiratory: normal breath sounds, rhonchi Cardiovascular: regular rate/rhythm Gastrointestinal: normal bowel sounds, soft, non-tender Extremities: normal inspection, normal capillary refill, normal range of motion, no edema Cranial Nerves: normal hearing, normal speech, PERRL Current Medications: Current Medications Sig/Karin Start time Last Medication Dose Route Stop Time Status Admin Acetaminophen 1,000 MG Q6P PRN 10/13 1015 AC 10/13 N/A 1 UNIT IV 1021 Acetaminophen 650 MG Q6P PRN 10/01 1515 AC 10/08 PO 0837 Diphenhydramine HCl 1 NORMA TID PRN 10/07 0945 AC 10/07 TOP 1445 Docusate Sodium 100 MG DAILY PRN 10/04 0700 AC 10/04 PO 0645 Furosemide 20 MG ONCE ONE 10/13 1900 CAN PO 10/13 1901 Furosemide 20 MG ONCE ONE 10/13 1815 DC 10/13 IV 10/13 1816 1832 Heparin Sodium 5,000 UNIT Q8 10/01 2199 AC 10/14 (Porcine) SC 0513 Levothyroxine Sodium 0.088 MG DAILY AC 10/02 0811 AC 10/14 PO 0612 Metoprolol Tartrate 12.5 MG BID 10/01 220 AC 10/14 PO 0907 Pravastatin Sodium 40 MG DAILY 10/02 1000 AC 10/14 PO 0907 Senna/Docusate Sodium 1 TAB BID 10/04 1000 AC 10/13 PO 2145 Sodium Chloride 1,000 ML Q20H 10/10 1345 DC 10/13 IV 1020 Vancomycin HCl 750 MG DAILY 10/12 1000 AC 10/14 Sodium Chloride 250 ML IV 0955 Impression/Plan Impression/Problem List Impression: Mr. Garsia is an 85 year old male with PMH CAD s/p CABG in 1989, [place], angioplasty, paroxysmal atrial fibrillation on Tikosyn, CHF, biventricular pacemaker defibrillator, hypothyroidism, bladder cancer and chronic suprapubic galicia catheter who was initially admitted to the telemetry floor for ventricular tachycardia and AICD firing. Patient had a rapid response on 10/10/16 and was transferred to the ICU after runs of polymorphic ventricular tachycardia suggestive of torsades. The patient received 2 mg IV push magnesium x 2, was then started on a magnesium drip and lastly given a one time dose of 150 mg IV push amiodarone. The patient is currently in the ICU and the following is the management: 1. Polymorphic ventricular tachycardia with AICD firing * AICD inactivated on 10/10 per family wishes given continuous firing, pacemaker capabilities continued * Continuous telemetry monitoring * Cardio consult appreciated, continue to follow recommendations * Magnesium drip off as patient hypermagnesemic; f/u daily mag levels and replete as needed * Continue conservative management as per family wishes * Dofetilide 125 mcg PO BID was discontinued on 10/12 * Patient was evaluated by Dr. Mcdowell, recommendation for blood transfusion and TSH, free T4 rechecked, no antirhythmic medication is recommended at this time 2. MRSA bacteremia * Source likely ?suprapubic cath vs cardiac origin given AICD and history of hip prosthesis * Blood culture from 10/11 x1 positive for gram-positive cocci despite receiving vancomycin for 12 days, if turned to be MRSA, further will proceed with to investigate nudus of infection * Blood culture October 01, urine culture October 01 and October 07 are positive for MRSA * Vancomycin Day#12, trough level is therapeutic * Family declines CT chest, abdomen, pelvis at this time * Continue to follow ID and urology recommendations, consults appreciated * DC IVF 3. Acute on chronic anemia 2/2 BRBPR * H&H 9.2/27.9 status post 1 unit blood transfusion on 10/13 * 1 dose of Lasix was administrated after blood transfusion to avoid volume overload, negative fluid balance * Family requests conservative measures, no GI consult thus placed * Patient s/p 1 U PRBC October 08 * Monitor BP closely 4. CAD s/p CABG, CHF * Metroprolol 12.5 mg PO BID * Pravastatin daily 5. Hypothyroidism * Continue synthroid supplementation * Slightly elevated TSH, normal free T4 * Recommendation to continue with the current dose of Synthroid, recheck TFT next week DNR/DNI DVTP: Heparin SC Regular diet Mild pain pathway Problem List: 1. CAD S/P CABG 2. Cardiac pacemaker procedure 3. Hypothyroidism 4. Bacteremia Pain Ratin Tomorrow's Labs & Rationales: CBC, ICU bundle Plan DVT/Prophylaxis: pharmacological Code Status: Do Not Resucitate/Intubat LILIBETH MOSLEY MD 10/14/16 0925: Attending MD Review Statement Attending Sign Off Attending Cosign Statement: I have: examined this patient, reviewed avalbl EMR data, personally reviewd images, discussd w/resident/PA/MEMBERSHIP COUNSELOR, discussed mgmt plan w/martin, discussed mgmt plan w/CM, discussed mgmt plan w/pt, agreed w/resident/PA/MEMBERSHIP COUNSELOR, amended to note. Other Findings: Impression -polymorphic VT (torsade de pointes) - firing of AICD -MRSA bacteremia including urine cx for MRSA -chronic suprapubic catheter -CAD,cabg -hx of bladder ca Plan -tele hold -cont abx - on vancomycin -cardiology,id,urology f/u -urology follow up -pain control DVT prophylaxis at all times DNR/DNI
--- NOTE | 2016-10-14 10:11 | PN- Cardiology ---
Subjective Subjective: The patient is sleepy but arousable. He has no specific complaints. He remains in pacing rhythm at a rate of 90. He received a transfusion yesterday and his hematocrit is up to 28. Objective Vital Signs and I&Os Vital Signs Date Time Temp Pulse Resp B/P B/P Pulse O2 O2 Flow FiO2 Mean Ox Delivery Rate 10/14 0907 89 118/64 10/14 0800 98.7 89 20 118/78 98 Room Air 10/14 0800 96 Room Air 10/14 0700 97.4 87 24 125/70 97 Room Air 10/14 0000 96 Room Air 10/13 2300 97.2 89 18 130/72 96 Room Air 10/13 2145 92 20 118/70 10/13 1600 95 Room Air 10/13 1600 96.8 90 20 110/60 95 Room Air 10/13 1022 89 118/64 Intake & Output 10/14 1600 10/14 0800 10/14 0000 10/13 1600 10/13 0800 10/13 0000 Intake Total 200 795 825 320 275 Output Total 480 1350 300 350 250 Balance -280 -555 525 -30 25 Intake, Blood 375 Product Intake, IV 525 200 200 Intake, Oral 200 420 300 120 75 Number 2 1 1 Bowel Movements Output, Urine 480 1350 300 350 250 Physical Exam: He is in no distress but pale and weak HEENT exam normal Chest clear Heart regular rhythm no murmurs Extremities no edema Current Medications: Current Medications Sig/Karin Start time Last Medication Dose Route Stop Time Status Admin Acetaminophen 1,000 MG Q6P PRN 10/13 1015 AC 10/13 N/A 1 UNIT IV 1021 Acetaminophen 650 MG Q6P PRN 10/01 1515 AC 10/08 PO 0837 Diphenhydramine HCl 1 NORMA TID PRN 10/07 0945 AC 10/07 TOP 1445 Docusate Sodium 100 MG DAILY PRN 10/04 0700 AC 10/04 PO 0645 Furosemide 20 MG ONCE ONE 10/13 1900 CAN PO 10/13 190 Furosemide 20 MG ONCE ONE 10/13 1815 DC 10/13 IV 10/13 181 1832 Heparin Sodium 5,000 UNIT Q8 10/01 2200 AC 10/14 (Porcine) SC 0513 Levothyroxine Sodium 0.088 MG DAILY AC 10/02 0811 AC 10/14 PO 0612 Metoprolol Tartrate 12.5 MG BID 10/01 2200 AC 10/14 PO 09 Pravastatin Sodium 40 MG DAILY 10/02 1000 AC 10/14 PO 09 Senna/Docusate Sodium 1 TAB BID 10/04 1000 AC 10/13 PO 2145 Sodium Chloride 1,000 ML Q20H 10/10 1345 DC 10/13 IV 1020 Vancomycin HCl 750 MG DAILY 10/12 1000 AC 10/14 Sodium Chloride 250 ML IV 0955 Results Last 48 Hrs of Labs/Mics: Laboratory Tests 10/14/16 0400: Anion Gap 7, Estimated GFR 41 L, Glucose 95, Calcium 7.3 L, Phosphorus 4.4, Magnesium 2.5 H, Total Bilirubin 1.0, AST 50, ALT 55, Albumin 2.2 L, CBC w Diff NO MAN DIFF REQ, RBC 3.26 L, MCV 85.7, MCH 28.2, RDW 15.1 H, MPV 7.7, Gran % 84.2 H, Lymphocytes % 7.4 L, Monocytes % 6.4, Eosinophils % 1.6, Basophils % 0.4, Absolute Granulocytes 6.5, Absolute Lymphocytes 0.6 L, Absolute Monocytes 0.5, Absolute Eosinophils 0.1, Absolute Basophils 0, PUBS MCHC 32.9 L 10/13/16 1930: CBC w Diff NO MAN DIFF REQ, RBC 3.22 L, MCV 85.4, MCH 28.3, RDW 14.9 H, MPV 7.7, Gran % 83.4 H, Lymphocytes % 7.3 L, Monocytes % 7.0, Eosinophils % 2.0, Basophils % 0.3, Absolute Granulocytes 6.0, Absolute Lymphocytes 0.5 L, Absolute Monocytes 0.5, Absolute Eosinophils 0.1, Absolute Basophils 0, PUBS MCHC 33.1 10/13/16 1700: PT Cancelled, INR Cancelled 10/13/16 0500: Anion Gap 6, Estimated GFR 41 L, Glucose 98, Calcium 6.9 L, Phosphorus 3.5, Magnesium 2.9 H, Total Bilirubin 0.9, AST 71 H, ALT 45, Albumin 2.0 L, TSH 5.000 H, Free T4 1.49, CBC w Diff MAN DIFF ORDERED, RBC 2.79 L, MCV 87.2, MCH 28.4, RDW 15.4 H, MPV 7.9, Gran % 85.4 H, Lymphocytes % 6.4 L, Monocytes % 6.1, Eosinophils % 1.8, Basophils % 0.3, Absolute Granulocytes 7.4 H, Absolute Lymphocytes 0.5 L, Absolute Monocytes 0.5, Absolute Eosinophils 0.2, Absolute Basophils 0, Platelet Estimate ADEQUATE, Hypochromic-Microcytic 1+, Ovalocytes 1 +, PUBS MCHC 32.6 L, Vancomycin Trough 15.1 Assessment/Plan Assessment/Plan Mr. Ding had a setback with recurrent defibrillator shocks. The family is now being more conservative with his care. However he has stabilized somewhat. There have been no additional arrhythmias. He is not in congestive heart failure. He can be mobilized as much as possible and transferred to telemetry when a bed available. He is also ready for transfer to senior care facility from a cardiac standpoint. Continue telemetry? Yes
--- NOTE | 2016-10-14 10:59 | PN- Infect Dx ---
Subjective Subjective: Afebrile without specific complaints Objective Last 24 Hrs of Vital Signs/I&O Vital Signs Date Time Temp Pulse Resp B/P B/P Pulse O2 O2 Flow FiO2 Mean Ox Delivery Rate 10/14 0907 89 118/64 10/14 0800 98.7 89 20 118/78 98 Room Air 10/14 0800 96 Room Air 10/14 0700 97.4 87 24 125/70 97 Room Air 10/14 0000 96 Room Air 10/13 2300 97.2 89 18 130/72 96 Room Air 10/13 2145 92 20 118/70 10/13 1600 95 Room Air 10/13 1600 96.8 90 20 110/60 95 Room Air Intake & Output 10/14 1600 10/14 0800 10/14 0000 Intake Total 200 795 Output Total 480 1350 Balance -280 -555 Intake, Blood 375 Product Intake, Oral 200 420 Number 2 Bowel Movements Output, Urine 480 1350 Physical Exam Other Physical Findings: He appears comfortable in no acute distress Lungs decreased breath sounds at the right base Heart regular rhythm with a 1 to 2/6 systolic ejection murmur Abdomen is soft, tender with positive bowel sounds; suprapubic catheter site with no inflammation Extremities PICC in the right upper extremity with no inflammation at the site Results Last 24 Hours of Lab Results: Laboratory Tests 10/14 10/13 0400 1930 Chemistry Sodium (137 - 145 mmol/L) 137 Potassium (3.5 - 5.1 mmol/L) 4.1 Chloride (98 - 107 mmol/L) 107 Carbon Dioxide (22 - 30 mmol/L) 23 Anion Gap (5 - 16) 7 BUN (9 - 20 mg/dL) 18 Creatinine (0.7 - 1.2 mg/dL) 1.6 H Estimated GFR (>60 ml/min) 41 L Glucose (65 - 99 mg/dL) 95 Calcium (8.4 - 10.2 mg/dL) 7.3 L Phosphorus (2.5 - 4.5 mg/dL) 4.4 Magnesium (1.6 - 2.3 mg/dL) 2.5 H Total Bilirubin (0.2 - 1.3 mg/dL) 1.0 AST (17 - 59 U/L) 50 ALT (21 - 72 U/L) 55 Albumin (3.5 - 5.0 g/dL) 2.2 L Hematology CBC w Diff NO MAN DIFF REQ NO MAN DIFF REQ WBC (4.8 - 10.8 /CUMM) 7.7 7.2 RBC (4.70 - 6.10 /CUMM) 3.26 L 3.22 L Hgb (14.0 - 18.0 G/DL) 9.2 L 9.1 L Hct (42 - 52 %) 27.9 L 27.5 L MCV (80.0 - 94.0 FL) 85.7 85.4 MCH (27.0 - 31.0 PG) 28.2 28.3 RDW (11.5 - 14.5 %) 15.1 H 14.9 H Plt Count (130 - 400 /CUMM) 355 328 MPV (7.4 - 10.4 FL) 7.7 7.7 Gran % (42.2 - 75.2 %) 84.2 H 83.4 H Lymphocytes % (20.5 - 51.1 %) 7.4 L 7.3 L Monocytes % (1.7 - 9.3 %) 6.4 7.0 Eosinophils % (0 - 5 %) 1.6 2.0 Basophils % (0.0 - 2.0 %) 0.4 0.3 Absolute Granulocytes (1.4 - 6.5 /CUMM) 6.5 6.0 Absolute Lymphocytes (1.2 - 3.4 /CUMM) 0.6 L 0.5 L Absolute Monocytes (0.10 - 0.60 /CUMM) 0.5 0.5 Absolute Eosinophils (0.0 - 0.7 /CUMM) 0.1 0.1 Absolute Basophils (0.0 - 0.2 /CUMM) 0 0 PUBS MCHC (33.0 - 37.0 G/DL) 32.9 L 33.1 10/13 1700 Coagulation PT Cancelled INR Cancelled Last 24 Hours of Apolinar Results: Blood cultures October 11 one bottle positive for gram-positive cocci in clusters Assessment/Plan Impression: Clinically stable with temperatures and white blood cell count remaining normal on Vancomycin now Day 12 of treatment for MRSA bacteremia, presumably of urologic origin. One blood culture from October 11 was reported positive today for gram-positive cocci and, if it is identified as MRSA, it would suggest that he has a persistent focus of infection, perhaps on the heart valves or the pacemaker or within the right pleural effusion or affecting his hip prostheses, and further evaluation for this may be necessary, though his family was not anxious to pursue any aggressive workup. He will need a 4 to 6 week course of antibiotics for a "complicated" bacteremia, given the presence of implants ( pacemaker and bilateral hips). Suggestion: 1. Repeat blood cultures 2 today 2. Will need to consider further workup as noted above if his recent positive blood culture proves to be MRSA 3. Continue Vancomycin
--- NOTE | 2016-10-14 11:22 | Patient Discharge Instructions ---
Discharge Instructions General Discharge Information You were seen/treated for: 1. Polymorphic ventricular tachycardia with AICD firing 2. MRSA bacteremia Special Instructions: 1. Please follow-up with her primary care provider after discharge 2. Please follow-up with your cartographic designer after discharge 3. Please follow-up with your urologist after discharge 4. Please check thyroid functions in 1 week of discharge 5. Please comtinue IV Vancomycin for 4-6 weeks until November 24. 6.treatment from his negative blood cultures (until November 24) 6. Will need a weekly CBC, BUN/creatinine and Vancomycin trough level Diet Continue normal diet: Yes Activity Full Activity/No Limits: Yes (as tolerated) Acute Coronary Syndrome Inclusion Criteria At DC or during hospital stay patient has or had the following: ACS DIAGNOSIS No Discharge Core Measures Meds if any: Prescribed or Continued at Discharge Meds if any: NOT Prescribed or Continued at Discharge Congestive Heart Failure Inclusion Criteria At DC or during hospital stay patient has or had the following: CHF DIAGNOSIS No Discharge Core Measures Meds if any: Prescribed or Continued at Discharge Meds if any: NOT Prescribed or Continued at Discharge Cerebrovascular accident Inclusion Criteria At DC or during hospital stay patient has or had the following: CVA/TIA Diagnosis No Discharge Core Measures Meds if any: Prescribed or Continued at Discharge Meds if any: NOT Prescribed or Continued at Discharge Venous thromboembolism Inclusion Criteria VTE Diagnosis No VTE Type NONE VTE Confirmed by (Test) NONE Discharge Core Measures - Per Current guidelines, there needs to be overlap - treatment for the first 5 days of Warfarin therapy. - If discharged on Warfarin prior to 5 days of - overlap therapy, the patient will need to be - assessed for post discharge needs including - *Post discharge parental anticoagulation - *Warfarin and/or parental anticoagulation education - *Follow up date to check INR post discharge At least 5 days overlap therapy as Inpatient No Meds if any: Prescribed or Continued at Discharge Note: Overlap Therapy is Warfarin and Anticoagulant Meds if any: NOT Prescribed or Continued at Discharge
[2016-10-14 12:29] VITALS: BP 118/64
[2016-10-14 16:00] VITALS: BP 130/70
[2016-10-14 23:00] VITALS: BP 120/70
[2016-10-15 04:58] LABS: ABSOLUTE BASOPHIL COUNT 0 /CUMM (0.0-0.2); ABSOLUTE EOSINOPHIL COUNT 0.2 /CUMM (0.0-0.7); ABSOLUTE GRANULOCYTE CT 7.8 /CUMM (1.4-6.5); ABSOLUTE LYMPH COUNT 0.5 /CUMM (1.2-3.4); ABSOLUTE MONOCYTE COUNT 0.7 /CUMM (0.10-0.60); BASOPHIL % 0.3 % (0.0-2.0); EOSINOPHIL % 1.8 % (0-5); GRANULOCYTE % 84.2 % (42.2-75.2); HEMATOCRIT 27.8 % (42-52); MEAN CORPUSCULAR HGB 28.4 PG (27.0-31.0); MEAN CORPUSCULAR HGB CONC 32.7 G/DL (33.0-37.0); MEAN CORPUSCULAR VOLUME 86.8 FL (80.0-94.0); MEAN PLATELET VOLUME 7.8 FL (7.4-10.4); PLATELET COUNT 363 /CUMM (130-400); RBC DISTRIBUTION WIDTH 15.1 % (11.5-14.5); RED BLOOD CELL CT 3.21 /CUMM (4.70-6.10); WHITE BLOOD CELL COUNT 9.3 /CUMM (4.8-10.8)
--- NOTE | 2016-10-15 07:15 | PN- Resident CRCU ---
Subjective HPI/CRCU Issues: Patient was seen and examined this morning, alert oriented 3, offered no complaints. Vital signs are stable. No overnight events were reported by the nurse or the patient. Objective Vital Signs & I&O Last 8 Hrs of Vitals and I&O: Temperature 98.2, pulse 90, blood pressure 118/68, RR 20 saturating 96% on room air Exam General Appearance: no apparent distress Head: atraumatic, normal appearance Ears, Nose, Throat: normal pharynx, normal ENT inspection Neck: normal inspection, supple, full range of motion Respiratory: normal breath sounds, chest non-tender Cardiovascular: regular rate/rhythm Gastrointestinal: normal bowel sounds, soft, non-tender Extremities: normal inspection, normal capillary refill, normal range of motion, no edema Cranial Nerves: normal hearing, normal speech, PERRL Skin: intact, normal color, warm/dry Current Medications: Current Medications Sig/Karin Start time Last Medication Dose Route Stop Time Status Admin Acetaminophen 1,000 MG Q6P PRN 10/13 1015 AC 10/13 N/A 1 UNIT IV 1021 Acetaminophen 650 MG Q6P PRN 10/01 1515 AC 10/08 PO 0837 Diphenhydramine HCl 1 NORMA TID PRN 10/07 0945 AC 10/07 TOP 1445 Docusate Sodium 100 MG DAILY PRN 10/04 0700 AC 10/04 PO 0645 Heparin Sodium 5,000 UNIT Q8 10/01 2200 AC 10/15 (Porcine) SC 0656 Levothyroxine Sodium 0.088 MG DAILY AC 10/02 0811 AC 10/15 PO 0656 Metoprolol Tartrate 12.5 MG BID 10/01 2200 AC 10/15 PO 0937 Pravastatin Sodium 40 MG DAILY 10/02 1000 AC 10/15 PO 0937 Senna/Docusate Sodium 1 TAB BID 10/04 1000 AC 10/14 PO 2224 Vancomycin HCl 750 MG DAILY 10/12 1000 AC 10/15 Sodium Chloride 250 ML IV 0937 Impression/Plan Impression/Problem List Impression: Mr. Garsia is an 85 year old male with PMH CAD s/p CABG in 1989, SC, angioplasty, paroxysmal atrial fibrillation on Tikosyn, CHF, biventricular pacemaker defibrillator, hypothyroidism, bladder cancer and chronic suprapubic galicia catheter who was initially admitted to the telemetry floor for ventricular tachycardia and AICD firing. Patient had a rapid response on 10/10/16 and was transferred to the ICU after runs of polymorphic ventricular tachycardia suggestive of torsades. The patient received 2 mg IV push magnesium x 2, was then started on a magnesium drip and lastly given a one time dose of 150 mg IV push amiodarone. The patient is currently in the ICU and the following is the management: 1. Polymorphic ventricular tachycardia with AICD firing * AICD inactivated on 10/10 per family wishes given continuous firing, pacemaker capabilities continued * Continuous telemetry monitoring * Cardio consult appreciated, continue to follow recommendations * Magnesium drip off as patient hypermagnesemic; f/u daily mag levels and replete as needed * Continue conservative management as per family wishes * Dofetilide 125 mcg PO BID was discontinued on 10/12 * Patient was evaluated by Dr. Mcdowell, recommendation for blood transfusion and TSH, free T4 rechecked, no antirhythmic medication is recommended at this time 2. MRSA bacteremia * Source likely ?suprapubic cath vs cardiac origin given AICD and history of hip prosthesis * Blood culture from 10/11 x1 positive for MRSA despite receiving vancomycin for 12 days, if turned to be MRSA, further workup e.g. DIANA was declined by patient's family * Blood culture October 01, urine culture October 01 and October 07 are positive for MRSA * Vancomycin Day#13, trough level is therapeutic, antibiotic should be 4-6 weeks * Family declines CT chest, abdomen, pelvis at this time * Continue to follow ID and urology recommendations, consults appreciated * DC IVF 3. 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 CAD s/p CABG, CHF * Metroprolol 12.5 mg PO BID * Pravastatin daily 5. Hypothyroidism * Continue synthroid supplementation * Slightly elevated TSH, normal free T4 * Recommendation to continue with the current dose of Synthroid, recheck TFT next week DNR/DNI DVTP: Heparin SC Regular diet Mild pain pathway Patient is for discharge today to [facility] Problem List: 1. Hypothyroid 2. CAD S/P CABG 3. Cardiac pacemaker procedure 4. Bacteremia Pain Ratin Tomorrow's Labs & Rationales: CBC, ICU bundle Plan DVT/Prophylaxis: pharmacological Code Status: Do Not Resucitate/Intubat
[2016-10-15 08:00] VITALS: BP 118/68
--- NOTE | 2016-10-15 09:26 | PN- Pulmonary ---
Subjective HPI/Critical Care Issues: pt seen and examined gm hold mrsa in bcx Objective Current Medications: Current Medications Sig/Karin Start time Last Medication Dose Route Stop Time Status Admin Acetaminophen 1,000 MG Q6P PRN 10/13 1015 AC 10/13 N/A 1 UNIT IV 1021 Acetaminophen 650 MG Q6P PRN 10/01 1515 AC 10/08 PO 0837 Diphenhydramine HCl 1 NORMA TID PRN 10/07 0945 AC 10/07 TOP 1445 Docusate Sodium 100 MG DAILY PRN 10/04 0700 AC 10/04 PO 0645 Heparin Sodium 5,000 UNIT Q8 10/01 2200 AC 10/15 (Porcine) SC 0656 Levothyroxine Sodium 0.088 MG DAILY AC 10/02 0811 AC 10/15 PO 0656 Metoprolol Tartrate 12.5 MG BID 10/01 2200 AC 10/14 PO 2224 Pravastatin Sodium 40 MG DAILY 10/02 1000 AC 10/14 PO 0907 Senna/Docusate Sodium 1 TAB BID 10/04 1000 AC 10/14 PO 2224 Vancomycin HCl 750 MG DAILY 10/12 1000 AC 10/14 Sodium Chloride 250 ML IV 0955 Vital Signs & I&O Last 24 Hrs of Vitals and I&O: Vital Signs Date Time Temp Pulse Resp B/P B/P Pulse O2 O2 Flow FiO2 Mean Ox Delivery Rate 10/15 08 98.2 90 20 118/68 96 Room Air 10/15 0800 96 Room Air 10/14 2300 98.1 72 18 120/70 96 Room Air 10/14 2224 80 110/66 10/14 1600 97.8 86 20 130/70 97 Room Air 10/14 1510 Room Air 1.0L 10/14 1229 98.7 89 20 118/64 Intake & Output 10/15 1600 10/15 0800 10/15 0000 Intake Total 200 480 Output Total 151 200 Balance 49 280 Intake, Oral 200 480 Number 1 Bowel Movements Output, Stool 1 Output, Urine 150 200 Exam Other Physical Findings: gen awake and alert heent ncat cvs s1, s2, +murmur lungs rare rhonchi abd soft bs+ ext picc line, trace edema Results Last 24 Hrs of Lab Results: Laboratory Tests 10/15/16 0420: Anion Gap 9, Estimated GFR 41 L, Glucose 116 H, Calcium 7.3 L, Phosphorus 3.9 , Magnesium 2.2, Total Bilirubin 0.8, AST 31, ALT 50, Albumin 2.2 L, CBC w Diff NO MAN DIFF REQ, RBC 3.21 L, MCV 86.8, MCH 28.4, RDW 15.1 H, MPV 7.8, Gran % 84.2 H, Lymphocytes % 5.9 L, Monocytes % 7.8, Eosinophils % 1.8, Basophils % 0.3, Absolute Granulocytes 7.8 H, Absolute Lymphocytes 0.5 L, Absolute Monocytes 0.7 H, Absolute Eosinophils 0.2, Absolute Basophils 0, PUBS MCHC 32.7 L Impression/Plan Impression/Plan Impression/Plan: Impression -polymorphic VT (torsade de pointes) - firing of AICD -MRSA bacteremia including urine cx for MRSA -chronic suprapubic catheter -CAD,cabg -hx of bladder ca Plan -gm hold -cont abx per ID -cardiology,id,urology f/u DVT prophylaxis at all times DNR/DNI
--- NOTE | 2016-10-15 10:35 | PN- Infect Dx ---
Subjective Subjective: Afebrile without complaints Objective Last 24 Hrs of Vital Signs/I&O Vital Signs Date Time Temp Pulse Resp B/P B/P Pulse O2 O2 Flow FiO2 Mean Ox Delivery Rate 10/15 0937 90 118/68 10/15 0800 98.2 90 20 118/68 96 Room Air 10/15 0800 96 Room Air 10/14 2300 98.1 72 18 120/70 96 Room Air 10/14 2224 80 110/66 10/14 1600 97.8 86 20 130/70 97 Room Air 10/14 1510 Room Air 1.0L 10/14 1229 98.7 89 20 118/64 Intake & Output 10/15 1600 10/15 0800 10/15 0000 Intake Total 200 480 Output Total 151 200 Balance 49 280 Intake, Oral 200 480 Number 1 Bowel Movements Output, Stool 1 Output, Urine 150 200 Physical Exam Other Physical Findings: He appears comfortable in no acute distress Lungs are clear Heart regular rhythm with a 1 to 2/6 systolic ejection murmur Abdomen is mildly distended, nontender with positive bowel sounds; suprapubic catheter site with no inflammation Extremities no cyanosis, clubbing or edema Results Last 24 Hours of Lab Results: Laboratory Tests 10/15 0420 Chemistry Sodium (137 - 145 mmol/L) 139 Potassium (3.5 - 5.1 mmol/L) 4.1 Chloride (98 - 107 mmol/L) 106 Carbon Dioxide (22 - 30 mmol/L) 24 Anion Gap (5 - 16) 9 BUN (9 - 20 mg/dL) 17 Creatinine (0.7 - 1.2 mg/dL) 1.6 H Estimated GFR (>60 ml/min) 41 L Glucose (65 - 99 mg/dL) 116 H Calcium (8.4 - 10.2 mg/dL) 7.3 L Phosphorus (2.5 - 4.5 mg/dL) 3.9 Magnesium (1.6 - 2.3 mg/dL) 2.2 Total Bilirubin (0.2 - 1.3 mg/dL) 0.8 AST (17 - 59 U/L) 31 ALT (21 - 72 U/L) 50 Albumin (3.5 - 5.0 g/dL) 2.2 L Hematology CBC w Diff NO MAN DIFF REQ WBC (4.8 - 10.8 /CUMM) 9.3 RBC (4.70 - 6.10 /CUMM) 3.21 L Hgb (14.0 - 18.0 G/DL) 9.1 L Hct (42 - 52 %) 27.8 L MCV (80.0 - 94.0 FL) 86.8 MCH (27.0 - 31.0 PG) 28.4 RDW (11.5 - 14.5 %) 15.1 H Plt Count (130 - 400 /CUMM) 363 MPV (7.4 - 10.4 FL) 7.8 Gran % (42.2 - 75.2 %) 84.2 H Lymphocytes % (20.5 - 51.1 %) 5.9 L Monocytes % (1.7 - 9.3 %) 7.8 Eosinophils % (0 - 5 %) 1.8 Basophils % (0.0 - 2.0 %) 0.3 Absolute Granulocytes (1.4 - 6.5 /CUMM) 7.8 H Absolute Lymphocytes (1.2 - 3.4 /CUMM) 0.5 L Absolute Monocytes (0.10 - 0.60 /CUMM) 0.7 H Absolute Eosinophils (0.0 - 0.7 /CUMM) 0.2 Absolute Basophils (0.0 - 0.2 /CUMM) 0 PUBS MCHC (33.0 - 37.0 G/DL) 32.7 L Last 24 Hours of Apolinar Results: Blood cultures October 11 one bottle positive for MRSA Blood cultures 2 October 14 negative Assessment/Plan Impression: Clinically stable with temperatures and white blood cell count remaining normal on Vancomycin now Day 13 of treatment for MRSA bacteremia, presumably of urologic origin, but with a repeat blood culture from October 11, obtained after 9 days of Vancomycin, positive for MRSA, raising concern for a persistent focus of infection, perhaps on the heart valves or the pacemaker or within the right pleural effusion or hip prostheses, though his temperatures and white blood cell count remain normal. Further evaluation, for example DIANA and white blood cell scan, could be considered, though his family is ambivalent about pursuing any further aggressive workup. In any event he will need a 4 to 6 week course of antibiotics for a "complicated" bacteremia, given the presence of implants ( pacemaker and bilateral hips) and persistent bacteremia. Suggestion: 1. Cardiology follow-up regarding possible DIANA 2. Await family decision regarding further testing, for example white blood cell scan 3. Continue Vancomycin
--- NOTE | 2016-10-15 12:56 | PN- Cardiology ---
Subjective Subjective: The patient is awake and alert today. He has no specific complaints. His white count is normal. His hematocrit is stable. He has a positive blood culture, one out of 2, from 10/11. This is apparently the same organism as originally. Raymundo Gooden MD has suggested possibly a WBC scan or a transesophageal echocardiogram for further evaluation. However it appears that this would not change the treatment in terms of length of antibiotics. I did speak to the family and they do not wish any further testing to be done at this time. They are eager for the patient to be transferred to short-term rehabilitation. Objective Vital Signs and I&Os Vital Signs Date Time Temp Pulse Resp B/P B/P Pulse O2 O2 Flow FiO2 Mean Ox Delivery Rate 10/15 0937 90 118/68 10/15 08 98.2 90 20 11868 96 Room Air 10/15 0800 96 Room Air 10/14 2300 98.1 72 18 120/70 96 Room Air 10/14 2224 80 110/66 10/14 1600 97.8 86 20 130/70 97 Room Air 10/14 1510 Room Air 1.0L Intake & Output 10/15 1600 10/15 0800 10/15 0000 10/14 1600 10/14 0800 10/14 0000 Intake Total 200 480 550 200 795 Output Total 151 200 156 749 5750 Balance 49 280 400 -280 -555 Intake, Blood 375 Product Intake, IV 250 Intake, Oral 200 480 300 200 420 Number 1 2 Bowel Movements Output, Stool 1 Output, Urine 150 200 403 173 8173 Physical Exam: His vital signs are normal and his examination is unchanged from yesterday. Current Medications: Current Medications Sig/Karin Start time Last Medication Dose Route Stop Time Status Admin Acetaminophen 1,000 MG Q6P PRN 10/13 1015 AC 10/13 N/A 1 UNIT IV 1021 Acetaminophen 650 MG Q6P PRN 10/01 1515 AC 10/08 PO 0837 Diphenhydramine HCl 1 NORMA TID PRN 10/07 0945 AC 10/07 TOP 1445 Docusate Sodium 100 MG DAILY PRN 10/04 0700 AC 10/04 PO 0645 Heparin Sodium 5,000 UNIT Q8 10/01 2200 AC 10/15 (Porcine) SC 0656 Levothyroxine Sodium 0.088 MG DAILY AC 10/02 0811 AC 10/15 PO 0656 Metoprolol Tartrate 12.5 MG BID 10/010 AC 10/15 PO 0937 Pravastatin Sodium 40 MG DAILY 10/02 1000 AC 10/15 PO 09 Senna/Docusate Sodium 1 TAB BID 10/04 1000 AC 10/14 PO 222 Vancomycin HCl 750 MG DAILY 10/12 999 AC 10/15 Sodium Chloride 250 ML IV 0937 Results Last 48 Hrs of Labs/Mics: Laboratory Tests 10/15/16 0420: Anion Gap 9, Estimated GFR 41 L, Glucose 116 H, Calcium 7.3 L, Phosphorus 3.9 , Magnesium 2.2, Total Bilirubin 0.8, AST 31, ALT 50, Albumin 2.2 L, CBC w Diff NO MAN DIFF REQ, RBC 3.21 L, MCV 86.8, MCH 28.4, RDW 15.1 H, MPV 7.8, Gran % 84.2 H, Lymphocytes % 5.9 L, Monocytes % 7.8, Eosinophils % 1.8, Basophils % 0.3, Absolute Granulocytes 7.8 H, Absolute Lymphocytes 0.5 L, Absolute Monocytes 0.7 H, Absolute Eosinophils 0.2, Absolute Basophils 0, PUBS MCHC 32.7 L 10/14/16 0400: Anion Gap 7, Estimated GFR 41 L, Glucose 95, Calcium 7.3 L, Phosphorus 4.4, Magnesium 2.5 H, Total Bilirubin 1.0, AST 50, ALT 55, Albumin 2.2 L, CBC w Diff NO MAN DIFF REQ, RBC 3.26 L, MCV 85.7, MCH 28.2, RDW 15.1 H, MPV 7.7, Gran % 84.2 H, Lymphocytes % 7.4 L, Monocytes % 6.4, Eosinophils % 1.6, Basophils % 0.4, Absolute Granulocytes 6.5, Absolute Lymphocytes 0.6 L, Absolute Monocytes 0.5, Absolute Eosinophils 0.1, Absolute Basophils 0, PUBS MCHC 32.9 L 10/13/16 1930: CBC w Diff NO MAN DIFF REQ, RBC 3.22 L, MCV 85.4, MCH 28.3, RDW 14.9 H, MPV 7.7, Gran % 83.4 H, Lymphocytes % 7.3 L, Monocytes % 7.0, Eosinophils % 2.0, Basophils % 0.3, Absolute Granulocytes 6.0, Absolute Lymphocytes 0.5 L, Absolute Monocytes 0.5, Absolute Eosinophils 0.1, Absolute Basophils 0, PUBS MCHC 33.1 10/13/16 1700: PT Cancelled, INR Cancelled Assessment/Plan Assessment/Plan Mr. Ding had a setback with recurrent defibrillator shocks. The family is now being more conservative with his care. However he has stabilized somewhat. There have been no additional arrhythmias. He is not in congestive heart failure. He has a positive blood culture from 4 days ago but the family is refusing any further testing to further evaluate this. Blood cultures from yesterday are still pending. The family wishes the patient to go to rehabilitation today with no further testing or evaluation but do agree to long- term antibiotics. Continue telemetry? No
[2016-10-15 16:00] VITALS: BP 11/60; BP 110/60
[2016-10-15 23:00] VITALS: BP 136/78
[2016-10-16 06:05] LABS: ABSOLUTE BASOPHIL COUNT 0 /CUMM (0.0-0.2); ABSOLUTE EOSINOPHIL COUNT 0.1 /CUMM (0.0-0.7); ABSOLUTE GRANULOCYTE CT 9.2 /CUMM (1.4-6.5); ABSOLUTE LYMPH COUNT 0.6 /CUMM (1.2-3.4); ABSOLUTE MONOCYTE COUNT 0.8 /CUMM (0.10-0.60); BASOPHIL % 0.1 % (0.0-2.0); EOSINOPHIL % 0.8 % (0-5); GRANULOCYTE % 86.2 % (42.2-75.2); HEMATOCRIT 27.7 % (42-52); MEAN CORPUSCULAR HGB 28.4 PG (27.0-31.0); MEAN CORPUSCULAR HGB CONC 32.8 G/DL (33.0-37.0); MEAN CORPUSCULAR VOLUME 86.6 FL (80.0-94.0); MEAN PLATELET VOLUME 8.5 FL (7.4-10.4); PLATELET COUNT 303 /CUMM (130-400); RBC DISTRIBUTION WIDTH 15.4 % (11.5-14.5); WHITE BLOOD CELL COUNT 10.6 /CUMM (4.8-10.8)
--- NOTE | 2016-10-16 07:41 | PN- Resident CRCU ---
Subjective HPI/CRCU Issues: Patient was seen and examined this morning, he is alert awake, laying comfortably in bed, denied any chest pain, palpitation, shortness of breath, cough. Denied any abdominal pain, nausea or vomiting, tolerating diet well, had bowel movement yesterday, no blood. No overnight events reported by the nurse of the patient. 24 Hour Events: Vital signs are stable. Objective Vital Signs & I&O Last 8 Hrs of Vitals and I&O: Intake & Output 10/16 1600 Intake Total 490 Output Total 100 Balance 390 Intake, IV 250 Intake, Oral 240 Output, Urine 100 Exam General Appearance: no apparent distress, alert, awake Head: atraumatic, normal appearance Ears, Nose, Throat: normal pharynx, normal ENT inspection Neck: normal inspection, supple, full range of motion Respiratory: normal breath sounds, chest non-tender, no respiratory distress Cardiovascular: regular rate/rhythm Gastrointestinal: normal bowel sounds, soft, non-tender Extremities: normal inspection, normal capillary refill, normal range of motion, bilateral trace pedal edema Cranial Nerves: normal hearing, normal speech, PERRL Current Medications: Current Medications Sig/Karin Start time Last Medication Dose Route Stop Time Status Admin Acetaminophen 1,000 MG Q6P PRN 10/13 1015 DCD 10/13 N/A 1 UNIT IV 1021 Acetaminophen 650 MG Q6P PRN 10/01 1515 DCD 10/08 PO 0837 Diphenhydramine HCl 1 NORMA TID PRN 10/07 0945 DCD 10/07 TOP 1445 Docusate Sodium 100 MG DAILY PRN 10/04 0700 DCD 10/04 PO 0645 Heparin Sodium 5,000 UNIT Q8 10/01 2200 DCD 10/16 (Porcine) SC 1317 Levothyroxine Sodium 0.088 MG DAILY AC 10/02 0811 DCD 10/16 PO 0555 Metoprolol Tartrate 12.5 MG BID 10/01 2200 DCD 10/16 PO 1112 Pravastatin Sodium 40 MG DAILY 10/02 1000 DCD 10/16 PO 1111 Senna/Docusate Sodium 1 TAB BID 10/04 1000 DCD 10/16 PO 1111 Vancomycin HCl 750 MG DAILY 10/12 1000 DCD 10/16 Sodium Chloride 250 ML IV 1112 Impression/Plan Impression/Problem List Impression: Mr. Garsia is an 85 year old male with PMH CAD s/p CABG in 1989, [place], angioplasty, paroxysmal atrial fibrillation on Tikosyn, CHF, biventricular pacemaker defibrillator, hypothyroidism, bladder cancer and chronic suprapubic galicia catheter who was initially admitted to the telemetry floor for ventricular tachycardia and AICD firing. Patient had a rapid response on 10/10/16 and was transferred to the ICU after runs of polymorphic ventricular tachycardia suggestive of torsades. The patient received 2 mg IV push magnesium x 2, was then started on a magnesium drip and lastly given a one time dose of 150 mg IV push amiodarone. The patient is currently in the ICU and the following is the management: 1. Polymorphic ventricular tachycardia with AICD firing * AICD inactivated on 10/10 per family wishes given continuous firing, pacemaker capabilities continued * Continuous telemetry monitoring * Cardio consult appreciated, continue to follow recommendations * Magnesium drip off as patient hypermagnesemic; f/u daily mag levels and replete as needed * Continue conservative management as per family wishes * Dofetilide 125 mcg PO BID was discontinued on 10/12 * Patient was evaluated by Dr. Mcdowell, recommendation for blood transfusion and TSH, free T4 rechecked, no antirhythmic medication is recommended at this time 2. MRSA bacteremia * Source likely ?suprapubic cath vs cardiac origin given AICD and history of hip prosthesis * Blood culture from 10/11 x1 positive for MRSA despite receiving vancomycin for 12 days, if turned to be MRSA, further workup e.g. DIANA was declined by patient's family * Blood culture October 01, urine culture October 01 and October 07 are positive for MRSA * Vancomycin Day#13, trough level is therapeutic, antibiotic should be 4-6 weeks from the last negative blood culture * Family declines CT chest, abdomen, pelvis at this time * Continue to follow ID and urology recommendations, consults appreciated 3. 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 CAD s/p CABG, CHF * Metroprolol 12.5 mg PO BID * Pravastatin daily 5. Hypothyroidism * Continue synthroid supplementation * Slightly elevated TSH, normal free T4 * Recommendation to continue with the current dose of Synthroid, recheck TFT next week DNR/DNI DVTP: Heparin SC Regular diet Mild pain pathway Patient is for discharge today to [facility] Problem List: 1. Bacteremia 2. UTI (urinary tract infection) 3. Hypothyroid Pain Ratin Tomorrow's Labs & Rationales: none Plan DVT/Prophylaxis: pharmacological Code Status: Do Not Resucitate/Intubat
--- NOTE | 2016-10-16 09:05 | PN- Pulmonary ---
See Addendum Subjective HPI/Critical Care Issues: pt seen and examined afebrile saturating well on room air hemodynamically stable normal wbc Objective Current Medications: Current Medications Sig/Karin Start time Last Medication Dose Route Stop Time Status Admin Acetaminophen 1,000 MG Q6P PRN 10/13 1015 AC 10/13 N/A 1 UNIT IV 1021 Acetaminophen 650 MG Q6P PRN 10/01 1515 AC 10/08 PO 0837 Diphenhydramine HCl 1 NORMA TID PRN 10/07 0945 AC 10/07 TOP 1445 Docusate Sodium 100 MG DAILY PRN 10/04 0700 AC 10/04 PO 0645 Heparin Sodium 5,000 UNIT Q8 10/01 2200 AC 10/16 (Porcine) SC 0555 Levothyroxine Sodium 0.088 MG DAILY AC 10/02 0811 AC 10/16 PO 0555 Metoprolol Tartrate 12.5 MG BID 10/01 2200 AC 10/15 PO 2148 Pravastatin Sodium 40 MG DAILY 10/02 1000 AC 10/15 PO 0937 Senna/Docusate Sodium 1 TAB BID 10/04 1000 AC 10/15 PO 2147 Vancomycin HCl 750 MG DAILY 10/12 1000 AC 10/15 Sodium Chloride 250 ML IV 0937 Vital Signs & I&O Last 24 Hrs of Vitals and I&O: Vital Signs Date Time Temp Pulse Resp B/P B/P Pulse O2 O2 Flow FiO2 Mean Ox Delivery Rate 10/16 0838 Room Air 10/15 2300 98.4 92 18 136/78 96 Room Air 10/15 2148 88 124/70 10/15 1600 98.0 90 20 11/60 96 Room Air 10/15 1600 96 Room Air 10/15 0937 90 118/68 Intake & Output 10/16 1600 10/16 0800 10/16 0000 Intake Total 240 600 Output Total 100 100 Balance 140 500 Intake, Oral 240 600 Output, Urine 100 100 Exam Other Physical Findings: gen awake and alert heent ncat cvs s1, s2, +murmur lungs rare rhonchi abd soft bs+ ext picc line, trace edema Results Last 24 Hrs of Lab Results: Laboratory Tests 10/16/16 0445: Anion Gap 10, Estimated GFR 41 L, Glucose 126 H, Calcium 7.4 L, Phosphorus 3.6, Magnesium 2.1, Total Bilirubin 0.6, AST 29, ALT 38, Albumin 2.3 L, CBC w Diff NO MAN DIFF REQ, RBC 3.20 L, MCV 86.6, MCH 28.4, RDW 15.4 H, MPV 8.5, Gran % 86.2 H, Lymphocytes % 5.4 L, Monocytes % 7.5, Eosinophils % 0.8, Basophils % 0.1, Absolute Granulocytes 9.2 H, Absolute Lymphocytes 0.6 L, Absolute Monocytes 0.8 H, Absolute Eosinophils 0.1, Absolute Basophils 0, PUBS MCHC 32.8 L Impression/Plan Impression/Plan Impression/Plan: Impression -polymorphic VT (torsade de pointes) - firing of AICD -MRSA bacteremia including urine cx for MRSA -chronic suprapubic catheter -CAD,cabg -hx of bladder ca Plan -gm hold -cont abx per ID -cardiology,id,urology f/u -family prefer intermediate designer abx vs any invasive interventions - i.e. DIANA DVT prophylaxis at all times DNR/DNI
--- NOTE | 2016-10-16 10:03 | PN- Infect Dx ---
Subjective Subjective: Afebrile without complaints Objective Last 24 Hrs of Vital Signs/I&O Vital Signs Date Time Temp Pulse Resp B/P B/P Pulse O2 O2 Flow FiO2 Mean Ox Delivery Rate 10/16 0838 Room Air 10/15 2300 98.4 92 18 136/78 96 Room Air 10/15 2148 88 124/70 10/15 1600 98.0 90 20 11/60 96 Room Air 10/15 1600 96 Room Air Intake & Output 10/16 1600 10/16 0800 10/16 0000 Intake Total 240 600 Output Total 100 100 Balance 140 500 Intake, Oral 240 600 Output, Urine 100 100 Physical Exam Other Physical Findings: He appears comfortable in no acute distress Lungs decreased breath sounds at the right base Heart regular rhythm with a 2/6 systolic ejection murmur Extremities no cyanosis, clubbing or edema; PICC remains in the right upper extremity with no inflammation at the site Results Last 24 Hours of Lab Results: Laboratory Tests 10/16 0445 Chemistry Sodium (137 - 145 mmol/L) 139 Potassium (3.5 - 5.1 mmol/L) 4.3 Chloride (98 - 107 mmol/L) 105 Carbon Dioxide (22 - 30 mmol/L) 24 Anion Gap (5 - 16) 10 BUN (9 - 20 mg/dL) 18 Creatinine (0.7 - 1.2 mg/dL) 1.6 H Estimated GFR (>60 ml/min) 41 L Glucose (65 - 99 mg/dL) 126 H Calcium (8.4 - 10.2 mg/dL) 7.4 L Phosphorus (2.5 - 4.5 mg/dL) 3.6 Magnesium (1.6 - 2.3 mg/dL) 2.1 Total Bilirubin (0.2 - 1.3 mg/dL) 0.6 AST (17 - 59 U/L) 29 ALT (21 - 72 U/L) 38 Albumin (3.5 - 5.0 g/dL) 2.3 L Hematology CBC w Diff NO MAN DIFF REQ WBC (4.8 - 10.8 /CUMM) 10.6 RBC (4.70 - 6.10 /CUMM) 3.20 L Hgb (14.0 - 18.0 G/DL) 9.1 L Hct (42 - 52 %) 27.7 L MCV (80.0 - 94.0 FL) 86.6 MCH (27.0 - 31.0 PG) 28.4 RDW (11.5 - 14.5 %) 15.4 H Plt Count (130 - 400 /CUMM) 303 MPV (7.4 - 10.4 FL) 8.5 Gran % (42.2 - 75.2 %) 86.2 H Lymphocytes % (20.5 - 51.1 %) 5.4 L Monocytes % (1.7 - 9.3 %) 7.5 Eosinophils % (0 - 5 %) 0.8 Basophils % (0.0 - 2.0 %) 0.1 Absolute Granulocytes (1.4 - 6.5 /CUMM) 9.2 H Absolute Lymphocytes (1.2 - 3.4 /CUMM) 0.6 L Absolute Monocytes (0.10 - 0.60 /CUMM) 0.8 H Absolute Eosinophils (0.0 - 0.7 /CUMM) 0.1 Absolute Basophils (0.0 - 0.2 /CUMM) 0 PUBS MCHC (33.0 - 37.0 G/DL) 32.8 L Last 24 Hours of Apolinar Results: Blood cultures 2 October 14 remain negative Assessment/Plan Impression: Clinically stable with temperatures and white blood cell count remaining normal on Vancomycin now Day 14 of treatment for MRSA bacteremia, presumably of urologic origin, with a repeat blood culture from October 11, obtained after 9 days of Vancomycin, positive for MRSA, raising concern for a persistent focus of infection, perhaps on the heart valves or the pacemaker or within the right pleural effusion or hip prostheses. His family has apparently declined further evaluation, for example DIANA and white blood cell scan, and he is apparently scheduled for discharge. He will need a 6 week course of antibiotics for his "complicated" bacteremia, given the presence of implants (pacemaker and bilateral hips) and , in particular, given his recurrent bacteremia. Of note his most recent blood cultures sent 2 days ago are so far negative. Suggestion: 1. Continue Vancomycin to complete a six-week course of treatment from his negative blood cultures (until November 24) 2. Will need a weekly CBC, BUN/creatinine and Vancomycin trough level
--- NOTE | 2016-10-16 11:12 | RADIOLOGY REPORT ---
EXAMINATION: XR FOOT, LEFT CLINICAL INFORMATION: Left foot tenderness, gout history. COMPARISON: 01/14/2010 TECHNIQUE: AP, lateral, and oblique views of the left foot. FINDINGS: Bone mineral density is maintained without evidence of fracture or dislocation. No focal osseous lesions are seen. There is first metatarsophalangeal joint space narrowing with mild hypertrophic productive changes without evidence of an erosive changes overlying tophus. Subchondral lucency in the head of the left first metatarsal is likely reactive degenerative change. There is minimal plantar calcaneal spurring. Surgical clips in the medial lower leg suggest vein harvest site. IMPRESSION: Increasing degenerative changes first MTP joint.
== END 2016-10-16 13:45 | DRG 653 ==
LOC: ERH 10:44 → CRI 13:49 → ERHI 13:49 → 1NO 13:49 → ENRESERV 15:36 → 1NO 16:25 → CRI 10-10 11:51
PROVIDERS: Internal Medicine; Physician Assistant Medical; Student in an Organized Health Care Education/Training Program; ADMIT Hospitalist
DX: T83.518A Infection and inflammatory reaction due to other urinary catheter, initial encounter (principal); I49.01 Ventricular fibrillation; A41.9 Sepsis, unspecified organism; I47.2 Ventricular tachycardia; I13.0 Hypertensive heart and chronic kidney disease with heart failure and stage 1 through stage 4 chronic kidney disease, or unspecified chronic kidney disease; I50.22 Chronic systolic (congestive) heart failure; D62 Acute posthemorrhagic anemia; N39.0 Urinary tract infection, site not specified; I27.2 Other secondary pulmonary hypertension; I48.0 Paroxysmal atrial fibrillation; I35.0 Nonrheumatic aortic (valve) stenosis; I25.5 Ischemic cardiomyopathy; Z95.1 Presence of aortocoronary bypass graft; I25.2 Old myocardial infarction; R21 Rash and other nonspecific skin eruption; Z66 Do not resuscitate; N39.41 Urge incontinence; I25.10 Atherosclerotic heart disease of native coronary artery without angina pectoris; N18.9 Chronic kidney disease, unspecified; E03.9 Hypothyroidism, unspecified; E78.5 Hyperlipidemia, unspecified; Z95.810 Presence of automatic (implantable) cardiac defibrillator; Z85.53 Personal history of malignant neoplasm of renal pelvis; Z85.51 Personal history of malignant neoplasm of bladder; Z85.46 Personal history of malignant neoplasm of prostate
CPT/HCPCS: 1NP; 87184; CCU; 36415; 73630-LT; 74000; 74176; 81001; 82436; 86920; 87040; 87086; 87147; 93005; 93010; 93306; 96361; 96374; 96375; 97110-GO; 97112-GO; 97116-GO; 97161-GP; 97164-GP; 97530-GO; 99291; C2617; J0131; J0282; J0585; J0696; J1100; J1644; J1940; J2270; J2405; J3370; J7040; J7042; P9016